=== PATIENT | female | born 1950 | race Caucasian/White ===

== ENCOUNTER 2019-07-27 14:34 | Outpatient (REF) | payer MEDICARE, SELFPAY ==
[2019-07-27 19:12] LABS: Bilirubin Small (Negative); Blood Small (Negative); Clarity Sl Cloudy (Clear); Glucose 500 mg/dL (Negative); Ketones 80 mg/dL (Negative); Leukocyte Esterase Small (Negative); Nitrite Negative (Negative); Specific Gravity 1.025 (1.005-1.025); Urobilinogen 0.2 EU/dL (Up TO 0.2); pH 5.5 (5-8)
[2019-07-27 19:13] LABS: C & S Indicated? C&S Done As Ordered
[2019-07-27 19:33] LABS: WBC >50 HPF (0-5)
[2019-07-27 19:34] LABS: Bacteria Many HPF (Negative); Epithelial Cells Many HPF (Negative)
== END 2019-07-27 14:54 ==
LOC: NCHCN 14:34
PROVIDERS: Visit Provider Nurse Practitioner Family
DX: R30.0 Dysuria (principal); R39.15 Urgency of urination; R31.9 Hematuria, unspecified
CPT/HCPCS: 87077; 81003; 81015; 87086; 87186

== ENCOUNTER 2021-01-07 09:07 | Emergency (ER) | payer OTHER, SELFPAY ==
[2021-01-07 09:09] VITALS: BP 128/60; PULSE 90; RESP 20; TEMP 36.6; O2SAT 98
--- NOTE | 2021-01-07 09:15 | RT.EKG_ITS ---
APPROVED REPORT Exam: Resting ECG Reason for Exam: Fall Patient Location: E HR:78 bpm ECG Measurements Heart Rate 78 AXIS MS 177 P -5 QRSd 84 QRS -30 QT 407 T 34 QTc 464 Conclusion Sinus rhythm...normal P axis, V-rate 60- 99 Inferior infarct, old...Q >35mS, II III aVF
--- NOTE | 2021-01-07 09:15 | DI.RAD_ITS ---
Exam(s) XR HIP PELVIS ADULT BL EXAM: XR HIP PELVIS ADULT BL CLINICAL HISTORY: Fall, Hip Pain. TECHNIQUE: 2D digital imaging was performed. COMPARISON: No exams were available for comparison FINDINGS: BONES: No acute fracture is present. No bony destructive lesion is seen. JOINTS: No dislocation present. Minimal degenerative changes of the hip joints.. SOFT TISSUE: Normal. IMPRESSION: Mild degenerative changes. No evidence of fracture. DATA REPOSITORY: RADIATION DOSE DELIVERED:
--- NOTE | 2021-01-07 09:26 | W.ED.GENAD ---
Discharge Plan Disposition Patient Disposition: HOME Condition: Stable Discharge Details Clinical Impression: Urinary tract infection, Fall, Alcohol intoxication Primary Care Provider: Van Montero ED Provider: Tory Rodriguez Home Meds and New Rx's Prescriptions: New cephalexin 500 mg tablet 500 mg PO BID 7 Days Qty: 14 RF: 0 Discharge Instructions Instructions: Urinary Tract Infection in Women (ED), Fall Prevention for Older Adults (ED), Alcohol Intoxication (ED) Additional Instructions: Follow up with primary care provider in 3-5 days. Return to ED sooner if any worsening or concerns. Increase oral fluids. Take antibiotic as prescribed. Referrals: Van Monteor, ACTUARIAL MATHEMATICIAN [Primary Care Provider] - Discharge Data Discharge Date/Time-TO BE ENTERED AT DEPARTURE: 01/07/21 12:26 Medical Decision Making General labs ordered at this time including CBC, CMP, CK, urinalysis, and pelvis x-ray. 0954: Discussed patient case with care management Ginger regarding possibly contacting social work specialist or Adult Protective Services. At this time work-up is pending. EKG was reviewed by myself, no old EKG available for review. Sinus rhythm no STEMI FINDINGS: Ventricles and Extra axial spaces: Normal in size and morphology for the patient's age. Mild atrophy. Hemorrhage: None. Cerebral parenchyma: Mild white matter changes. Midline shift: None. Brainstem/Cerebellum: Normal. Calvarium: Normal. Visualized Paranasal sinuses/Mastoids: Mucous retention inferior right maxillary sinus. Soft Tissues: Unremarkable. IMPRESSION: Age related atrophy and mild white matter changes. No acute intracranial process. EXAM: XR HIP PELVIS ADULT BL CLINICAL HISTORY: Fall, Hip Pain. TECHNIQUE: 2D digital imaging was performed. COMPARISON: No exams were available for comparison FINDINGS: BONES: No acute fracture is present. No bony destructive lesion is seen. JOINTS: No dislocation present. Minimal degenerative changes of the hip joints.. SOFT TISSUE: Normal. IMPRESSION: Mild degenerative changes. No evidence of fracture. Labs are largely unremarkable. BGL 212, urinalysis shows trace protein, trace blood positive nitrite small leukocytes greater than 50 WBCs. Culture is pending at this time you are 500. Evidence for urinary tract infection. UDS is negative alcohol is 211.5 1150: Patient ambulatory in department up to nurses station requesting some water. Patient has tolerated p.o. here in department without difficulty. Discussed lab and imaging results with patient. She verbalized understanding. I did request to contact her family patient request that I do not contact her daughter. conference services manager wearing string here at bedside for patient discussion regarding resources. Discussed making report with Adult Protective Services regarding the state of the house and patient fall. We will arrange transport home. Patient sent home with cephalexin and a prescription for 7 days for UTI. Given strict follow-up with PCP, verbalized understanding. HPI General Mode of arrival: EMS. Date/Time Provider Initiated Documentation: 01/07/21 09:22. Limitations to Documentation: no limitations. Information obtained by: patient and EMS. HPI Narrative: 70-year-old female presents to the ER with complaint of fall and hip pain. Patient is a poor historian. Patient was found on the floor by first responders was helped up into the bed. Patient denies chest pain shortness of breath no fever no vomiting no diarrhea. She presents disheveled and soiled. She reports being on the floor for the last 4 days. She does have some stage I skin breakdown noted to her coccyx and bilateral hips. Patient states that she could not get herself up due to hip pain. She does endorse alcohol but none for the last 4 to 5 days. She has no palpable skull fractures no C-spine tenderness no midline back tenderness. Patient is moving all 4 extremities without difficulty upon initial exam. Related Data Home Medications Medication Instructions Recorded Confirmed cephalexin 500 mg PO BID 7 Days #14 tab 01/07/21 Previous Rx's Medication Instructions Recorded cephalexin 500 mg PO BID 7 Days #14 tab 01/07/21 Allergies Allergy/AdvReac Type Severity Reaction Status Date / Time No Known Allergies Allergy Unverified 01/07/21 09:20 General Stated Complaint: Orthopedic SETH: 3 Review of Systems Narrative: Constitutional: Negative for weight loss, alert and oriented, thin, disheveled soiled, . HEENT: Denies trauma, headaches, blurry vision, nasal discharge, sore throat, trouble swallowing. Chest: Denies chest pain, palpitations, irregular rhythm, hypertension. Respiratory: Denies Shortness of breath, cough, hemoptysis. GI: Denies abdominal pain, nausea, vomiting, diarrhea, constipation. : Denies dysuria, hematuria, flank pain, rectal bleeding. Neuro: Denies dizziness, blurry vision, syncope, headache or facial numbness. Hematologic: Denies easy bruising, intolerance to heat or cold, hair loss. PFSH Social History Smoking/Tobacco Use Status: Former Tobacco Use Smoking risk assessment performed?: Yes Alcohol Intake: current Alcohol Intake frequency: a few times a week Alcohol type: wine Drug use: Never Substance use type: does not use Exam Narrative Exam Narrative: General: Well Developed, Awake and Alert, conversant. Skin: Moist, covered in stool and urine dark. HEENT: Head: No palpable deformities, Normocephalic Eyes: Pupils PERRLA, EOM's intact. No periorbital eccymosis or step off Ears: Canal patent. Tympanic membranes are clear . No chavira's sign, no hemptympanum. Nose/Face: Atraumatic. Facial bones nontender to palpation and stable with manipulation. Mouth/Throat: No intraoral trauma. Teeth and mandible are intact. Neck: No midline tenderness, no step off, no deformity to palpation of C-spine. Trachea midline. Chest: No surface trauma. Nontender without crepitus or deformity. Lungs clear to ausculatation bilaterally. Heart: RRR, no rubs, murmurs or gallop. Abdomen: No abrasions, ecchymosis, or surface trauma. Nondistended. Nontender to palpation no guarding, rebound, or rigidity. Pelvis: Nontender to palpation and stable to compression. Femoral pulses strong and equal. Erythemic areas noted to the bilateral iliac crest and coccyx blanchable. Extremities no surface trauma. Sensation intact. Peripheral pulses intact and equal. Does have small excoriation type rash to the bilateral upper extremities. Neuro: ANO x4, GCS 15, cranial nerves II through XII intact. Motor and sensory exam nonfocal. Reflexes are symmetric. Course Vital Signs Vital signs: Vital Signs Temperature 36.6 C 01/07/21 09:09 Pulse 90 01/07/21 09:09 Respiratory Rate 20 01/07/21 09:09 Blood Pressure 128/60 01/07/21 09:09 Pulse Oximetry 98 01/07/21 09:09 Temperature 36.6 C 01/07/21 09:09 Temperature Source Skin 01/07/21 09:09 Pulse 90 01/07/21 09:09 Respiratory Rate 20 01/07/21 09:09 Respiratory Effort Non-Labored 01/07/21 09:21 Blood Pressure 128/60 01/07/21 09:09 Blood Pressure Position Sitting 01/07/21 09:09 Pulse Oximetry 98 01/07/21 09:09 Oxygen Delivery Method Room Air 01/07/21 09:09 Oxygen Flow Rate 0 01/07/21 09:09
--- NOTE | 2021-01-07 09:30 | DI.CT_ITS ---
Exam(s) CT HEAD WO EXAM: CT HEAD WO CLINICAL HISTORY: Fall. TECHNIQUE: Imaging Protocol: Axial computed tomography images with coronal and sagittal reformatted images were created and reviewed COMPARISON: No exams were available for comparison FINDINGS: Ventricles and Extra axial spaces: Normal in size and morphology for the patient's age. Mild atrophy. Hemorrhage: None. Cerebral parenchyma: Mild white matter changes. Midline shift: None. Brainstem/Cerebellum: Normal. Calvarium: Normal. Visualized Paranasal sinuses/Mastoids: Mucous retention inferior right maxillary sinus. Soft Tissues: Unremarkable. IMPRESSION: Age related atrophy and mild white matter changes. No acute intracranial process. RADIATION DOSE DELIVERED: 731.08mGy.cm Total DLP DATA REPOSITORY: All CT scans at this facility are submitted to the National Radiology Data Registry (NRDR) Dose Index Registry (DIR) with the [employer] (A[employer]). RADIATION OPTIMIZATION: All CT scans at this facility use at least one of these dose optimization te chniques: automated exposure control; mA and/or kV adjustment per patient size (includes targeted exa ms where dose is matched to clinical indication); or iterative reconstruction.
[2021-01-07 10:04] LABS: Abs Immature Grans 0.03 10^3/uL (0.0-0.06); Absolute Basophil Count 0.06 10^3/uL (0.0-0.2); Absolute Eosinophil Count 0.25 10^3/uL (0.0-0.7); Absolute Lymphocyte Count 1.92 10^3/uL (1.2-3.4); Absolute Monocyte Count 0.72 10^3/uL (0.1-0.8); Absolute Neutrophil Count 4.54 10^3/uL (1.2-6.7); Basophils % 0.8; Eosinophils % 3.3; HGB 13.9 g/dL (11.2-15.7); Immature Grans % 0.4; Lymphocytes % 25.5; MCH 30.5 pg (27.0-33.0); MCHC 33.1 % (32.0-36.0); MCV 92.3 fL (80-95); MPV 9.6 fL (8.0-11.0); Monocytes % 9.6; Neutrophils % 60.4; Nucleated RBC 0 %; Platelet Count 243 10^3/uL (130-400); RBC 4.55 10^6/uL (3.93-5.22); RDW 12.5 % (11.7-14.6); WBC 7.52 10^3/uL (4.4-10.8)
[2021-01-07 10:08] LABS: Bilirubin Negative (Negative); Blood Trace-intact (Negative); Clarity Cloudy (Clear); Glucose 500 mg/dL (Negative); Ketones Negative (Negative); Leukocyte Esterase Small (Negative); Nitrite Positive (Negative); Urobilinogen 0.2 EU/dL (Up TO 0.2); pH 5.5 (5-8)
[2021-01-07 10:17] LABS: Bacteria Packed HPF (Negative); C & S Indicated? Yes; WBC >50 HPF (0-5)
[2021-01-07 10:19] LABS: ALT 20 U/L (14-59); AST 24 U/L (15-37); Albumin 3.2 g/dL (3.4-5.0); Alkaline Phosphatase 87 U/L (46-116); Anion Gap 9.5 mmol/L (3-11); BUN 6 mg/dL (7-18); Bilirubin, Total 0.4 mg/dL (0.2-1.0); CO2 27.5 mmol/L (21.0-32.0); CREATININE 0.7 mg/dL (0.55-1.02); Calcium 8.8 mg/dL (8.5-10.1); Chloride 104 mmol/L (98-107); Creatine Kinase 75 U/L (26-192); ETHANOL BLOOD 211.5 mg/dL (<3); Glucose 212 mg/dL (74-106); Magnesium 2.1 mg/dL (1.8-2.4); Potassium 3.6 mmol/L (3.5-5.1); Sodium 141 mmol/L (136-145); Total Protein 7.3 g/dL (6.4-8.2)
[2021-01-07 10:20] LABS: Troponin I < 0.05 ng/mL (<0.06)
[2021-01-07 10:24] LABS: *AMPHETAMINES SCREEN URINE Negative (Negative); *BARBITURATES SCREEN URINE Negative (Negative); *BENZODIAZEPINES SCREEN URINE Negative (Negative); Cannabinoids THC Negative (Negative); Cocaine Screen,Urine Negative (Negative); METHADONE URINE SCREEN Negative (Negative); OPIATES URINE SCREEN Negative (Negative)
[2021-01-07 10:26] LABS: Tricyclic Antidepressants Negative (Negative)
[2021-01-07] MEDS: Cephalexin 500 MG CAP PO (11:44)
[2021-01-07] MEDS: Normal Saline Flush 10 ML SYR IVP (11:44)
[2021-01-07] MEDS: Cephalexin 500 MG CAP, 4 CAPS/BTL PO (12:10)
[2021-01-07 12:20] VITALS: BP 121/101; PULSE 93; RESP 18; TEMP 37; O2SAT 98
[2021-01-07 12:21] VITALS: BP 121/101; PULSE 93; RESP 18; TEMP 37; O2SAT 98
--- NOTE | 2021-01-07 14:17 | PDOC.ERCMPRO ---
- If Service Date Differs Date of service: 01/07/21 Time of Service: 14:17 Care Management Progress Note Ester presents in the ED via EMS after reportedly falling at home and laying on the floor for several days. At the request of ED provider, MILLER meets with Ester to assess her needs and offer services. Ester declines all services and says she has some friends who help her out when needed. MILLER also receives a telephone call from Dre Kearns, [facility] Director, who advises that Ester's living condition is deplorable. Hoarding behaviors have reportedly rendered her apartment unsafe. Dre states he has spoken with the [facility]. and has been advised that [facility] management are in the process of evicting Ester from the apartment. At the request of ED provider, MILLER files an APS report (#[id number]). MILLER also contacts Ester's PCP's office to enlist their help in supporting Ester in the community.
== END 2021-01-07 12:26 | disposition home or self-care (01) ==
LOC: ER 12:08
PROVIDERS: Emergency Provider Registered Nurse Emergency; PCP Nurse Practitioner Family
DX: N39.0 Urinary tract infection, site not specified (principal); F10.120 Alcohol abuse with intoxication, uncomplicated; Y90.7 Blood alcohol level of 200-239 mg/100 ml; W19.XXXA Unspecified fall, initial encounter; M25.551 Pain in right hip; M25.552 Pain in left hip
CPT/HCPCS: 36415; 51701; 73521; 80053; 80307; 82550; 87077; 93005; 99285; 70450; 80320; 81003; 81015; 83735; 84484; 85025; 87086; 87186; 93010; 99284

== ENCOUNTER 2021-02-01 04:24 | Emergency (ER) | payer OTHER, SELFPAY ==
--- NOTE | 2021-02-01 04:25 | ED.GENADUL_ITS ---
Discharge Plan Disposition Patient Disposition: HOME Condition: Good Discharge Details Clinical Impression: Alcohol intoxication, Laceration of elbow with foreign body Primary Care Provider: Van Montero ED Provider: Nino Ovalles [place] Meds and New Rx's Prescriptions: New cephalexin 500 mg capsule 500 mg PO Q8H Qty: 14 RF: 0 Discharge Instructions Instructions: Laceration (ED) Additional Instructions: Keep your wound clean and dry. Remove bandage and clean the area and reapply antibiotic ointment twice daily. Take antibiotics have been prescribed to prevent infection. Sutures need to come out in 10 to 14 days. Watch for any signs of infection which will include increasing pain, redness, swelling, decreased range of motion, fever. Consider drinking alcohol in moderation in the future to prevent accidental injuries like this. Referrals: [facility] [Provider Group] Medical Decision Making Patient with no other apparent injury other than laceration as well as left elbow area. She has normal range of motion. Neurovascularly intact distally. She is intoxicated. Tetanus will be updated as she does not know when she had previous tetanus shot. X-ray of the left elbow obtained. Per my review no fracture or foreign body. A large piece of glass removed from the linear l aceration prior to going to x-ray. Wounds were anesthetized with 1% lidocaine with epinephrine. Wound irrigated with copious amounts of saline. Wound explored with no other foreign bodies found. Linear laceration involving dorsum of the forearm extending toward the olecranon does appear to involve bursa. Capsule of the elbow joint intact. Bursa closed with two 5-0 Vicryl sutures. Skin closed with 4-0 nylon. Stellate laceration on medial aspect of elbow closed with 4-0 nylon. Patient tolerated procedure well. Patient will be allowed to sleep here and sober up prior to discharge home. She was reexamined after being completely undressed with no other injury noted. I will place her on cephalexin for 5 days given the penetrating injury due to be large piece of glass, as well as bursa involvement, as well as extended open time while she was lying on the floor at her apartment. 07:20 - Patient has been up and ambulated to the bathroom without difficulty. She refused cephalexin in the ER. She received ibuprofen for pain but still complained of her elbow hurting. She continues to move it without difficulty. She is given Tylenol. At this point time her speech is much more clear, her gait is steady and her mentation is much improved. We will plan breakfast and discharge home. HPI General Mode of arrival: EMS . Date/Time Provider Initiated Documentation: 02/01/21 04:25 . Limitations to Documentation: other (intoxicated) . Information obtained by: patient, EMS and RN notes reviewed . HPI Narrative: Patient brought in by ambulance after a fall on to a broken picture frame at home while intoxicated. Patient has lacerations involving her left elbow. She is able to range the elbow relatively well. She has some bruising around the right elbow. She denies other injury, but has been drinking. Denies striking her head. Does not know when her last tetanus was. Denies taking any medications. Related Data Home Medications Medication Instructions Recorded Confirmed cephalexin 500 mg PO Q8H #14 cap 02/01/21 Previous Rx's Medication Instructions Recorded cephalexin 500 mg PO Q8H #14 cap 02/01/21 Allergies Allergy/AdvReac Type Severity Reaction Status Date / Time No Known Allergies Allergy Unverified 02/01/21 04:31 General SETH: 3 Review of Systems Unobtainable due to mental status (Alcohol intoxication) [facility] Medical History Alcohol abuse Surgical History Surgical history unknown Social History Smoking/Tobacco Use Status: Former Tobacco Use Smoking risk assessment performed?: Yes Alcohol Intake: current Alcohol Intake frequency: 0-2 drinks per day Alcohol type: wine Drug use: Never Substance use type: does not use Do you feel safe at home: Yes Exam Narrative Exam Narrative: Const: Elderly, unkempt, intoxicated female covered in blood. HEENT: NC/AT. Normal facial exam. Eyes: Normal conjunctiva and sclera. PERRL and EOMI. Neck: Supple. Trachea midline. No tenderness. Lungs: Normal respiratory effort. Lungs are clear. Cor: RRR. Good radial pulses. GI: Soft. NT/ND. No guarding or rebound. Neuro: A+O x 3. Relatively clear speech. Cranial nerves II - XII grossly intact. No gross motor or sensory deficit. Ext: No C/C/E. No obvious deformity and good range of motion of both elbows. Laceration with large piece of glass just distal to the elbow on the dorsal aspect of the forearm. Smaller laceration medial aspect of the elbow. Skin: Warm and dry. Linear laceration left proximal forearm measuring 4 cm. Stelate laceration medial aspect elbow measuring 1/2 cm. Procedures Laceration Laceration 1: Site: upper extremity Side (If applicable): left Size (cm): 4 Description: linear Local Anesthetic: Lidocaine 1% and with Epi Amount of anesthesia used (mL): 2.5 Pre-repair: wound explored and irrigated extensively Skin layer closed with: nylon Size (cm): 4-0 Number of sutures: 5 Technique: simple, interrupted Subcutaneous layer closed with: vicryl Size: 5-0 Number of sutures: 2 Technique: simple, interrupted Laceration 2: Site: upper extremity Side (If applicable): left Size (cm): 1 Description: stellate Depth: simple, single layer Local Anesthetic: Lidocaine 1% and with Epi Amount of anesthesia used (mL): 1 Pre-repair: wound explored and irrigated extensively Skin layer closed with: nylon Size (cm): 4-0 Number of sutures: 3
[2021-02-01 04:28] VITALS: BP 104/69; PULSE 74; RESP 16; TEMP 36.2; O2SAT 97
--- NOTE | 2021-02-01 04:30 | DI.RAD_ITS ---
Exam(s) XR ELBOW LT COMPLETE EXAM: XR ELBOW LT COMPLETE CLINICAL HISTORY: trauma TECHNIQUE: COMPARISON: No exams were available for comparison FINDINGS: Three views were obtained. The lateral view is not appropriately aligned and the humeral fat pads ca nnot be evaluated. No gross fracture identified on this incomplete series. Lateral view recommended . IMPRESSION: RADIATION DOSE DELIVERED: Total DLP
--- NOTE | 2021-02-01 05:21 | DI.VRAD_ITS ---
PROCEDURE INFORMATION: Exam: XR Left Elbow Exam date and time: 02/01/2021 4:42 AM Age: 70 years old Clinical indication: Pain; Elbow; Left; Patient HX: Laceration TECHNIQUE: Imaging protocol: XR Left elbow. Views: 3 or more views. COMPARISON: No relevant prior studies available. FINDINGS: Bones/joints: Normal. Soft tissues: Normal. IMPRESSION: No acute findings. Dictated and Authenticated by: Dre Briggs MD. Ordering:REYNA Oneill MD
[2021-02-01] MEDS: Ibuprofen 400 MG TAB PO (06:53)
[2021-02-01] MEDS: Acetaminophen 500 MG TAB 1000 MG PO (07:30)
[2021-02-01 07:59] VITALS: BP 111/53; PULSE 99; RESP 16; TEMP 36.4; O2SAT 93
== END 2021-02-01 07:58 | disposition home or self-care (01) ==
LOC: ER 06:03
PROVIDERS: Emergency Provider Emergency Medicine; PCP Nurse Practitioner Family
DX: S51.022A Laceration with foreign body of left elbow, initial encounter (principal); W01.110A Fall on same level from slipping, tripping and stumbling with subsequent striking against sharp glass, initial encounter; F10.129 Alcohol abuse with intoxication, unspecified
CPT/HCPCS: 12002; 90471; 99284; 73080; 99283

== ENCOUNTER 2021-04-05 08:54 | Emergency (ER) | payer OTHER, SELFPAY ==
[2021-04-05 08:54] VITALS: BP 118/69; PULSE 80; RESP 18; TEMP 36.3; O2SAT 99
--- NOTE | 2021-04-05 09:34 | ED.GENADUL_ITS ---
Discharge Plan Disposition Patient Disposition: HOME Condition: Stable Discharge Details Clinical Impression: Fall, Urinary tract infection, Alcohol intoxication Primary Care Provider: Van Montero ED Provider: Johnathan Corley Home Meds and New Rx's Prescriptions: New thiamine HCl (vitamin B1) 100 mg tablet 100 mg PO DAILY Qty: 30 RF: 0 No Action clopidogrel 75 mg Tablet 75 mg PO DAILY Qty: 30 RF: 0 aspirin 81 mg Tablet,Delayed Release (Dr/Ec) 81 mg PO DAILY Qty: 30 RF: 0 cefpodoxime 200 mg tablet 200 mg PO BID Qty: 8 RF: 0 metformin 500 mg tablet 500 mg PO BID Qty: 60 RF: 0 atorvastatin 40 mg Tablet 80 mg PO QPM Qty: 60 RF: 0 cyanocobalamin (vitamin B-12) [Vitamin B-12] 500 mcg Tablet 1,000 mcg PO DAILY Qty: 30 RF: 0 folic acid 1 mg Tablet 1 mg PO QAM Qty: 30 RF: 0 Discharge Instructions Instructions: Urinary Tract Infection in Women (ED), Fall Prevention for Older Adults (ED), Alcohol Intoxication (ED) Additional Instructions: Please follow-up with [facility]. Call today. Please take vitamin thiamine as prescribed. Take full course of antibiotic as prescribed. You received your first dose here in the emergency department. Your next dose is late tonight. Please follow-up with your primary care physician. Call on Wednesday to arrange follow-up. Return to the emergency department immediately for any worsening or new concerning symptoms. Referrals: [facility] [Outside] Van Montero, JOEY [Primary Care Provider] - Discharge Data Discharge Date/Time-TO BE ENTERED AT DEPARTURE: 04/05/21 15:36 Medical Decision Making 937 --71-year-old female here after fall from right hip giving out while walking on uneven pavement. Right hip is nontender with full range of motion. Patient neurologically intact. No syncope. No other traumatic injuries. Patient has had recent urinary symptoms of the past 1 to 2 weeks. Plan to obtain urinalysis to assess for UTI. Patient has well-healed laceration with intact sutures left forearm. Sutures removed by nursing without complication under my direction. --Blood alcohol level is significantly elevated. Patient denies alcohol use other than last night when she states she had a single glass of wine. --Patient's daughter called and noted that patient has alcohol use disorder and has struggled with alcoholism for some time. football coach was consulted and came and evaluated patient. Resources were provided --UA reviewed and consistent with UTI. Initiated treatment with keflex. --Patient was reassessed and was noted to be sleeping comfortably in no distress. 1535 --patient reassessed and is clinically sober, requesting discharge. Patient provided informed refusal gynecologic exam and requested nursing perform external exam. Nurse Rachel performed exam and noted no significant bleeding source externally. Plan for discharge with close outpatient follow-up. I will start patient on thiamine. I have asked for care management to be involved to assist in arrangi ng timely outpatient follow-up. Disposition decision was made weighing the risks and benefits of hospitalization versus outpatient treatment, the risk for further decompensation, and the patient's wishes. The patient was stable and requested discharge. Prior to discharge, my usual and customary return precautions were reviewed with the patient - this included follow-up instructions and reason to return to the emergency department if condition worsens, does not improve as expected, or other new concerns arise. Fall prevention instructions were provided to the patient on diacharge. HPI General Mode of arrival: EMS . Date/Time Provider Initiated Documentation: 04/05/21 09:12 . Limitations to Documentation: no limitations . Information obtained by: patient . HPI Narrative: 71-year-old female with history of alcohol abuse, urinary tract infection, here after fall while walking down street. She notes her right hip gave out. This has happened in the past. She notes mild right hip pain. No loss of consciousness. She did not hit her head. She has no other injury or pain. No associated numbness or tingling. No low back pain. Patient does note that she has had dysuria and recent hematuria and is concerned she has no urinary tract infection. Symptoms have been present over the past 1 to 2 weeks. No associated fever. No associated nausea. Patient does admit to consuming a small amount of red wine last night for her birthday. She denies EtOH today. Related Data Home Medications Medication Instructions Recorded Confirmed thiamine HCl (vitamin B1) 100 mg PO DAILY #30 tab 04/05/21 04/10/21 aspirin 81 mg PO DAILY #30 tab 04/11/21 atorvastatin 80 mg PO QPM #60 tab 04/11/21 cefpodoxime 200 mg PO BID #8 tab 04/11/21 clopidogrel 75 mg PO DAILY #30 tab 04/11/21 cyanocobalamin (vitamin B-12) 1,000 mcg PO DAILY #30 tab 04/11/21 [Vitamin B-12] folic acid 1 mg PO QAM #30 tab 04/11/21 metformin 500 mg PO BID #60 tab 04/11/21 Previous Rx's Medication Instructions Recorded thiamine HCl (vitamin B1) 100 mg PO DAILY #30 tab 04/05/21 aspirin 81 mg PO DAILY #30 tab 04/11/21 atorvastatin 80 mg PO QPM #60 tab 04/11/21 cefpodoxime 200 mg PO BID #8 tab 04/11/21 clopidogrel 75 mg PO DAILY #30 tab 04/11/21 cyanocobalamin (vitamin B-12) 1,000 mcg PO DAILY #30 tab 04/11/21 [Vitamin B-12] folic acid 1 mg PO QAM #30 tab 04/11/21 metformin 500 mg PO BID #60 tab 04/11/21 Allergies Allergy/AdvReac Type Severity Reaction Status Date / Time No Known Allergies Allergy Unverified 04/10/21 09:42 General Stated Complaint: Orthopedic SETH: 3 Review of Systems All systems reviewed & are unremarkable except as noted in HPI and below Constitutional Constitutional: Denies fever(s) Musculoskeletal Musculoskeletal: Reports as per HPI [facility] Medical History Alcohol abuse Surgical History Surgical history unknown Social History Smoking/Tobacco Use Status: Former Tobacco Use Smoking risk assessment performed?: Yes Alcohol Intake: current Alcohol Intake frequency: 0-2 drinks per day Alcohol type: wine Drug use: Never Substance use type: does not use Do you feel safe at home: Yes Do you feel safe in your relationship?: Yes Exam Const General: cooperative and no acute distress [facility] Head: normocephalic and atraumatic Mouth: moist mucous membranes Eyes Conjunctivae: normal conjunctivae Sclera: normal sclerae Neck Neck: trachea midline and supple Resp Auscultation: clear to auscultation bilaterally, no rales, no rhonchi and no wheezes Cardio Rate: regular rate and not tachycardic Rhythm: regular rhythm GI Palpation: soft, not firm, no guarding, no masses, not rigid and nontender Skin General skin exam: no rashes or lesions noted Neuro General: patient alert, patient awake, patient oriented x3 and tone normal Other: Distal right lower extremity sensation and motor intact Extrem General: no edema Right lower extremity: hip/thigh Details: normal ROM; no tenderness, no swelling, no crepitus and no deformity and knee Details: normal ROM; no tenderness and no swelling Psych Appearance: grossly normal Mental Status: mental status grossly normal Speech and Movement: speech and movement normal Course Vital Signs Vital signs: Vital Signs Temperature 36.3 C L 04/05/21 08:54 Pulse 80 04/05/21 08:54 Respiratory Rate 18 04/05/21 08:54 Blood Pressure 118/69 04/05/21 08:54 Pulse Oximetry 99 04/05/21 08:54 Temperature 36.3 C L 04/05/21 08:54 Temperature Source Temporal Artery Scan 04/05/21 08:54 Pulse 80 04/05/21 08:54 Respiratory Rate 18 04/05/21 08:54 Respiratory Effort Non-Labored 04/05/21 08:59 Blood Pressure 118/69 04/05/21 08:54 Blood Pressure Position Sitting 04/05/21 08:54 Pulse Oximetry 99 04/05/21 08:54 Oxygen Delivery Method Room Air 04/05/21 08:54 Oxygen Flow Rate 0 04/05/21 08:54 Pain Level 6 04/05/21 08:54 PAWSS Have you Been Recently Intoxicated or Drunk Within the Last 30 days?: No Have you Ever Experienced Previous Episodes of Alcohol Withdrawal?: No Have you ever Experienced Withdrawal Seizures?: No Have you ever Experienced Delirium Tremens(DT)s?: No Have you ever undergone Alcohol Rehabilitation Treatment (i.e, inpt ot outpatient treatment programs)?: No Have you ever Experienced Blackouts?: No Have you ever Combined Alcohol with other Downers within the last 90 days?: No Have you ever Combined Alcohol with any other Substance of Abuse during the last 90 days?: No Positive Blood Alcohol level on Presentation? [PCS.BAL]: No Evidence of Increased Autonomic Activity (i.e. HR>120, tremor, sweating, agitation, nausea)?: No Result: 0
--- NOTE | 2021-04-05 09:45 | DI.RAD_ITS ---
Exam(s) XR HIP RT COMPLETE AP PELVIS EXAM: XR HIP RT COMPLETE AP PELVIS CLINICAL HISTORY: pain right hip. TECHNIQUE: 2D digital imaging was performed. COMPARISON: CR XR HIP PELVIS ADULT BL from 01/07/2021 FINDINGS: Two views of the pelvis and right hip reveal no evidence of pelvic nor hip fracture. No obvious dege nerative changes. No abnormal soft tissue calcifications. IMPRESSION: No significant radiographic findings. No degenerative changes. No fracture. DATA REPOSITORY: RADIATION DOSE DELIVERED:
[2021-04-05 10:04] LABS: Bilirubin Negative (Negative); Blood Large (Negative); Clarity Sl Cloudy (Clear); Glucose 250 mg/dL (Negative); Ketones Negative (Negative); Leukocyte Esterase Moderate (Negative); Nitrite Positive (Negative); Urobilinogen 0.2 EU/dL (Up TO 0.2); pH 5.5 (5-8)
[2021-04-05 10:11] LABS: Bacteria Many HPF (Negative); C & S Indicated? Yes; Casts Negative LPF (Negative); Crystals Negative HPF (Negative); Epithelial Cells Rare HPF (Negative); Mucus Trace (Negative); RBC >50 HPF (0-2); WBC 20-50 HPF (0-5)
[2021-04-05] MEDS: Acetaminophen 325 MG TAB PO (10:18)
[2021-04-05 10:29] LABS: ETHANOL BLOOD 224.5 mg/dL (<3)
[2021-04-05 10:45] VITALS: BP 91/45; PULSE 81; RESP 18; O2SAT 99
--- NOTE | 2021-04-05 10:53 | NUR.NOTE ---
patient came by EMS. PAtient only had the clothes she was wearing. patient stated her pusre was on [address] No purse or cell phone came in with patient
--- NOTE | 2021-04-05 11:07 | NUR.NOTE ---
Nursing Note: pt received black cell phone via police while in room 7. Pt called daughter while in room per pt report.
[2021-04-05] MEDS: Cephalexin 500 MG CAP PO (11:44)
[2021-04-05 11:45] VITALS: BP 104/46; PULSE 80; RESP 18; TEMP 36.5; O2SAT 99
--- NOTE | 2021-04-05 12:11 | DI.VRAD_ITS ---
PROCEDURE INFORMATION: Exam: XR Right Hip Exam date and time: 04/05/2021 9:53 AM Age: 71 years old Clinical indication: Hip pain; Right hip; Patient HX: Fall this am TECHNIQUE: Imaging protocol: XR Right hip. Views: 2 or 3 views hip with pelvis when performed. COMPARISON: CR XR HIP PELVIS ADULT BL 01/07/2021 11:03 AM FINDINGS: Bones/joints: Unremarkable. No acute fracture. Soft tissues: Unremarkable. Vasculature: Multiple pelvic phleboliths are present. IMPRESSION: No acute findings. Dictated and Authenticated by: Toro Holly MD. Ordering:HENRY Mann MD
[2021-04-05 12:30] VITALS: BP 100/52; PULSE 78; RESP 20; O2SAT 99
[2021-04-05 14:11] VITALS: BP 134/62; PULSE 92; RESP 18; TEMP 36.5; O2SAT 99
--- NOTE | 2021-04-05 14:14 | NUR.NOTE ---
Nursing Note: 04/05/21 1414 Pt denies headache, seeing anything or hearing anything unusual, no tremors noted, no perspiration.
== END 2021-04-05 15:36 | disposition home or self-care (01) ==
PROVIDERS: Emergency Provider Student in an Organized Health Care Education/Training Program; PCP Nurse Practitioner Family
DX: N39.0 Urinary tract infection, site not specified (principal); B96.89 Other specified bacterial agents as the cause of diseases classified elsewhere; M25.551 Pain in right hip; W18.39XA Other fall on same level, initial encounter; S51.812A Laceration without foreign body of left forearm, initial encounter; Z48.02 Encounter for removal of sutures; F10.20 Alcohol dependence, uncomplicated; Y90.7 Blood alcohol level of 200-239 mg/100 ml
CPT/HCPCS: 36415; 36416; 82962; 87077; 99283; 73502; 80320; 81003; 81015; 87086; 87186

== ENCOUNTER 2021-04-10 09:32 | Observation (INO) | payer OTHER, SELFPAY ==
[2021-04-10] VITALS (11 sets, daily range): BP systolic 140–163; BP diastolic 77–86; PULSE 76–103; RESP 12–20; TEMP 35.6–36.6; O2SAT 92–98
--- NOTE | 2021-04-10 09:39 | W.ED.GENAD ---
Discharge Plan Disposition Patient Disposition: [facility] Condition: Stable Discharge Details Clinical Impression: Acute CVA (cerebrovascular accident) Primary Care Provider: Van Montero ED Provider: Jasmin Cortes Home Meds and New Rx's Prescriptions: No Action thiamine HCl (vitamin B1) 100 mg tablet 100 mg PO DAILY Qty: 30 RF: 0 Medical Decision Making patient presents with left leg numbness. no other deficit or c/o, now resolved. denies similar history will obtain cta head and neck, and basic labs. she has ETOH use history, concern for withdrawal potential but patient denies. CT angio head and neck results discussed with Dr Alvarado recommendations for asa 81 mg and plavix 300 mg which was administered. case discussed with DR Leos who accepts patient for stroke evaluation and treatment. Medical Records Medical records reviewed: Yes I reviewed the patient's medical records. Imaging Data Radiologic Study: Imaging: MRI Radiologist's impression: Exam(s) MR BRAIN WO EXAM: MR BRAIN WO CLINICAL HISTORY: cva TECHNIQUE: Multiplanar multisequence MRI of the brain was performed. COMPARISON: No exams were available for comparison FINDINGS: There is moderate generalized cerebral atrophy. There are scattered areas of periventricular signal abnormality consistent with microvascular ischemic changes. The orbital and temporal bone structures appear intact as does the pituitary. Diffusion weighted imaging shows no evidence of infarction. Susceptibility weighted imaging shows no evidence of intracranial hemorrhage. There is normal flow void in the [place] vasculature. IMPRESSION: No evidence of acute intracranial process. No evidence of acute or subacute cerebral infarction. Radiologic Study #2: Imaging: CT Scan Radiologist's impression: Exam(s) a CT:CT brain & neck CTA Exam(s) CT BRAIN NECK CTA EXAM: CT BRAIN NECK CTA CLINICAL HISTORY: left leg numbness. TECHNIQUE: Imaging Protocol: Axial CT angiography was performed with multi-slice acquisition and multi-planar and/or 3D reconstructions. CONTRAST MATERIAL: Intravenous: Omnipaque 350 Contrast volume:structured data in ml COMPARISON: No exams were available for comparison FINDINGS: CT angiography of the cervical cranial region was performed according to the usual protocol with intravenous infusion of 85 cc of Omnipaque 350.. Initial noncontrast scanning of the head is unremarkable except for mild generalized cerebral atrophy.. Visualized lung apices are clear. Visualized portions of thoracic aorta and pulmonary arterial circulation are unremarkable. There is no evidence of a cervical mass or adenopathy. The tracheal laryngeal structures appear intact. Note is made wall calcification at the carotid bifurcations bilaterally. There is stenosis origin left internal carotid artery estimated at 50-70 percent of the luminal diameter of the vessel. A 50 percent to 70 percent luminal diameter stenosis of the origin of the right internal carotid artery as well. Right vertebral artery is unremarkable appearance in its cervical course except for slight wall calcification noted multiple sites. No aneurysm, dissection, or stenosis. Left vertebral shows critical to occlusive stenosis at its origin. There is critical stenosis C3-4 vertebral level as well. No other focal lesion identified in left vertebral. Intracranial portions of the internal carotid arteries appear normal with no evidence of aneurysm, stenosis, or dissection. Intracranial vertebral arteries and basilar artery appear normal with no evidence of aneurysm, stenosis or dissection. No aneurysm identified in the region of the [id number]. The anterior, middle, and posterior cerebral arteries and major branches appear intact with no evidence of aneurysm, stenosis, or dissection. No enhancing brain lesion identified on 5 minutes delayed images.. 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 Critical stenosis of left vertebral artery to C4 level noted as well. 50-70 percent luminal diameter stenosis of the origins of the right and left internal carotid arteries. No other significant findings. Lab Data Lab results reviewed: Yes I reviewed the patient's lab results. Lab results narrative: Laboratory Results - last 24 hr 04/10/21 04/10/21 04/10/21 09:57 09:57 09:57 WBC 11.67 H RBC 4.82 Hgb 14.5 Hct 43.9 MCV 91.1 MCH 30.1 MCHC 33.0 RDW 12.6 Plt Count 394 MPV 9.8 Immature Gran % 0.6 Neutrophils % 80.6 Lymphocytes % 12.3 Monocytes % 5.2 Eosinophils % 0.4 Basophils % 0.9 Nucleated RBC % 0 Absolute Neutrophils 9.41 H Absolute Lymphocytes 1.44 Absolute Monocytes 0.61 Absolute Eosinophils 0.05 Absolute Basophils 0.11 PT INR Sodium 139 Potassium 4.1 Chloride 101 Carbon Dioxide 27.5 Anion Gap 10.5 BUN 6 L Creatinine 0.9 Estimated GFR/1.73 m2 >= 60.00 Glucose 223 H Hemoglobin A1c Calcium 9.4 Magnesium 1.8 Total Bilirubin 0.7 AST 16 ALT 15 Alkaline Phosphatase 123 H Total Protein 8.1 Albumin 3.4 Triglycerides 59 Total Cholesterol 209 H LDL Cholesterol, Calc 124 H HDL Cholesterol 74 COVID-19 Source 04/10/21 04/10/21 04/10/21 09:57 13:13 13:25 WBC RBC Hgb Hct MCV MCH MCHC RDW Plt Count MPV Immature Gran % Neutrophils % Lymphocytes % Monocytes % Eosinophils % Basophils % Nucleated RBC % Absolute Neutrophils Absolute Lymphocytes Absolute Monocytes Absolute Eosinophils Absolute Basophils PT 11.2 H INR 1.1 Sodium Potassium Chloride Carbon Dioxide Anion Gap BUN Creatinine Estimated GFR/1.73 m2 Glucose Hemoglobin A1c 7.6 H Calcium Magnesium Total Bilirubin AST ALT Alkaline Phosphatase Total Protein Albumin Triglycerides Total Cholesterol LDL Cholesterol, Calc HDL Cholesterol COVID-19 Source Nasal/Nares HPI General Mode of arrival: EMS. Date/Time Provider Initiated Documentation: 04/10/21 09:39. Limitations to Documentation: no limitations. Information obtained by: patient. HPI Narrative: patient presents by ems with c/o left leg numbness that occurred overnight and has resolved. she states she has been in her usual state of health. she appears tremulous. she reports she drinks 2 glasses of wine a day, denies withdrawal seizures or issues. states she recently went sober for one month with no issue. she denies any similar history of leg numbness, denies weakness, visual changes. she is reporting a headache, which she gets occasionally. She reports she typically has bilateral hip pain and has since she fell on ice over the winter. Related Data Home Medications Medication Instructions Recorded Confirmed thiamine HCl (vitamin B1) 100 mg PO DAILY #30 tab 04/05/21 04/10/21 Previous Rx's Medication Instructions Recorded thiamine HCl (vitamin B1) 100 mg PO DAILY #30 tab 04/05/21 Allergies Allergy/AdvReac Type Severity Reaction Status Date / Time No Known Allergies Allergy Unverified 04/10/21 09:42 General SETH: 3 Review of Systems All systems reviewed & are unremarkable except as noted in HPI and below Constitutional Constitutional: Denies difficulty sleeping, Denies fatigue and Reports headache(s) Eyes Eyes: Denies change in vision ENT Ears, Nose, Mouth, and Throat: Reports headache(s) Cardiovascular Cardiovascular: Denies chest pain, Denies chest pain with activity and Denies dyspnea Respiratory Respiratory: Denies cough and Denies dyspnea Gastrointestinal Gastrointestinal: Denies abdominal pain and Denies nausea Musculoskeletal Musculoskeletal: Denies arthralgias Neurologic Neurologic: Reports headache(s), Denies seizure-like activity and Reports paresthesias Endocrine Endocrine: Denies fatigue [facility] Medical History Alcohol abuse Surgical History Surgical history unknown Social History Smoking/Tobacco Use Status: Former Tobacco Use Smoking risk assessment performed?: Yes Alcohol Intake: current Alcohol Intake frequency: 0-2 drinks per day Alcohol type: wine Drug use: Never Substance use type: does not use Do you feel safe at home: Yes Do you feel safe in your relationship?: Yes Exam Const General: cooperative, anxious, disheveled (unkempt, smells of urine) and frail appearing (older than stated age) Nutritional Appearance: average body habitus Orientation: alert, awake and oriented x3 HENMT Head: normal to inspection, normocephalic and atraumatic Resp Effort & Inspection: normal respiratory effort Auscultation: clear to auscultation bilaterally Cardio Rate: regular rate Rhythm: regular rhythm GI Inspection: normal to inspection Palpation: soft Auscultation: normal bowel sounds Neuro General: patient alert, patient awake, patient oriented x3, tone normal and moves all extremities Cranial Nerves: PERRL, EOM intact bilaterally, facial strength normal, tongue midline and able to elevate shoulders bilaterally Cognition: normal cognition Speech: speech normal Motor: muscle tone normal throughout, strength 5/5 throughout and tremor Extrem General: normal to inspection, full ROM and no pedal edema
--- NOTE | 2021-04-10 09:45 | DI.CT_ITS ---
Exam(s) CT BRAIN NECK CTA EXAM: CT BRAIN NECK CTA CLINICAL HISTORY: left leg numbness. TECHNIQUE: Imaging Protocol: Axial CT angiography was performed with multi-slice acquisition and mu lti-planar and/or 3D reconstructions. CONTRAST MATERIAL: Intravenous: Omnipaque 350 Contrast volume:structured data in ml COMPARISON: No exams were available for comparison FINDINGS: CT angiography of the cervical cranial region was performed according to the usual protocol with intr avenous infusion of 85 cc of Omnipaque 350.. Initial noncontrast scanning of the head is unremarkable except for mild generalized cerebral atrophy .. Visualized lung apices are clear. Visualized portions of thoracic aorta and pulmonary arterial circul ation are unremarkable. There is no evidence of a cervical mass or adenopathy. The tracheal laryngeal structures appear intact. Note is made wall calcification at the carotid bifurcations bilaterally. There is stenosis origin le ft internal carotid artery estimated at 50-70 percent of the luminal diameter of the vessel. A 50 pe rcent to 70 percent luminal diameter stenosis of the origin of the right internal carotid artery as w ell. Right vertebral artery is unremarkable appearance in its cervical course except for slight wall calci fication noted multiple sites. No aneurysm, dissection, or stenosis. Left vertebral shows critical to occlusive stenosis at its origin. There is critical stenosis C3-4 v ertebral level as well. No other focal lesion identified in left vertebral. Intracranial portions of the internal carotid arteries appear normal with no evidence of aneurysm, st enosis, or dissection. Intracranial vertebral arteries and basilar artery appear normal with no evidence of aneurysm, stenos is or dissection. No aneurysm identified in the region of the [id number]. The anterior, middle, and posterior cer ebral arteries and major branches appear intact with no evidence of aneurysm, stenosis, or dissection . No enhancing brain lesion identified on 5 minutes delayed images.. 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 Critical stenosis of left vertebral artery to C4 level noted as well. 50-70 percent luminal diameter stenosis of the origins of the right and left internal carotid arterie s. No other significant findings. RADIATION DOSE DELIVERED: 2,139.1mGy.cmTotal DLP 2,139.1mGy.cm Total DLP 42.1mGy CTDIvol DATA REPOSITORY: All CT scans at this facility are submitted to the National Radiology Data Registry (NRDR) Dose Index Registry (DIR) with the [employer] ([employer]). RADIATION OPTIMIZATION: All CT scans at this facility use at least one of these dose optimization te chniques: automated exposure control; mA and/or kV adjustment per patient size (includes targeted exa ms where dose is matched to clinical indication); or iterative reconstruction.
[2021-04-10 10:06] LABS: Abs Immature Grans 0.07 10^3/uL (0.0-0.06); Absolute Eosinophil Count 0.05 10^3/uL (0.0-0.7); Absolute Lymphocyte Count 1.44 10^3/uL (1.2-3.4); Absolute Monocyte Count 0.61 10^3/uL (0.1-0.8); Basophils % 0.9; Eosinophils % 0.4; HCT 43.9 % (36.0-46.0); HGB 14.5 g/dL (11.2-15.7); Immature Grans % 0.6; Lymphocytes % 12.3; MCH 30.1 pg (27.0-33.0); MCV 91.1 fL (80-95); MPV 9.8 fL (8.0-11.0); Monocytes % 5.2; Neutrophils % 80.6; Nucleated RBC 0 %; Platelet Count 394 10^3/uL (130-400); RBC 4.82 10^6/uL (3.93-5.22); RDW 12.6 % (11.7-14.6); RDW-SD 41.6 fL; WBC 11.67 10^3/uL (4.4-10.8)
[2021-04-10 10:07] LABS: Absolute Basophil Count 0.11 10^3/uL (0.0-0.2); Absolute Neutrophil Count 9.41 10^3/uL (1.2-6.7)
[2021-04-10 10:17] LABS: ALT 15 U/L (14-59); AST 16 U/L (15-37); Albumin 3.4 g/dL (3.4-5.0); Alkaline Phosphatase 123 U/L (46-116); Anion Gap 10.5 mmol/L (3-11); BUN 6 mg/dL (7-18); Bilirubin, Total 0.7 mg/dL (0.2-1.0); CO2 27.5 mmol/L (21.0-32.0); CREATININE 0.9 mg/dL (0.55-1.02); Calcium 9.4 mg/dL (8.5-10.1); Chloride 101 mmol/L (98-107); Glucose 223 mg/dL (74-106); Magnesium 1.8 mg/dL (1.8-2.4); Potassium 4.1 mmol/L (3.5-5.1); Sodium 139 mmol/L (136-145); Total Protein 8.1 g/dL (6.4-8.2)
[2021-04-10] MEDS: Omnipaque 350 MG/ML 100 ML BTL IJ (10:54)
[2021-04-10] MEDS: Normal Saline - Diluent 50 ML VIAL IV (10:56)
--- NOTE | 2021-04-10 11:56 | NUR.NOTE ---
Nursing Note: assumed care at this time.
[2021-04-10] MEDS: Acetaminophen 500 MG TAB 1000 MG PO (12:11)
[2021-04-10] MEDS: Aspirin 81 MG CHEW (12:11)
[2021-04-10] MEDS: Clopidogrel 300 MG TAB PO (12:12)
--- NOTE | 2021-04-10 12:24 | NUR.NOTE ---
Nursing Note: Spoke with daughter, Luz, at pt's request. Daughter updated as to plan of care and admission.
--- NOTE | 2021-04-10 12:30 | NUR.NOTE ---
Nursing Note: Spoke with Patricia at [facility] site [phone] pt's request to stop meals on wheels. Patricia will need to be called back to reinitiate these deliveries.
[2021-04-10 12:47] LABS: Calculated LDL 124 mg/dL (<100); Cholesterol 209 mg/dL (<200); HDL Cholesterol 74 mg/dL (40-60); Triglyceride 59 mg/dL (<150)
--- NOTE | 2021-04-10 13:10 | DI.MRI_ITS ---
Exam(s) MR BRAIN WO EXAM: MR BRAIN WO CLINICAL HISTORY: cva TECHNIQUE: Multiplanar multisequence MRI of the brain was performed. COMPARISON: No exams were available for comparison FINDINGS: There is moderate generalized cerebral atrophy. There are scattered areas of periventricular signal abnormality consistent with microvascular ischemi c changes. The orbital and temporal bone structures appear intact as does the pituitary. Diffusion weighted imaging shows no evidence of infarction. Susceptibility weighted imaging shows no evidence of intracranial hemorrhage. There is normal flow void in the [place] vasculature. IMPRESSION: No evidence of acute intracranial process. No evidence of acute or subacute cerebral infarction. DATA REPOSITORY:
[2021-04-10 13:11] LABS: Hemoglobin A1C 7.6 % (<5.7)
[2021-04-10 13:33] LABS: Source Nasal/Nares
--- NOTE | 2021-04-10 13:40 | DI.US_ITS ---
APPROVED REPORT EXAM: Comprehensive 2D, Doppler, and color-flow Echocardiogram Patient Location: ER Room/Bed: 8 Stave Grader: Mariela Chavarria RDCS (AE) Indications: CVA Echo Enhancing Agent Indication: Rule out Shunt Agent(s) / Amount(s) Used: Agitated Saline 30.0 cc Comments: Contrast study was performed with 3 IV injections of 10ccs of agitated normal saline, at re st, with cough and post valsalva maneuver. Other Information Study Quality: Adequate. Technically limited study due to inability to position patient done supine. Conclusion Normal left ventricular wall thickness and chamber size. Estimated ejection fraction is 55 to 60%. There are no segmental wall motion abnormalities Normal right ventricular size and systolic function Both atria are normal in size No intracardiac shunt identified on injection of agitated saline Aortic valve is heavily calcified. The number of aortic valve leaflets could not be determined. The re is severe aortic stenosis with a peak gradient of 61, mean of 36 and a calculated aortic valve are a of 0.58 centimeters squared. No aortic regurgitation Moderate mitral annular calcification, trace mitral regurgitation Normal tricuspid valve with trace regurgitation. Right ventricular systolic pressure could not be es timated Wall motion Left Ventricle The left ventricle is normal size. Left ventricular systolic function is borderline. There is normal left ventricular wall thickness. There is normal LV segmental wall motion. There is no ventricular se ptal defect visualized. LVEF is 55-60%. Right Ventricle The right ventricle is normal size. The right ventricular systolic function is normal. Atria The left atrium size is normal. The right atrium size is normal. The interatrial septum is intact wit h no evidence for an atrial septal defect. Saline bubble contrast intravenous injection does not demo nstrate PFO. Aortic Valve Aortic valve is calcified. Number of aortic valve leaflets could not be assessed. Severe aortic steno sis. Peak aortic valve gradient is 61.3mmHg. Highest mean aortic valve gradient is 35.9mmHg. Calculat ed HERNANDEZ by the continuity equation is .58cm2. No aortic regurgitation is present. Mitral Valve Moderate mitral annular calcification. No evidence of mitral valve stenosis. Trace mitral regurgitati on. No Mitral Regurgitation. Trace mitral regurgitation. No Mitral Regurgitation. Tricuspid Valve The tricuspid valve is normal in structure. There is no tricuspid valve stenosis. Trace tricuspid reg urgitation. Unable to assess PA pressure. Pulmonic Valve Pulmonic valve is not well visualized. There is no pulmonic valvular stenosis. There is no pulmonic v alvular regurgitation. Great Vessels The aortic root is normal in size. The ascending aorta is normal in size. Aortic arch is not well vis ualized. IVC is normal in size and collapses >50% with inspiration. Pericardium There is no pericardial effusion. 2D Dimensions IVSD d PLAX 1.00 cm F: 0.6-1.0 LV Vol A2C d MOD 101.8 mL LVPW d PLAX 1.02 cm F: 0.6 - 1.0 LV Vol A4C d MOD 75.3 mL LVID d PLAX 4.46 cm F: 3.8 - 5.2 LA vol/ BSA A2C s A-L 23.7 mL/m2 LVDs 3.10 cm F: 2.2 - 3.5 LA vol/ BSA A4C s A-L 12.3 mL/m2 Ao Root d 2.42 cm F: 2.7 - 3.3 LA Vol/ BSA Biplane s A-L 18.2 mL/m2 RA Area A4C 8.31 cm2 LA Area A4C s MOD 10.24 cm2 RA Vol/ BSA A4C s A-L 9.6 mL/m2 LA Area A2C s MOD 15.09 cm2 Ao Asc Diam d 2.72 cm F: 2.3 - 3.1 LV EF A4C MOD 55.2 % LV EF Teichholz 56.5 % LV EF A2C MOD 55.3 % LVEF (Perry's) 53.83 % F: 54 - 74 LV EF Biplane MOD 53.8 % LV Volume 70.27 mL F: 46 - 106 SV 48.19 mL LV Volume Index 40.15 mL/m2 F: 29 - 61 SV Index 27.46 mL/m2 LV Vol Biplane MOD 89.5 mL FS 29.35 % M-Mode TAPSE 1.67 cm (M/F) >1.7 LV Diastology MV E' medial 0.070 (>0.07 m/s) E/A Ratio 0.6 LV E/e MED 9.75 (<14) MV E Vmax 0.69 (0.4-1.3 m/s) MV E' lateral 0.066 (>0.1 m/s) MV A Vmax 1.15 (0.4-1.3 m/s) LV E/e LAT 10.35 (<14) MV E/A Ratio 0.59 MV E/E' medial 9.78 MV E/E' lateral 10.36 Aortic Valve LVOT Area 2.94 cm2 AoV Area Vmax 0.58 cm2 LVOT Vmax 0.78 m/s AoV Area/ BSA (Vmax) 0.33 cm2/m2 LVOT Mean Serafin. 0.56 m/s HERNANDEZ Mean Serafin. 0.58 cm2 LVOT Peak Grad 2.4 mmHg HERNANDEZ Mean Serafin. Index 0.33 cm2/m2 LVOT Mean Grad 1.4 mmHg LVOT VTI 0.188 m LVOT Diam s 1.90 cm AoV Vmax 3.92 m/s Velocity Ratio 0.19 AoV Mean Serafin. 2.85 m/s AoV Peak Grad 61.3 mmHg LVOT SV 55.42 mL AoV Mean Grad 35.9 mmHg AoV VTI 0.783 m AoV Area VTI 0.71 cm2 AoV Area/ BSA (VTI) 0.40 cm/m2 Mitral Valve MV DT 314 (160-240 msec) MV PHT 91 msec MV Area PHT 2.42 cm2 MV VTI 0.263 m MV Area VTI 2.11 (4.0-6.0 cm2) Pulmonary Valve PV Vmax 2.36 (0.5-1.5 m/s) RVOT Peak Gr. 4.24 mmHg PV Peak Grad 22.3 mmHg RVOT Mean Gr. 2.45 mmHg PV Mean Grad 15.8 mmHg RVOT VTI 0.171 m PV VTI 0.451 m RVOT Vmax 1.03 m/s
[2021-04-10 13:46] LABS: INR 1.1 (0.9-1.1); Prothrombin Time 11.2 sec (9.3-11.0)
--- NOTE | 2021-04-10 14:02 | NUR.NOTE ---
Nursing Note: Pt @ Echo, will go directly upstairs afterward. Provider and CC aware.
--- NOTE | 2021-04-10 14:34 | IN_ITS ---
Date of service: 04/10/21 Time of Service: 14:25 PT Notes Visit Reasons: Suspected acute CVA Inpatient Physical Therapy Evaluation Date: 04/10/21 Referring Doctor: Carin Leos MD PT Orders: PT CONSULT: Limited Ability Precautions: Fall risk Patient Profile/Admitting Diagnosis: Patient presented to ER this morning with complaint of left lower extremity numbness that occurred yesterday, now resolved. She was encouraged to come to the ER by a friend. She has been admitted by the ER for stroke evaluation and treatment, with diagnosed CVA with medical work up in ER. PMHX: Alcohol abuse, surgical history unknown - Per ER. H&P not complete at this time. Social History/Home Situation: Lives at [facility] [address] in [place], in a one floor apt, 5 steps to enter with rail. She has a son who is , daughter who lives in [place]. She has a friend Gilbert who is her only support in the area. Normally does not ambulate with assistive device, but has been using ski poles when ambulating on uneven terrain out of her apartment due to 2 falls in the last month. Inside of her apartment she has no history of falls and reports to feel stable, does not use AD in apt. Current Functional Limitations: Comparable to baseline. Needs assistive device in unfamiliar environments. Equipment Owned/DME: Stable. She states she also has a walker, provided to her by her daughter, but it still in the box. Subjective: Denies pain. Feels her normal self, was feeling her normal self when she came to the ER, as her left lower extremity numbness have completely resolved. She only came to the ER under the encouragement of her friend Gilbert. Objective: General Observation: Patient was being transferred from ER stretcher to room. She was able to get out of ER stretcher independently. Donning disconnected telementry, but remains her own LE clothing and shoes. Nursing present, working on vitals and admitting patient. Mental Status: Alert and oriented x3. Very talkative, gets on tangents, easily distracted. Pain: 0/10 Vital Signs: BP 140/83, HR 98 ROM: Right Upper Extremity: Grossly WNL Left Upper Extremity: Grossly WNL Right Lower Extremity: Grossly WNL Left Lower Extremity: Grossly WNL Strength: Right Upper Extremity: Grossly 4+/5 throughout Left Upper Extremity: Grossly 4+/5 throughout Right Lower Extremity: Grossly 4+/5 throughout Left Lower Extremity: Grossly 4+/5 throughout Sensation: Intact throughout bilateral extremities Bed Mobility/Transfers: Sit to stand independent Stand to sit independent ER stretcher to chair, independent with walker. Could likely do this without walker, but due to her unfamiliar environment and fall history, recommend use of walker currently. Independent bed mobility Gait: RW, about 20 to 30 feet, supervision for purpose of evaluation ,due to blocked hallway. Independent ambulation with RW is appropriate. Balance: Static Sitting: Good Dynamic Sitting: Good Static Standing: Good Dynamic Standing: Fair Stage 4 Balance Test Time (seconds) Feet together 10 Partial tandem 10 Tandem 0 One foot 0 Special Tests: Mobility Limitations Standardized Measure [facility] 6 clicks Basic Mobility Inpatient Short Form: 0% disability Informed Consent/Education: Patient instructed in purpose of PT consult and plan of care. Assessment: Patient is a 71 year old female referred to physical therapy services with the diagnosis of limited ability, recently transferred to [facility] for stroke evaluation and treatment. Patient presents with impairment of poor balance with higher level activities. Patient currently not demonstrating any motor control, mobility or sensation loss, and is currently demonstrating safety with basic functional activity and transfers not demanding of inpatient PT care. However, patient would benefit from outpatient care at time of discharge to be proactive with recent increase in falls, and to prevent future falls. Patient does require walker to utilize in unfamiliar environment and on outdoor terrain. She is safe to ambulate in room with RW, independently. Patient is assessed as a Low 68484 complexity based on the following: History: Alcohol abuse, poor balance, CVA, lives alone Examination: Poor balance Presentation: Stable Decision Making: Easy Plan of Care/Treatment Plan: Discharged from inpatient PT. DISCHARGE RECOMMENDATIONS: Recommend outpatient PT for balance rehabilitation. Patient requires walker for ambulation to improve safety in unfamiliar environments and outdoor uneven terrain. TREATMENT CODE/TIME: 20 min, [id number]
[2021-04-10 14:38] LABS: COVID-19 PCR Negative (Negative)
[2021-04-10] MEDS: THIAMINE 100 MG in Normal Saline 100 ML 200 MG IVPB (15:12)
[2021-04-10] MEDS: Normal Saline Flush 10 ML SYR IVP (15:13)
[2021-04-10] MEDS: Normal Saline 1,000 ML 150 ML IV ×2 (15:13→21:52)
[2021-04-10] MEDS: Enoxaparin 40 MG/0.4 ML SYR SC (16:12)
--- NOTE | 2021-04-10 16:41 | W.NEUROCONSU ---
Date of service: 04/10/21 Time of Service: 16:42 Assessment and Plan Assessment and plan (1) TIA (transient ischemic attack): Status: Acute (2) Carotid stenosis: Status: Acute (3) Tremor: Status: Acute Assessment and plan: #1. Transient left leg numbness +/- left arm numbness. Not clear what symptoms she had or for what duration. Differential is broad. TIA is most life-threatening etiology and given vascular findings below, I think it prudent to treat her as if she did have a TIA. Etiology would be secondary to right carotid stenosis. She should continue DAPT for at least 90 days, after which she can switch to aspirin 81mg daily. She should consult with vascular surgery given presumably symptomatic carotid stenosis. Agree with initiation of statin. Avoid hypotension. Goal SBP >130. She has no PT needs at this time. #2. Bilateral carotid stenosis and L vertebral stenosis/near occlusion. See recs above. #3. Alcoholism. Agree with high dose IV thiamine. She also has a tremor. Related to ETOH vs ET??? Not clear at present. Will monitor as outpatient. She should follow-up in the neurology clinic in 4-6 weeks. History of Present Illness History of Present Illness Chief Complaint: transient neurological symptoms Narrative: Handedness: right. HPI: Ms. Tiwari is a 71 year-old woman with alcoholism and very little medical care, who moved to [place] in ??? Ms. Tiwair is a bit tangential in her story. She notes onset of left leg and arm numbness some time yesterday evening. She is unsure how long her symptoms lasted. She notes perhaps all night. She typically stays awake all night and naps periodically during the day. She denies any weakness in the left leg and notes resolution of sensory loss in both the leg and arm today. She notes difficulty moving the 4th and 5th digits of her left hand, but attributes this to a fall earlier this year in which she suffered a laceration to the elbow. She notes no history of prior stroke or heart disease; nor history of diabetes. She does not take any medications. It appears she was seen x1 at [facility] in Jun 2019. She was seen for hematuria and dysuria. Noted to have a heart murmur on exam. She never followed up. She notes chronic shortness of breath. Can only walk for 20minutes. She notes no personal history of mental illness. She drinks 1 bottle of wine per day. 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 She has one daughter. She had a son who was shot to in July 2019 in an altercation with police. He had schizoaffective disorder. She has a CM note from December noting impending eviction from [address] due to deplorable/hoarding conditions. Apparently still lives there? She has undergone the following work-up. She was started on DAPT for possible TIA s/p 300mg load of clopidogrel. She has been started on a statin and IV thiamine supplementation. Work-up: -CTH: mild-moderate atrophy. No acute findings. I reviewed these images personally and this is my personal interpretation. -CTA head/neck: R carotid stenosis distal to bifurcation 50-70% per rads, but I would say 70+%. L carotid stenosis 50-70%. L vertebral stenosis/near occlusion both proximally at the origin and more distally at ~C4. I reviewed these images personally and this is my personal interpretation. -MRI brain: no acute findings. Mild chronic small vessel disease changes. Mild-mod generalized atrophy. Old L basal ganglia microhemorrhage. I reviewed these images personally and this is my personal interpretation. -TTE: EF55-60%, no wall motion abnormalities. LA normal. Severe aortic stenosis. -Labs: LDL 124, A1c 7.6 (new diagnosis!) Consults Requesting physician: Carin Leos Review of Systems All systems reviewed & are unremarkable except as noted in HPI and below PFSH Medical History Alcohol abuse Surgical History Surgical history unknown Social History Smoking/Tobacco Use Status: Former Tobacco Use Smoking risk assessment performed?: Yes Alcohol Intake: current Alcohol Intake frequency: 0-2 drinks per day Alcohol type: wine Drug use: Never Substance use type: does not use Do you feel safe at home: Yes Do you feel safe in your relationship?: Yes Visit Medication and Allergies Active Medications Generic Name Dose Route Start Last Admin Trade Name Marc PRN Reason Stop Dose Admin Acetaminophen 0 mg 04/10/21 12:17 Acetaminophen 325 Mg Tab PO Q4H PRN PRN Al Hydrox/Mg Hydrox/Simethicone 30 ml 04/10/21 12:17 Mylanta Suspension 30 Ml Cup PO Q2H PRN PRN Aspirin 81 mg 04/11/21 08:30 Aspirin E.C. 81 Mg Tabec PO DAILY [facility] Clopidogrel Bisulfate 75 mg 04/11/21 08:30 Clopidogrel 75 Mg Tab PO DAILY [facility] Dextrose 0 gm 04/10/21 12:17 Glucose 40% Oral Solution 15 Gm/37.5 Gm Tube PO DIRECTED PRN Dextrose/Water 0 gm 04/10/21 12:17 Dextrose 50%-Water 25 Gm/50 Ml Syr IVP DIRECTED PRN Dimethicone/Zinc Oxide 0 gm 04/10/21 12:17 Mela Protect Cream 142 Gm Tube TP PRN PRN Docusate Sodium 100 mg 04/10/21 12:17 Docusate Sodium 100 Mg Cap PO TID PRN PRN Enoxaparin Sodium 40 mg 04/10/21 14:00 04/10/21 16:12 Enoxaparin 40 Mg/0.4 Ml Syr SC 40 mg Q24H [facility] Administration Folic Acid 1 mg 04/11/21 08:30 Folic Acid 1 Mg Tab PO 04/17/21 08:31 QAM [facility] Sodium Chloride 500 mls @ 0 mls/hr 04/10/21 09:47 Saline 500ml Bag IV PRN PRN As Directed Sodium Chloride 1,000 mls @ 150 mls/hr 04/10/21 10:00 04/10/21 15:13 Saline 1000ml Bag IV 150 mls/hr INFUSION [facility] Administration IV Miscellaneous Supplies 1 each 04/10/21 10:00 Iv Access IV DIRECTED [facility] Insulin Aspart 0 units 04/10/21 17:00 Insulin Aspart 300 Units/3 Ml Pen SC 0800,1200,1700,2200 [facility] Protocol Iohexol 100 ml 04/10/21 11:00 04/10/21 10:54 Omnipaque 350 Mg/Ml 100 Ml Btl IJ 05/10/21 23:59 100 ml DIRECTED [facility] Administration Lorazepam 0 mg 04/10/21 12:17 Lorazepam 1 Mg Tab PO/SL DIRECTED PRN Magnesium Hydroxide 30 ml 04/10/21 12:17 Milk Of Magnesia 30 Ml Cup PO DAILY PRN PRN Multivitamins 1 tab 04/11/21 08:30 Multivitamin Tab PO 04/17/21 08:31 QAM [facility] Pantoprazole Sodium 40 mg 04/11/21 07:30 Pantoprazole 40 Mg Tabcr PO DAILY@0730 [facility] Sodium Chloride 0 ml 04/10/21 09:47 04/10/21 15:13 Normal Saline Flush 10 Ml Syr IVP 10 ml PRN PRN Administration Sodium Chloride 50 ml 04/10/21 11:00 04/10/21 10:56 Normal Saline - Diluent 50 Ml Vial IV 50 ml .FOR DI USE [facility] Administration Thiamine HCl 100 mg 04/11/21 08:30 Thiamine 100 Mg Tab PO 04/17/21 08:31 QAM [facility] Allergies No Known Allergies Allergy (Unverified 04/10/21 09:42) Exam Narrative Exam Narrative: Physical Exam: Gen: Patient of apparent stated age, NAD Head and face: no facial or cranial abnormalities Neck: Supple, no meningismus, no occipital tenderness CV: + S1, S2, RRR, no murmur Resp: CTA B/L Abd: soft, nontender, nondistended Ext: No edema. No clubbing or cyanosis. No bony deformity. Neuro Exam: Language: fluency, naming, repetition, and comprehension intact; Mental Status: AAOx3, current events and fund of knowledge complicated by tangential speech, but appears generally intact Speech: no dysarthria Cranial nerves: Funduscopy: not performed CN II: visual reyes intact CN III, IV, : extraocular movements intact, no nystagmus, pupils symmetric and reactive to light CN V: face sensation intact to LT and PP CN VII: no facial asymmetry noted CN VIII: hearing intact bilaterally CN IX, X: palate rises symmetrically CN XI: trapezius/SCM 5/5 bilaterally CN XII: protrudes tongue symmetrically Sensory: intact to LT, PP, vibration, and joint position in all extremities, absent Romberg Motor: bulk and tone intact. Fine motor movements intact bilaterally. No pronator drift. Strength 5/5 throughout including the deltoids, biceps, triceps, wrist extensors, hip flexors, knee flexors, knee extensors, ankle flexors, and ankle extensors except 4/5 bilateral hip flexors. Mild bilateral UE postural tremor, worse with activity. Reflexes: hyporeflexic throughout; toes down going on right and neutral on left; Coordination: FTN and HTS intact bilaterally Gait: slightly wide base Results Last Vital Signs Temp 96.1 F L 04/10/21 14:39 Pulse 97 H 04/10/21 14:55 Resp 20 04/10/21 14:39 BP 140/83 04/10/21 14:39 Pulse Ox 93 04/10/21 14:39 Labs Result diagrams: 04/10/21 09:57 04/10/21 09:57 Labs: Laboratory Results - last 24 hr 04/10/21 04/10/21 04/10/21 09:57 09:57 09:57 WBC 11.67 H RBC 4.82 Hgb 14.5 Hct 43.9 MCV 91.1 MCH 30.1 MCHC 33.0 RDW 12.6 Plt Count 394 MPV 9.8 Immature Gran % 0.6 Neutrophils % 80.6 Lymphocytes % 12.3 Monocytes % 5.2 Eosinophils % 0.4 Basophils % 0.9 Nucleated RBC % 0 Absolute Neutrophils 9.41 H Absolute Lymphocytes 1.44 Absolute Monocytes 0.61 Absolute Eosinophils 0.05 Absolute Basophils 0.11 PT INR Sodium 139 Potassium 4.1 Chloride 101 Carbon Dioxide 27.5 Anion Gap 10.5 BUN 6 L Creatinine 0.9 Estimated GFR/1.73 m2 >= 60.00 Glucose 223 H Hemoglobin A1c Calcium 9.4 Magnesium 1.8 Total Bilirubin 0.7 AST 16 ALT 15 Alkaline Phosphatase 123 H Total Protein 8.1 Albumin 3.4 Triglycerides 59 Total Cholesterol 209 H LDL Cholesterol, Calc 124 H HDL Cholesterol 74 COVID-19 Source SARS-CoV-2 (PCR) 04/10/21 04/10/21 04/10/21 09:57 13:13 13:25 WBC RBC Hgb Hct MCV MCH MCHC RDW Plt Count MPV Immature Gran % Neutrophils % Lymphocytes % Monocytes % Eosinophils % Basophils % Nucleated RBC % Absolute Neutrophils Absolute Lymphocytes Absolute Monocytes Absolute Eosinophils Absolute Basophils PT 11.2 H INR 1.1 Sodium Potassium Chloride Carbon Dioxide Anion Gap BUN Creatinine Estimated GFR/1.73 m2 Glucose Hemoglobin A1c 7.6 H Calcium Magnesium Total Bilirubin AST ALT Alkaline Phosphatase Total Protein Albumin Triglycerides Total Cholesterol LDL Cholesterol, Calc HDL Cholesterol COVID-19 Source Nasal/Nares SARS-CoV-2 (PCR) Negative
--- NOTE | 2021-04-10 17:07 | W.PM.HP.N ---
Date of service: 04/10/21 Time of Service: 16:00 Assessment and Plan Assessment and plan (1) TIA (transient ischemic attack): Start date: 04/10/21 Start time: 16:00 Status: Acute Assessment and plan: Question of TIA LLE weakness from overnight with numbness that has improved but not completely resolved. It could also be radiculopathy as MRI is negative for stroke, however she does have severe carotid stenosis. On plavix and asa high dose thiamine A1c was 7.6 Total cholesterol 209 Will need f/u with vascular as outpatient atorvastatin 80 mg (2) Carotid stenosis: Start date: 04/10/21 Start time: 16:00 Status: Acute Assessment and plan: Seen by Dr. Jain as above (3) Aortic stenosis: Start date: 04/10/21 Start time: 16:00 Status: Chronic Assessment and plan: Echo revealing: Conclusion Normal left ventricular wall thickness and chamber size. Estimated ejection fraction is 55 to 60%. There are no segmental wall motion abnormalities Normal right ventricular size and systolic function Both atria are normal in size No intracardiac shunt identified on injection of agitated saline Aortic valve is heavily calcified. The number of aortic valve leaflets could not be determined. There is severe aortic stenosis with a peak gradient of 61, mean of 36 and a calculated aortic valve area of 0.58 centimeters squared. No aortic regurgitation Moderate mitral annular calcification, trace mitral regurgitation Normal tricuspid valve with trace regurgitation. Right ventricular systolic pressure could not be estimated Will consult cardiology for recommendations (4) Alcohol abuse: Start date: 04/10/21 Start time: 16:00 Status: Chronic Assessment and plan: Patient on CIWA, unable to get accurate account of how much she actually drinks Does not appear to be actively withdrawaling (5) Diabetes: Start date: 04/10/21 Start time: 17:48 Status: Chronic Assessment and plan: On SSI, Monitor FS Does not believe she is a diabetic. discusssed with Dr. Leos History of Present Illness History of Present Illness Chief Complaint: TIA, Carotid stenosis, Narrative: 71 y.o female with PMH of Alcohol abuse, laceration of elbow approx 6 weeks ago, from falling, presented to [facility] with c/o LL extremity weakness. Now improving onset overnight. She does have tremors. In one sentence states she drinks 2 glasses of blanca in a day then in another breath states she has not drank in a month, than states she drinks a bottle. She is very all over the place with her ideas, she was given asa and plavix in the ED. She has bilateral hip pain, since falling on ice over the winter. Labs in ED reveal slight leukocytosis of 11 LDL 124, total cholesteroal 209, elevated alk phosp 209, A1c 7.6. Imaging revealed Echo EF 55-60 with severe aortic stenosis, with peak 61 mean 36, aortic valve heavily calcified. Moderate mitral annular calcification, trace mitral regurgitation, MRI negative for CVA, Head and neck CTA are positive for critical for stenosis of left verteberal artery of C4 level, 50-70 percent luminal diameter stenosis of the origins of the right and left internal carotid arteries. Patient was asked to be admitted for further management. Cardiology consulted. Neurology consulted. Nuerology recommends high dose thiamine. Will treat with SSI, monitor for w/d of alcohol. Patient will need vascular f/u as an outpatient, monitor overnight. Possible discharge in am. [facility] Medical History Alcohol abuse Surgical History Surgical history unknown Social History Smoking/Tobacco Use Status: Former Tobacco Use Smoking risk assessment performed?: Yes Alcohol Intake: current Alcohol Intake frequency: 0-2 drinks per day Alcohol type: wine Drug use: Never Substance use type: does not use Do you feel safe at home: Yes Do you feel safe in your relationship?: Yes Meds Allergies and Home Medications Allergies Allergy/AdvReac Type Severity Reaction Status Date / Time No Known Allergies Allergy Unverified 04/10/21 09:42 Home Medications Medication Instructions Recorded Confirmed Type thiamine HCl (vitamin B1) 100 mg PO DAILY #30 tab 04/05/21 04/10/21 Rx Exam Const General: cooperative, comfortable, no acute distress and ill appearing chronically Orientation: alert, awake and oriented x3 Eyes Eyelids: eyelids normal Pupils: PERRL EOM: EOM intact bilaterally Neck Neck: normal visual inspection and no JVD Lymphatic: no lymphadenopathy noted Resp Effort & Inspection: normal respiratory effort Auscultation: clear to auscultation bilaterally Cardio Jugular venous pressure: no JVD Rate: regular rate Rhythm: regular rhythm Heart Sounds: S1 normal and murmur systolic GI Inspection: normal to inspection Palpation: soft Auscultation: normal bowel sounds General: No CVA tenderness and deferred Skin General skin exam: no rashes or lesions noted Neuro General: patient alert, patient awake and patient oriented x3 Cognition: normal cognition Speech: speech normal Gait: normal gait Motor: strength not 5/5 throughout and other (weakness to left upper and lower extremity) Extrem General: no clubbing, cyanosis or edema Left upper extremity: elbow/forearm (patient has scar to elbow) Right lower extremity: normal to inspection Left lower extremity: lower leg (weakness); abnormal to inspection Psych Appearance: disheveled Mental Status: other (all over with thoughts ) Speech and Movement: speech and movement normal Mood: anxious mood Affect: anxious affect Attitude: cooperative Thought Process: other Results Labs Result diagrams: 04/10/21 09:57 04/10/21 09:57 Labs: Laboratory Results - last 24 hr 04/10/21 04/10/21 04/10/21 09:57 09:57 09:57 WBC 11.67 H RBC 4.82 Hgb 14.5 Hct 43.9 MCV 91.1 MCH 30.1 MCHC 33.0 RDW 12.6 Plt Count 394 MPV 9.8 Immature Gran % 0.6 Neutrophils % 80.6 Lymphocytes % 12.3 Monocytes % 5.2 Eosinophils % 0.4 Basophils % 0.9 Nucleated RBC % 0 Absolute Neutrophils 9.41 H Absolute Lymphocytes 1.44 Absolute Monocytes 0.61 Absolute Eosinophils 0.05 Absolute Basophils 0.11 PT INR Sodium 139 Potassium 4.1 Chloride 101 Carbon Dioxide 27.5 Anion Gap 10.5 BUN 6 L Creatinine 0.9 Estimated GFR/1.73 m2 >= 60.00 Glucose 223 H Hemoglobin A1c Calcium 9.4 Magnesium 1.8 Total Bilirubin 0.7 AST 16 ALT 15 Alkaline Phosphatase 123 H Total Protein 8.1 Albumin 3.4 Triglycerides 59 Total Cholesterol 209 H LDL Cholesterol, Calc 124 H HDL Cholesterol 74 COVID-19 Source SARS-CoV-2 (PCR) 04/10/21 04/10/21 04/10/21 09:57 13:13 13:25 WBC RBC Hgb Hct MCV MCH MCHC RDW Plt Count MPV Immature Gran % Neutrophils % Lymphocytes % Monocytes % Eosinophils % Basophils % Nucleated RBC % Absolute Neutrophils Absolute Lymphocytes Absolute Monocytes Absolute Eosinophils Absolute Basophils PT 11.2 H INR 1.1 Sodium Potassium Chloride Carbon Dioxide Anion Gap BUN Creatinine Estimated GFR/1.73 m2 Glucose Hemoglobin A1c 7.6 H Calcium Magnesium Total Bilirubin AST ALT Alkaline Phosphatase Total Protein Albumin Triglycerides Total Cholesterol LDL Cholesterol, Calc HDL Cholesterol COVID-19 Source Nasal/Nares SARS-CoV-2 (PCR) Negative Last Vital Signs Temp 35.6 C L 04/10/21 14:39 Pulse 97 H 04/10/21 14:55 Resp 20 04/10/21 14:39 BP 140/83 04/10/21 14:39 Pulse Ox 93 04/10/21 14:39 PAWSS Have you Been Recently Intoxicated or Drunk Within the Last 30 days?: No Have you Ever Experienced Previous Episodes of Alcohol Withdrawal?: No Have you ever Experienced Withdrawal Seizures?: No Have you ever Experienced Delirium Tremens(DT)s?: No Have you ever undergone Alcohol Rehabilitation Treatment (i.e, inpt ot outpatient treatment programs)?: No Have you ever Experienced Blackouts?: No Have you ever Combined Alcohol with other Downers within the last 90 days?: No Have you ever Combined Alcohol with any other Substance of Abuse during the last 90 days?: No Positive Blood Alcohol level on Presentation? [PCS.BAL]: No Evidence of Increased Autonomic Activity (i.e. HR>120, tremor, sweating, agitation, nausea)?: No Result: 0
[2021-04-10] MEDS: Insulin Aspart 300 UNITS/3 ML PEN SC ×2 (17:16→21:52)
[2021-04-10] MEDS: Acetaminophen 325 MG TAB PO (21:29)
[2021-04-10] MEDS: Atorvastatin 40 MG TAB 80 MG PO (21:30)
[2021-04-10] MEDS: Diclofenac 1% Gel 100 GM TUBE TP (21:30)
[2021-04-11] MEDS: LORazepam 1 MG TAB PO/SL (00:17)
[2021-04-11 03:35] VITALS: BP 151/79; PULSE 86; RESP 17; TEMP 36.6; O2SAT 93
[2021-04-11 03:51] LABS: Bilirubin Negative (Negative); Blood Trace-intact (Negative); Clarity Sl Cloudy (Clear); Glucose 250 mg/dL (Negative); Ketones Negative (Negative); Leukocyte Esterase Trace (Negative); Nitrite Positive (Negative); Specific Gravity 1.025 (1.005-1.025); Urobilinogen 0.2 EU/dL (Up TO 0.2)
[2021-04-11 03:52] LABS: Bacteria Many HPF (Negative); C & S Indicated? Yes; Casts Negative LPF (Negative); Crystals Negative HPF (Negative); Epithelial Cells Rare HPF (Negative); Mucus Negative (Negative)
[2021-04-11 07:05] VITALS: PULSE 95
[2021-04-11 07:09] LABS: Abs Immature Grans 0.02 10^3/uL (0.0-0.06); Absolute Basophil Count 0.06 10^3/uL (0.0-0.2); Absolute Eosinophil Count 0.38 10^3/uL (0.0-0.7); Absolute Lymphocyte Count 1.73 10^3/uL (1.2-3.4); Absolute Monocyte Count 0.54 10^3/uL (0.1-0.8); Absolute Neutrophil Count 4.51 10^3/uL (1.2-6.7); Basophils % 0.8; Eosinophils % 5.2; HCT 43.7 % (36.0-46.0); HGB 14.3 g/dL (11.2-15.7); Immature Grans % 0.3; Lymphocytes % 23.9; MCH 29.9 pg (27.0-33.0); MCHC 32.7 % (32.0-36.0); MCV 91.4 fL (80-95); Monocytes % 7.5; Neutrophils % 62.3; Nucleated RBC 0 %; Platelet Count 349 10^3/uL (130-400); RBC 4.78 10^6/uL (3.93-5.22); RDW 12.7 % (11.7-14.6); RDW-SD 43.1 fL; WBC 7.24 10^3/uL (4.4-10.8)
[2021-04-11 07:38] LABS: Anion Gap 7.9 mmol/L (3-11); BUN 5 mg/dL (7-18); CO2 28.1 mmol/L (21.0-32.0); CREATININE 0.7 mg/dL (0.55-1.02); Calcium 9.1 mg/dL (8.5-10.1); Chloride 103 mmol/L (98-107); Glucose 159 mg/dL (74-106); Magnesium 1.9 mg/dL (1.8-2.4); Potassium 3.7 mmol/L (3.5-5.1); Sodium 139 mmol/L (136-145); Vitamin B12 327 pg/mL (193-986)
[2021-04-11] MEDS: Aspirin E.C. 81 MG TABEC PO (08:04)
[2021-04-11] MEDS: Diclofenac 1% Gel 100 GM TUBE TP ×2 (08:05→11:53)
[2021-04-11] MEDS: Clopidogrel 75 MG TAB PO (08:05)
[2021-04-11] MEDS: Multivitamin TAB 1 TAB PO (08:05)
[2021-04-11] MEDS: Thiamine 100 MG TAB PO (08:05)
[2021-04-11] MEDS: Pantoprazole 40 MG TABCR PO (08:05)
[2021-04-11] MEDS: Folic Acid 1 MG TAB PO (08:05)
[2021-04-11 08:14] VITALS: BP 137/86; PULSE 109; RESP 18; TEMP 36.9; O2SAT 98
[2021-04-11] MEDS: Insulin Aspart 300 UNITS/3 ML PEN SC ×2 (08:19→11:53)
--- NOTE | 2021-04-11 08:27 | CCONE_ITS ---
Date of service: 04/11/21 Time of Service: 08:27 Assessment and Plan Assessment and plan (1) TIA (transient ischemic attack): Status: Acute (2) Aortic stenosis: Status: Chronic (3) Carotid stenosis: Status: Acute Assessment and plan: The patient's neurologic presentation would be the primary consideration. She has been started on antiplatelet therapy and per recommendation of Dr. Pelayo this should be continued for 90 days. She has bilateral carotid stenosis as well as left vertebral near occlusion. I would agree with the recommendation that vascular surgical follow-up is indicated She also has aortic stenosis, not causally related to her presentation. It is difficult to tell how symptomatic she is overall. This eventually will need to be addressed. In the absence of concerning symptoms I would defer evaluation for the aforementioned 90 days She should have an EKG performed during this hospitalization Outpatient follow-up in cardiology clinic within the next several weeks History of Present Illness History of Present Illness Chief Complaint: Left leg weakness and numbness Narrative: This is the first [facility] admission for this 71-year-old woman who presented to the emergency room yesterday because of weakness and numbness in her left lower extremity which had occurred the evening prior. She is not a very good historian. She noted that her left leg was numb and questionably weak the night prior to presentation. She did not seek medical attention at that ti ut and went to bed. When she awakened the following day the symptom had resolved. At the urging of her friend she came to the emergency room where she was evaluated and admitted She has been seen by neurology who feels patient most likely had a transient ischemic attack and recommended treatment with aspirin and clopidogrel She had a CT angiogram done which showed bilateral 50 to 70% internal carotid stenoses, and a critical stenosis or near occlusion of the left vertebral. She also had an echocardiogram done which showed normal left ventricular systolic function. There was severe aortic stenosis with a peak gradient of 61, mean of 36, no aortic insufficiency, no intracardiac shunt and no evidence of intracardiac thrombus Patient reports that she was told several years ago that she had a heart murmur and that an echocardiogram was advised but she never followed through. She also states that last year she saw a physician in [place] who told her that her heart was fine and made no mention of any murmur Patient reports that she go shopping she will develop shortness of breath and f atigue and then when she comes home she has to take a nap. I was not able to elicit any history of chest discomfort, dizziness lightheadedness near syncope or syncope Patient is a former smoker. Review of the chart indicates significant alcohol intake No EKG is available for review. 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 Consults Consult date: 04/11/21 Requesting physician: Rose Noel Review of Systems Cardiovascular Cardiovascular: Denies chest pain, Denies chest pain at rest, Denies syncope, Denies lightheadedness, Denies radiating jaw, neck or arm pain, Denies palpitations, Reports dyspnea, Reports dyspnea on exertion, Denies orthopnea and Denies paroxysmal nocturnal dyspnea Respiratory Respiratory: Reports dyspnea and Reports dyspnea on exertion Neurologic Neurologic: Denies syncope Endocrine Endocrine: Denies palpitations PFSH Medical History Alcohol abuse Surgical History Surgical history unknown Social History Smoking/Tobacco Use Status: Former Tobacco Use Smoking risk assessment performed?: Yes Alcohol Intake: current Alcohol Intake frequency: 0-2 drinks per day Alcohol type: wine Drug use: Never Substance use type: does not use Do you feel safe at home: Yes Do you feel safe in your relationship?: Yes Exam Const Other: Alert comfortable no acute distress appears stated age Neck Other: Carotid upstrokes are delayed and reduced with bilateral transmitted murmurs/bruits No neck vein distention Resp Auscultation: clear to auscultation bilaterally Cardio Jugular venous pressure: no JVD Palpation: normal PMI Rate: regular rate Rhythm: regular rhythm Heart Sounds: S1 normal Other: 2/6 to 3/6 systolic ejection quality murmur, A2 is reduced Extrem Other: No peripheral edema Results Last Vital Signs Temp 36.9 C 04/11/21 08:14 Pulse 109 H 04/11/21 08:14 Resp 18 04/11/21 08:14 BP 137/86 04/11/21 08:14 Pulse Ox 98 04/11/21 08:14 Labs Result diagrams: 04/11/21 06:15 04/11/21 06:15 Labs: Laboratory Results - last 24 hr 04/10/21 04/10/21 04/10/21 09:57 09:57 09:57 WBC 11.67 H RBC 4.82 Hgb 14.5 Hct 43.9 MCV 91.1 MCH 30.1 MCHC 33.0 RDW 12.6 Plt Count 394 MPV 9.8 Immature Gran % 0.6 Neutrophils % 80.6 Lymphocytes % 12.3 Monocytes % 5.2 Eosinophils % 0.4 Basophils % 0.9 Nucleated RBC % 0 Absolute Neutrophils 9.41 H Absolute Lymphocytes 1.44 Absolute Monocytes 0.61 Absolute Eosinophils 0.05 Absolute Basophils 0.11 PT INR Sodium 139 Potassium 4.1 Chloride 101 Carbon Dioxide 27.5 Anion Gap 10.5 BUN 6 L Creatinine 0.9 Estimated GFR/1.73 m2 >= 60.00 Glucose 223 H Hemoglobin A1c Calcium 9.4 Magnesium 1.8 Total Bilirubin 0.7 AST 16 ALT 15 Alkaline Phosphatase 123 H Total Protein 8.1 Albumin 3.4 Triglycerides 59 Total Cholesterol 209 H LDL Cholesterol, Calc 124 H HDL Cholesterol 74 Vitamin B12 Urine Color Urine Clarity Urine pH Ur Specific [place] Urine Protein Urine Ketones Urine Blood Urine Nitrite Urine Bilirubin Urine Urobilinogen Ur Leukocyte Esterase Urine RBC Urine WBC Ur Epithelial Cells Urine Crystals Urine Bacteria Urine Casts Urine Mucus Ur Culture Indicated? Urine Glucose COVID-19 Source SARS-CoV-2 (PCR) 04/10/21 04/10/21 04/10/21 09:57 13:13 13:25 WBC RBC Hgb Hct MCV MCH MCHC RDW Plt Count MPV Immature Gran % Neutrophils % Lymphocytes % Monocytes % Eosinophils % Basophils % Nucleated RBC % Absolute Neutrophils Absolute Lymphocytes Absolute Monocytes Absolute Eosinophils Absolute Basophils PT 11.2 H INR 1.1 Sodium Potassium Chloride Carbon Dioxide Anion Gap BUN Creatinine Estimated GFR/1.73 m2 Glucose Hemoglobin A1c 7.6 H Calcium Magnesium Total Bilirubin AST ALT Alkaline Phosphatase Total Protein Albumin Triglycerides Total Cholesterol LDL Cholesterol, Calc HDL Cholesterol Vitamin B12 Urine Color Urine Clarity Urine pH Ur Specific [place] Urine Protein Urine Ketones Urine Blood Urine Nitrite Urine Bilirubin Urine Urobilinogen Ur Leukocyte Esterase Urine RBC Urine WBC Ur Epithelial Cells Urine Crystals Urine Bacteria Urine Casts Urine Mucus Ur Culture Indicated? Urine Glucose COVID-19 Source Nasal/Nares SARS-CoV-2 (PCR) Negative 04/10/21 04/11/21 04/11/21 22:45 06:15 06:15 WBC 7.24 D RBC 4.78 Hgb 14.3 Hct 43.7 MCV 91.4 MCH 29.9 MCHC 32.7 RDW 12.7 Plt Count 349 MPV 10.0 Immature Gran % 0.3 Neutrophils % 62.3 Lymphocytes % 23.9 Monocytes % 7.5 Eosinophils % 5.2 Basophils % 0.8 Nucleated RBC % 0 Absolute Neutrophils 4.51 Absolute Lymphocytes 1.73 Absolute Monocytes 0.54 Absolute Eosinophils 0.38 Absolute Basophils 0.06 PT INR Sodium 139 Potassium 3.7 Chloride 103 Carbon Dioxide 28.1 Anion Gap 7.9 BUN 5 L Creatinine 0.7 Estimated GFR/1.73 m2 >= 60.00 Glucose 159 H Hemoglobin A1c Calcium 9.1 Magnesium 1.9 Total Bilirubin AST ALT Alkaline Phosphatase Total Protein Albumin Triglycerides Total Cholesterol LDL Cholesterol, Calc HDL Cholesterol Vitamin B12 327 Urine Color Yellow Urine Clarity Sl Cloudy Urine pH 7.0 Ur Specific [place] 1.025 Urine Protein Negative Urine Ketones Negative Urine Blood Trace-intact H Urine Nitrite Positive H Urine Bilirubin Negative Urine Urobilinogen 0.2 Ur Leukocyte Esterase Trace H Urine RBC 3-5 H Urine WBC 10-20 H Ur Epithelial Cells Rare Urine Crystals Negative Urine Bacteria Many Urine Casts Negative Urine Mucus Negative Ur Culture Indicated? Yes Urine Glucose 250 H COVID-19 Source SARS-CoV-2 (PCR)
[2021-04-11] MEDS: Cyanocobalamin 500 MCG TAB 1000 MCG PO (08:37)
[2021-04-11] MEDS: Normal Saline 1,000 ML 150 ML IV (08:53)
--- NOTE | 2021-04-11 10:58 | DSE_ITS ---
Date of service: 04/11/21 Time of Service: 10:59 DS: Diagnosis Discharge Diagnosis (1) TIA (transient ischemic attack): Status: Acute (2) Aortic stenosis: Status: Chronic (3) Carotid stenosis: Status: Acute (4) Diabetes mellitus type 2 in nonobese: Status: Acute Asessment and Plan: hemoglobin A1C 7.6 started on meformin Discharge Plan Disposition Patient Disposition: HOME Condition: Stable Discharge Details Reason For Visit: Suspected Acute CVA Admit Date/Time: 04/10/21 12:19 Admit Provider: Carin Leos Attending Provider: Carin Leos Primary Care Provider: Van Montero Hospital Course Hospital Course: This is a 71 year old female, who does not follow along with pcp, diabetic who is diet controlled only. she presented to the ED with c/o left lower extremity weakness. Her work up in the ED: She has been seen by neurology who feels patient most likely had a transient ischemic attack and recommended treatment with aspirin and clopidogrel She had a CT angiogram done which showed bilateral 50 to 70% internal carotid stenoses, and a critical stenosis or near occlusion of the left vertebral. She also had an echocardiogram done which showed normal left ventricular systolic function. There was severe aortic stenosis with a peak gradient of 61, mean of 36, no aortic insufficiency, no intracardiac shunt and no evidence of intracardiac thrombus She was started on antiplatelet therapy and per recommendation of Dr. Pelayo this should be continued for 90 days. She has bilateral carotid stenosis as well as left vertebral near occlusion. Recommendation for vascular surgical follow-up is indicated. Hemoglobin A1C was 7.6, metformin 500 mg po bid prescription given. She was found to have UTI on arrival, started on ceftriaxone and will discharge home on cefpodoxime for 4 more days. sensitivity pending at discharge. she has continued to remain symptom free. she is being discharged to home with no services. she will f/u outpatient with pcp, vascular surgery and neurology. discharge discussed with Dr Leos Home Meds and New Rx's Prescriptions: New clopidogrel 75 mg Tablet 75 mg PO DAILY Qty: 30 RF: 0 aspirin 81 mg Tablet,Delayed Release (Dr/Ec) 81 mg PO DAILY Qty: 30 RF: 0 cefpodoxime 200 mg tablet 200 mg PO BID Qty: 8 RF: 0 metformin 500 mg tablet 500 mg PO BID Qty: 60 RF: 0 atorvastatin 40 mg Tablet 80 mg PO QPM Qty: 60 RF: 0 cyanocobalamin (vitamin B-12) [Vitamin B-12] 500 mcg Tablet 1,000 mcg PO DAILY Qty: 30 RF: 0 folic acid 1 mg Tablet 1 mg PO QAM Qty: 30 RF: 0 Continued thiamine HCl (vitamin B1) 100 mg tablet 100 mg PO DAILY Qty: 30 RF: 0 Discharge Instructions Instructions: Transient Ischemic Attack (DC), Urinary Tract Infection in Women (ED), Hyperlipidemia (DC), Type 2 Diabetes in the Older Adult (DC) Stand Alone Forms: Nursing Discharge Form Referrals: Dawit Yao [ [facility] STAFF PHYSICIAN] - 04/25/21 11:20 am Jenny Pelayo MD [ [facility] STAFF PHYSICIAN] - (Please call Wednesday to make a follow up appointment.) Activity:: Activity as Tolerated Equipment/Supplies:: No Equipment Needed Diet:: Carb Counting Discharge Orders Discharge Orders: Discharge Order (Routine); Ordered 04/11/21 Ordered By: Jasmin Cortes Discharge Data Discharge Date/Time-TO BE ENTERED AT DEPARTURE: 04/11/21 13:09 DS: Summary Time Spent with Patient providing and/or coordinating discharge services: Greater than 30 minutes Status at Discharge Functional status at discharge: independent ambulation Overall status at discharge: patient is back to baseline Mental Status: mental status grossly normal Speech and Movement: speech and movement normal Mood: congruent mood Affect: normal affect Exam Const General: cooperative, anxious, disheveled (unkempt, smells of urine) and frail appearing (older than stated age) Nutritional Appearance: average body habitus Orientation: alert, awake and oriented x3 HENOR Head: normal to inspection, normocephalic and atraumatic Resp Effort & Inspection: normal respiratory effort Auscultation: clear to auscultation bilaterally Cardio Rate: regular rate Rhythm: regular rhythm GI Inspection: normal to inspection Palpation: soft Auscultation: normal bowel sounds Neuro General: patient alert, patient awake, patient oriented x3, tone normal and moves all extremities Cranial Nerves: PERRL, EOM intact bilaterally, facial strength normal, tongue midline and able to elevate shoulders bilaterally Cognition: normal cognition Speech: speech normal Motor: muscle tone normal throughout, strength 5/5 throughout and tremor Extrem General: normal to inspection, full ROM and no pedal edema Psych Mental Status: mental status grossly normal Speech and Movement: speech and movement normal Mood: congruent mood Affect: normal affect DS: Data Vitals/I&O Vitals and I&O: Vital Signs Temperature 36.9 C 04/11/21 08:14 Temperature Source Tympanic 04/11/21 08:14 Pulse 109 H 04/11/21 08:14 Pulse Rhythm Regular 04/11/21 09:45 Pulse 97 H 04/10/21 12:31 Respiratory Rate 18 04/11/21 08:14 Respiratory Effort Non-Labored 04/11/21 09:45 Respiratory Depth Normal 04/11/21 09:45 Respiratory Pattern Normal 04/11/21 04:55 Blood Pressure 137/86 04/11/21 08:14 Blood Pressure Mean 89 04/10/21 12:31 Blood Pressure Position Supine 04/10/21 09:39 Pulse Oximetry 98 04/11/21 08:14 Oxygen Delivery Method Room Air 04/11/21 08:14 Oxygen Flow Rate 0 04/11/21 08:14 Pain Level 0 04/11/21 08:14 Intake & Output 04/10/21 04/10/21 04/11/21 11:59 23:59 11:59 Intake Total 997.5 / 997.5 1000 / 1000 Output Total 300 / 300 Balance 997.5 / 997.5 700 / 700 Weight 67 kg 61 kg Intake: IV 997.5 / 997.5 1000 / 1000 Output: Urine 300 / 300 Other: Urine Color Yellow Yellow Urine Appearance Clear Cloudy Urine Odor None Comment Patient is independent to the bathroom. patient voided in the toilet but was also grossily incontinent Stool Size Large Stool Characteristics Liquid Brown Voiding Methods Toilet Toilet Data Completed and Pending Labs on day of discharge: Labs from last 24 hours 04/11/21 04/11/21 04/10/21 06:15 06:15 22:45 WBC 7.24 D RBC 4.78 Hgb 14.3 Hct 43.7 MCV 91.4 MCH 29.9 MCHC 32.7 RDW 12.7 Plt Count 349 MPV 10.0 Immature Gran % 0.3 Neutrophils % 62.3 Lymphocytes % 23.9 Monocytes % 7.5 Eosinophils % 5.2 Basophils % 0.8 Nucleated RBC % 0 Absolute Neutrophils 4.51 Absolute Lymphocytes 1.73 Absolute Monocytes 0.54 Absolute Eosinophils 0.38 Absolute Basophils 0.06 PT INR Sodium 139 Potassium 3.7 Chloride 103 Carbon Dioxide 28.1 Anion Gap 7.9 BUN 5 L Creatinine 0.7 Estimated GFR/1.73 m2 >= 60.00 Glucose 159 H Hemoglobin A1c Calcium 9.1 Magnesium 1.9 Triglycerides Total Cholesterol LDL Cholesterol, Calc HDL Cholesterol Vitamin B12 327 Urine Color Yellow Urine Clarity Sl Cloudy Urine pH 7.0 Ur Specific [place] 1.025 Urine Protein Negative Urine Ketones Negative Urine Blood Trace-intact H Urine Nitrite Positive H Urine Bilirubin Negative Urine Urobilinogen 0.2 Ur Leukocyte Esterase Trace H Urine RBC 3-5 H Urine WBC 10-20 H Ur Epithelial Cells Rare Urine Crystals Negative Urine Bacteria Many Urine Casts Negative Urine Mucus Negative Ur Culture Indicated? Yes Urine Glucose 250 H COVID-19 Source SARS-CoV-2 (PCR) 04/10/21 04/10/21 04/10/21 13:25 13:13 09:57 WBC RBC Hgb Hct MCV MCH MCHC RDW Plt Count MPV Immature Gran % Neutrophils % Lymphocytes % Monocytes % Eosinophils % Basophils % Nucleated RBC % Absolute Neutrophils Absolute Lymphocytes Absolute Monocytes Absolute Eosinophils Absolute Basophils PT 11.2 H INR 1.1 Sodium Potassium Chloride Carbon Dioxide Anion Gap BUN Creatinine Estimated GFR/1.73 m2 Glucose Hemoglobin A1c 7.6 H Calcium Magnesium Triglycerides Total Cholesterol LDL Cholesterol, Calc HDL Cholesterol Vitamin B12 Urine Color Urine Clarity Urine pH Ur Specific [place] Urine Protein Urine Ketones Urine Blood Urine Nitrite Urine Bilirubin Urine Urobilinogen Ur Leukocyte Esterase Urine RBC Urine WBC Ur Epithelial Cells Urine Crystals Urine Bacteria Urine Casts Urine Mucus Ur Culture Indicated? Urine Glucose COVID-19 Source Nasal/Nares SARS-CoV-2 (PCR) Negative 04/10/21 09:57 WBC RBC Hgb Hct MCV MCH MCHC RDW Plt Count MPV Immature Gran % Neutrophils % Lymphocytes % Monocytes % Eosinophils % Basophils % Nucleated RBC % Absolute Neutrophils Absolute Lymphocytes Absolute Monocytes Absolute Eosinophils Absolute Basophils PT INR Sodium Potassium Chloride Carbon Dioxide Anion Gap BUN Creatinine Estimated GFR/1.73 m2 Glucose Hemoglobin A1c Calcium Magnesium Triglycerides 59 Total Cholesterol 209 H LDL Cholesterol, Calc 124 H HDL Cholesterol 74 Vitamin B12 Urine Color Urine Clarity Urine pH Ur Specific [place] Urine Protein Urine Ketones Urine Blood Urine Nitrite Urine Bilirubin Urine Urobilinogen Ur Leukocyte Esterase Urine RBC Urine WBC Ur Epithelial Cells Urine Crystals Urine Bacteria Urine Casts Urine Mucus Ur Culture Indicated? Urine Glucose COVID-19 Source SARS-CoV-2 (PCR) 04/10/21 22:45 Urine - Reflex from Ua Urine Culture - Pending Preliminary micro results at discharge 04/10/21 22:45 Urine Culture - Pending Urine - Reflex from [facility] Medical History Alcohol abuse Surgical History Surgical history unknown Social History Smoking/Tobacco Use Status: Former Tobacco Use Smoking risk assessment performed?: Yes Alcohol Intake: current Alcohol Intake frequency: 0-2 drinks per day Alcohol type: wine Drug use: Never Substance use type: does not use Do you feel safe at home: Yes Do you feel safe in your relationship?: Yes
[2021-04-11] MEDS: Cyanocobalamin 1000 MCG/ML VIAL IM/SC (11:01)
[2021-04-11 11:07] VITALS: PULSE 98
[2021-04-11] MEDS: cefTRIAXone 1 GM/50 ML BAG IVPB (11:13)
[2021-04-11 11:41] VITALS: BP 147/71; PULSE 69; RESP 18; TEMP 37.1; O2SAT 97
--- NOTE | 2021-04-11 19:42 | PDOC.CMPRO ---
- If Service Date Differs Date of service: 04/11/21 Time of Service: 19:42 Care Management Progress Note S/O: Ester was discharged home less than 24 hours after admission. MILLER was called to discuss her housing situation, as a RN overheard her talking about being evicted. MILLER met with Ester, who stated that her landlord did go to her home this morning, but the police were called, and he was told that he had to leave. MILLER asked Ester if she was interested in housing resources, which she declined. She stated that she plans to move to [place] or [facility] soon, as she feels that there are more resources. MILLER provided information for Kyra for MCR navigation, as she is interested in changing her current MCR plan. MILLER also wrote the phone number down for [facility] in [facility], at her request. Ester stated that her daughter lives in [place], and she did as well for many years. 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 Per report, she was medically cleared for discharge. CM coordinated RCT transportation home via private vehicle. Ester did not share any further concerns. A: Ester is a 71 year old female admitted to [facility] on 04/10/21 for suspected CVA. P: Ester returned home today with no new services. She was transported home via private vehicle, RCT, coordinated by MILLER. She will follow up with her PCP and discharge plan of care.
== END 2021-04-11 13:09 | disposition home or self-care (01) | DRG 69 ==
LOC: ER 14:02 → MS 04-11 09:36
PROVIDERS: Family Medicine; Admitting Provider Internal Medicine; Emergency Provider Nurse Practitioner Acute Care; PCP Nurse Practitioner Family; Visit Provider Internal Medicine
DX: G45.9 Transient cerebral ischemic attack, unspecified (principal); N39.0 Urinary tract infection, site not specified; R20.2 Paresthesia of skin; R25.1 Tremor, unspecified; F10.20 Alcohol dependence, uncomplicated; I65.23 Occlusion and stenosis of bilateral carotid arteries; Z20.822 Contact with and (suspected) exposure to COVID-19; Z87.891 Personal history of nicotine dependence; I35.0 Nonrheumatic aortic (valve) stenosis; E11.9 Type 2 diabetes mellitus without complications; B96.1 Klebsiella pneumoniae [K. pneumoniae] as the cause of diseases classified elsewhere
CPT/HCPCS: 36415; 70496; 70498; 80048; 80053; 80061; 87077; 87635; 93306; 97161; 99221; 99223; 99285; J1650; 70551; 81003; 81015; 82607; 83036; 83735; 85025; 85610; 87086; 87186; 99239; J0696; J3420; J3490

== ENCOUNTER → 2021-04-11 07:31 | Outpatient (BNVA) | payer OTHER, SELFPAY | PROVIDERS: PCP Nurse Practitioner Family; Referring Provider Nurse Practitioner Family; Visit Provider Internal Medicine Cardiovascular Disease | DX: R69 Illness, unspecified (principal) ==

== ENCOUNTER 2021-07-07 21:06 | Inpatient (IN) | payer OTHER, SELFPAY ==
[2021-07-07] VITALS (25 sets, daily range): BP systolic 93–126; BP diastolic 41–102; PULSE 94–137; RESP 14–28; TEMP 35.7–37.2; O2SAT 95–99
--- NOTE | 2021-07-07 20:45 | RT.EKG_ITS ---
APPROVED REPORT Exam: Resting ECG Reason for Exam: weakness, hypothermia Patient Location: E HR:121 bpm ECG Measurements Heart Rate 121 AXIS WI 57 P 0 QRSd 92 QRS -34 QT 344 T 96 QTc 492 Conclusion Sinus tachycardia. Multiform ventricular premature complexes. Probable left atrial enlargement. Basaeline with artifact..
--- NOTE | 2021-07-07 21:00 | DI.RAD_ITS ---
Exam(s) XR LUMBAR SPINE AP, LAT XR HIP RT COMPLETE AP PELVIS EXAM: XR LUMBAR SPINE AP, LAT CLINICAL HISTORY: fall, pain TECHNIQUE: COMPARISON: CR,XR XR HIP RT COMPLETE AP PELVIS from 04/05/2021 CR,XR XR HIP RT COMPLETE AP PELVIS from 07/07/2021 FINDINGS: Three views of the lumbar spine and two views of the hips were obtained. There is an apparent cathet er projected over the inferior pelvis. There is no evidence of acute fracture or dislocation involvi ng the hip.. There are moderate degenerative changes of the lumbosacral spine with apparent pseudo spondylolisthes is of L4 on L5. there is no evidence of an acute lumbosacral spine injury. IMPRESSION: RADIATION DOSE DELIVERED: Total DLP
--- NOTE | 2021-07-07 21:00 | DI.RAD_ITS ---
Exam(s) XR CHEST 1V IN DI DEPT EXAM: XR CHEST 1V IN DI DEPT CLINICAL HISTORY: fall, hypothermia. TECHNIQUE: 2D digital imaging was performed. COMPARISON: No exams were available for comparison FINDINGS: LUNGS: Clear. No pleural abnormality seen. HEART: Normal. MEDIASTINUM: Normal. OTHER FINDINGS: None. IMPRESSION: No acute pulmonary findings. DATA REPOSITORY: RADIATION DOSE DELIVERED: Total DLP
--- NOTE | 2021-07-07 21:10 | DI.CT_ITS ---
Exam(s) CT HEAD CERVICAL SPINE WO EXAM: CT HEAD CERVICAL SPINE WO COMPARISON: CT CT BRAIN NECK CTA from 04/10/2021 FINDINGS: CT examination of the cervical spine was performed without contrast administration. There are severe degenerative changes of the cervical spine and there is a mid cervical kyphosis. There is no evidence of acute cervical spine fracture or dislocation. Intervertebral disc spaces are well maintained. Tracheolaryngeal structures appear intact. No cervical mass or adenopathy. Noncontrast cranial CT was performed. There is moderate generalized cerebral atrophy.. No evidence of acute intracranial hemorrhage, mass effect, or midline shift. No calvarial fracture. The orbital and temporal bone structures appear intact. Visualized mastoid air cells and paranasal sinuses appear clear. IMPRESSION: No evidence of acute cervical spine injury. No evidence of acute intracranial injury. RADIATION DOSE DELIVERED: 1,121.02mGy.cm Total DLP 1,121.02mGy.cm Total DLP 17.74mGy CTDIvol DATA REPOSITORY: All CT scans at this facility are submitted to the National Radiology Data Registry (NRDR) Dose Index Registry (DIR) with the [employer] ([employer]). RADIATION OPTIMIZATION: All CT scans at this facility use at least one of these dose optimization te chniques: automated exposure control; mA and/or kV adjustment per patient size (includes targeted exa ms where dose is matched to clinical indication); or iterative reconstruction.
--- NOTE | 2021-07-07 21:11 | W.ED.GENAD ---
Discharge Plan Disposition Patient Disposition: [facility] INPATIENT Condition: Improving Discharge Details Clinical Impression: Urinary tract infection, Acute kidney injury, Hypothermia Primary Care Provider: Van Montero ED Provider: Cornelius Rivera Home Meds and New Rx's Prescriptions: No Action thiamine HCl (vitamin B1) 100 mg tablet 100 mg PO DAILY Qty: 30 RF: 0 clopidogrel 75 mg Tablet 75 mg PO DAILY Qty: 30 RF: 0 aspirin 81 mg Tablet,Delayed Release (Dr/Ec) 81 mg PO DAILY Qty: 30 RF: 0 cefpodoxime 200 mg tablet 200 mg PO BID Qty: 8 RF: 0 metformin 500 mg tablet 500 mg PO BID Qty: 60 RF: 0 atorvastatin 40 mg Tablet 80 mg PO QPM Qty: 60 RF: 0 cyanocobalamin (vitamin B-12) [Vitamin B-12] 500 mcg Tablet 1,000 mcg PO DAILY Qty: 30 RF: 0 folic acid 1 mg Tablet 1 mg PO QAM Qty: 30 RF: 0 Medical Decision Making 71-year-old female brought by EMS. She reports tripping on her carpet, falling in her bathtub 3 days ago and then being unable to get out. She states that the water from the tap is known to drip and caused her to get nearly completely saturated with water per EMS. She states when she fell she hit her head but did not have a loss of consciousness. She complains of mild headache and low back pain in addition to feeling chilled. Patient arrives to the ER tachycardic with a pulse of 120, initial core temperature of 94?F. Differential diagnosis includes improving hypothermia, dehydration, electrolyte abnormality. Must exclude traumatic injury and patient referred for CT scan of the head, screening chest x-ray and L-spine images given her complaint of back pain. Patient warming initiated including warm fluids, bear hugger, and temp sensing James catheter placed. Patient's labs are notable for urinary tract infection and significant dehydration with a BUN elevated to 40 over a baseline of 5, creatinine 1.2 versus baseline 0.7. Imaging: CT head and cervical spine notes age-related atrophy, no acute intracranial abnormality. Degenerative cervical spine disease without evidence of fracture or dislocation. Chest x-ray no focal consolidation. L-spine with degenerative disease. No evidence of fracture of the pelvis or hip. Given the patient's acute kidney injury, persistent tachycardia, UTI, & hypothermia, she will merit admission. Case discussed with Dr. Noonan. Medical Records Medical records reviewed: Yes I reviewed the patient's medical records. Lab Data Lab results reviewed: Yes I reviewed the patient's lab results. Labs: Laboratory Results - last 24 hr 07/07/21 07/07/21 07/07/21 21:20 21:25 21:25 WBC 15.11 H RBC 5.33 H Hgb 16.0 H Hct 48.3 H MCV 90.6 MCH 30.0 MCHC 33.1 RDW 12.3 Plt Count 421 H MPV 10.1 Immature Gran % 0.6 Neutrophils % 82.6 Lymphocytes % 7.5 Monocytes % 9.1 Eosinophils % 0.0 Basophils % 0.2 Nucleated RBC % 0 Absolute Neutrophils 12.48 H Absolute Lymphocytes 1.13 L Absolute Monocytes 1.38 H Absolute Eosinophils 0.00 Absolute Basophils 0.03 Sodium 139 Potassium 3.4 L Chloride 98 Carbon Dioxide 24.8 Anion Gap 16.2 H BUN 40 H Creatinine 1.2 H Estimated GFR/1.73 m2 44.16 Glucose 243 H Calcium 10.1 Magnesium 2.0 Total Bilirubin 1.2 H AST 34 ALT 33 Alkaline Phosphatase 85 Creatine Kinase Troponin I < 50 Total Protein 9.0 H Albumin 4.0 Urine Color Urine Clarity Urine pH Ur Specific [place] Urine Protein Urine Ketones Urine Blood Urine Nitrite Urine Bilirubin Urine Urobilinogen Ur Leukocyte Esterase Urine RBC Urine WBC Ur Epithelial Cells Urine Crystals Urine Bacteria Urine Casts Urine Mucus Ur Culture Indicated? Urine Glucose COVID-19 Source Nasal/Nares 07/07/21 07/07/21 21:25 21:25 WBC RBC Hgb Hct MCV MCH MCHC RDW Plt Count MPV Immature Gran % Neutrophils % Lymphocytes % Monocytes % Eosinophils % Basophils % Nucleated RBC % Absolute Neutrophils Absolute Lymphocytes Absolute Monocytes Absolute Eosinophils Absolute Basophils Sodium Potassium Chloride Carbon Dioxide Anion Gap BUN Creatinine Estimated GFR/1.73 m2 Glucose Calcium Magnesium Total Bilirubin AST ALT Alkaline Phosphatase Creatine Kinase 275 H Troponin I Total Protein Albumin Urine Color Yellow Urine Clarity Sl Cloudy Urine pH 5.5 Ur Specific [place] >= 1.030 H Urine Protein 100 H Urine Ketones 40 H Urine Blood Large H Urine Nitrite Negative Urine Bilirubin Small H Urine Urobilinogen 0.2 Ur Leukocyte Esterase Small H Urine RBC 5-10 H Urine WBC >50 H Ur Epithelial Cells Few Urine Crystals Negative Urine Bacteria Many Urine Casts Negative Urine Mucus Trace Ur Culture Indicated? Yes Urine Glucose >=1000 H COVID-19 Source HPI General Mode of arrival: EMS. Date/Time Provider Initiated Documentation: 07/07/21 21:18. Limitations to Documentation: no limitations. Information obtained by: patient and EMS. History of Present Illness 71 year old F presents to the emergency department with the chief complaint of In a bathtub for 3 days and unable to get out, hypothermic, described as moderate, Patient started experiencing this day(s) and it has been constant. No relieving factors improve symptom(s), No exacerbating factors reported . Patient notes headaches and other (Low back pain). Patient did receive the following treatments prior to arrival, none Related Data Home Medications Medication Instructions Recorded Confirmed thiamine HCl (vitamin B1) 100 mg PO DAILY #30 tab 04/05/21 04/10/21 aspirin 81 mg PO DAILY #30 tab 04/11/21 atorvastatin 80 mg PO QPM #60 tab 04/11/21 cefpodoxime 200 mg PO BID #8 tab 04/11/21 clopidogrel 75 mg PO DAILY #30 tab 04/11/21 cyanocobalamin (vitamin B-12) 1,000 mcg PO DAILY #30 tab 04/11/21 [Vitamin B-12] folic acid 1 mg PO QAM #30 tab 04/11/21 metformin 500 mg PO BID #60 tab 04/11/21 Previous Rx's Medication Instructions Recorded thiamine HCl (vitamin B1) 100 mg PO DAILY #30 tab 04/05/21 aspirin 81 mg PO DAILY #30 tab 04/11/21 atorvastatin 80 mg PO QPM #60 tab 04/11/21 cefpodoxime 200 mg PO BID #8 tab 04/11/21 clopidogrel 75 mg PO DAILY #30 tab 04/11/21 cyanocobalamin (vitamin B-12) 1,000 mcg PO DAILY #30 tab 04/11/21 [Vitamin B-12] folic acid 1 mg PO QAM #30 tab 04/11/21 metformin 500 mg PO BID #60 tab 04/11/21 Allergies Allergy/AdvReac Type Severity Reaction Status Date / Time No Known Allergies Allergy Unverified 07/07/21 21:14 General SETH: 3 Review of Systems Narrative: Denies loss of consciousness. Feels chilled. Recently well. Believes she was in the bathtub for 3 days. Patient reports having received COVID 19 vaccine x1. 8 systems reviewed and otherwise negative PFSH All Active Problems (Updated 07/07/21 @ 22:33 by Cornelius Rivera MD) Acute kidney injury (Acute) Hypothermia (Acute) Diabetes mellitus type 2 in nonobese (Acute) Tremor (Acute) TIA (transient ischemic attack) (Acute) Diabetes (Chronic) Aortic stenosis (Chronic) Carotid stenosis (Acute) Laceration of elbow with foreign body (Acute) Acute CVA (cerebrovascular accident) (Acute) Alcohol abuse (Chronic) Urinary tract infection (Acute) Fall (Acute) Alcohol intoxication (Acute) Surgical History Surgical history unknown Social History Smoking/Tobacco Use Status: Former Tobacco Use Smoking risk assessment performed?: Yes Alcohol Intake: current Alcohol Intake frequency: 0-2 drinks per day Alcohol type: wine Drug use: Never Substance use type: does not use Do you feel safe at home: Yes Do you feel safe in your relationship?: Yes Exam Narrative Exam Narrative: GEN: awake, alert, oriented 3. Pleasant, well groomed, interactive. HEAD: Normocephalic, atraumatic ENT: Mucous membranes dry, oropharynx unremarkable, External ear exam unremarkable EYES: PERRL, EOMI NECK: Full ROM, no BEATRIZ, no menigismus CHEST/RESP: Nontender, clear to auscultation bilateral, no wheeze/rhonchi/rales CARDIOVASCULAR: RRR, no murmur, rub bonnie. 2+ Rad pulse bilateral ABDOMEN: Soft, nontender, no mass. +Bowel sounds Back: No midline tenderness, step-off or deformity. There is evidence of early pressure ulcer to predominantly right buttock. EXT: Full ROM, no edema Neuro: Grossly normal neurologic exam, conversant, interactive. Psych: Speech fluent, thoughts congruent, affect normal
[2021-07-07] MEDS: Normal Saline 1,000 ML 1000 ML IV (21:30)
[2021-07-07 21:37] LABS: Abs Immature Grans 0.09 10^3/uL (0.0-0.06); Absolute Basophil Count 0.03 10^3/uL (0.0-0.2); Absolute Lymphocyte Count 1.13 10^3/uL (1.2-3.4); Absolute Monocyte Count 1.38 10^3/uL (0.1-0.8); Absolute Neutrophil Count 12.48 10^3/uL (1.2-6.7); Basophils % 0.2; Bilirubin Small (Negative); Blood Large (Negative); Clarity Sl Cloudy (Clear); Glucose >=1000 mg/dL (Negative); HCT 48.3 % (36.0-46.0); Immature Grans % 0.6; Ketones 40 mg/dL (Negative); Leukocyte Esterase Small (Negative); Lymphocytes % 7.5; MCHC 33.1 % (32.0-36.0); MCV 90.6 fL (80-95); MPV 10.1 fL (8.0-11.0); Monocytes % 9.1; Neutrophils % 82.6; Nitrite Negative (Negative); Nucleated RBC 0 %; Platelet Count 421 10^3/uL (130-400); RBC 5.33 10^6/uL (3.93-5.22); RDW 12.3 % (11.7-14.6); RDW-SD 40.8 fL; Specific Gravity >= 1.030 (1.005-1.025); Urobilinogen 0.2 EU/dL (Up TO 0.2); WBC 15.11 10^3/uL (4.4-10.8); pH 5.5 (5-8)
[2021-07-07 21:43] LABS: Bacteria Many HPF (Negative); C & S Indicated? Yes; Casts Negative LPF (Negative); Crystals Negative HPF (Negative); Epithelial Cells Few HPF (Negative); Mucus Trace (Negative); WBC >50 HPF (0-5)
[2021-07-07 21:50] LABS: Source Nasal/Nares
[2021-07-07 21:53] LABS: Creatine Kinase 275 U/L (26-192)
[2021-07-07 21:54] LABS: ALT 33 U/L (14-59); AST 34 U/L (15-37); Alkaline Phosphatase 85 U/L (46-116); Anion Gap 16.2 mmol/L (3-11); BUN 40 mg/dL (7-18); Bilirubin, Total 1.2 mg/dL (0.2-1.0); CO2 24.8 mmol/L (21.0-32.0); CREATININE 1.2 mg/dL (0.55-1.02); Calcium 10.1 mg/dL (8.5-10.1); Chloride 98 mmol/L (98-107); Estimated GFR 44.16 (mL/min/1.73m2); Glucose 243 mg/dL (74-106); Potassium 3.4 mmol/L (3.5-5.1); Sodium 139 mmol/L (136-145); Troponin I < 50 ng/L (<or=60)
[2021-07-07 22:07] LABS: ETHANOL BLOOD < 3.0 mg/dL (<10)
--- NOTE | 2021-07-07 22:08 | DI.VRAD_ITS ---
PROCEDURE INFORMATION: Exam: CT Head Without Contrast Exam date and time: 07/07/2021 9:51 PM Age: 71 years old Clinical indication: Injury or trauma; Fall; Blunt trauma (contusions or hematomas); Consciousness not specified; Injury date: 07/07/20; Injury details: Fell in tub, hit head, head and neck pain TECHNIQUE: Imaging protocol: Computed tomography of the head without contrast. Radiation optimization: All CT scans at this facility use at least one of these dose optimization techniques: automated exposure control; mA and/or kV adjustment per patient size (includes targeted exams where dose is matched to clinical indication); or iterative reconstruction. COMPARISON: MR BRAIN WO 04/10/2021 12:44 PM FINDINGS: Brain: There is diffuse cerebral atrophy concordant with the patient's age. Chronic small vessel deep white matter ischemic disease is suggested by areas of patchy white matter low attenuation. No intracranial hemorrhage. No acute large territory CVA. No mass. No acute edema. No acute intracranial abnormality. Cerebral ventricles: Atrophy concordant ventriculomegaly. Paranasal sinuses: Visualized sinuses are unremarkable. No fluid levels. Mastoid air cells: Visualized mastoid air cells are well aerated. Bones/joints: Unremarkable. No acute fracture. Soft tissues: Unremarkable. IMPRESSION: 1. No acute intracranial abnormality. 2. Age-related atrophy and chronic small vessel deep white matter ischemia. PROCEDURE INFORMATION: Exam: CT Cervical Spine Without Contrast Exam date and time: 07/07/2021 9:51 PM Age: 71 years old Clinical indication: Injury or trauma; Fall; Blunt trauma (contusions or hematomas); Consciousness not specified; Injury date: 07/07/20; Injury details: Fell in tub, hit head, head and neck pain TECHNIQUE: Imaging protocol: Computed tomography images of the cervical spine without contrast. Radiation optimization: All CT scans at this facility use at least one of these dose optimization techniques: automated exposure control; mA and/or kV adjustment per patient size (includes targeted exams where dose is matched to clinical indication); or iterative reconstruction. COMPARISON: MR BRAIN WO 04/10/2021 12:44 PM FINDINGS: Bones/joints: No acute fracture. Multilevel degenerative disc and joint disease. Mid cervical degenerative kyphosis. 2 mm degenerative anterolisthesis of C2 on 3 and C3 on 4. Discs/Spinal canal/Neural foramina: No significant disc protrusion. No severe spinal canal stenosis. Multilevel bilateral degenerative moderate to severe foraminal stenosis. Lungs: Lung apices are normal. Soft tissues: Bilateral atherosclerotic carotid artery calcification. Left vertebral artery atherosclerotic calcification.. IMPRESSION: 1. Degenerative cervical spine disease. 2. No acute fracture or dislocation. Dictated and Authenticated by: Arcenio Vidal MD. Ordering:RADHA Shields MD
[2021-07-07 22:28] LABS: COVID-19 PCR Negative (Negative)
--- NOTE | 2021-07-07 22:29 | DI.VRAD_ITS ---
PROCEDURE INFORMATION: Exam: XR Right Hip Exam date and time: 07/07/2021 9:46 PM Age: 71 years old Clinical indication: Injury or trauma; Blunt trauma (contusions or hematomas); Right; Hip; Injury date: 07/09/21; Injury details: Fall in tub TECHNIQUE: Imaging protocol: XR Right hip. Views: 2 or 3 views hip with pelvis when performed. COMPARISON: CR XR HIP RT COMPLETE AP PELVIS 04/05/2021 10:31 AM FINDINGS: Bones/joints: Lumbosacral spine degenerative disease. No acute fracture. Pelvic ring is intact. Right hip is unremarkable on two views. Soft tissues: Unremarkable. Rectal temperature probe device IMPRESSION: 1. No evidence of fracture of the pelvis or right hip. 2. Lumbosacral spine degenerative disease. Dictated and Authenticated by: Arcenio Vidal MD. Ordering:RADHA Shields MD
--- NOTE | 2021-07-07 22:33 | DI.VRAD_ITS ---
PROCEDURE INFORMATION: Exam: XR Chest Exam date and time: 07/07/2021 9:12 PM Age: 71 years old Clinical indication: Injury or trauma; Blunt trauma (contusions or hematomas); Injury date: 07/07/21; Injury details: Fall, hypothermia TECHNIQUE: Imaging protocol: XR of the chest. Views: 1 view. COMPARISON: CT HEAD CERVICAL SPINE WO 07/07/2021 9:53 PM FINDINGS: Lungs: Unremarkable. No consolidation. Pleural spaces: Unremarkable. No pleural effusion. No pneumothorax. Heart/Mediastinum: Unremarkable. No cardiomegaly. Bones/joints: Unremarkable. IMPRESSION: 1. No acute findings. 2. No lung consolidation. 3. No pleural fluid or pneumothorax. Dictated and Authenticated by: Arcenio Vidal MD. Ordering:RADHA Shields MD
--- NOTE | 2021-07-07 22:35 | DI.VRAD_ITS ---
PROCEDURE INFORMATION: Exam: XR Lumbosacral Spine Exam date and time: 07/07/2021 9:12 PM Age: 71 years old Clinical indication: Injury or trauma; Blunt trauma (contusions or hematomas); Injury date: 07/07/21; Injury details: Fall. Pain TECHNIQUE: Imaging protocol: XR of the lumbosacral spine. Views: 2 or 3 views. COMPARISON: CR XR HIP RT COMPLETE AP PELVIS 04/05/2021 10:31 AM FINDINGS: Bones/joints: No acute fracture. Severe degenerative disc space narrowing at L5-S1. Moderate degenerative disc space narrowing at L4-L5 with an L4 7 mm anterolisthesis on L5. Soft tissues: Unremarkable. IMPRESSION: 1. Degenerative lumbar spine disease. 2. No acute fracture. Dictated and Authenticated by: Arcenio Vidal MD. Ordering:RADHA Shields MD
[2021-07-07] MEDS: cefTRIAXone 1 GM/50 ML BAG IVPB (22:46)
[2021-07-07] MEDS: Ondansetron 4 MG/2 ML VIAL IVP (22:47)
--- NOTE | 2021-07-07 22:55 | W.PM.HP.N ---
Date of service: 07/07/21 Time of Service: 22:55 Assessment and Plan Assessment and plan (1) Hypothermia: Status: Acute Assessment and plan: Hypothermia, now resolved. Incident seems to have entailed a mechanical fall, patient able to recall events in detail, and no suggestion of syncope. Sequelae at this point entail modest TRIP, likely pre-renal, with minimal rhabdo, and UTI. Will continue IVF and Rocephin. Soft BP noted, will bolus IVF (cautiously, has h/o critical ) -- doubt sepsis, very likely hypovolemia. Will trend CPK and renal function. DM: unclear if she is taking any meds, she denies h/o DM to me and prior history indicates similar. Will cover with SS EtOH: She is at some risk for withdrawal though I do not see that actively at present. Will follow on CIWA and give banana bag now. Reviewed ADs, unable to decide, will default to Full Code. History of Present Illness History of Present Illness Chief Complaint: fell in bathtub Narrative: 71 female with h/o alcohol abuse, DM -- states she slipped and fell into bathtub three days [employer]OCK[employer]ED [employer]. Tub was full of clothes, but apparently there is a leaky faucet and eventually she, and the clothes, became wet. She lay there for three days until someone her her crying for help. In ER initial temp 94, pulse 120. Given warm IVF, warming blanket. Imaging of note for negative CT head and neck, and negative films of chest, hip and LS spine. Labs of note for white count 15, normal lytes (save K 3.4), BUN 42, Creat 1.2, glucose 243, CPK 275, trop negative, EKG sinus tach w/o ischemic changes or J waves, pyuria (50 WBC/hpf). COVID negative. Patient given dose 1 gram Rocephin. I was asked to evaluate for admission. Patient states she feels fine at present. Denies h/o EtOH withdrawal (though prior histories have indicated unreliability in this regard). Review of Systems All systems reviewed & are unremarkable except as noted in HPI and below PFSH All Active Problems Acute kidney injury (Acute) Hypothermia (Acute) Diabetes mellitus type 2 in nonobese (Acute) Tremor (Acute) TIA (transient ischemic attack) (Acute) Diabetes (Chronic) Aortic stenosis (Chronic) Carotid stenosis (Acute) Laceration of elbow with foreign body (Acute) Acute CVA (cerebrovascular accident) (Acute) Alcohol abuse (Chronic) Urinary tract infection (Acute) Fall (Acute) Alcohol intoxication (Acute) Surgical History Surgical history unknown Social History Smoking/Tobacco Use Status: Former Tobacco Use Smoking risk assessment performed?: Yes Alcohol Intake: current Alcohol Intake frequency: 0-2 drinks per day Alcohol type: wine Drug use: Never Substance use type: does not use Do you feel safe at home: Yes Do you feel safe in your relationship?: Yes Meds Allergies and Home Medications Allergies Allergy/AdvReac Type Severity Reaction Status Date / Time No Known Allergies Allergy Unverified 07/07/21 21:14 Home Medications Medication Instructions Recorded Confirmed Type thiamine HCl (vitamin B1) 100 mg PO DAILY #30 tab 04/05/21 04/10/21 Rx aspirin 81 mg PO DAILY #30 tab 04/11/21 Rx atorvastatin 80 mg PO QPM #60 tab 04/11/21 Rx cefpodoxime 200 mg PO BID #8 tab 04/11/21 Rx clopidogrel 75 mg PO DAILY #30 tab 04/11/21 Rx cyanocobalamin (vitamin B-12) 1,000 mcg PO DAILY #30 tab 04/11/21 Rx [Vitamin B-12] folic acid 1 mg PO QAM #30 tab 04/11/21 Rx metformin 500 mg PO BID #60 tab 04/11/21 Rx Exam Narrative Exam Narrative: 93/56, 112, 36.9, 17, 98% RA. HEENT atraumatic; neck supple; lungs clear; heart tachy/regular; abdomen soft and NT; extremities w/o edema; neuro Ox3, lucid, moves all 4s Results Labs Result diagrams: 07/07/21 21:25 07/07/21 21:25 Labs: Laboratory Results - last 24 hr 07/07/21 07/07/21 07/07/21 21:20 21:25 21:25 WBC 15.11 H RBC 5.33 H Hgb 16.0 H Hct 48.3 H MCV 90.6 MCH 30.0 MCHC 33.1 RDW 12.3 Plt Count 421 H MPV 10.1 Immature Gran % 0.6 Neutrophils % 82.6 Lymphocytes % 7.5 Monocytes % 9.1 Eosinophils % 0.0 Basophils % 0.2 Nucleated RBC % 0 Absolute Neutrophils 12.48 H Absolute Lymphocytes 1.13 L Absolute Monocytes 1.38 H Absolute Eosinophils 0.00 Absolute Basophils 0.03 Sodium 139 Potassium 3.4 L Chloride 98 Carbon Dioxide 24.8 Anion Gap 16.2 H BUN 40 H Creatinine 1.2 H Estimated GFR/1.73 m2 44.16 Glucose 243 H Calcium 10.1 Magnesium 2.0 Total Bilirubin 1.2 H AST 34 ALT 33 Alkaline Phosphatase 85 Creatine Kinase Troponin I < 50 Total Protein 9.0 H Albumin 4.0 Urine Color Urine Clarity Urine pH Ur Specific [place] Urine Protein Urine Ketones Urine Blood Urine Nitrite Urine Bilirubin Urine Urobilinogen Ur Leukocyte Esterase Urine RBC Urine WBC Ur Epithelial Cells Urine Crystals Urine Bacteria Urine Casts Urine Mucus Ur Culture Indicated? Urine Glucose Ethyl Alcohol < 3.0 COVID-19 Source Nasal/Nares SARS-CoV-2 (PCR) Negative 07/07/21 07/07/21 21:25 21:25 WBC RBC Hgb Hct MCV MCH MCHC RDW Plt Count MPV Immature Gran % Neutrophils % Lymphocytes % Monocytes % Eosinophils % Basophils % Nucleated RBC % Absolute Neutrophils Absolute Lymphocytes Absolute Monocytes Absolute Eosinophils Absolute Basophils Sodium Potassium Chloride Carbon Dioxide Anion Gap BUN Creatinine Estimated GFR/1.73 m2 Glucose Calcium Magnesium Total Bilirubin AST ALT Alkaline Phosphatase Creatine Kinase 275 H Troponin I Total Protein Albumin Urine Color Yellow Urine Clarity Sl Cloudy Urine pH 5.5 Ur Specific [place] >= 1.030 H Urine Protein 100 H Urine Ketones 40 H Urine Blood Large H Urine Nitrite Negative Urine Bilirubin Small H Urine Urobilinogen 0.2 Ur Leukocyte Esterase Small H Urine RBC 5-10 H Urine WBC >50 H Ur Epithelial Cells Few Urine Crystals Negative Urine Bacteria Many Urine Casts Negative Urine Mucus Trace Ur Culture Indicated? Yes Urine Glucose >=1000 H Ethyl Alcohol COVID-19 Source SARS-CoV-2 (PCR) Last Vital Signs Temp 36.9 C 07/07/21 22:50 Pulse 112 H 07/07/21 22:46 Resp 17 07/07/21 22:50 BP 93/56 L 07/07/21 22:46 Pulse Ox 98 07/07/21 22:40 PAWSS Have you Been Recently Intoxicated or Drunk Within the Last 30 days?: No Have you Ever Experienced Previous Episodes of Alcohol Withdrawal?: No Have you ever Experienced Withdrawal Seizures?: No Have you ever Experienced Delirium Tremens(DT)s?: No Have you ever Experienced Blackouts?: No Have you ever Combined Alcohol with other Downers within the last 90 days?: No Have you ever Combined Alcohol with any other Substance of Abuse during the last 90 days?: No Positive Blood Alcohol level on Presentation? [PCS.BAL]: No Evidence of Increased Autonomic Activity (i.e. HR>120, tremor, sweating, agitation, nausea)?: No Result: 0
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
[2021-07-07] MEDS: Normal Saline 1,000 ML 150 ML IV (23:07)
[2021-07-07] MEDS: Insulin Aspart 300 UNITS/3 ML PEN SC (23:39)
[2021-07-08] VITALS (24 sets, daily range): BP systolic 87–158; BP diastolic 36–74; PULSE 90–118; RESP 12–23; TEMP 36.1–37.7; O2SAT 93–99
[2021-07-08] MEDS: MAGNESIUM SULFATE 8.12 MEQ, MULTIVITAMIN 10 ML, THIAMINE 100 MG, FOLIC ACID 1 MG in Nor... 168.867 MG IV (01:00)
[2021-07-08 07:20] LABS: HCT 43.9 % (36.0-46.0); HGB 14.6 g/dL (11.2-15.7); MCH 29.9 pg (27.0-33.0); MCHC 33.3 % (32.0-36.0); MCV 89.8 fL (80-95); MPV 10.5 fL (8.0-11.0); Platelet Count 334 10^3/uL (130-400); RBC 4.89 10^6/uL (3.93-5.22); RDW 12.4 % (11.7-14.6); RDW-SD 40.8 fL; WBC 13.99 10^3/uL (4.4-10.8)
[2021-07-08] MEDS: POTASSIUM CHLORIDE/0.9% NACL 1,000 ML 100 MEQ IV (07:30)
[2021-07-08 07:42] LABS: Anion Gap 10.5 mmol/L (3-11); BUN 31 mg/dL (7-18); CO2 27.5 mmol/L (21.0-32.0); CREATININE 0.7 mg/dL (0.55-1.02); Calcium 8.8 mg/dL (8.5-10.1); Chloride 103 mmol/L (98-107); Creatine Kinase 358 U/L (26-192); Glucose 178 mg/dL (74-106); Potassium 3.4 mmol/L (3.5-5.1); Sodium 141 mmol/L (136-145)
--- NOTE | 2021-07-08 08:09 | W.PM.PROGNOT ---
Date of Service Date of service: 07/08/21 Time of Service: 12:39 Assessment and Plan Assessment and plan (1) E. coli UTI: Status: Acute Assessment and plan: Present on admission. Await sensitivities. Continue ceftriaxone. The patient was advised that her li catheter will come out tomorrow. (2) Acute kidney injury: Status: Resolved Assessment and plan: Likely prerenal due to dehydration. The plan is to d/c IVF later today. (3) Hypothermia: Status: Resolved Assessment and plan: Resolved. In setting of a fall into a bathtub full of wet clothes and staying there for several days. The patient is normothermic at this time. No longer requiring support to maintain her own temperature. (4) Ambulatory dysfunction: Status: Acute Assessment and plan: PT consulted. (5) Hypokalemia: Status: Acute Assessment and plan: Replete; recheck in am. (6) Aortic stenosis: Status: Chronic Assessment and plan: Cautious IV hydration. Monitor respiratory status. (7) Alcohol abuse: Status: Chronic Assessment and plan: Continue to monitor on CIWA. Not currently withdrawing from alcohol. Supplement thiamine, b12, folate. (8) Fall: Status: Acute Assessment and plan: Appears mechanical by description. PT consulted. (9) Non-insulin dependent type 2 diabetes mellitus: Status: Chronic Assessment and plan: Check A1C. Cover with carb consistent diet and SSI. (10) DVT prophylaxis: Status: Acute Assessment and plan: SC enoxaparin (11) Discharge planning issues: Status: Acute Assessment and plan: Full code Anticipate discharge home tomorrow Subjective Subjective Interval history since last seen: Ms Tiwari states that she is just tired and wants to sleep. She feels too weak to go home today - she has not walked yet. She thinks she needs to keep the li catheter in today because she does not think she can make it to the bedside commode. Denies dizziness, chest pain, shortness of breath at rest, nausea currently. Endorses chronic PAEZ, chronic cough in am, hiccups once a month. No hiccups currently. No SOB currently. CIWA score 1. The patient states she never withdraws from alcohol. A&Ox3 all morning. Did report nausea to weaving instructor nurse. Daughter wants to know if she has ulcers. 36.1 off of bare hugger this morning. This is a temporal temp. Got transferred from ICU to [facility]. Exam Narrative Exam Narrative: General: Pleasant elderly female who appears tired, A&Ox3, somewhat tangential in her answers HEENT: EOMI, dry MM Heart: RRR, +TERESA Lungs: CTAB Abdomen: soft, nontender, nondistended Extremities: no edema/clubbing/cyanosis, no lesions on B feet Objective Last Vital Signs Temp 36.1 C L 07/08/21 07:51 Pulse 97 H 07/08/21 07:51 Resp 22 07/08/21 07:51 BP 116/59 L 07/08/21 07:51 Pulse Ox 95 07/08/21 07:51 Laboratory Results - last 24 hr 07/07/21 07/07/21 07/07/21 21:20 21:25 21:25 WBC 15.11 H RBC 5.33 H Hgb 16.0 H Hct 48.3 H MCV 90.6 MCH 30.0 MCHC 33.1 RDW 12.3 Plt Count 421 H MPV 10.1 Immature Gran % 0.6 Neutrophils % 82.6 Lymphocytes % 7.5 Monocytes % 9.1 Eosinophils % 0.0 Basophils % 0.2 Nucleated RBC % 0 Absolute Neutrophils 12.48 H Absolute Lymphocytes 1.13 L Absolute Monocytes 1.38 H Absolute Eosinophils 0.00 Absolute Basophils 0.03 Sodium 139 Potassium 3.4 L Chloride 98 Carbon Dioxide 24.8 Anion Gap 16.2 H BUN 40 H Creatinine 1.2 H Estimated GFR/1.73 m2 44.16 Glucose 243 H Calcium 10.1 Magnesium 2.0 Total Bilirubin 1.2 H AST 34 ALT 33 Alkaline Phosphatase 85 Creatine Kinase Troponin I < 50 Total Protein 9.0 H Albumin 4.0 Urine Color Urine Clarity Urine pH Ur Specific [place] Urine Protein Urine Ketones Urine Blood Urine Nitrite Urine Bilirubin Urine Urobilinogen Ur Leukocyte Esterase Urine RBC Urine WBC Ur Epithelial Cells Urine Crystals Urine Bacteria Urine Casts Urine Mucus Ur Culture Indicated? Urine Glucose Ethyl Alcohol < 3.0 COVID-19 Source Nasal/Nares SARS-CoV-2 (PCR) Negative 07/07/21 07/07/21 07/07/21 21:25 21:25 23:54 WBC RBC Hgb Hct MCV MCH MCHC RDW Plt Count MPV Immature Gran % Neutrophils % Lymphocytes % Monocytes % Eosinophils % Basophils % Nucleated RBC % Absolute Neutrophils Absolute Lymphocytes Absolute Monocytes Absolute Eosinophils Absolute Basophils Sodium Potassium Chloride Carbon Dioxide Anion Gap BUN Creatinine Estimated GFR/1.73 m2 Glucose Calcium Magnesium Total Bilirubin AST ALT Alkaline Phosphatase Creatine Kinase 275 H Troponin I Cancelled Total Protein Albumin Urine Color Yellow Urine Clarity Sl Cloudy Urine pH 5.5 Ur Specific [place] >= 1.030 H Urine Protein 100 H Urine Ketones 40 H Urine Blood Large H Urine Nitrite Negative Urine Bilirubin Small H Urine Urobilinogen 0.2 Ur Leukocyte Esterase Small H Urine RBC 5-10 H Urine WBC >50 H Ur Epithelial Cells Few Urine Crystals Negative Urine Bacteria Many Urine Casts Negative Urine Mucus Trace Ur Culture Indicated? Yes Urine Glucose >=1000 H Ethyl Alcohol COVID-19 Source SARS-CoV-2 (PCR) 07/08/21 07/08/21 06:18 06:18 WBC 13.99 H RBC 4.89 Hgb 14.6 Hct 43.9 MCV 89.8 MCH 29.9 MCHC 33.3 RDW 12.4 Plt Count 334 MPV 10.5 Immature Gran % Neutrophils % Lymphocytes % Monocytes % Eosinophils % Basophils % Nucleated RBC % Absolute Neutrophils Absolute Lymphocytes Absolute Monocytes Absolute Eosinophils Absolute Basophils Sodium 141 Potassium 3.4 L Chloride 103 Carbon Dioxide 27.5 Anion Gap 10.5 BUN 31 H D Creatinine 0.7 D Estimated GFR/1.73 m2 >= 60.00 Glucose 178 H Calcium 8.8 Magnesium Total Bilirubin AST ALT Alkaline Phosphatase Creatine Kinase 358 H Troponin I Total Protein Albumin Urine Color Urine Clarity Urine pH Ur Specific [place] Urine Protein Urine Ketones Urine Blood Urine Nitrite Urine Bilirubin Urine Urobilinogen Ur Leukocyte Esterase Urine RBC Urine WBC Ur Epithelial Cells Urine Crystals Urine Bacteria Urine Casts Urine Mucus Ur Culture Indicated? Urine Glucose Ethyl Alcohol COVID-19 Source SARS-CoV-2 (PCR) PAWSS Have you Been Recently Intoxicated or Drunk Within the Last 30 days?: No Have you Ever Experienced Previous Episodes of Alcohol Withdrawal?: No Have you ever Experienced Withdrawal Seizures?: No Have you ever Experienced Delirium Tremens(DT)s?: No Have you ever Experienced Blackouts?: No Have you ever Combined Alcohol with other Downers within the last 90 days?: No Have you ever Combined Alcohol with any other Substance of Abuse during the last 90 days?: No Positive Blood Alcohol level on Presentation? [PCS.BAL]: No Evidence of Increased Autonomic Activity (i.e. HR>120, tremor, sweating, agitation, nausea)?: No Result: 0
[2021-07-08 08:17] LABS: Lab Add On Test DONE
[2021-07-08 08:53] LABS: Magnesium 2.5 mg/dL (1.8-2.4); PHOSPHORUS 3.2 mg/dL (2.6-4.7)
--- NOTE | 2021-07-08 09:04 | NUR.NOTE ---
Nursing Note:At 0848 the patient was brought to the med surg floor into room 209 from the ICU room 219.
[2021-07-08] MEDS: Aspirin E.C. 81 MG TABEC PO (09:08)
[2021-07-08] MEDS: Sucralfate 1 GM TAB PO ×4 (09:08→21:26)
[2021-07-08] MEDS: Multivitamin TAB 1 TAB PO (09:08)
[2021-07-08] MEDS: Pantoprazole 40 MG TABCR PO ×2 (09:08→19:54)
[2021-07-08] MEDS: Thiamine 100 MG TAB PO (09:08)
[2021-07-08] MEDS: Insulin Aspart 300 UNITS/3 ML PEN SC ×4 (09:09→21:27)
[2021-07-08] MEDS: Cyanocobalamin 500 MCG TAB 1000 MCG PO (09:09)
[2021-07-08] MEDS: Folic Acid 1 MG TAB PO (09:09)
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
[2021-07-08 09:26] LABS: Absolute Lymphocyte Count 2.24 10^3/uL (1.2-3.4); Absolute Monocyte Count 0.98 10^3/uL (0.1-0.8); Absolute Neutrophil Count 10.77 10^3/uL (1.2-6.7); Atypical Lymphocytes % 1; Diff Comment Manual Differential; RBC Morphology Normal
--- NOTE | 2021-07-08 09:50 | PT.INIE ---
PT Notes Visit Reasons: Hypothermia,TRIP,Rhabdo Inpatient Physical Therapy Evaluation Date: 07/08/21 Referring Doctor: Dr. Leos PT Orders: PT CONSULT: limited ability to ambulate Precautions: fall, standard Patient Profile/Admitting Diagnosis: Patient admitted from ER with diagnosis of hypothermia and TRIP after falling into her bathtub. PMHX: Acute kidney injury (Acute) Hypothermia (Acute) Diabetes mellitus type 2 in nonobese (Acute) Tremor (Acute) TIA (transient ischemic attack) (Acute) Diabetes (Chronic) Aortic stenosis (Chronic) Carotid stenosis (Acute) Laceration of elbow with foreign body (Acute) Acute CVA (cerebrovascular accident) (Acute) Alcohol abuse (Chronic) Urinary tract infection (Acute) Fall (Acute) Alcohol intoxication (Acute) Social History/Home Situation: Patient lives alone in a private home with 5 DANITA. Reports that she is fully independent at baseline. States that she normally ambulates without assistance or device, and denies any additional history of falls. Equipment Owned/DME: FWW, cane Subjective: Ester states that she is exhausted. She states that she was stuck in her bathtub for 3 days, and that she is exhausted. With discussion regarding a walking assessment, she states that she is too weak to walk, then later states that she has no problem walking and does not require assessment. Objective: General Observation: Lying in bed with James catheter in place. Mental Status: Alert and Oriented. Intermittently emotional and tearful, although able to be redirected. Pain: denies ROM: Right Upper Extremity: WFL Left Upper Extremity: WFL Right Lower Extremity: WFL Left Lower Extremity: WFL Strength: Right Upper Extremity: WFL Left Upper Extremity: WFL Right Lower Extremity: Functionally able to perform SLR, heel slide and ankle pumps. Declines formal strength assessment at EOB. Left Lower Extremity: Functionally able to perform SLR, heel slide and ankle pumps. Declines formal strength assessment at EOB. Sensation: intact distally Bed Mobility/Transfers: patient refuses Gait: Patient refuses. Made multiple attempts, with patient becoming tearful and agitated. Balance: unable to assess Informed Consent/Education: Patient instructed in purpose of PT consult and plan of care. Assessment: Patient is a 71 year old female referred to physical therapy services with the diagnosis of limited ability to ambulate. Patient has been admitted for medical management of hypothermia and TRIP following a fall at home. Although she initially agrees to consultation, this is very limited due to refusal to transfer or ambulation, despite multiple attempts. Her safety and mobility are currently unknown due to limited participation, and will require further assessment later today, when she will hopefully agree to further PT intervention. She currently demonstrated by the following impairment level findings: 1. Unable to ambulate by self report 2. h/o fall at home Impairments are contributing to the following functional limitations: 1. unable to assess safety with transfers and ambulation Patient is assessed as Moderate 50448 complexity based on the following: History: Patient is a 71 year old female presenting with possible limitations in safety and ambulation. Unable to asses this morning due to refusal. Extensive medical history as noted above. Examination: functional limitations as noted above Presentation: evolving Decision Making: moderate complexity Goals: Goals X1 week 1. Supine-Sit : supervision 2. Sit-Supine : supervision 3. Sit-Stand: supervision 4. Stand-Sit: supervision 5. Bed-Chair: supervision 6. Chair-Bed : supervision 7. Gait : supervision x 50' Plan of Care/Treatment Plan: 1-2x/day, 7 days/week x 1 week. Plan of care has been reviewed with the PRINCIPAL DATA ARCHITECT providing the service under Physical Therapy direction. Initiate Physical Therapy intervention for strengthening, bed mobility, transfers, gait, stairs, balance training, use of assistive device. Will attempt assessment of transfers and gait later today. DISCHARGE RECOMMENDATIONS: Anticipate home with no services TREATMENT CODE/TIME: 15 minutes (22476)
[2021-07-08] MEDS: Normal Saline Flush 10 ML SYR IVP ×2 (10:02→21:36)
[2021-07-08] MEDS: POTASSIUM CHLORIDE 20 MEQ/100 ML BAG 50 MEQ IVPB ×2 (10:02→12:26)
--- NOTE | 2021-07-08 14:09 | NT_ITS ---
Date of service: 07/08/21 Time of Service: 14:09 PT Notes Visit Reasons: Hypothermia,TRIP,Rhabdo 07/08/2021 Patient refused afternoon PT session stating that she is too tired I haven't slept in three days, just let me sleep. She reports that she lives alone and that she is agreeable to a referral to be sent to [facility] if she requires rehab prior to returning to home. Care management and nursing notified. She then states I'm too tired to even talk right now, I can't do this. Will attempt to resume PT services tomorrow morning.
[2021-07-08] MEDS: Enoxaparin 40 MG/0.4 ML SYR SC (14:19)
[2021-07-08] MEDS: POTASSIUM CHLORIDE/0.9% NACL 1,000 ML 75 MEQ IV (14:58)
[2021-07-08] MEDS: Atorvastatin 40 MG TAB 80 MG PO (19:54)
[2021-07-08] MEDS: cefTRIAXone 1 GM/50 ML BAG IVPB (21:26)
[2021-07-09] VITALS (11 sets, daily range): BP systolic 107–130; BP diastolic 51–82; PULSE 77–102; RESP 12–18; TEMP 36.3–37.7; O2SAT 92–98
[2021-07-09 07:37] LABS: Abs Immature Grans 0.04 10^3/uL (0.0-0.06); Absolute Basophil Count 0.03 10^3/uL (0.0-0.2); Absolute Eosinophil Count 0.02 10^3/uL (0.0-0.7); Absolute Lymphocyte Count 1.57 10^3/uL (1.2-3.4); Absolute Neutrophil Count 7.44 10^3/uL (1.2-6.7); Basophils % 0.3; Eosinophils % 0.2; HCT 39.1 % (36.0-46.0); HGB 12.8 g/dL (11.2-15.7); Immature Grans % 0.4; Lymphocytes % 15.2; MCHC 32.7 % (32.0-36.0); MCV 91.6 fL (80-95); MPV 10.3 fL (8.0-11.0); Monocytes % 11.7; Neutrophils % 72.2; Nucleated RBC 0 %; Platelet Count 268 10^3/uL (130-400); RBC 4.27 10^6/uL (3.93-5.22); RDW 12.2 % (11.7-14.6); RDW-SD 41.2 fL
[2021-07-09 08:01] LABS: Anion Gap 8.6 mmol/L (3-11); BUN 16 mg/dL (7-18); CO2 26.4 mmol/L (21.0-32.0); CREATININE 0.7 mg/dL (0.55-1.02); Calcium 8.8 mg/dL (8.5-10.1); Chloride 103 mmol/L (98-107); Glucose 197 mg/dL (74-106); Magnesium 2.2 mg/dL (1.8-2.4); Potassium 3.6 mmol/L (3.5-5.1); Sodium 138 mmol/L (136-145)
[2021-07-09 08:25] LABS: Hemoglobin A1C 7.6 % (<5.7)
[2021-07-09] MEDS: Sucralfate 1 GM TAB PO ×4 (08:29→21:26)
[2021-07-09] MEDS: LORazepam 1 MG TAB PO/SL (08:31)
[2021-07-09] MEDS: Thiamine 100 MG TAB PO (08:32)
[2021-07-09] MEDS: Folic Acid 1 MG TAB PO (08:32)
[2021-07-09] MEDS: Aspirin E.C. 81 MG TABEC PO (08:32)
[2021-07-09] MEDS: Multivitamin TAB 1 TAB PO (08:32)
[2021-07-09] MEDS: Cyanocobalamin 500 MCG TAB 1000 MCG PO (08:33)
[2021-07-09] MEDS: Pantoprazole 40 MG TABCR PO ×2 (08:33→19:43)
[2021-07-09] MEDS: Insulin Aspart 300 UNITS/3 ML PEN SC ×4 (08:36→21:25)
[2021-07-09] MEDS: Normal Saline Flush 10 ML SYR IVP ×2 (08:37→19:45)
--- NOTE | 2021-07-09 08:45 | RT.EKG_ITS ---
APPROVED REPORT Exam: Resting ECG Reason for Exam: Chest pain Patient Location: I HR:92 bpm ECG Measurements Heart Rate 92 AXIS AK 161 P 61 QRSd 82 QRS -29 QT 370 T 69 QTc 438 Conclusion Sinus rhythm...normal P axis, V-rate 60- 99 Multiform ventricular premature complexes...short R-R, variable morphology Anterior infarct, old...Q >40mS, abnormal ST-T, V2-V5
--- NOTE | 2021-07-09 09:06 | NUR.NOTE ---
Nursing Note:At this time, this RN and student Nurse were in the room with the patient. Patient states she is having 10/10 chest pain. Charge nurse made aware. Also at this time, patient asked what is that number 36 on the bed right there? Is that the temperature in the room? Patient mad aware that there is nothing on the bed, only buttons for bed controls. Patient states Oh well I must be hallucinating or something.
[2021-07-09] MEDS: Mylanta Suspension 30 ML CUP PO (09:49)
[2021-07-09 09:50] LABS: Troponin I < 50 ng/L (<or=60)
--- NOTE | 2021-07-09 10:05 | PGE_ITS ---
Date of Service Date of service: 07/09/21 Time of Service: 09:55 Assessment and Plan Assessment and plan (1) E. coli UTI: Status: Acute Assessment and plan: Present on admission. Sensitivities pending. Continue empiric ceftriaxone. Remove li. (2) Esophagitis: Status: Acute Assessment and plan: Continue PPI, carafate; will rx prn mylanta + lidocaine. Outpatient follow up with general surgery for a possible EGD. (3) Acute kidney injury: Status: Resolved Assessment and plan: Likely prerenal due to dehydration. Off of IVF. (4) Hypothermia: Status: Resolved Assessment and plan: Resolved. In setting of a fall into a bathtub full of wet clothes and staying there for several days. The patient is normothermic at this time. No longer requiring support to maintain her own temperature. (5) Ambulatory dysfunction: Status: Acute Assessment and plan: PT consulted. Patient was noncooperative with it yesterday, but is being strongly encouraged to work with PT today. (6) Hypokalemia: Status: Resolved Assessment and plan: Recheck in am if still in-house. (7) Aortic stenosis: Status: Chronic Assessment and plan: Euvolemic. Monitor respiratory status. (8) Alcohol abuse: Status: Chronic Assessment and plan: Continue to monitor on CIWA with prn ativan. Unclear if CIWA of 6 was truly residential sales representative of withdrawal or just anxiety. The patient is not withdrawing on my physical exam. Supplement thiamine, b12, folate - transition thiamine to high dose. (9) Fall: Status: Acute Assessment and plan: Appears mechanical by description. PT consulted. (10) Non-insulin dependent type 2 diabetes mellitus: Status: Chronic Assessment and plan: A1C 7.6, unchanged from 03/2021. Cover with carb consistent diet and SSI. (11) DVT prophylaxis: Status: Acute Assessment and plan: SC enoxaparin (12) Discharge planning issues: Status: Acute Assessment and plan: Full code Disposition pending PT consult - possibly home today or tomorrow. Subjective Subjective Interval history since last seen: Ms Tiwari reports pain in her throat that she feels on swallowing that's going down her middle of the chest. She has had this chest pain since this morning. Feels like she has heartburn. Mylanta made it feel somewhat better. Describes her normal shortness of breath. No dizziness/nausea. Expressed a strong urge to defecate. States she is unsure if she can walk. We discussed that she needs to start working with physical therapy because she needed to get stronger to go home. LISBET 6 this am - mostly anxiety - received 1 mg of ativan PO. Reported to nursing that she was not actually taking any medications at all at home. Exam Narrative Exam Narrative: General: Pleasant elderly female who is able to move all 4 extremities in bed, able to sit up independently, A&Ox3, tangential in he r answers HEENT: EOMI, MMM Heart: RRR, +TERESA. CP not reproducible with palpation Lungs: CTAB Abdomen: soft, nontender, nondistended Extremities: no edema/clubbing/cyanosis, no lesions on B feet Objective Last Vital Signs Temp 36.3 C L 07/09/21 09:49 Pulse 77 07/09/21 08:58 Resp 18 07/09/21 08:58 BP 107/51 L 07/09/21 08:58 Pulse Ox 98 07/09/21 08:58 Laboratory Results - last 24 hr 07/09/21 07/09/21 07/09/21 07:09 07:09 07:09 WBC 10.30 RBC 4.27 Hgb 12.8 Hct 39.1 MCV 91.6 MCH 30.0 MCHC 32.7 RDW 12.2 Plt Count 268 MPV 10.3 Immature Gran % 0.4 Neutrophils % 72.2 Lymphocytes % 15.2 Monocytes % 11.7 Eosinophils % 0.2 Basophils % 0.3 Nucleated RBC % 0 Absolute Neutrophils 7.44 H Absolute Lymphocytes 1.57 Absolute Monocytes 1.20 H Absolute Eosinophils 0.02 Absolute Basophils 0.03 Sodium 138 Potassium 3.6 Chloride 103 Carbon Dioxide 26.4 Anion Gap 8.6 BUN 16 D Creatinine 0.7 Estimated GFR/1.73 m2 >= 60.00 Glucose 197 H Hemoglobin A1c 7.6 H Calcium 8.8 Phosphorus 2.0 L Magnesium 2.2 Troponin I 07/09/21 09:16 WBC RBC Hgb Hct MCV MCH MCHC RDW Plt Count MPV Immature Gran % Neutrophils % Lymphocytes % Monocytes % Eosinophils % Basophils % Nucleated RBC % Absolute Neutrophils Absolute Lymphocytes Absolute Monocytes Absolute Eosinophils Absolute Basophils Sodium Potassium Chloride Carbon Dioxide Anion Gap BUN Creatinine Estimated GFR/1.73 m2 Glucose Hemoglobin A1c Calcium Phosphorus Magnesium Troponin I < 50 PAWSS Have you Been Recently Intoxicated or Drunk Within the Last 30 days?: No Have you Ever Experienced Previous Episodes of Alcohol Withdrawal?: No Have you ever Experienced Withdrawal Seizures?: No Have you ever Experienced Delirium Tremens(DT)s?: No Have you ever Experienced Blackouts?: No Have you ever Combined Alcohol with other Downers within the last 90 days?: No Have you ever Combined Alcohol with any other Substance of Abuse during the last 90 days?: No Positive Blood Alcohol level on Presentation? [PCS.BAL]: No Evidence of Increased Autonomic Activity (i.e. HR>120, tremor, sweating, agitation, nausea)?: No Result: 0
[2021-07-09] MEDS: THIAMINE 500 MG in Normal Saline 100 ML 200 MG IVPB ×2 (12:01→19:44)
[2021-07-09 12:41] LABS: Troponin I < 50 ng/L (<or=60)
--- NOTE | 2021-07-09 13:52 | PT.INTREAT ---
Date of service: 07/09/21 Time of Service: 10:16 PT Notes Visit Reasons: Hypothermia,TRIP,Rhabdo Inpatient Physical Therapy Treatment Note [facility] Date: 07/09/2021 PRECAUTIONS: Fall, Activity as tolerated SUBJECTIVE: Ester reports that she slept well last night. She states that she is still very tired. She is hesitant, but agreeable to participating in PT in the afternoon. OBJECTIVE: PAIN: Patient c/o chest pain in a.m., nursing aware BED MOBILITY/TRANSFERS Supine-sit: I Sit-supine: I Sit-stand: CGA Stand-sit: CGA GAIT Assistive Device: FWW Weight bearing: WBAT L Assist: CGA Distance: ~25' in a.m.; ~1000' in p.m. Deviation: [place], requires assist with FWW management in a.m.; demonstrates improved gait mechanics, steady gait and pacing in p.m. THEREX: Patient was instructed in several LE strengthening exercises, completed while seated at the edge of bed, as per flow sheet. She requires verbal and visual cueing for proper exercise performance. ASSESSMENT: Patient tolerated session without complaint. She tolerates a significant progression in gait distance with FWW support and CGA in p.m., demonstrating steady gait and pacing. PLAN: Continue with gait training with FWW support and add global strengthening for improved mobility. TREATMENT CODE/TIME: Session 1: 9 minutes; 92024 (10:16) Session 2: 26' minutes; 30584 x2 (13:13)
[2021-07-09] MEDS: Enoxaparin 40 MG/0.4 ML SYR SC (13:58)
--- NOTE | 2021-07-09 18:27 | CMPROGNOTE_ITS ---
- If Service Date Differs Date of service: 07/09/21 Time of Service: 18:27 Care Management Progress Note S/O: Ester was lying in bed when CM met with her. She reported that she is still feeling weak from lying in her bath tub for three days. CM discussed her discharge plan, and she reported that she feels she would benefit from one more night for her legs to recover. CM stated that HH services will be ordered for medication management and to continue physical/occupational therapy at home. She did well working with PT this afternoon. Ester stated that she has MOW at home, but sometimes they do not wait long enough for her to open her door, and do not leave the food behind. CM will refer [facility] to assist with support at home in getting her meals. CM will continue to follow. A: Ester is a 71 year old female admitted to [facility] on 07/07/21 with hypothermia, TRIP, rhabdo. P: Ester will return home when medically cleared by , with new orders for HH RN, PT, OT, WILDLIFE REFUGE SPECIALIST, and a referral to continue/restart MOW. CM will coordinate RCT transportation home, via private vehicle. She will follow up with her PCP and discharge plan of care. CM will continue to follow.
[2021-07-09] MEDS: cefTRIAXone 1 GM/50 ML BAG IVPB (21:25)
[2021-07-10] VITALS (7 sets, daily range): BP systolic 110–158; BP diastolic 60–79; PULSE 63–104; RESP 16–18; TEMP 36.6–37.6; O2SAT 94–98
[2021-07-10] MEDS: THIAMINE 500 MG in Normal Saline 100 ML 200 MG IVPB ×2 (04:57→14:19)
[2021-07-10] MEDS: Normal Saline Flush 10 ML SYR IVP (04:58)
[2021-07-10 07:06] LABS: HCT 39.4 % (36.0-46.0); MCH 29.6 pg (27.0-33.0); MCV 89.7 fL (80-95); MPV 10.5 fL (8.0-11.0); Platelet Count 259 10^3/uL (130-400); RBC 4.39 10^6/uL (3.93-5.22); RDW 11.9 % (11.7-14.6); RDW-SD 39.5 fL
[2021-07-10 07:40] LABS: BUN 9 mg/dL (7-18); CREATININE 0.7 mg/dL (0.55-1.02); Calcium 8.6 mg/dL (8.5-10.1); Chloride 103 mmol/L (98-107); Glucose 201 mg/dL (74-106); Potassium 3.3 mmol/L (3.5-5.1); Sodium 139 mmol/L (136-145)
[2021-07-10] MEDS: Aspirin E.C. 81 MG TABEC PO (08:19)
[2021-07-10] MEDS: Sucralfate 1 GM TAB PO ×3 (08:19→21:40)
[2021-07-10] MEDS: Folic Acid 1 MG TAB PO (08:19)
[2021-07-10] MEDS: Multivitamin TAB 1 TAB PO (08:19)
[2021-07-10] MEDS: Pantoprazole 40 MG TABCR PO ×2 (08:19→20:31)
[2021-07-10] MEDS: Cyanocobalamin 500 MCG TAB 1000 MCG PO (08:19)
[2021-07-10] MEDS: Insulin Aspart 300 UNITS/3 ML PEN SC ×3 (08:29→21:39)
[2021-07-10] MEDS: POTASSIUM CHLORIDE 20 MEQ/100 ML BAG 50 MEQ IVPB ×2 (09:44→11:47)
[2021-07-10] MEDS: Amoxicillin 875/Clav. 125 TAB PO ×2 (09:45→20:31)
--- NOTE | 2021-07-10 11:32 | PT.INNT ---
Date of service: 07/10/21 Time of Service: 10:30 PT Notes Visit Reasons: Hypothermia,TRIP,Rhabdo 07/10/2021 Patient refused morning PT session, stating I'm too tired, I need to sleep, I'm recovering from a traumatic experience. Don't you know that I feel into a tub and was in there for three days? Will attempt to resume PT services this afternoon.
--- NOTE | 2021-07-10 13:35 | PT.INPN ---
Date of service: 07/10/21 PT Notes Visit Reasons: Hypothermia,TRIP,Rhabdo Inpatient Physical Therapy Progress Note Date: 07/10/21 Dates of Service: 07/08- PRECAUTIONS: Fall. Standard. SUBJECTIVE: Ester is resting in bed and reluctant to participate in PT stating tired, but does agree. OBJECTIVE PAIN: Notes chest pain after drinking cola, neck pain once back in bed BED MOBILITY/TRANSFERS Rolling L/R: Independent Supine-sit: Independent Sit-supine: Independent Sit-stand: Independent Stand-sit: Independent GAIT Assistive Device: FWW Weight bearing: Full Assist: Supervision Distance: 150ft + 300ft + 150 ft = 600ft total Deviation: None, able to navigate hallway obstacles and people STAIRS: 2 full size and 4 short steps with B UE support, alternating gait ascending, step to gait descending with right leg controlling THERAPEUTIC ACTIVITY: Patient independent with toilet transfer, personal hygiene, and washing hands at sink. Able to navigate bedding. ASSESSMENT: Patient is a 71 year old female referred to physical therapy services with diagnosis of hypothermia and TRIP after falling into her bathtub. Patient presents with clinical signs and symptoms consistent with generalized weakness. She is independent with bed mobility and transfers at this time. Patient is safer with use of FWW, but was able to walk 10 feet without assistive device. Overall is safe to return home when medically stable. GOALS Goals x1 week 1. Supine-Sit : supervision MET 2. Sit-Supine : supervision MET 3. Sit-Stand: supervision MET 4. Stand-Sit: supervision MET 5. Bed-Chair: supervision MET 6. Chair-Bed : supervision MET 7. Gait : supervision x 50' MET, updated to 1000' independent 8. Stairs: alternating gait with UE support NEW GOAL PLAN OF CARE/TREATMENT PLAN: 1-2x/day, 7 days/ week x 1 week Plan of care has been reviewed with the MANAGER PROPERTY providing the service under Physical therapy direction. Initiate physical therapy intervention for strengthening, bed mobility, transfers, gait, stairs, balance training, and use of assistive device. Discharge Plan Home with home health services for ongoing strength and conditioning TREATMENT CODE/TIME: 13:15-13:34 (19 minutes), [id number] Thank you for the opportunity to participate in the care of this patient. Flaca Damico, PT, DPT, OCS [facility], [place]
[2021-07-10] MEDS: Enoxaparin 40 MG/0.4 ML SYR SC (14:39)
--- NOTE | 2021-07-10 16:23 | PGE_ITS ---
Date of Service Date of service: 07/10/21 Time of Service: 16:23 Assessment and Plan Assessment and plan (1) E. coli UTI: Status: Acute Assessment and plan: ESBL E. Coli, Present on admission. Change abx to augmentin. (2) Esophagitis: Status: Acute Assessment and plan: Continue PPI, carafate, prn mylanta + lidocaine. Outpatient follow up with general surgery for a possible EGD. 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 As the patient's daughter is expressing concerns about the patient's safety at home, will consult OT. (4) Acute kidney injury: Status: Resolved Assessment and plan: Likely prerenal due to dehydration. Off of IVF. (5) Hypothermia: Status: Resolved Assessment and plan: Resolved. In setting of a fall into a bathtub full of wet clothes and staying there for several days. The patient is normothermic at this time. No longer requiring support to maintain her own temperature. (6) Ambulatory dysfunction: Status: Acute Assessment and plan: PT consulted. Able to ambulate laps. Resistant to using her own walker at home. Would benefit from home health PT. (7) Hypokalemia: Status: Resolved Assessment and plan: Recheck in am (8) Aortic stenosis: Status: Chronic Assessment and plan: Euvolemic. Monitor respiratory status. (9) Alcohol abuse: Status: Chronic Assessment and plan: Continue to monitor on CIWA with prn ativan. Unclear if CIWA of 6 was truly community engagement representative of withdrawal or just anxiety. The patient is not withdrawing on my physical exam. Supplement thiamine, b12, folate. Back to regular thiamine dose. (10) Fall: Status: Acute Assessment and plan: Appears mechanical by description. PT consulted. (11) Non-insulin dependent type 2 diabetes mellitus: Status: Chronic Assessment and plan: A1C 7.6, unchanged from 03/2021. Cover with carb consistent diet and SSI. (12) DVT prophylaxis: Status: Acute Assessment and plan: SC enoxaparin (13) Discharge planning issues: Status: Acute Assessment and plan: Full code OT consulted. Plan for d/c home tomorrow with home health services. Subjective Subjective Interval history since last seen: Ms Tiwari states that she knows she can walk, but with a walker. She goes in circles about safety of ambulation in her hallways, today saying that she feels safe navigating them even without the walker, but then saying that she can't walk without a walker. She admits to feeling confused, blaming it on her traumatic experience of being in the bathtub. She reports shoulder pain and pain on swallowing. She is about to receive her mylanta with lidocaine. She denies remembering that it felt better yesterday after she got mylanta. It is hard to focus her on answering questions - she is tangential. She is in denial about her drinking being a problem. She is open to meeting with BK. Exam Narrative Exam Narrative: General: Pleasant elderly female who is able to move all 4 extremities in bed,A&Ox3, tangential HEENT: EOMI, MMM Heart: RRR, +TERESA. CP not reproducible with palpation Lungs: CTAB Abdomen: soft, nontender, nondistended Extremities: no edema/clubbing/cyanosis, no lesions on B feet Objective Last Vital Signs Temp 36.7 C 07/10/21 16:14 Pulse 81 07/10/21 16:14 Resp 18 07/10/21 16:14 BP 120/64 07/10/21 16:14 Pulse Ox 96 07/10/21 16:14 Laboratory Results - last 24 hr 07/10/21 07/10/21 06:05 06:10 WBC 8.50 RBC 4.39 Hgb 13.0 Hct 39.4 MCV 89.7 MCH 29.6 MCHC 33.0 RDW 11.9 Plt Count 259 MPV 10.5 Sodium 139 Potassium 3.3 L Chloride 103 Carbon Dioxide 29.0 Anion Gap 7.0 BUN 9 D Creatinine 0.7 Estimated GFR/1.73 m2 >= 60.00 Glucose 201 H Calcium 8.6 PAWSS Have you Been Recently Intoxicated or Drunk Within the Last 30 days?: No Have you Ever Experienced Previous Episodes of Alcohol Withdrawal?: No Have you ever Experienced Withdrawal Seizures?: No Have you ever Experienced Delirium Tremens(DT)s?: No Have you ever Experienced Blackouts?: No Have you ever Combined Alcohol with other Downers within the last 90 days?: No Have you ever Combined Alcohol with any other Substance of Abuse during the last 90 days?: No Positive Blood Alcohol level on Presentation? [PCS.BAL]: No Evidence of Increased Autonomic Activity (i.e. HR>120, tremor, sweating, agitation, nausea)?: No Result: 0
[2021-07-10] MEDS: Thiamine 100 MG TAB PO (17:03)
--- NOTE | 2021-07-10 17:27 | PDOC.CMPRO ---
- If Service Date Differs Date of service: 07/10/21 Time of Service: 17:27 Care Management Progress Note S/O: Ester was lying in bed when CM met with her. She was pleasant, and alert and oriented during this visit. CM discussed the concerns brought to CM by community partners today, including Ester's drinking and the condition of her home. She reported that she has hired a residential housekeeper to help her organize and clean her house, as she knows that she has too much stuff. She stated that she is working diligently on getting rid of things and/or putting things in storage. Regarding her drinking, she stated that she doesn't feel that she is drinking too much, only 1-2 glasses of wine/day. The MD was present during this conversation and addressed this, stating that she should stop drinking completely, which will help improve her quality of life. CM offered to help her find support through [facility], who can also help her process the trauma of losing her son a year ago. She was happy to be connected to [facility]. CM will ask for [facility] to complete intake on this admission, if available. Ester will have an OT evaluation tomorrow to help determine if she is safe to return home alone. CM will continue to follow. A: Ester is a 71 year old female admitted to [facility] on 07/07/21 with hypothermia, TRIP, rhabdo. P: Ester will return home when medically cleared by , with new orders for HH RN, PT, OT, [employer]TER, and a referral to continue/restart MOW. CM will coordinate RCT transportation home, via private vehicle. She will follow up with her PCP and discharge plan of care. CM will continue to follow.
[2021-07-10] MEDS: Magic Mouthwash 119 ML BTL 10 ML PO (18:09)
[2021-07-10] MEDS: Melatonin 3 MG TAB PO (20:31)
[2021-07-10] MEDS: Atorvastatin 40 MG TAB 80 MG PO (20:31)
[2021-07-11 05:10] VITALS: BP 128/74; PULSE 86; RESP 18; TEMP 37; O2SAT 93
[2021-07-11 07:25] LABS: Anion Gap 8.4 mmol/L (3-11); BUN 5 mg/dL (7-18); CO2 26.6 mmol/L (21.0-32.0); CREATININE 0.5 mg/dL (0.55-1.02); Calcium 8.7 mg/dL (8.5-10.1); Chloride 104 mmol/L (98-107); Creatine Kinase 54 U/L (26-192); Glucose 198 mg/dL (74-106); Magnesium 1.7 mg/dL (1.8-2.4); PHOSPHORUS 3.4 mg/dL (2.6-4.7); Sodium 139 mmol/L (136-145)
[2021-07-11 07:46] LABS: Potassium 2.9 mmol/L (3.5-5.1)
[2021-07-11 08:37] VITALS: BP 130/73; PULSE 100; RESP 18; TEMP 36.5; O2SAT 97
[2021-07-11] MEDS: Cyanocobalamin 500 MCG TAB 1000 MCG PO (08:51)
[2021-07-11] MEDS: Amoxicillin 875/Clav. 125 TAB PO (08:51)
[2021-07-11] MEDS: Aspirin E.C. 81 MG TABEC PO (08:51)
[2021-07-11] MEDS: Sucralfate 1 GM TAB PO ×2 (08:51→12:03)
[2021-07-11] MEDS: Multivitamin TAB 1 TAB PO (08:51)
[2021-07-11] MEDS: Pantoprazole 40 MG TABCR PO (08:51)
[2021-07-11] MEDS: Folic Acid 1 MG TAB PO (08:51)
[2021-07-11] MEDS: Normal Saline Flush 10 ML SYR IVP (08:52)
[2021-07-11] MEDS: POTASSIUM CHLORIDE 20 MEQ/100 ML BAG 50 MEQ IVPB ×3 (08:52→13:50)
[2021-07-11] MEDS: MAGNESIUM SULFATE 2 GM/50 ML BAG IVPB (08:52)
[2021-07-11] MEDS: Insulin Aspart 300 UNITS/3 ML PEN SC ×2 (08:57→12:04)
--- NOTE | 2021-07-11 09:23 | OT.INIE ---
Occupational Therapy Notes Inpatient Occupational Therapy Evaluation Date: 07/11/21 Referring Doctor: Carin Leos MD OT Orders: Non Urgent Precautions: Contact, Full PATIENT PROFILE/ADMITTING DIAGNOSIS: Pt is a 71 year old female referred and admitted for a dx of alcoholic dementia, esophagitis, E.coli UTI, Non insulin dependent type 2 DM, hypokalemia, tremor, TIA, DM, aortic stenosis, carotid stenosis. Past Medical History: All Active Problems Acute kidney injury (Acute) Hypothermia (Acute) Diabetes mellitus type 2 in nonobese (Acute) Tremor (Acute) TIA (transient ischemic attack) (Acute) Diabetes (Chronic) Aortic stenosis (Chronic) Carotid stenosis (Acute) Laceration of elbow with foreign body (Acute) Acute CVA (cerebrovascular accident) (Acute) Alcohol abuse (Chronic) Urinary tract infection (Acute) Fall (Acute) Alcohol intoxication (Acute) Surgical History Surgical history unknown Social History/Home Situation: Pt states that she lives alone in a private home. She reports that she has a daughter who lives in [place] and a son who was her best friend who . She notes that she she has a woman who comes into her home to clean. She reports that she performs her bathing standing at her sink and that she does not like her tub shower. She reports that she does not drive and utilizes [facility] and that she has minimal friends up here. She states multiple times to this OT that she does not need help at home except for cleaning and organization. Although notes also that help could be a good thing. Equipment owned/DME: Not able to assess SUBJECTIVE: Pt was receptive and agreeable to OT consult this morning. OBJECTIVE: General Observation: Pleasant, IV in (L) UE not connected Mental Status: A&Ox3 Pain: c/o pain in sternum post eating which she refers to as stabbing. ROM: RUE AROM WFL L UE AROM WFL STRENGTH: RUE 4-/5 throughout LUE 4-/5 throughout FUNCTIONAL MOBILITY/ADLS: Transfers (I) Sit-supine (I) Sit-Stand (I) Stand-sit (I) Bed-Chair (I) Chair-bed (I) BATHING standing at sink with max (A) Set up Bathing UE min vc (I) face, (B) UE and abdomen Bathing LE (I) upper thighs, otherwise denies DRESSING standing at sink Dressing UE (I) don and [facility] gown Dressing LE NT GROOMING pt has AROM to be able to perform this (I), however she had a large knot in her hair and OT performed this max (A) only for today to remove the knot. TOILETING on toilet (I) EATING Sitting in chair (I) BALANCE: Static sitting Normal Dynamic Sitting Normal Static Standing Normal Dynamic Standing Normal SPECIAL TESTS: Daily Activity Limitations Standardized Measure [facility] AM -PAC ?6 clicks? Daily Activity Inpatient Short Form: Raw score: 22 Standardized score: 47.10 CMS score: 25.80% INFORMED CONSENT/EDUCATION: Pt instructed in purpose of OT Consult and plan of care. ASSESSMENT: Patient is a 71-year-old female referred to occupational therapy services with diagnosis of alcoholic dementia, esophagitis, E.coli UTI, Non insulin dependent type 2 DM, hypokalemia, tremor, TIA, DM, aortic stenosis, carotid stenosis. Patient presents with clinical signs and symptoms consistent with dx, as demonstrated by the following impairment level findings/functional limitations: Decreased functional activity tolerance, pain in sternum area post eating. AMPAC score 22 Patient is assessed as a Low 15532 complexity based on the following: History: see above Examination: see functional limitations as noted above Presentation: evolving Decision Making: AMPAC score 22 GOALS Goals x1 week 1. Pt will be able to demonstrate energy conservation techniques with standing ADLs with ideal technique. PLAN OF CARE/TREATMENT PLAN: 1x/day, 3 days/ week x 1week Initiate Occupational Therapy Services for bathing, dressing, grooming, toileting, eating, transfer training. DISCHARGE RECOMMENDATIONS OT recommends that pt return home with HH services when medically cleared per MD. TREATMENT TIME/MINUTES/CODES 62248, 26171, 30 minutes (08:40) [facility]
--- NOTE | 2021-07-11 15:24 | PT.INTREAT ---
Date of service: 07/11/21 Time of Service: 13:55 PT Notes Visit Reasons: Hypothermia,TRIP,Rhabdo Inpatient Physical Therapy Treatment Note [facility] Date: 07/11/2021 PRECAUTIONS: Activity as tolerated SUBJECTIVE: Ester states that she has always had strong legs, but that she got weak from laying in the tub for three days due to her fall. She states that she would like to go home, as long as she is strong enough. OBJECTIVE: Patient refused morning PT session, stating that she is too tired from her traumatic experience from falling into the tub where she was stuck for three days. PAIN: Patient c/o sternal pain with swallowing. BED MOBILITY/TRANSFERS Supine-sit: I Sit-supine: I Sit-stand: I Stand-sit: I Bed-chair: I Chair-bed: I GAIT Assistive Device: No AD Weight bearing: Full Assist: SBA-S Distance: 900' Deviation: None ASSESSMENT: Patient tolerated session with c/o sternal pain with swallowing. She demonstrates independence with bed mobility, transfers, and short (in-room) distances. She demonstrates steady gait and paciing without use of AD. PLAN: Continue with global strengthening for improved activity tolerance. Recommend d/c to home with PT follow up when medically cleared. TREATMENT CODE/TIME: 15 minutes; 95998 (13:55)
[2021-07-11 15:56] LABS: Anion Gap 4.6 mmol/L (3-11); BUN 6 mg/dL (7-18); CO2 27.4 mmol/L (21.0-32.0); CREATININE 0.5 mg/dL (0.55-1.02); Calcium 8.3 mg/dL (8.5-10.1); Chloride 102 mmol/L (98-107); Glucose 184 mg/dL (74-106); Sodium 134 mmol/L (136-145)
[2021-07-11 16:07] LABS: Potassium 4.1 mmol/L (3.5-5.1)
--- NOTE | 2021-07-11 16:11 | W.PM.DS.N ---
Date of service: 07/11/21 Time of Service: 16:11 DS: Diagnosis Discharge Diagnosis (1) E. coli UTI: Status: Acute (2) Esophagitis: Status: Acute (3) Alcoholic dementia: Status: Suspected (4) Acute kidney injury: Status: Resolved (5) Hypothermia: Status: Resolved (6) Hypokalemia: Status: Resolved (7) Non-insulin dependent type 2 diabetes mellitus: Status: Chronic (8) Hypomagnesemia: Status: Acute (9) Alcohol abuse: Status: Chronic (10) Hypophosphatemia: Status: Acute (11) Aortic stenosis: (12) Fall: Status: Acute (13) Ambulatory dysfunction: Status: Acute Discharge Plan Disposition Patient Disposition: HOME W/HOME HEALTH SERVICE Condition: Stable Discharge Details Reason For Visit: Hypothermia,TRIP,Rhabdo Admit Date/Time: 07/10/21 15:45 Admit Provider: Inderjit Noonan Attending Provider: Inderjit Noonan Primary Care Provider: Van Montero Hospital Course Hospital Course: Ms Tiwari is a 71 year old female with PMHx of NIDDM2, CVA, alcohol abuse, noncompliance, who was admitted to [facility] ICU under the hospitalist service on 07/07/21 for hypothermia and TRIP presumably due to rhabdomyolysis after sustaining a mechanical fall into her bathtub, per patient, and being unable to get out of it for 3 days. The patient did not have evidence of alcohol withdrawal on this admission. She was diagnosed with an ESBL bacteriuria which we chose to treat as UTI as the patient was reporting weakness. The patient was reporting odynophagia which responded well to GI cocktail and is likely related to chemical esophagitis and gastritis. She was initiated on protonix and carafate and referred for an outpatient appointment for general surgery for an EGD. ACS was ruled out. The patient's daughter expressed concerns about the patient's safety at home. She was evaluated by both PT and OT who felt that she was safe for discharge home. The patient is being discharged home today with referrals to home health nursing, PT, OT, HOUSING AND RESIDENCE LIFE DIRECTOR. Care management also set up a mental health referral given the history of alcohol abuse to help with abstinence. It is this provider's opinion that the patient is showing signs of alcoholic dementia. She did receive high dose thiamine on this admission but ultimately it is felt that her problems are irreversible. Care for patient as well as completion of her discharge summary took 45 minutes on the day of discharge. Home Meds and New Rx's Prescriptions: New multivitamin [Multiple Vitamins] Tablet 1 tab PO QAM Qty: 30 RF: 0 sucralfate 1 gram Tablet 1 g PO AC & HS Qty: 120 RF: 0 pantoprazole 40 mg Tablet,Delayed Release (Dr/Ec) 40 mg PO BID@0730,2000 Qty: 60 RF: 0 amoxicillin-pot clavulanate 875-125 mg Tablet 1 tab PO BID Qty: 12 RF: 0 alum-mag hydroxide-simeth [Antacid] 200-200-20 mg/5 mL suspension 10 ml PO Q6H PRN (Reason: dyspepsia) Qty: 300 RF: 0 thiamine mononitrate (vit B1) 100 mg tablet 100 mg PO DAILY Qty: 30 RF: 0 Continued aspirin 81 mg Tablet,Delayed Release (Dr/Ec) 81 mg PO DAILY Qty: 30 RF: 0 metformin 500 mg Tablet 500 mg PO BID Qty: 60 RF: 0 atorvastatin 80 mg Tablet 80 mg PO DAILY Qty: 30 RF: 0 cyanocobalamin (vitamin B-12) 1,000 mcg Tablet 1,000 mcg PO DAILY Qty: 30 RF: 0 folic acid 1 mg Tablet 1 mg PO DAILY Qty: 30 RF: 0 Discontinued clopidogrel 75 mg Tablet 75 mg PO DAILY RF: 0 Discharge Instructions Instructions: Amoxicillin/Clavulanate Potassium (By mouth), Urinary Tract Infection in Women (DC), Hypokalemia (DC), Corrosive Esophagitis (DC), Alcohol Dependence (DC) Additional Instructions: Finish your antibiotics as prescribed. Return to the hospital with any fever, bleeding, chest pain, or shortness of breath. Follow up with your PCP in 1-2 days. You must stop drinking alcohol. Follow up with general surgery for evaluation of pain on swallowing. Stand Alone Forms: Nursing Discharge Form Referrals: Van Montero NP [Primary Care Provider] - (please call Wednesday to make an appointment) Carol Drummond DO [OSTEOPATHIC DOCTOR] - (esophagitis) Activity:: Activity as Tolerated Equipment/Supplies:: No Equipment Needed Diet:: As Tolerated Discharge Orders Discharge Orders: Discharge Order (Routine); Ordered 07/11/21 Ordered By: Carin Leos Discharge Data Discharge Date/Time-TO BE ENTERED AT DEPARTURE: 07/11/21 17:02 DS: Summary Time Spent with Patient providing and/or coordinating discharge services: Greater than 30 minutes Status at Discharge Functional status at discharge: independent ambulation Overall status at discharge: patient is back to baseline Mental Status: mental status grossly normal Speech and Movement: speech and movement normal Mood: congruent mood Affect: normal affect Exam Narrative Exam Narrative: General: Pleasant elderly female who is able to move all 4 extremities in bed,A&Ox3, tangential HEENT: EOMI, MMM Heart: RRR, +TERESA. CP not reproducible with palpation Lungs: CTAB Abdomen: soft, nontender, nondistended Extremities: no edema/clubbing/cyanosis, no lesions on B feet Psych Mental Status: mental status grossly normal Speech and Movement: speech and movement normal Mood: congruent mood Affect: normal affect DS: Data Vitals/I&O Vitals and I&O: Vital Signs Temperature 36.5 C 07/11/21 08:37 Temperature Source Tympanic 07/11/21 08:37 Pulse 100 H 07/11/21 08:37 Pulse Rhythm Regular 07/11/21 09:51 Pulse 103 H 07/08/21 07:50 Respiratory Rate 18 07/11/21 08:37 Respiratory Effort 07/11/21 09:51 Respiratory Depth Normal 07/11/21 09:51 Respiratory Pattern Normal 07/11/21 09:51 Blood Pressure 130/73 07/11/21 08:37 Blood Pressure Mean 78 07/08/21 07:51 Blood Pressure Position Supine 07/08/21 07:51 Pulse Oximetry 97 07/11/21 08:37 Oxygen Delivery Method Room Air 07/11/21 08:37 Oxygen Flow Rate 0 07/11/21 08:37 Pain Level 0 07/11/21 08:37 Comment 07/10/21 22:25 Intake & Output 07/10/21 07/11/21 07/11/21 23:59 11:59 23:59 Intake Total 100 / 305 200 / 289.167 89.167 / 289.167 Output Total 800 / 800 Balance -700 / -495 200 / 289.167 89.167 / 289.167 Intake: IV 200 / 289.167 89.167 / 289.167 Oral 100 / 100 Output: Urine 800 / 800 Other: Urine Color Pale Yellow Urine Appearance Clear Clear Urine Odor None Comment Per patient she went to the bathroom with a nurse at 730am Stool Size Moderate Stool Characteristics Soft Formed Voiding Methods Incontinent Toilet Data Completed and Pending Completed studies during hospitalization [Text1]: CXR 07/07/21: No acute pulmonary findings. XR lumbar spine/hip complete 07/07/21: Three views of the lumbar spine and two views of the hips were obtained. There is an apparent catheter projected over the inferior pelvis. There is no evidence of acute fracture or dislocation involving the hip.. There are moderate degenerative changes of the lumbosacral spine with apparent pseudo spondylolisthesis of L4 on L5. there is no evidence of an acute lumbosacral spine injury. CT head/c-spine: No evidence of acute cervical spine injury. No evidence of acute intracranial injury. Labs on day of discharge: Labs from last 24 hours 07/11/21 07/11/21 15:40 06:17 Sodium 134 L 139 Potassium 4.1 D 2.9 L Chloride 102 104 Carbon Dioxide 27.4 26.6 Anion Gap 4.6 8.4 BUN 6 L 5 L Creatinine 0.5 L 0.5 L Estimated GFR/1.73 m2 >= 60.00 >= 60.00 Glucose 184 H 198 H Calcium 8.3 L 8.7 Phosphorus 3.4 Magnesium 1.7 L Creatine Kinase 54 PFSH All Active Problems (Updated 07/11/21 @ 18:16 by Carin Leos MD) Hypophosphatemia (Acute) Hypomagnesemia (Acute) Esophagitis (Acute) E. coli UTI (Acute) Discharge planning issues (Acute) DVT prophylaxis (Acute) Non-insulin dependent type 2 diabetes mellitus (Chronic) Ambulatory dysfunction (Acute) Tremor (Acute) Diabetes (Chronic) Laceration of elbow with foreign body (Acute) Alcohol abuse (Chronic) Urinary tract infection (Acute) Fall (Acute) Alcohol intoxication (Acute) Medical History (Updated 07/11/21 @ 18:16 by Carin Leos MD) Acute CVA (cerebrovascular accident) Aortic stenosis Carotid stenosis Diabetes mellitus type 2 in nonobese TIA (transient ischemic attack) Surgical History Surgical history unknown Social History Smoking/Tobacco Use Status: Former Tobacco Use Smoking risk assessment performed?: Yes Alcohol Intake: current Alcohol Intake frequency: 0-2 drinks per day Alcohol type: wine Drug use: Never Substance use type: does not use Do you feel safe at home: Yes Do you feel safe in your relationship?: Yes
--- NOTE | 2021-07-11 16:32 | PDOC.HHF2F_ITS ---
Home Health Certification Home Health Certification: 1. Encounter Date and Reason I certify that Ester Tiwari was seen by Carin Leos on 07/11/21 and that I had a [id number] encounter with this patient that meets the physician face to face encounter requirements. 2. Clinical Findings Supporting Skilled Need and Homebound Status I certify that home health services are medically necessary, include either intermittent [place] [facility] and/or physical/speech therapy, and that this patient is homebound in that absences from the home require considerable and taxing effort and are infrequent or of short duration, or are attributable to the need to receive medical care. [X] (a) Attached documentation from encounter provides clinical findings supporting skilled need and homebound status (including what assistance patient requires to leave the home). The encounter with the patient was in whole, or in part, for the following medical condition, which is the primary reason for home health care: Hypothermia,TRIP,Rhabdo Jail: Diabetes, h/o stroke, h/o alcoholism, early alcoholic dementia, medication noncompliance; referral for evaluation of patient's safety at home, medication treatment Physical Therapy: eval and treat Occupationa Therapy: eval and treat IMPROVEMENT SPECIALIST: evaluate the need for resources in the community Homebound: unable to leave home without assistance. 3. Certification and Authentication I certify that I composed the above information based on my clinical judgement relating to this patient's medical condition and, if applicable, clinical findings communicated to me by the NPP or inpatient physician who performed the Home Health Referral. All further orders will be obtained through __Van Montero __(Community Based Physician - PCP)
--- NOTE | 2021-07-11 17:10 | PDOC.CMDIS ---
- If Service Date Differs Date of service: 07/11/21 Time of Service: 17:10 LACE Index Scoring Tool - Questions: Length of Stay (in days): 4 - 6 Acuity (Admit via E.D.?): Yes Comorbidities: Diabetes w/o Complication E.D. Visits: 5 - Answers: Total Score: 12 Risk of Readmission: High Risk Care Management Discharge Reason for Hospitalization: hypothermia, TRIP, rhabdo Discharge Plan: Ester returned home today with new orders for RN, PT, OT, CASHIER COURTESY BOOTH. She was cleared by MD, PT and OT for discharge home. MILLER initiated a referral to [facility] for outpatient services. MILLER connected with Carol, her community nurse, who follows her closely. She currently has [facility]. MILLER connected Ester with [employer] to assist her with her overdue electric bill, but she was unwilling to share her financial information in order to obtain the assistance. She was provided the direct phone number to [employer] for assistance, as well as the number for [employer], which she requested. MILLER coordinated [facility] transport home via private vehicle. MILLER also contacted the building certifier/supervisor dumping to open her door once she arrived. She will follow up with her PCP and discharge plan of care. Patient/Family Education Needs: Review discharge instructions regarding activity levels and medications, discussion of self care needs including ask me three. Services Needed at Discharge: Home Delivered Meals ([facility]), Home Health Care Services ([facility] RN, PT, OT, CASHIER COURTESY BOOTH), Transportation ([facility] private car)
--- NOTE | 2021-07-16 09:32 | INDS_ITS ---
Date of service: 07/16/21 PT Notes Visit Reasons: Hypothermia,TRIP,Rhabdo Physical Therapy Inpatient Discharge Summary Date: 07/16/21 Dates of service: 07/08/2021 through 07/11/2021 This is a clinical summary of care provided for the duration of dates listed above. No charge was made in the completion of this documentation. Referring Doctor: Dr. Leos PT Orders: PT CONSULT: limited ability to ambulate Precautions: fall, standard Patient Profile/Admitting Diagnosis: Patient admitted from ER with diagnosis of hypothermia and TRIP after falling into her bathtub. PMHX: Acute kidney injury (Acute) Hypothermia (Acute) Diabetes mellitus type 2 in nonobese (Acute) Tremor (Acute) TIA (transient ischemic attack) (Acute) Diabetes (Chronic) Aortic stenosis (Chronic) Carotid stenosis (Acute) Laceration of elbow with foreign body (Acute) Acute CVA (cerebrovascular accident) (Acute) Alcohol abuse (Chronic) Urinary tract infection (Acute) Fall (Acute) Alcohol intoxication (Acute) Social History/Home Situation: Patient lives alone in a private home with 5 DANITA. Reports that she is fully independent at baseline. States that she normally ambulates without assistance or device, and denies any additional history of falls. Equipment Owned/DME: FWW, cane Subjective: NT. See most recent EARLY CHILDHOOD COORDINATOR notes. Objective: General Observation: NT. See most recent EARLY CHILDHOOD COORDINATOR notes. Mental Status: NT. See most recent EARLY CHILDHOOD COORDINATOR notes. Pain: NT. See most recent EARLY CHILDHOOD COORDINATOR notes. ROM: Right Upper Extremity: WFL Left Upper Extremity: WFL Right Lower Extremity: WFL Left Lower Extremity: WFL Strength: Right Upper Extremity: WFL Left Upper Extremity: WFL Right Lower Extremity: Functionally able to perform SLR, heel slide and ankle pumps. Declines formal strength assessment at EOB. Left Lower Extremity: Functionally able to perform SLR, heel slide and ankle pumps. Declines formal strength assessment at EOB. Sensation: intact distally Bed Mobility/Transfers: Rolling independent Supine to sit independent Sit to supine independent Sit to stand independent Stand to sit independent Bed to chair independent Chair to bed independent Gait: Up to 900 feet with no AD with full weight bearing requirings stand by assist. Balance: Sitting static: Normal Sitting dynamic: Normal Standing static: Normal Standing dynamic: Good Assessment: Patient demonstrates functional mobility improvement during this episode of care as evidenced by mobility level above and goal status below. Goals: Goals X1 week 1. Supine-Sit : supervision MET 2. Sit-Supine : supervision MET 3. Sit-Stand: supervision MET 4. Stand-Sit: supervision MET 5. Bed-Chair: supervision MET 6. Chair-Bed : supervision MET 7. Gait : supervision x 50' MET DISCHARGE RECOMMENDATIONS: Anticipate home with no services TREATMENT CODE/TIME: NV Thank you for the opportunity to participate in the care of this patient. Tina Shepard PT, DPT, CLT [facility] [place], [place]
== END 2021-07-11 17:02 | disposition home health service (06) | DRG 923 ==
LOC: ER 23:26 → ICU 07-08 00:24 → MS 07-08 08:56
PROVIDERS: Internal Medicine; Admitting Provider General Practice; Emergency Provider Emergency Medicine; PCP Nurse Practitioner Family; Visit Provider General Practice
DX: T68.XXXA Hypothermia, initial encounter (principal); N39.0 Urinary tract infection, site not specified; N17.9 Acute kidney failure, unspecified; M62.82 Rhabdomyolysis; F10.27 Alcohol dependence with alcohol-induced persisting dementia; B96.20 Unspecified Escherichia coli [E. coli] as the cause of diseases classified elsewhere; E11.9 Type 2 diabetes mellitus without complications; Z86.73 Personal history of transient ischemic attack (TIA), and cerebral infarction without residual deficits; W18.39XA Other fall on same level, initial encounter; Y92.002 Bathroom of unspecified non-institutional (private) residence as the place of occurrence of the external cause; Z91.19 Patient's noncompliance with other medical treatment and regimen; Z79.82 Long term (current) use of aspirin; L89.319 Pressure ulcer of right buttock, unspecified stage; E87.6 Hypokalemia; R26.9 Unspecified abnormalities of gait and mobility; K20.90 Esophagitis, unspecified without bleeding; E83.42 Hypomagnesemia; E83.39 Other disorders of phosphorus metabolism; K29.60 Other gastritis without bleeding
CPT/HCPCS: 36410; 36415; 36416; 51702; 80048; 80053; 82550; 82962; 85027; 87077; 87635; 93005; 96361; 96365; 96375; 97162; 97165; 97530; 97535; 99285; J1650; 70450; 71045; 72100; 72125; 73502; 80320; 81003; 81015; 83036; 83735; 84100; 84484; 85007; 85025; 87086; 87186; 93010; 99219; 99225; 99232; 99239; G0378; J0696; J1815; J2405; J3480; J3490

== ENCOUNTER 2022-02-16 18:37 | Emergency (ER) | payer OTHER, SELFPAY ==
--- NOTE | 2022-02-16 18:45 | DI.RAD_ITS ---
Exam(s) XR SHOULDER RT COMPLETE 2+V EXAM: XR SHOULDER RT COMPLETE 2+V CLINICAL HISTORY: pain s/p fall TECHNIQUE: COMPARISON: No exams were available for comparison FINDINGS: Two views were obtained. There is a severely comminuted markedly displaced fracture of the humeral h ead and neck. No gross glenohumeral dislocation. No additional fracture seen on this limited two vi ew series. IMPRESSION: RADIATION DOSE DELIVERED: Total DLP
[2022-02-16 18:48] VITALS: BP 102/86; PULSE 102; TEMP 36.8; O2SAT 97
--- NOTE | 2022-02-16 19:00 | ED.GENADUL_ITS ---
Discharge Plan Disposition Patient Disposition: HOME Condition: Stable Discharge Details Clinical Impression: Fall, Fracture of proximal humerus Primary Care Provider: Van Montero ED Provider: Dre Florentino Home Meds and New Rx's Prescriptions: New oxycodone 5 mg tablet 5 mg PO Q6H PRN (Reason: pain) Qty: 12 0RF Continued aspirin 81 mg Tablet,Delayed Release (Dr/Ec) 81 mg PO DAILY Qty: 30 0RF amoxicillin-pot clavulanate 875-125 mg Tablet 1 tab PO BID Qty: 12 0RF alum-mag hydroxide-simeth [Antacid] 200-200-20 mg/5 mL suspension 10 ml PO Q6H PRN (Reason: dyspepsia) Qty: 300 0RF Rx Instructions: use for chest pain on swallowing Discharge Instructions Instructions: Proximal Humerus Fracture (ED) Additional Instructions: call orthopedics tomorrow for an appointment if you feel more ill, have severe worsening pain or difficulty breathing return to the emergency department Medical Decision Making 71 yo female who has a history of falls comes in after she states earlier today she slipped at her house and landed on her right arm. Denies any preceding symptoms such as chest pain, dyspnea, lightheadedness, headache, n/v. She denies loc. She states she has pain in the right shoulder area and has tenderness in the right shoulder area with palpation with some swelling. Limited rom due to pain. She has no tenderness in the elbow, forearm, wrist or hand, normal sensation and pulses. Has no tenderness in the c spine, chest, abdomen. she is caox4 with clear speech. She was unable to get up so finally called ems. Suspect humerus fracture but will evaluate for anemia, electrolyte abnormalities as a cause for weakness and xray the shoulder, denies loc so doubt syncope and has no chest pain or dyspnea so doubt acs. labs show no acute significant findings, does have proximal humerus fracture. She was given a dose of oxycodone and feels well enough for d/c, she will follow up with ortho and return precautions given Differential Diagnosis Differential Diagnosis: fracute, sprain, contusion Medical Records Medical records reviewed: Yes I reviewed the patient's medical records. Imaging Data Radiologic Study: Attestation: I personally reviewed and interpreted this imaging study as follows: Imaging: X-Ray Radiologist's impression: proximal humerus fracture Lab Data Lab results reviewed: Yes I reviewed the patient's lab results. HPI General Mode of arrival: EMS . Date/Time Provider Initiated Documentation: 02/16/22 18:55 . Limitations to Documentation: no limitations . Information obtained by: patient . History of Present Illness 71 year old F presents to the emergency department with the chief complaint of right shoulder pain, described as moderate, Quality is described as aching, and it has been constant. Rest improves symptom(s), Movement worsens symptoms . Patient notes no other symptoms.. Patient did receive the following treatments prior to arrival, none Related Data Home Medications Medication Instructions Recorded Confirmed aspirin 81 mg tablet,delayed 81 mg PO DAILY #30 tabs 04/11/21 07/08/21 release aluminum-mag hydroxide-simethicone 10 ml PO Q6H PRN dyspepsia #300 mL 07/11/21 200 mg-200 mg-20 mg/5 mL oral susp (Antacid) amoxicillin 875 mg-potassium 1 tab PO BID #12 tabs 07/11/21 clavulanate 125 mg tablet oxycodone 5 mg tablet 5 mg PO Q6H PRN pain #12 tabs 02/16/22 Previous Rx's Medication Instructions Recorded aspirin 81 mg tablet,delayed 81 mg PO DAILY #30 tabs 04/11/21 release aluminum-mag hydroxide-simethicone 10 ml PO Q6H PRN dyspepsia #300 mL 07/11/21 200 mg-200 mg-20 mg/5 mL oral susp (Antacid) amoxicillin 875 mg-potassium 1 tab PO BID #12 tabs 07/11/21 clavulanate 125 mg tablet oxycodone 5 mg tablet 5 mg PO Q6H PRN pain #12 tabs 02/16/22 Allergies Allergy/AdvReac Type Severity Reaction Status Date / Time No Known Allergies Allergy Unverified 02/16/22 18:44 General Stated Complaint: Orthopedic SETH: 4 Review of Systems All systems reviewed & are unremarkable except as noted in HPI and below Constitutional Constitutional: Denies chills, Denies fever(s) and Denies weakness Eyes Eyes: Denies loss of vision Cardiovascular Cardiovascular: Denies chest pain and Denies dyspnea Respiratory Respiratory: Denies cough and Denies dyspnea Gastrointestinal Gastrointestinal: Denies abdominal pain, Denies nausea and Denies vomiting Integumentary/Breasts Skin/Breast: Denies rash Neurologic Neurologic: Denies loss of vision and Denies weakness PFSH All Active Problems (Updated 02/16/22 @ 21:01 by Dre Florentino MD) Fall (Acute) Fracture of proximal humerus (Acute) Hypophosphatemia (Acute) Hypomagnesemia (Acute) Esophagitis (Acute) E. coli UTI (Acute) Non-insulin dependent type 2 diabetes mellitus (Chronic) Ambulatory dysfunction (Acute) Tremor (Acute) Diabetes (Chronic) Laceration of elbow with foreign body (Acute) Alcohol abuse (Chronic) Urinary tract infection (Acute) Fall (Acute) Alcohol intoxication (Acute) Medical History (Updated 02/16/22 @ 21:01 by Dre Florentino MD) Acute CVA (cerebrovascular accident) Aortic stenosis Carotid stenosis Diabetes mellitus type 2 in nonobese TIA (transient ischemic attack) Surgical History Surgical history unknown Social History Smoking/Tobacco Use Status: Former Tobacco Use Smoking risk assessment performed?: Yes Alcohol Intake: current Alcohol Intake frequency: 0-2 drinks per day Alcohol type: wine Drug use: Never Substance use type: does not use Do you feel safe at home: Yes Do you feel safe in your relationship?: Yes Exam Const General: no acute distress Orientation: alert HENMT Head: normal to inspection Ears: external ears normal General nose exam: external nose normal Mouth: moist mucous membranes Eyes General: appearance normal, both eyes and all related structures Neck Neck: normal visual inspection Resp Effort & Inspection: normal respiratory effort and able to speak in complete sentences Cardio Rate: regular rate Skin General skin exam: no rashes or lesions noted Neuro General: patient alert and patient oriented x3 Extrem General: capillary refill normal Psych Mental Status: mental status grossly normal Course Vital Signs Vital signs: Vital Signs Temperature 36.8 C 02/16/22 18:48 Pulse 102 H 02/16/22 18:48 Blood Pressure 102/86 02/16/22 18:48 Pulse Oximetry 97 02/16/22 18:48 Temperature 36.8 C 02/16/22 18:48 Temperature Source Temporal Artery Scan 02/16/22 18:48 Pulse 102 H 02/16/22 18:48 Respiratory Effort Non-Labored 02/16/22 18:45 Blood Pressure 102/86 02/16/22 18:48 Pulse Oximetry 97 02/16/22 18:48 Oxygen Delivery Method Room Air 02/16/22 18:48 Oxygen Flow Rate 0 02/16/22 18:48 Pain Level 8 02/16/22 18:45
[2022-02-16] MEDS: Acetaminophen 500 MG TAB 1000 MG PO (19:12)
[2022-02-16 19:34] LABS: Abs Immature Grans 0.07 10^3/uL (0.0-0.06); Absolute Basophil Count 0.09 10^3/uL (0.0-0.2); Absolute Eosinophil Count 0.03 10^3/uL (0.0-0.7); Absolute Lymphocyte Count 1.56 10^3/uL (1.2-3.4); Absolute Monocyte Count 0.64 10^3/uL (0.1-0.8); Absolute Neutrophil Count 7.96 10^3/uL (1.2-6.7); Basophils % 0.9; Eosinophils % 0.3; HGB 12.6 g/dL (11.2-15.7); Immature Grans % 0.7; Lymphocytes % 15.1; MCH 30.1 pg (27.0-33.0); MCHC 33.2 % (32.0-36.0); MCV 91 fL (80-95); MPV 10.2 fL (8.0-11.0); Monocytes % 6.2; Neutrophils % 76.8; Platelet Count 321 10^3/uL (130-400); RBC 4.19 10^6/uL (3.93-5.22); RDW-SD 40.3 fL; WBC 10.35 10^3/uL (4.4-10.8)
[2022-02-16 19:38] LABS: ALT 25 U/L (14-59); AST 17 U/L (15-37); Albumin 3.1 g/dL (3.4-5.0); Alkaline Phosphatase 102 U/L (46-116); Anion Gap 10.3 mmol/L (3-11); BUN 6 mg/dL (7-18); Bilirubin, Total 0.2 mg/dL (0.2-1.0); CO2 27.7 mmol/L (21.0-32.0); CREATININE 0.6 mg/dL (0.55-1.02); Chloride 101 mmol/L (98-107); Glucose 285 mg/dL (74-106); Magnesium 1.7 mg/dL (1.8-2.4); Sodium 139 mmol/L (136-145); Total Protein 7.3 g/dL (6.4-8.2)
[2022-02-16 19:58] LABS: Creatine Kinase 82 U/L (26-192)
--- NOTE | 2022-02-16 20:15 | DI.VRAD_ITS ---
PROCEDURE INFORMATION: Exam: XR Right Shoulder Exam date and time: 02/16/2022 7:43 PM Age: 71 years old Clinical indication: Injury or trauma; Fall; Blunt trauma (contusions or hematomas); Shoulder; Right; Injury date: 02/16/22 TECHNIQUE: Imaging protocol: Radiologic exam of the Right shoulder. Views: 2 or more views. COMPARISON: XR CHEST 1V IN DI DEPT 07/07/2021 10:25 PM FINDINGS: Bones/joints: A comminuted fracture is present in the proximal right humerus. Primary fracture line extends across the surgical neck. Comminuted free fragments are present from the greater and lesser tuberosities. The shoulder remains located. There is widening of the acromial humeral space, likely because of hemarthrosis. The acromioclavicular alignment is normal. Scapula appears intact. Visualized right ribs are intact. Soft tissues: No abnormal soft tissue air. IMPRESSION: Comminuted fracture, proximal humerus. Dictated and Authenticated by: Dre Henao MD. Ordering:ERICK Erickson MD
[2022-02-16] MEDS: oxyCODONE 5 MG TAB PO (20:37)
== END 2022-02-16 21:22 | disposition home or self-care (01) ==
LOC: ER 21:28
PROVIDERS: Emergency Provider Emergency Medicine; PCP Nurse Practitioner Family
DX: S42.201A Unspecified fracture of upper end of right humerus, initial encounter for closed fracture (principal); E11.9 Type 2 diabetes mellitus without complications; Z86.73 Personal history of transient ischemic attack (TIA), and cerebral infarction without residual deficits; Z87.891 Personal history of nicotine dependence; W01.10XA Fall on same level from slipping, tripping and stumbling with subsequent striking against unspecified object, initial encounter; Y92.009 Unspecified place in unspecified non-institutional (private) residence as the place of occurrence of the external cause
CPT/HCPCS: 36415; 80053; 82550; 99283; 73030; 83735; 85025; 99284

== ENCOUNTER 2022-02-18 12:11 | Emergency (ER) | payer OTHER, SELFPAY ==
[2022-02-18 12:22] VITALS: BP 124/102; PULSE 107; RESP 18; TEMP 36.8; O2SAT 94
--- NOTE | 2022-02-18 14:15 | DI.RAD_ITS ---
Exam(s) XR SHOULDER RT COMPLETE 2+V EXAM: XR SHOULDER RT COMPLETE 2+V CLINICAL HISTORY: right shoulder pain, recent fx. TECHNIQUE: 2D digital imaging was performed. COMPARISON: CR,XR XR SHOULDER RT COMPLETE 2+V from 02/16/2022 FINDINGS: Four views: Impacted and comminuted displaced fracture again noted involving the humeral head and neck and greate r tuberosity. Mild further displacement Ipsilateral clavicle appears unremarkable. IMPRESSION: DATA REPOSITORY: RADIATION DOSE DELIVERED:
[2022-02-18] MEDS: Acetaminophen 500 MG TAB 1000 MG PO (14:29)
[2022-02-18] MEDS: Ibuprofen 800 MG TAB PO (14:30)
[2022-02-18] MEDS: Lidocaine 5% Patch 1 PATCH TP (14:30)
[2022-02-18 15:12] VITALS: BP 97/68; PULSE 108; RESP 18; TEMP 37.3; O2SAT 97
--- NOTE | 2022-02-18 15:31 | ED.GENADUL_ITS ---
Discharge Plan Disposition Patient Disposition: HOME Condition: Good Discharge Details Clinical Impression: Closed fracture of proximal end of right humerus Primary Care Provider: Van Montero ED Provider: Avinash Layne Home Meds and New Rx's Prescriptions: No Action No Known Home Meds Discharge Instructions Instructions: Proximal Humerus Fracture (ED) Additional Instructions: Unfortunately at this time the fracture is slightly worse. Please use the sling that we have given you. It is important to follow-up closely with the reception specialist to discuss surgical options. They will contact you for an appointment. Please do not miss this appointment. Please take Tylenol and Motrin as needed for pain. Please take Tums and Maalox to help with any irritation to your stomach from the Tylenol and Motrin. Please ice your shoulder frequently. If you notice any worsening of your symptoms, or any new symptoms such as vomiting, diarrhea, fever, chills, shortness of breath, chest pain, numbness, weakness, or fainting , please return immediately to the emergency department for reevaluation. Please follow up with your primary care provider as soon as possible for reassessment and reevaluation. As always, it was a pleasure participating in your medical care today. Referrals: Antonino Ortiz MD [ [facility] STAFF PHYSICIAN] - Van Montero NP [Primary Care Provider] - Discharge Data Discharge Date/Time-TO BE ENTERED AT DEPARTURE: 02/18/22 15:42 Medical Decision Making This is a 71-year-old female with a past medical history of alcoholic dementia, type 2 diabetes, who recently fell and broke her proximal humerus a few days ago, presents today for right shoulder pain. Unfortunately she states she fell off her bed again and landed onto her right shoulder. This caused pain, she contacted EMS and they brought her to the ER. Said for pain in her shoulder she denies any other complaints. She denies any new numbness or tingling. She did not hit her head. She denies any chest pain. Pain is made worse with movement. Improved by nothing. She has not taken anything for the pain today. She did have a coaptation splint previously. Physical exam demonstrates some bruising and swelling noted over the right shoulder, no other evidence of trauma over the ribs, spine, head, elbows or hands. X-ray was ordered and demonstrates evidence of slight rotation and further displacement of the proximal component of the humerus. I did contact Dr. Tanner and discussed the case with him. He reviewed the images and does feel that the patient will need surgery at some point. Will recommend outpatient follow-up with Dr. Antonino Ortiz for surgical discussion. This was discussed with the patient. She otherwise feels comfortable to go home. Dr. Tanner did recommend sling instead of a coaptation splint moving forward. This is been given to the patient. Discussed red flags which return. Patient does have Tylenol at home, will give Lidoderm patch if needed. I have extensively reviewed the treatment plan and discharge instructions with the patient. I have addressed all patient concerns at this time. The patient was made aware of what symptoms to monitor for that would warrant a return to the emergency department. Discussed the plan with the patient, they demonstrate verbal understanding and agreement with our assessment and plan at this time. The documentation in this chart was dictated using [employer] dictation software. Please excuse any dictation errors. FINDINGS: Four views: Impacted and comminuted displaced fracture again noted involving the humeral head and neck and greater tuberosity. Mild further displacement Ipsilateral clavicle appears unremarkable. IMPRESSION: HPI General Date/Time Provider Initiated Documentation: 02/18/22 14:21 . HPI Narrative: This is a 71-year-old female with a past medical history of alcoholic dementia, type 2 diabetes, who recently fell and broke her proximal humerus a few days ago, presents today for right shoulder pain. Unfortunately she states she fell off her bed again and landed onto her right shoulder. This caused pain, she contacted EMS and they brought her to the ER. Said for pain in her shoulder she denies any other complaints. She denies any new numbness or tingling. She did not hit her head. She denies any chest pain. Pain is made worse with movement. Improved by nothing. She has not taken anything for the pain today. She did have a coaptation splint previously. Related Data Home Medications Medication Instructions Recorded Confirmed Unknown [No Known Home Meds] 02/18/22 02/18/22 Allergies Allergy/AdvReac Type Severity Reaction Status Date / Time No Known Allergies Allergy Unverified 02/18/22 14:13 General Stated Complaint: Orthopedic SETH: 3 Review of Systems All systems reviewed & are unremarkable except as noted in HPI and below PFSH All Active Problems Fall (Acute) Fracture of proximal humerus (Acute) Closed fracture of proximal end of right humerus (Acute) Hypophosphatemia (Acute) Hypomagnesemia (Acute) Esophagitis (Acute) E. coli UTI (Acute) Non-insulin dependent type 2 diabetes mellitus (Chronic) Ambulatory dysfunction (Acute) Tremor (Acute) Diabetes (Chronic) Laceration of elbow with foreign body (Acute) Alcohol abuse (Chronic) Urinary tract infection (Acute) Fall (Acute) Alcohol intoxication (Acute) Medical History Acute CVA (cerebrovascular accident) Aortic stenosis Carotid stenosis Diabetes mellitus type 2 in nonobese TIA (transient ischemic attack) Surgical History Surgical history unknown Social History Smoking/Tobacco Use Status: Former Tobacco Use Smoking risk assessment performed?: Yes Alcohol Intake: current Alcohol Intake frequency: 0-2 drinks per day Alcohol type: wine Drug use: Never Substance use type: does not use Do you feel safe at home: Yes Do you feel safe in your relationship?: Yes Exam Narrative Exam Narrative: 1.Const: Well-nourished, Well-developed, appearing stated age 2.Eyes: PERRL, no conjunctival injection, and symmetrical lids. 3.ENT: Atraumatic external nose and ears. Moist MM. Neck: Symmetric, trachea midline, No thyromegaly. 4.CVS: +S1/S2, No murmurs or gallops. Peripheral pulses 2+ and equal in all extremities. Brisk capillary refill in all extremities. 5.RESP: Unlabored respiratory effort. Clear to auscultation bilaterally. No wheezes rales or rhonchi 6.GI: Soft, Nontender/Nondistended, No hepatosplenomegaly. No guarding or rebound. 7.MSK: Normocephalic, patient does demonstrate evidence of swelling on her right shoulder. There is some bruising, pain with palpation. No tenderness over the elbows bilaterally, no tenderness over the hand or wrist. Patient demonstrates no midline cervical thoracic or lumbar spine tenderness. No tenderness over the ribs. No other evidence of trauma. 8.Skin: Warm, Dry. No rashes or lesions. 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 Sensation grossly intact, no focal neurologic deficits. 10.Psych: (AAO) x3. Appropriate mood and affect Course Vital Signs Vital signs: Vital Signs Temperature 36.8 C 02/18/22 12:22 Pulse 107 H 02/18/22 12:22 Respiratory Rate 18 02/18/22 12:22 Blood Pressure 124/102 H 02/18/22 12:22 Pulse Oximetry 94 02/18/22 12:22 Temperature 37.3 C 02/18/22 15:12 Temperature Source Tympanic 02/18/22 15:12 Pulse 108 H 02/18/22 15:12 Respiratory Rate 18 02/18/22 15:12 Respiratory Effort Non-Labored 02/18/22 14:13 Blood Pressure 97/68 L 02/18/22 15:12 Blood Pressure Position Sitting 02/18/22 12:22 Pulse Oximetry 97 02/18/22 15:12 Oxygen Delivery Method Room Air 02/18/22 15:12 Oxygen Flow Rate 0 02/18/22 15:12 Pain Level 9 02/18/22 15:12 PAWSS Have you Been Recently Intoxicated or Drunk Within the Last 30 days?: No Have you Ever Experienced Previous Episodes of Alcohol Withdrawal?: No Have you ever Experienced Withdrawal Seizures?: No Have you ever Experienced Delirium Tremens(DT)s?: No Have you ever undergone Alcohol Rehabilitation Treatment (i.e, inpt ot outpatient treatment programs)?: No Have you ever Experienced Blackouts?: No Have you ever Combined Alcohol with other Downers within the last 90 days?: No Have you ever Combined Alcohol with any other Substance of Abuse during the last 90 days?: No Positive Blood Alcohol level on Presentation? [PCS.BAL]: No Evidence of Increased Autonomic Activity (i.e. HR>120, tremor, sweating, agitation, nausea)?: No Result: 0
--- NOTE | 2022-02-18 15:38 | NUR.NOTE ---
Nursing Note: Referral given to Care Management that patient is requesting a new PCP.
== END 2022-02-18 15:42 | disposition home or self-care (01) ==
PROVIDERS: Emergency Provider Student in an Organized Health Care Education/Training Program; PCP Nurse Practitioner Family
DX: S42.251A Displaced fracture of greater tuberosity of right humerus, initial encounter for closed fracture (principal); S42.211A Unspecified displaced fracture of surgical neck of right humerus, initial encounter for closed fracture; E11.9 Type 2 diabetes mellitus without complications; Z86.73 Personal history of transient ischemic attack (TIA), and cerebral infarction without residual deficits; Z87.891 Personal history of nicotine dependence; W06.XXXA Fall from bed, initial encounter
CPT/HCPCS: 99283; 73030; 99284

== ENCOUNTER 2022-02-19 10:51 | Inpatient (IN) | payer OTHER, SELFPAY ==
[2022-02-19] VITALS (32 sets, daily range): BP systolic 93–148; BP diastolic 46–77; PULSE 87–135; RESP 11–25; TEMP 36.5–38.2; O2SAT 94–100
--- NOTE | 2022-02-19 11:15 | RT.EKG_ITS ---
APPROVED REPORT Exam: Resting ECG Reason for Exam: syncope Patient Location: E HR:117 bpm ECG Measurements Heart Rate 117 AXIS IN 153 P 22 QRSd 82 QRS -33 QT 337 T 97 QTc 469 Conclusion Sinus tachycardia...rate> 99 Inferior infarct, old...Q >35mS, II III aVF Nonspecific T abnormalities, lateral leads...T <-0.10mV, I aVL V5 V6
[2022-02-19 11:53] LABS: HCT 34.9 % (36.0-46.0); HGB 11.9 g/dL (11.2-15.7); MCH 30.3 pg (27.0-33.0); MCHC 34.1 % (32.0-36.0); MCV 89 fL (80-95); MPV 9.9 fL (8.0-11.0); Platelet Count 278 10^3/uL (130-400); RBC 3.93 10^6/uL (3.93-5.22); RDW-SD 39.3 fL; WBC 15.43 10^3/uL (4.4-10.8)
[2022-02-19] MEDS: Lactated Ringers 500 ML 1000 ML IV (12:00)
[2022-02-19 12:13] LABS: ALT 20 U/L (14-59); AST 19 U/L (15-37); Absolute Lymphocyte Count 0.93 10^3/uL (1.2-3.4); Albumin 2.8 g/dL (3.4-5.0); Alkaline Phosphatase 100 U/L (46-116); Anion Gap 13.3 mmol/L (3-11); BUN 20 mg/dL (7-18); Bands % 2; CO2 23.7 mmol/L (21.0-32.0); CREATININE 0.9 mg/dL (0.55-1.02); Calcium 8.9 mg/dL (8.5-10.1); Chloride 97 mmol/L (98-107); Diff Comment Manual Differential; Glucose 302 mg/dL (74-106); Magnesium 1.7 mg/dL (1.8-2.4); Potassium 3.7 mmol/L (3.5-5.1); RBC Morphology Normal; Sodium 134 mmol/L (136-145); Total Protein 7.3 g/dL (6.4-8.2)
[2022-02-19 12:15] LABS: Creatine Kinase 95 U/L (26-192)
[2022-02-19 12:18] LABS: ETHANOL BLOOD < 3.0 mg/dL (<10)
[2022-02-19 12:21] LABS: Bilirubin Negative (Negative); Blood Moderate (Negative); Clarity Cloudy (Clear); Glucose >=1000 mg/dL (Negative); Ketones 15 mg/dL (Negative); Leukocyte Esterase Small (Negative); Nitrite Positive (Negative); Specific Gravity 1.025 (1.005-1.025); Urobilinogen 0.2 EU/dL (Up TO 0.2); pH 5.5 (5-8)
[2022-02-19 12:30] LABS: Bacteria Moderate HPF (Negative); C & S Indicated? Yes; Casts 0-2 Hyaline LPF (Negative); Crystals Negative HPF (Negative); Epithelial Cells Few HPF (Negative); Mucus Negative (Negative); RBC 20-50 HPF (0-2); WBC 20-50 HPF (0-5)
[2022-02-19 13:37] LABS: *AMPHETAMINES SCREEN URINE Negative (Negative); *BARBITURATES SCREEN URINE Negative (Negative); *BENZODIAZEPINES SCREEN URINE Negative (Negative); Cannabinoids THC Negative (Negative); Cocaine Screen,Urine Negative (Negative); METHADONE URINE SCREEN Negative (Negative); OPIATES URINE SCREEN Negative (Negative); Tricyclic Antidepressants Negative (Negative)
--- NOTE | 2022-02-19 13:42 | ED.GENADUL_ITS ---
Discharge Plan Disposition Patient Disposition: [facility] INPATIENT Condition: Serious Discharge Details Chief Complaint: GenMedical Clinical Impression: Urinary tract infection, Hypovolemia, Frequent falls Admit Date/Time: 02/19/22 13:44 Admit Provider: Peter Vieyra Attending Provider: Peter Vieyra Primary Care Provider: Van Montero ED Provider: Johnathan Corley Discharge Instructions Activity:: Activity as Tolerated Equipment/Supplies:: No Equipment Needed Diet:: Carb Counting Discharge Data Discharge Date/Time-TO BE ENTERED AT DEPARTURE: 02/19/22 14:41 Medical Decision Making 71-year-old female with history of alcoholic dementia, recently seen for fall with right humerus fracture, multiple falls recently, here with generalized weakness having fallen again today, found by first responders on floor in her own feces and urine. Patient is tachycardic and hypotensive on arrival. She appears hypovolemic. Will give IV fluid bolus. No signs of head trauma. Labs reviewed: Urinalysis concerning for UTI. Plan to initiate treatment with ceftriaxone. Multiple mild electrolyte abnormalities noted. Plan to admit for generalized weakness and treatment of urinary tract infection. On reassessment after IVF bolus, blood pressure improved as has heart rate. Lab Data Lab results reviewed: Yes I reviewed the patient's lab results. HPI General Mode of arrival: EMS . Date/Time Provider Initiated Documentation: 02/19/22 11:16 . Limitations to Documentation: no limitations . Information obtained by: patient . HPI Narrative: 71-year-old female presents with chief complaint of weakness. Patient has generalized weakness. Weakness is severe. Constant. No modifiers. Patient apparently was found on the floor of her house laying in stool and feces. Patient has had multiple falls recently had multiple ED visits. She fractured her right humerus 2 days ago. Patient does have pain in her right upper arm. First responders and EMS note home incomplete disrepair and unsafe for living. Related Data Home Medications Medication Instructions Recorded Confirmed calcium carbonate 600 mg-vitamin 1 tab PO BID #0 tabs 02/23/22 D3 5 mcg (200 unit) tablet insulin aspart U-100 100 unit/mL 0 units (0 mL) subcut 02/23/22 (3 mL) subcutaneous pen (Novolog 0800,1200,1700,2200 #0 mL Flexpen U-100 Insulin aspart) insulin glargine 100 unit/mL (3 5 unit (0.05 mL) subcut HS #0 mL 02/23/22 mL) subcutaneous pen (Lantus Solostar U-100 Insulin) lidocaine 5 % topical patch 1 patch topical DAILY@1999 #0 ea 02/23/22 magnesium oxide 400 mg (241.3 mg 400 mg PO DAILY #0 tabs 02/23/22 magnesium) tablet potassium chloride 20 mEq 20 meq PO BID #0 tabs 02/23/22 tablet,extended release(part/cryst) (Klor-Con M) thiamine mononitrate (vit B1) 100 100 mg PO DAILY #0 tabs 02/23/22 mg tablet (Vitamin B-1 (mononitrate)) Previous Rx's Medication Instructions Recorded calcium carbonate 600 mg-vitamin 1 tab PO BID #0 tabs 02/23/22 D3 5 mcg (200 unit) tablet insulin aspart U-100 100 unit/mL 0 units (0 mL) subcut 02/23/22 (3 mL) subcutaneous pen (Novolog 0800,1200,1700,2200 #0 mL Flexpen U-100 Insulin aspart) insulin glargine 100 unit/mL (3 5 unit (0.05 mL) subcut HS #0 mL 02/23/22 mL) subcutaneous pen (Lantus Solostar U-100 Insulin) lidocaine 5 % topical patch 1 patch topical DAILY@1999 #0 ea 02/23/22 magnesium oxide 400 mg (241.3 mg 400 mg PO DAILY #0 tabs 02/23/22 magnesium) tablet potassium chloride 20 mEq 20 meq PO BID #0 tabs 02/23/22 tablet,extended release(part/cryst) (Klor-Con M) thiamine mononitrate (vit B1) 100 100 mg PO DAILY #0 tabs 02/23/22 mg tablet (Vitamin B-1 (mononitrate)) Allergies Allergy/AdvReac Type Severity Reaction Status Date / Time No Known Allergies Allergy Unverified 02/19/22 11:02 General Stated Complaint: GenMedical SETH: 3 Review of Systems All systems reviewed & are unremarkable except as noted in HPI and below Cardiovascular Cardiovascular: Denies chest pain Gastrointestinal Gastrointestinal: Denies abdominal pain PFSH All Active Problems (Updated 02/24/22 @ 14:39 by Johnathan Corley MD) Hypovolemia (Acute) Frequent falls (Acute) Fever (Acute) Discharge planning issues (Acute) DVT prophylaxis (Acute) UTI (urinary tract infection) (Acute) Fall (Acute) Fracture of proximal humerus (Acute) Closed fracture of proximal end of right humerus (Acute) Hypophosphatemia (Acute) Hypomagnesemia (Acute) Esophagitis (Acute) E. coli UTI (Acute) Non-insulin dependent type 2 diabetes mellitus (Chronic) Ambulatory dysfunction (Acute) Tremor (Acute) Diabetes (Chronic) Laceration of elbow with foreign body (Acute) Alcohol abuse (Chronic) Urinary tract infection (Acute) Fall (Acute) Alcohol intoxication (Acute) Medical History Acute CVA (cerebrovascular accident) Aortic stenosis Carotid stenosis Diabetes mellitus type 2 in nonobese TIA (transient ischemic attack) Surgical History Surgical history unknown Social History Smoking/Tobacco Use Status: Former Tobacco Use Smoking risk assessment performed?: Yes Alcohol Intake: current Alcohol Intake frequency: 0-2 drinks per day Alcohol type: wine Drug use: Never Substance use type: does not use Do you feel safe at home: Yes Do you feel safe in your relationship?: Yes Exam Const General: cooperative HENLA Head: normocephalic and atraumatic Eyes Conjunctivae: normal conjunctivae Sclera: normal sclerae Neck Neck: trachea midline and supple Resp Auscultation: clear to auscultation bilaterally, no rales, no rhonchi and no wheezes Cardio Rate: tachycardic Rhythm: regular rhythm GI Palpation: soft, not firm, no guarding, no masses, not rigid and nontender Skin General skin exam: no rashes or lesions noted Neuro General: patient alert, patient awake and tone normal Other: Some confusion, generalized weakness, 4/5 throughout, difficulty with standing and unable to ambulate Extrem General: no edema Psych Appearance: disheveled Course Vital Signs Vital signs: Vital Signs Temperature 37.1 C 02/19/22 10:59 Pulse 128 H 02/19/22 10:59 Respiratory Rate 14 02/19/22 10:59 Blood Pressure 93/46 L 02/19/22 10:59 Pulse Oximetry 96 02/19/22 10:59 Temperature 37.1 C 02/19/22 10:59 Temperature Source Temporal Artery Scan 02/19/22 10:59 Pulse 101 H 02/19/22 13:01 Pulse 102 H 02/19/22 13:02 Respiratory Rate 24 02/19/22 13:02 Respiratory Effort Non-Labored 02/19/22 11:53 Respiratory Depth Normal 02/19/22 11:53 Respiratory Pattern Normal 02/19/22 11:53 Blood Pressure 121/54 L 02/19/22 13:01 Blood Pressure Mean 68 02/19/22 13:01 Blood Pressure Position Supine 02/19/22 10:59 Pulse Oximetry 95 02/19/22 13:02 Oxygen Delivery Method Room Air 02/19/22 10:59 Oxygen Flow Rate 0 02/19/22 10:59 Lab/Test Results Lab/Test Results: 02/19/22 12:10 Urine - Reflex from Ua Urine Culture - Pending Laboratory Tests Range/Units 02/19/22 02/19/22 02/19/22 11:45 11:45 11:45 WBC (4.4-10.8) 10^3/uL 15.43 H RBC (3.93-5.22) 10^6/uL 3.93 Hgb (11.2-15.7) g/dL 11.9 Hct (36.0-46.0) % 34.9 L MCV (80-95) fL 89 MCH (27.0-33.0) pg 30.3 MCHC (32.0-36.0) % 34.1 RDW (11.7-14.6) % 12.0 Plt Count (130-400) 10^3/uL 278 MPV (8.0-11.0) fL 9.9 Immature Gran % 0.0 Neutrophils % 92.0 Band Neutrophils % 2 Lymphocytes % 6.0 Monocytes % 0.0 Eosinophils % 0.0 Basophils % 0.0 Nucleated RBC % (0.0-0.3) % 0.0 Absolute Neutrophils (1.2-6.7) 10^3/uL 14.50 H Absolute Lymphocytes (1.2-3.4) 10^3/uL 0.93 L Absolute Monocytes (0.1-0.8) 10^3/uL 0.00 L Absolute Eosinophils (0.0-0.7) 10^3/uL 0.00 Absolute Basophils (0.0-0.2) 10^3/uL 0.00 RBC Morphology Normal Sodium (136-145) mmol/L 134 L Potassium (3.5-5.1) mmol/L 3.7 Chloride (98-107) mmol/L 97 L Carbon Dioxide (21.0-32.0) mmol/L 23.7 Anion Gap (3-11) mmol/L 13.3 H BUN (7-18) mg/dL 20 H Creatinine (0.55-1.02) mg/dL 0.9 Estimated GFR/1.73 m2 (mL/min/1.73m2) >= 60.00 Glucose (74-106) mg/dL 302 H Calcium (8.5-10.1) mg/dL 8.9 Magnesium (1.8-2.4) mg/dL 1.7 L Total Bilirubin (0.2-1.0) mg/dL 1.0 AST (15-37) U/L 19 ALT (14-59) U/L 20 Alkaline Phosphatase (46-116) U/L 100 Creatine Kinase (26-192) U/L 95 Total Protein (6.4-8.2) g/dL 7.3 Albumin (3.4-5.0) g/dL 2.8 L Urine Color (Yellow) Urine Clarity (Clear) Urine pH (5-8) Ur Specific [place] (1.005-1.025) Urine Protein (Negative) mg/dL Urine Ketones (Negative) mg/dL Urine Blood (Negative) Urine Nitrite (Negative) Urine Bilirubin (Negative) Urine Urobilinogen (Up TO 0.2) EU/dL Ur Leukocyte Esterase (Negative) Urine RBC (0-2) HPF Urine WBC (0-5) HPF Ur Epithelial Cells (Negative) HPF Urine Crystals (Negative) HPF Urine Bacteria (Negative) HPF Urine Casts (Negative) LPF Urine Mucus (Negative) Ur Culture Indicated? Urine Glucose (Negative) mg/dL Urine Opiates Screen (Negative) Urine Methadone Screen (Negative) Ur Barbiturates Screen (Negative) Ur Tricyclics Screen (Negative) Ur Amphetamines Screen (Negative) U Benzodiazepines Scrn (Negative) Urine Cocaine Screen (Negative) Ur THC Screen (Negative) Ethyl Alcohol (<10) mg/dL Range/Units 02/19/22 02/19/22 02/19/22 11:45 12:10 12:10 WBC (4.4-10.8) 10^3/uL RBC (3.93-5.22) 10^6/uL Hgb (11.2-15.7) g/dL Hct (36.0-46.0) % MCV (80-95) fL MCH (27.0-33.0) pg MCHC (32.0-36.0) % RDW (11.7-14.6) % Plt Count (130-400) 10^3/uL MPV (8.0-11.0) fL Immature Gran % Neutrophils % Band Neutrophils % Lymphocytes % Monocytes % Eosinophils % Basophils % Nucleated RBC % (0.0-0.3) % Absolute Neutrophils (1.2-6.7) 10^3/uL Absolute Lymphocytes (1.2-3.4) 10^3/uL Absolute Monocytes (0.1-0.8) 10^3/uL Absolute Eosinophils (0.0-0.7) 10^3/uL Absolute Basophils (0.0-0.2) 10^3/uL RBC Morphology Sodium (136-145) mmol/L Potassium (3.5-5.1) mmol/L Chloride (98-107) mmol/L Carbon Dioxide (21.0-32.0) mmol/L Anion Gap (3-11) mmol/L BUN (7-18) mg/dL Creatinine (0.55-1.02) mg/dL Estimated GFR/1.73 m2 (mL/min/1.73m2) Glucose (74-106) mg/dL Calcium (8.5-10.1) mg/dL Magnesium (1.8-2.4) mg/dL Total Bilirubin (0.2-1.0) mg/dL AST (15-37) U/L ALT (14-59) U/L Alkaline Phosphatase (46-116) U/L Creatine Kinase (26-192) U/L Total Protein (6.4-8.2) g/dL Albumin (3.4-5.0) g/dL Urine Color (Yellow) Yellow Urine Clarity (Clear) Cloudy Urine pH (5-8) 5.5 Ur Specific [place] (1.005-1.025) 1.025 Urine Protein (Negative) mg/dL 30 H Urine Ketones (Negative) mg/dL 15 H Urine Blood (Negative) Moderate H Urine Nitrite (Negative) Positive H Urine Bilirubin (Negative) Negative Urine Urobilinogen (Up TO 0.2) EU/dL 0.2 Ur Leukocyte Esterase (Negative) Small H Urine RBC (0-2) HPF 20-50 H Urine WBC (0-5) HPF 20-50 H Ur Epithelial Cells (Negative) HPF Few Urine Crystals (Negative) HPF Negative Urine Bacteria (Negative) HPF Moderate Urine Casts (Negative) LPF 0-2 Hyaline Urine Mucus (Negative) Negative Ur Culture Indicated? Yes Urine Glucose (Negative) mg/dL >=1000 H Urine Opiates Screen (Negative) Negative Urine Methadone Screen (Negative) Negative Ur Barbiturates Screen (Negative) Negative Ur Tricyclics Screen (Negative) Negative Ur Amphetamines Screen (Negative) Negative U Benzodiazepines Scrn (Negative) Negative Urine Cocaine Screen (Negative) Negative Ur THC Screen (Negative) Negative Ethyl Alcohol (<10) mg/dL < 3.0
--- NOTE | 2022-02-19 13:43 | HPE_ITS ---
Date of service: 02/19/22 Time of Service: 13:43 Assessment and Plan Assessment and plan (1) UTI (urinary tract infection): Status: Acute Assessment and plan: ceftriaxone day 1 while cultures pending. (2) Closed fracture of proximal end of right humerus: Status: Acute Assessment and plan: continue sling and pain management will f/u with orthopedics outpatient calcium/vit D supplement PT and OT consult ice for comfort if needed. (3) Alcoholic dementia: Status: Suspected Assessment and plan: safety precautions thiamine daily (4) Non-insulin dependent type 2 diabetes mellitus: Status: Chronic Assessment and plan: A1C 7.6 in Jun 2021 diet controlled continue diabetic diet. (5) Hypomagnesemia: Status: Acute Assessment and plan: replete and follow (6) DVT prophylaxis: Status: Acute Assessment and plan: teds, encourage ambulation enoxaparin (7) Discharge planning issues: Status: Acute Assessment and plan: case management following anticipate rehab needs prior to returning home. discussed with Dr Vieyra. History of Present Illness History of Present Illness Chief Complaint: fall, weakness Narrative: This is a 71 year old female, history of alcoholic dementia, diet controlled diabetes mellitus, who has had multiple falls at home recently. seen in ED and diagnosed with right humerus fracture. she was discharged to home with outpatient orthopedic follow up but returned after falling again. this work up showed acute UTI. she was started on ceftriaxone while cultures pending and admission to med/surg requested. no additional injuries or findings on ED evaluation. Review of Systems Constitutional Constitutional: Reports fatigue, Denies fever(s), Reports frequent falls, Reports lethargy and Reports weakness Cardiovascular Cardiovascular: Denies dyspnea Respiratory Respiratory: Denies cough and Denies dyspnea Gastrointestinal Gastrointestinal: Denies constipation, Denies nausea and Denies vomiting Musculoskeletal Musculoskeletal: Reports arthralgias (right shoulder) and Reports joint swelling Neurologic Neurologic: Reports frequent falls and Reports weakness Endocrine Endocrine: Reports fatigue PFSH All Active Problems (Updated 02/19/22 @ 16:53 by Jasmin Cortes NP) Discharge planning issues (Acute) DVT prophylaxis (Acute) UTI (urinary tract infection) (Acute) Fall (Acute) Fracture of proximal humerus (Acute) Closed fracture of proximal end of right humerus (Acute) Hypophosphatemia (Acute) Hypomagnesemia (Acute) Esophagitis (Acute) E. coli UTI (Acute) Non-insulin dependent type 2 diabetes mellitus (Chronic) Ambulatory dysfunction (Acute) Tremor (Acute) Diabetes (Chronic) Laceration of elbow with foreign body (Acute) Alcohol abuse (Chronic) Urinary tract infection (Acute) Fall (Acute) Alcohol intoxication (Acute) Medical History Acute CVA (cerebrovascular accident) Aortic stenosis Carotid stenosis Diabetes mellitus type 2 in nonobese TIA (transient ischemic attack) Surgical History Surgical history unknown Social History Smoking/Tobacco Use Status: Former Tobacco Use Smoking risk assessment performed?: Yes Alcohol Intake: current Alcohol Intake frequency: 0-2 drinks per day Alcohol type: wine Drug use: Never Substance use type: does not use Do you feel safe at home: Yes Do you feel safe in your relationship?: Yes Meds Allergies and Home Medications Allergies Allergy/AdvReac Type Severity Reaction Status Date / Time No Known Allergies Allergy Unverified 02/19/22 11:02 Home Medications Medication Instructions Recorded Confirmed Type Unknown [No Known Home Meds] 02/18/22 02/19/22 History Exam Const General: cooperative, comfortable, disheveled and ill appearing chronically Nutritional Appearance: thin Orientation: alert, awake and oriented x3 HENMT Head: normal to inspection, normocephalic and atraumatic Mouth: oral mucosae normal Chest Chest: normal inspection of the chest Resp Effort & Inspection: normal respiratory effort Cardio Rate: regular rate Rhythm: regular rhythm GI Inspection: normal to inspection Palpation: soft Skin General skin exam: ecchymosis (right shoulder and upper extremity) Lesions: no lesions Rashes: no rashes Extrem General: normal to inspection Right upper extremity: edema and shoulder/upper arm Details: tenderness, swelling, abnormal ROM Details: held in an abnormal fashion (position of comfort with forearm across chest), ecchymosis (shoulder and upper extremity) and other (good pulse, movement and sensation distally); no deformity; ROM limited Psych Appearance: disheveled Mental Status: mental status grossly normal Speech and Movement: speech and movement normal Mood: congruent mood Affect: blunted Attitude: cooperative Insight: fair Judgment: fair Results Labs Result diagrams: 02/19/22 11:45 02/19/22 11:45 Labs: Laboratory Results - last 24 hr 02/19/22 02/19/22 02/19/22 11:45 11:45 11:45 WBC 15.43 H RBC 3.93 Hgb 11.9 Hct 34.9 L MCV 89 MCH 30.3 MCHC 34.1 RDW 12.0 Plt Count 278 MPV 9.9 Immature Gran % 0.0 Neutrophils % 92.0 Band Neutrophils % 2 Lymphocytes % 6.0 Monocytes % 0.0 Eosinophils % 0.0 Basophils % 0.0 Nucleated RBC % 0.0 Absolute Neutrophils 14.50 H Absolute Lymphocytes 0.93 L Absolute Monocytes 0.00 L Absolute Eosinophils 0.00 Absolute Basophils 0.00 RBC Morphology Normal Sodium 134 L Potassium 3.7 Chloride 97 L Carbon Dioxide 23.7 Anion Gap 13.3 H BUN 20 H Creatinine 0.9 Estimated GFR/1.73 m2 >= 60.00 Glucose 302 H Calcium 8.9 Magnesium 1.7 L Total Bilirubin 1.0 AST 19 ALT 20 Alkaline Phosphatase 100 Creatine Kinase 95 Total Protein 7.3 Albumin 2.8 L Urine Color Urine Clarity Urine pH Ur Specific [place] Urine Protein Urine Ketones Urine Blood Urine Nitrite Urine Bilirubin Urine Urobilinogen Ur Leukocyte Esterase Urine RBC Urine WBC Ur Epithelial Cells Urine Crystals Urine Bacteria Urine Casts Urine Mucus Ur Culture Indicated? Urine Glucose Urine Opiates Screen Urine Methadone Screen Ur Barbiturates Screen Ur Tricyclics Screen Ur Amphetamines Screen U Benzodiazepines Scrn Urine Cocaine Screen Ur THC Screen Ethyl Alcohol 02/19/22 02/19/22 02/19/22 11:45 12:10 12:10 WBC RBC Hgb Hct MCV MCH MCHC RDW Plt Count MPV Immature Gran % Neutrophils % Band Neutrophils % Lymphocytes % Monocytes % Eosinophils % Basophils % Nucleated RBC % Absolute Neutrophils Absolute Lymphocytes Absolute Monocytes Absolute Eosinophils Absolute Basophils RBC Morphology Sodium Potassium Chloride Carbon Dioxide Anion Gap BUN Creatinine Estimated GFR/1.73 m2 Glucose Calcium Magnesium Total Bilirubin AST ALT Alkaline Phosphatase Creatine Kinase Total Protein Albumin Urine Color Yellow Urine Clarity Cloudy Urine pH 5.5 Ur Specific [place] 1.025 Urine Protein 30 H Urine Ketones 15 H Urine Blood Moderate H Urine Nitrite Positive H Urine Bilirubin Negative Urine Urobilinogen 0.2 Ur Leukocyte Esterase Small H Urine RBC 20-50 H Urine WBC 20-50 H Ur Epithelial Cells Few Urine Crystals Negative Urine Bacteria Moderate Urine Casts 0-2 Hyaline Urine Mucus Negative Ur Culture Indicated? Yes Urine Glucose >=1000 H Urine Opiates Screen Negative Urine Methadone Screen Negative Ur Barbiturates Screen Negative Ur Tricyclics Screen Negative Ur Amphetamines Screen Negative U Benzodiazepines Scrn Negative Urine Cocaine Screen Negative Ur THC Screen Negative Ethyl Alcohol < 3.0 Last Vital Signs Temp 37.1 C 02/19/22 10:59 Pulse 101 H 02/19/22 13:01 Resp 24 02/19/22 13:02 BP 121/54 L 02/19/22 13:01 Pulse Ox 95 02/19/22 13:02
[2022-02-19 14:36] LABS: Source Nasal/Nares
[2022-02-19 15:09] LABS: COVID-19 PCR Negative (Negative)
[2022-02-19] MEDS: Acetaminophen 325 MG TAB 650 MG PO (17:16)
[2022-02-19] MEDS: Lidocaine 5% Patch 1 PATCH TP (17:17)
[2022-02-19] MEDS: Ketorolac 15 MG/ML VIAL IVP (20:58)
[2022-02-19] MEDS: Calcium 600mg/Vit D 200U TAB 1 TAB PO (20:58)
[2022-02-19] MEDS: Insulin Aspart 300 UNITS/3 ML PEN SC (22:21)
[2022-02-20] MEDS: Ketorolac 15 MG/ML VIAL IVP ×2 (06:27→12:28)
[2022-02-20 06:47] LABS: Abs Immature Grans 0.06 10^3/uL (0.0-0.06); Absolute Basophil Count 0.03 10^3/uL (0.0-0.2); Absolute Eosinophil Count 0.01 10^3/uL (0.0-0.7); Absolute Lymphocyte Count 0.28 10^3/uL (1.2-3.4); Absolute Monocyte Count 0.31 10^3/uL (0.1-0.8); Absolute Neutrophil Count 8.51 10^3/uL (1.2-6.7); Basophils % 0.3; Eosinophils % 0.1; HCT 31.3 % (36.0-46.0); HGB 10.8 g/dL (11.2-15.7); Immature Grans % 0.7; MCH 30.5 pg (27.0-33.0); MCHC 34.5 % (32.0-36.0); MCV 88 fL (80-95); MPV 10.1 fL (8.0-11.0); Monocytes % 3.4; Neutrophils % 92.5; Platelet Count 215 10^3/uL (130-400); RBC 3.54 10^6/uL (3.93-5.22); RDW 11.9 % (11.7-14.6)
[2022-02-20 07:04] LABS: Anion Gap 11.2 mmol/L (3-11); BUN 19 mg/dL (7-18); CO2 23.8 mmol/L (21.0-32.0); CREATININE 0.6 mg/dL (0.55-1.02); Calcium 8.5 mg/dL (8.5-10.1); Chloride 94 mmol/L (98-107); Glucose 183 mg/dL (74-106); Magnesium 1.7 mg/dL (1.8-2.4); Potassium 3.3 mmol/L (3.5-5.1); Sodium 129 mmol/L (136-145)
[2022-02-20 07:45] VITALS: BP 106/66; PULSE 91; RESP 16; TEMP 36.8; O2SAT 97
[2022-02-20] MEDS: Normal Saline Flush 10 ML SYR IVP ×3 (08:04→12:28)
[2022-02-20] MEDS: Enoxaparin 30 MG/0.3 ML SYR SC (08:04)
[2022-02-20] MEDS: Insulin Aspart 300 UNITS/3 ML PEN SC ×4 (08:05→21:23)
[2022-02-20] MEDS: Magnesium Oxide 400 MG TAB PO (08:07)
[2022-02-20] MEDS: Calcium 600mg/Vit D 200U TAB 1 TAB PO ×2 (08:07→19:58)
[2022-02-20] MEDS: Thiamine 100 MG TAB PO (08:07)
[2022-02-20] MEDS: Acetaminophen 325 MG TAB 650 MG PO ×3 (08:25→23:19)
--- NOTE | 2022-02-20 09:29 | OTIE_ITS ---
Occupational Therapy Notes Inpatient Occupational Therapy Evaluation Date: 02/20/22 Referring Doctor: Jasmin Cortes NP OT Orders: Non Urgent Precautions: Contact, Full PATIENT PROFILE/ADMITTING DIAGNOSIS: Pt is a 71 year old female referred and admitted for a dx of UTI, fall, fx of proximal humerus, closed fx of (R) humerus, hypoposphatemia, hypomagnesemia, alcoholic dementia, esophagitis, hypokalemia, ambulatory dysfunction. Past Medical History: All Active Problems?(Updated 02/19/22 @ 16:53 by Jasmin Cortes NP) Discharge planning issues (Acute) DVT prophylaxis (Acute) UTI (urinary tract infection) (Acute) Fall (Acute) Fracture of proximal humerus (Acute) Closed fracture of proximal end of right humerus (Acute) Hypophosphatemia (Acute) Hypomagnesemia (Acute) Esophagitis (Acute) E. coli UTI (Acute) Non-insulin dependent type 2 diabetes mellitus (Chronic) Ambulatory dysfunction (Acute) Tremor (Acute) Diabetes (Chronic) Laceration of elbow with foreign body (Acute) Alcohol abuse (Chronic) Urinary tract infection (Acute) Fall (Acute) Alcohol intoxication (Acute) Medical History? Acute CVA (cerebrovascular accident) Aortic stenosis Carotid stenosis Diabetes mellitus type 2 in nonobese TIA (transient ischemic attack) Surgical History? Surgical history unknown Social History/Home Situation: Pt states that she lives alone in a private home. She reports that she has a daughter who lives in [place] and a son who was her best friend who . She notes that she she has a woman who used to come into her home to clean but has since moved to [place]. She reports that she performs her bathing standing at her sink and that she does not like her tub shower. She reports that she does not drive and utilizes [employer] and that she has minimal friends up here. She states multiple times to this OT that she does not need help at home except for cleaning and organization. Although notes also that help could be a good thing. Pt states that she was supposed to get HH and notes that she never got it set up. Equipment owned/DME: Not able to assess SUBJECTIVE:??Pt was receptive and agreeable to OT consult this morning. She notes that her (B) UE are sore and that she has pain in her back and cannot move her arms. OBJECTIVE:? General Observation: Pleasant, IV in (L) UE not connected Mental Status: A&Ox3 Pain: c/o pain in back and (B) UE ROM: RUE AROM WFL L UE AROM WFL STRENGTH: RUE 4-/5 throughout LUE 4-/5 throughout FUNCTIONAL MOBILITY/ADLS:? BATHING sitting in bed with max (A) set up Bathing UE max (A) hair and face, pt denies all other aspects reporting she is not willing to perform it right now. EATING Sitting in bed with max (A) food on to spoon, (I) with food to mouth once OT was able to place food on her spoon. BALANCE: Static sitting Good Dynamic Sitting Fair SPECIAL TESTS:? Daily Activity Limitations Standardized Measure [facility] ? AM -PAC ? ?6 clicks? Daily Activity Inpatient Short Form: Raw score: 10? Standardized score: 27.31 ? CMS score: 74.70%? INFORMED CONSENT/EDUCATION: Pt instructed in purpose of OT Consult and plan of care. ASSESSMENT:?? Patient is a 71-year-old female referred to occupational therapy services with diagnosis of UTI, fall, fx of proximal humerus, closed fx of (R) humerus, hypoposphatemia, hypomagnesemia, alcoholic dementia, esophagitis, hypokalemia, ambulatory dysfunction. Patient presents with clinical signs and symptoms consistent with dx, as demonstrated by the following impairment level findings/functional limitations: Decreased functional activity tolerance, pain in (B) UE, decreased strength and gross motor control, pain in back, decreased functional mobility required for ADL performance. AMPAC score 10 Patient is assessed as a? Moderate 50951 complexity based on the following: History: see above Examination: see functional limitations as noted above Presentation: evolving Decision Making: AMPAC score 10 GOALS Goals x1 week 1.? Pt will be able to demonstrate energy conservation techniques with standing ADLs with ideal technique. 2. Pt will be able to sit in the chair and perform her bathing (I) 3. Pt will be able to perform her dressing in chair with mod (A) 4. Pt will be able to perform her functional mobility required for ADL performance (I) PLAN OF CARE/TREATMENT PLAN: 1x/day, 3 days/ week x 1week Initiate Occupational Therapy Services for bathing, dressing, grooming, toileting, eating, transfer training. DISCHARGE RECOMMENDATIONS OT recommends that pt go to SNF due to pts decline in her baseline level of function, decreased functional activity tolerance, and increased pain in her bck and (B) UE. TREATMENT TIME/MINUTES/CODES 51380, 20126, 30 minutes Kristan Avalos OTR/L [facility]
--- NOTE | 2022-02-20 09:49 | IN_ITS ---
Date of service: 02/20/22 PT Notes Visit Reasons: Urinary tract infection Physical Therapy Inpatient Initial Evaluation Date: 02/20/2022 Referring Doctor: Jasmin Cortes NP PT Orders: PT CONSULT: Eval/Treat Precautions: Fall. Standard. Per Dr. Vieyra: NWB on R UE. Sling off when in chair or bed as long as R UE is comfortably supported by pillows. Patient Profile/Admitting Diagnosis: Patient is a 71-year-old female who presented to the ED on 02/19/2022 due to multiple falls at home. Patient is diagnosed with impacted and comminuted displaced fracture involving the humeral head and neck and greater tuberosity with further displacement seen on imaging due to repeated falls. Ipsilateral clavicle appears unremarkable. PMHX: All Active Problems?(Updated 02/19/22 @ 16:53 by Jasmin Cortes NP) Discharge planning issues (Acute) DVT prophylaxis (Acute) UTI (urinary tract infection) (Acute) Fall (Acute) Fracture of proximal humerus (Acute) Closed fracture of proximal end of right humerus (Acute) Hypophosphatemia (Acute) Hypomagnesemia (Acute) Esophagitis (Acute) E. coli UTI (Acute) Non-insulin dependent type 2 diabetes mellitus (Chronic) Ambulatory dysfunction (Acute) Tremor (Acute) Diabetes (Chronic) Laceration of elbow with foreign body (Acute) Alcohol abuse (Chronic) Urinary tract infection (Acute) Fall (Acute) Alcohol intoxication (Acute) Medical History? Acute CVA (cerebrovascular accident) Aortic stenosis Carotid stenosis Diabetes mellitus type 2 in nonobese TIA (transient ischemic attack) Surgical History? Surgical history unknown Social History/Home Situation: Poor living condition per admission record and per patient report. Ambulated using no assistive device at home. Equipment Owned/DME: None Subjective: Non-compliant. States that she has not had a sleep for 4 days and would want to rest. With prodding from SENIOR LOSS CONTROL SPECIALIST Kathleen and this PT, patient agreed to move from bed to bedside chair. Reported that she has had several falls at home due to unsteadiness. Also complains about pain in back. Indincated that her L arm and hand also had not been feeling okay due to arthritis. Objective: General Observation: Supine in bed with head of bed elevated Mental Status: Alert and oriented as to person and place. Able to pay attention, focus, and respond appropriately. Pain: 9/10 in R UE and low back Vital Signs: WNL as closely monitored by nusing staff ROM: Right Upper Extremity: NT Left Upper Extremity: Shoulder Flexion WFL. Shoulder abduction WFL. Elbow flexion WFL. Wrist flexion WFL. Functional opening and closing of hand WFL. Right Lower Extremity: Hip flexion WFL. Hip abduction WFL. Knee flexion WFL. Ankle dorsiflexion WFL. Ankle plantarflexion WFL. Left Lower Extremity: Hip flexion WFL. Hip abduction WFL. Knee flexion WFL. Ankle dorsiflexion WFL. Ankle plantarflexion WFL. Strength: Right Upper Extremity: NT Left Upper Extremity: Shoulder flexors 4-/5. Shoulder abductors 4-/5. Elbow flexors 4-/5. Elbow extensors 4-/5. Comb Tender strong. Right Lower Extremity: Hip flexors 3+/5. Hip abductors 3+/5. Knee flexors 3+/5. Knee extensors 3+/5. Ankle dorsiflexors 4-/5. Ankle plantarflexors 4-/5. Left Lower Extremity: Hip flexors 3+/5. Hip abductors 3+/5. Knee flexors 3+/5. Knee extensors 3+/5. Ankle dorsiflexors 4-/5. Ankle plantarflexors 4-/5. Bed Mobility/Transfers: Supine to sit minimal assist Sit to supine minimal assist Sit to stand minimal assist Stand to sit minimal assist Bed to reclining chair minimal assist Reclining chair to bed minimal assist Gait: Instructed patient with level surface ambulation of 8 feet requiring hand-held assist to L UE. Sling on R UE. Nafisa decreased. Unsteady. Reported increased pain in R UE. Balance: Static Sitting: Good Dynamic Sitting: Fair Static Standing: Poor Dynamic Standing: Poor Special Tests: Mobility Limitations Standardized Measure [facility] AM-PAC 6 clicks Basic Mobility Inpatient Short Form: Raw Score: 16 CMS Score: 54% deficit Informed Consent/Education: Patient was instructed in purpose of PT consult and plan of care. Agreeable to proceed with established PT POC to achieve personal goals. Assessment: Patient unsafe to go home due to repeated falls. Poor safety awareness, may highly benefit from psych consult. Impulsive, non compliant of safety instructions. Patient presents with clinical signs and symptoms consistent with current/admitting diagnoses that have resulted to mobility limitations, gait instability, generalized weakness, and overall ADL decline as demonstrated by the following impairment level findings: 1. Decreased strength to R UE and B LE major muscle groups 2. Impaired sitting/standing balance 3. Impaired activity tolerance 4. Limitation of joint range of motion in R UE 5. Impaired cognition 6. Poor safety awareness Impairments are contributing to the following functional limitations: 1. Decline in bed mobility skills 2. Decline in transfer skills 3. Difficulty with ambulation without assistive device and physical assistance 4. Increased completion time for mobility ADL performance 5. Increased risk for falls 6. Inability to thrive alone at home Patient is assessed as a 17254 high complexity based on the following: History: 71-year-old female with past medical history as indicated above Examination: Demonstrable impairment in strength, balance, and mobility level with underlying impairments and functional limitations as exhibited above as well as deficit score of 69% utilizing the [facility] Mobility Inpatient Short Form Presentation: Evolving Decision Makin high complexity Goals: Goals X1 week 1. Supine-Sit independent 2. Sit-Supine independent 3. Sit-Stand independent 4. Stand-Sit independent with SPC 5. Bed-Chair independent with SPC 6. Chair-Bed independent with SPC 7. Independent gait on level surface with use of SPC for at least 300 feet without report of pain nor dyspnea 8. Independent stair negotiation while holding onto 1 rails for at least 5 steps without report of pain nor dyspnea 9. Independent with home exercise program 10. Good static and dynamic standing balance/tolerance Plan of Care/Treatment Plan: 1-2x/day, 7 days/week x 1 week. Plan of care has been reviewed with the GARMENT PRESSER providing the service under Physical Therapy direction. Initiate Physical Therapy intervention for pain management as needed, strengthening, bed mobility, transfers, gait, stairs, balance training, and use of assistive device. DISCHARGE RECOMMENDATIONS: [] Home with no services [] [] Home with services [specify] [] Home with outpatient PT [] [X] SNF for continued rehabilitation. Patient will benefit from [facility] facility placement for continued skilled physical therapy services in order to progress mobility level, strength, and balance in preparation for a safe discharge to home. [] Elevator Troubleshooter Care [] [] SNF versus LTC based on ability to participate and progress [] TREATMENT CODE/TIME: 60393 x 25 minutes, 23300 x 10 minutes beginning at 9:49 AM. Thank you for the opportunity to participate in the care of this patient. Tina Shepard PT, DPT, CLT [facility] [place], [place]
[2022-02-20] MEDS: POTASSIUM CHLORIDE 10 MEQ/100 ML BAG 100 MEQ IVPB ×4 (10:10→15:00)
[2022-02-20 13:36] LABS: Lab Add On Test DONE
--- NOTE | 2022-02-20 14:06 | CHAPLAIN ---
Ester was sitting up in a chair when I visited. She said her shoulder, back and arm are hurting her and she is waiting for more pain medicine that she can have after lunch. She is originally from [place] and has lived in this area for about four years. 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 She was expecting her daughter to arrive to visit soon. Ester asked if she could get a massage here.
[2022-02-20 14:42] LABS: Hemoglobin A1C 7.7 % (<5.7)
[2022-02-20 15:26] VITALS: BP 110/72; PULSE 85; RESP 18; TEMP 36.9; O2SAT 97
--- NOTE | 2022-02-20 15:34 | PT.INTREAT ---
Date of service: 02/20/22 Time of Service: 12:58 PT Notes Visit Reasons: Urinary tract infection Inpatient Physical Therapy Treatment Note [facility] Date: 02/20/2022 PRECAUTIONS: Fall, NWB on R UE SUBJECTIVE: Ester states that she wants to get back into bed, but that she cannot walk because she is weak from being in so much pain. She requests pain medication. OBJECTIVE: Donned and adjusted sling to patient's R UE for comfort, stabilization with transfer PAIN: Patient c/o pain in R shoulder at all times BED MOBILITY/TRANSFERS Sit-supine: Mod A x2 Sit-stand: CGA Stand-sit: Min A Chair-bed: Min A x2 GAIT Assistive Device: No AD Weight bearing: NWB on R UE Assist: Min A x2 Distance: 6' Deviation: Patient requires cueing for appropriate posture for safety, she demonstrates flexed-knee posture, and anteroflexed trunk, c/o increased pain and of weakness ASSESSMENT: Patient appears limited due to pain in R UE. She was able to tolerate gait training without a device, although does require cueing for safety. She also requires assist due to B LE giving out. PLAN: Continue with gait training and global strengthening for improved activity tolerance, as pain allow. TREATMENT CODE/TIME: 12 minutes; 11948 (12:58)
[2022-02-20] MEDS: cefTRIAXone 1 GM/50 ML BAG IVPB (16:24)
[2022-02-20] MEDS: MAGNESIUM SULFATE 2 GM/50 ML BAG IVPB (17:39)
--- NOTE | 2022-02-20 18:07 | W.PM.PROGNOT ---
Date of Service Date of service: 02/20/22 Time of Service: 13:00 Assessment and Plan Assessment and plan (1) UTI (urinary tract infection): Status: Acute Assessment and plan: Urine cx - E Coli - continuing ceftriaxone (2) Closed fracture of proximal end of right humerus: Status: Acute Assessment and plan: continue sling and pain management will f/u with orthopedics outpatient calcium/vit D supplement PT and OT consult ice for comfort if needed. 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 (5) Hypomagnesemia: Status: Acute Assessment and plan: replete and follow (6) DVT prophylaxis: Status: Acute Assessment and plan: teds, encourage ambulation enoxaparin (7) Discharge planning issues: Status: Acute Assessment and plan: case management following anticipate rehab needs prior to returning home. discussed with Dr Vieyra. Subjective Subjective Patient reports: no new complaints, still having pain and tolerating a regular diet Interval history since last seen: Attempt to do the [place] Cognitive Assessment (MOCA) per family request. They would like her evaluated for capacity. She has a broken right arm, she is right handed, and is unable to use her left hand well, her IV is there. We held a conversation, she was appropriate. She was able to name the animals, was able to repeat the list of words. She told me she is right handed and unable to write with her left hand. It was futile to attempt the rest of the exam. I don't think she has a capacity issue and a psych consult is not needed. Exam Const General: cooperative, comfortable, disheveled and ill appearing chronically Nutritional Appearance: thin Orientation: alert, awake and oriented x3 HENMT Head: normal to inspection, normocephalic and atraumatic Mouth: oral mucosae normal Chest Chest: normal inspection of the chest Resp Effort & Inspection: normal respiratory effort Cardio Rate: regular rate Rhythm: regular rhythm GI Inspection: normal to inspection Palpation: soft Skin General skin exam: ecchymosis (right shoulder and upper extremity) Lesions: no lesions Rashes: no rashes Extrem General: normal to inspection Right upper extremity: edema and shoulder/upper arm Details: tenderness, swelling, abnormal ROM Details: held in an abnormal fashion (position of comfort with forearm across chest), ecchymosis (shoulder and upper extremity) and other (good pulse, movement and sensation distally); no deformity; ROM limited Psych Appearance: disheveled Mental Status: mental status grossly normal Speech and Movement: speech and movement normal Mood: congruent mood Affect: blunted Attitude: cooperative Insight: fair Judgment: fair Objective Last Vital Signs Temp 36.9 C 02/20/22 15:26 Pulse 85 02/20/22 15:26 Resp 18 02/20/22 15:26 BP 110/72 02/20/22 15:26 Pulse Ox 97 02/20/22 15:26 Laboratory Results - last 24 hr 02/20/22 02/20/22 02/20/22 06:32 06:32 06:32 WBC 9.20 RBC 3.54 L Hgb 10.8 L Hct 31.3 L MCV 88 MCH 30.5 MCHC 34.5 RDW 11.9 Plt Count 215 MPV 10.1 Immature Gran % 0.7 Neutrophils % 92.5 Lymphocytes % 3.0 Monocytes % 3.4 Eosinophils % 0.1 Basophils % 0.3 Nucleated RBC % 0.0 Absolute Neutrophils 8.51 H Absolute Lymphocytes 0.28 L Absolute Monocytes 0.31 Absolute Eosinophils 0.01 Absolute Basophils 0.03 Sodium 129 L Potassium 3.3 L Chloride 94 L Carbon Dioxide 23.8 Anion Gap 11.2 H BUN 19 H Creatinine 0.6 Estimated GFR/1.73 m2 >= 60.00 Glucose 183 H Hemoglobin A1c Calcium 8.5 Magnesium 1.7 L Add-On Test Request DONE 02/20/22 06:32 WBC RBC Hgb Hct MCV MCH MCHC RDW Plt Count MPV Immature Gran % Neutrophils % Lymphocytes % Monocytes % Eosinophils % Basophils % Nucleated RBC % Absolute Neutrophils Absolute Lymphocytes Absolute Monocytes Absolute Eosinophils Absolute Basophils Sodium Potassium Chloride Carbon Dioxide Anion Gap BUN Creatinine Estimated GFR/1.73 m2 Glucose Hemoglobin A1c 7.7 H Calcium Magnesium Add-On Test Request PAWSS Have you Been Recently Intoxicated or Drunk Within the Last 30 days?: Yes Have you Ever Experienced Previous Episodes of Alcohol Withdrawal?: No Have you ever Experienced Withdrawal Seizures?: No Have you ever Experienced Delirium Tremens(DT)s?: No Have you ever undergone Alcohol Rehabilitation Treatment (i.e, inpt ot outpatient treatment programs)?: No Have you ever Experienced Blackouts?: No Have you ever Combined Alcohol with other Downers within the last 90 days?: No Have you ever Combined Alcohol with any other Substance of Abuse during the last 90 days?: No Positive Blood Alcohol level on Presentation? [PCS.BAL]: No Evidence of Increased Autonomic Activity (i.e. HR>120, tremor, sweating, agitation, nausea)?: No Result: 1
--- NOTE | 2022-02-20 18:47 | PDOC.CMIN ---
- If Service Date Differs Date of service: 02/20/22 Time of Service: 18:47 Care Management Initial Assess REASON FOR HOSPITALIZATION:: UTI PAST MEDICAL HISTORY/PAST SURGICAL HISTORY:: All Active Problems. Discharge planning issues (Acute). DVT prophylaxis (Acute). UTI (urinary tract infection) (Acute). Fall (Acute). Fracture of proximal humerus (Acute). Closed fracture of proximal end of right humerus (Acute). Hypophosphatemia (Acute). Hypomagnesemia (Acute). Esophagitis (Acute). E. coli UTI (Acute). Non-insulin dependent type 2 diabetes mellitus (Chronic). Ambulatory dysfunction (Acute). Tremor (Acute). Diabetes (Chronic). Laceration of elbow with foreign body (Acute). Alcohol abuse (Chronic). Urinary tract infection (Acute). Fall (Acute). Alcohol intoxication (Acute). Medical History. Acute CVA (cerebrovascular accident). Aortic stenosis. Carotid stenosis. Diabetes mellitus type 2 in nonobese. TIA (transient ischemic attack). Surgical History. Surgical history unknown PREVIOUS FUNCTIONAL STATUS/SOCIAL/FAMILY SUPPORTS:: Ester lives in an apartment in [facility]. She reports that she lived in [place] for many years, and would like to return to [place] or [facility], as she feels that there are more resources in the larger cities. She has a daughter who lives in [place]. 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 She was previously independent with her ADL's at baseline, although she has had increased difficulty caring for herself recently. CURRENT FUNCTIONAL STATUS:: Ester was sitting up in her chair when MILLER met with her. She stated that she is not doing well, as she has been in a lot of pain, and is currently living in [facility]. She reports that her housekeeper child care left town a few months ago, and she has not been able to secure help since. MILLER discussed options for discharge, as it is recommended by PT and OT that she have short term rehab prior to returning home. She stated that she is agreeable to going to rehab, and does not have a preference for where she goes, as she doesn't have family/support in this area. MILLER talked to Luz, her daughter, who provided paperwork for her newly obtained temporary guardianship. Luz asked for PT, OT and psychiatric consults. Ester has already been seen by PT and OT, and CM asked for the psychiatric consult, which the provider did not order, as there is no inpatient need at this time. Per JOEY Ferrell, she appears to have capacity during her evaluation. CM sent referrals to SNFs, as requested by Ester. Luz reported that she is looking into level three assisted living options for her mother. CM will continue to follow. ADVANCE DIRECTIVES:: None on file. Has patient been provided with info about the portal/API?: Yes Did the patient sign up for the portal?: No CODE STATUS:: Full Code INSURANCE COVERAGE / FINANCIAL ISSUES:: [employer] CURRENT HOME/COMMUNITY SERVICES/EQUIPMENT:: Ester has case management through [facility]. PRIMARY CARE PHYSICIAN:: Van Montero POTENTIAL DISCHARGE NEEDS:: Evaluations for further needs, follow up appointments. PATIENT/FAMILY EDUCATION NEEDS:: Review discharge instructions regarding activity levels and medications, discussion of self care needs including ask me three. ANTICIPATED BARRIERS TO DISCHARGE:: none. TRANSPORTATION:: via private vehicle vs w/c van PLAN:: Anticipate Ester will go to SNF for rehab vs return home with services vs RESIDENTIAL. She will follow up with her PCP and discharge plan of care. She will transport via private vehicle vs w/c van. CM will continue to follow.
[2022-02-20] MEDS: Lidocaine 5% Patch 1 PATCH TP (19:58)
[2022-02-20] MEDS: Insulin Glargine 300 UNITS/3 ML PEN SC (21:24)
[2022-02-20 23:10] VITALS: BP 120/70; PULSE 112; RESP 18; TEMP 37.9; O2SAT 92
[2022-02-20 23:19] VITALS: TEMP 37.9
[2022-02-21] VITALS (8 sets, daily range): BP systolic 102–121; BP diastolic 61–76; PULSE 82–105; RESP 12–18; TEMP 36.4–38.3; O2SAT 95–97
[2022-02-21 07:01] LABS: Abs Immature Grans 0.08 10^3/uL (0.0-0.06); Absolute Basophil Count 0.05 10^3/uL (0.0-0.2); Absolute Eosinophil Count 0.06 10^3/uL (0.0-0.7); Absolute Monocyte Count 1.18 10^3/uL (0.1-0.8); Absolute Neutrophil Count 10.29 10^3/uL (1.2-6.7); Basophils % 0.4; Eosinophils % 0.5; HCT 32.1 % (36.0-46.0); HGB 11.2 g/dL (11.2-15.7); Immature Grans % 0.6; MCH 30.3 pg (27.0-33.0); MCHC 34.9 % (32.0-36.0); MCV 87 fL (80-95); MPV 10.1 fL (8.0-11.0); Monocytes % 9.1; Neutrophils % 79.4; Platelet Count 223 10^3/uL (130-400); RDW-SD 38.8 fL; WBC 12.96 10^3/uL (4.4-10.8)
[2022-02-21 07:12] LABS: Anion Gap 5.6 mmol/L (3-11); BUN 16 mg/dL (7-18); CO2 27.4 mmol/L (21.0-32.0); CREATININE 0.6 mg/dL (0.55-1.02); Calcium 9.2 mg/dL (8.5-10.1); Chloride 98 mmol/L (98-107); Glucose 174 mg/dL (74-106); Magnesium 2.1 mg/dL (1.8-2.4); Potassium 3.8 mmol/L (3.5-5.1); Sodium 131 mmol/L (136-145)
[2022-02-21] MEDS: Calcium 600mg/Vit D 200U TAB 1 TAB PO ×2 (08:22→21:19)
[2022-02-21] MEDS: Magnesium Oxide 400 MG TAB PO (08:22)
[2022-02-21] MEDS: Enoxaparin 30 MG/0.3 ML SYR SC (08:22)
[2022-02-21] MEDS: Thiamine 100 MG TAB PO (08:22)
[2022-02-21] MEDS: Insulin Aspart 300 UNITS/3 ML PEN SC ×4 (08:32→21:23)
--- NOTE | 2022-02-21 08:59 | W.PM.PROGNOT ---
Date of Service Date of service: 02/21/22 Time of Service: 08:59 Assessment and Plan Assessment and plan (1) UTI (urinary tract infection): Status: Acute Assessment and plan: Urine cx - ESBL- discontinue ceftriaxone; fosfomycin PO given (2) Fever: Status: Acute Assessment and plan: Temp today 38.3 BC; tylenol for fever (3) Closed fracture of proximal end of right humerus: Status: Acute Assessment and plan: continue sling and pain management will f/u with orthopedics outpatient calcium/vit D supplement PT and OT consult ice for comfort if needed. 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 (6) Hypomagnesemia: Status: Acute Assessment and plan: 2.1 follow (7) DVT prophylaxis: Status: Acute Assessment and plan: teds, encourage ambulation enoxaparin (8) Discharge planning issues: Status: Acute Assessment and plan: case management following anticipate rehab needs prior to returning home. discussed with Dr Vieyra. Subjective Subjective Patient reports: no new complaints, still having pain, tolerating a regular diet and fever; denies diarrhea or vomiting Interval history since last seen: Continues to c/o bilat arm pain. Electrolytes better today; fever this afternoon with rigors, tylenol given with decreased temp and deccreased pain Exam Const General: cooperative, comfortable, disheveled and ill appearing chronically Nutritional Appearance: thin Orientation: alert, awake and oriented x3 HENMT Head: normal to inspection, normocephalic and atraumatic Mouth: oral mucosae normal Chest Chest: normal inspection of the chest Resp Effort & Inspection: normal respiratory effort Cardio Rate: regular rate Rhythm: regular rhythm GI Inspection: normal to inspection Palpation: soft Skin General skin exam: ecchymosis (right shoulder and upper extremity) Lesions: no lesions Rashes: no rashes Extrem General: normal to inspection Right upper extremity: edema and shoulder/upper arm Details: tenderness, swelling, abnormal ROM Details: held in an abnormal fashion (position of comfort with forearm across chest), ecchymosis (shoulder and upper extremity) and other (good pulse, movement and sensation distally); no deformity; ROM limited Psych Appearance: disheveled Mental Status: mental status grossly normal Speech and Movement: speech and movement normal Mood: congruent mood Affect: blunted Attitude: cooperative Insight: fair Judgment: fair Objective Last Vital Signs Temp 37.0 C 02/21/22 08:34 Pulse 87 02/21/22 08:34 Resp 18 02/21/22 08:34 BP 121/76 02/21/22 08:34 Pulse Ox 97 02/21/22 08:34 Laboratory Results - last 24 hr 02/20/22 02/20/22 02/21/22 06:32 06:32 06:48 WBC RBC Hgb Hct MCV MCH MCHC RDW Plt Count MPV Immature Gran % Neutrophils % Lymphocytes % Monocytes % Eosinophils % Basophils % Nucleated RBC % Absolute Neutrophils Absolute Lymphocytes Absolute Monocytes Absolute Eosinophils Absolute Basophils Sodium 131 L Potassium 3.8 Chloride 98 Carbon Dioxide 27.4 Anion Gap 5.6 BUN 16 Creatinine 0.6 Estimated GFR/1.73 m2 >= 60.00 Glucose 174 H Hemoglobin A1c 7.7 H Calcium 9.2 Magnesium 2.1 Add-On Test Request DONE 02/21/22 06:48 WBC 12.96 H RBC 3.70 L Hgb 11.2 Hct 32.1 L MCV 87 MCH 30.3 MCHC 34.9 RDW 12.0 Plt Count 223 MPV 10.1 Immature Gran % 0.6 Neutrophils % 79.4 Lymphocytes % 10.0 Monocytes % 9.1 Eosinophils % 0.5 Basophils % 0.4 Nucleated RBC % 0.0 Absolute Neutrophils 10.29 H Absolute Lymphocytes 1.30 Absolute Monocytes 1.18 H Absolute Eosinophils 0.06 Absolute Basophils 0.05 Sodium Potassium Chloride Carbon Dioxide Anion Gap BUN Creatinine Estimated GFR/1.73 m2 Glucose Hemoglobin A1c Calcium Magnesium Add-On Test Request Reviewed Pertinent PMH: Yes PAWSS Have you Been Recently Intoxicated or Drunk Within the Last 30 days?: Yes Have you Ever Experienced Previous Episodes of Alcohol Withdrawal?: No Have you ever Experienced Withdrawal Seizures?: No Have you ever Experienced Delirium Tremens(DT)s?: No Have you ever undergone Alcohol Rehabilitation Treatment (i.e, inpt ot outpatient treatment programs)?: No Have you ever Experienced Blackouts?: No Have you ever Combined Alcohol with other Downers within the last 90 days?: No Have you ever Combined Alcohol with any other Substance of Abuse during the last 90 days?: No Positive Blood Alcohol level on Presentation? [PCS.BAL]: No Evidence of Increased Autonomic Activity (i.e. HR>120, tremor, sweating, agitation, nausea)?: No Result: 1
[2022-02-21] MEDS: Fosfomycin Tromethamine 3 GM PACKET PO (09:27)
--- NOTE | 2022-02-21 10:23 | PT.INNT ---
PT Notes Visit Reasons: Urinary tract infection Pt refx 2 for OOB and bed exercises and was not pleasant with refusal.
[2022-02-21] MEDS: Acetaminophen 325 MG TAB 650 MG PO (12:55)
[2022-02-21] MEDS: Ketorolac 15 MG/ML VIAL IVP (15:24)
[2022-02-21] MEDS: Normal Saline Flush 10 ML SYR IVP ×4 (15:25→23:45)
[2022-02-21] MEDS: ACETAMINOPHEN 1,000 MG/100 ML BTL 400 MG IVPB ×2 (16:22→23:45)
[2022-02-21] MEDS: Lactated Ringers 250 ML IV (16:43)
[2022-02-21] MEDS: Lactated Ringers 1,000 ML 100 ML IV (18:31)
[2022-02-21] MEDS: Lidocaine 5% Patch 1 PATCH TP (21:19)
[2022-02-21] MEDS: Insulin Glargine 300 UNITS/3 ML PEN SC (21:24)
[2022-02-22] VITALS (8 sets, daily range): BP systolic 118–145; BP diastolic 72–87; PULSE 71–112; RESP 14–22; TEMP 36.4–38.7; O2SAT 91–96
[2022-02-22] MEDS: Lactated Ringers 1,000 ML 100 ML IV (02:35)
[2022-02-22] MEDS: LORazepam 1 MG TAB PO/SL ×2 (04:46→20:56)
[2022-02-22] MEDS: Ketorolac 15 MG/ML VIAL IVP (05:10)
[2022-02-22] MEDS: Normal Saline Flush 10 ML SYR IVP (05:10)
[2022-02-22 07:04] LABS: Abs Immature Grans 0.08 10^3/uL (0.0-0.06); Absolute Basophil Count 0.04 10^3/uL (0.0-0.2); Absolute Eosinophil Count 0.02 10^3/uL (0.0-0.7); Absolute Lymphocyte Count 0.29 10^3/uL (1.2-3.4); Absolute Monocyte Count 0.11 10^3/uL (0.1-0.8); Absolute Neutrophil Count 7.32 10^3/uL (1.2-6.7); Basophils % 0.5; Eosinophils % 0.3; HCT 30.9 % (36.0-46.0); HGB 10.7 g/dL (11.2-15.7); Lymphocytes % 3.7; MCH 30.1 pg (27.0-33.0); MCHC 34.6 % (32.0-36.0); MCV 87 fL (80-95); MPV 10.5 fL (8.0-11.0); Monocytes % 1.4; Neutrophils % 93.1; Platelet Count 185 10^3/uL (130-400); RBC 3.55 10^6/uL (3.93-5.22); RDW 11.6 % (11.7-14.6); RDW-SD 37.7 fL; WBC 7.86 10^3/uL (4.4-10.8)
[2022-02-22 07:19] LABS: Anion Gap 7.1 mmol/L (3-11); BUN 13 mg/dL (7-18); CO2 26.9 mmol/L (21.0-32.0); CREATININE 0.6 mg/dL (0.55-1.02); Calcium 9.2 mg/dL (8.5-10.1); Chloride 97 mmol/L (98-107); Glucose 140 mg/dL (74-106); Magnesium 1.2 mg/dL (1.8-2.4); Potassium 3.3 mmol/L (3.5-5.1); Sodium 131 mmol/L (136-145)
[2022-02-22] MEDS: Magnesium Oxide 400 MG TAB PO (08:22)
[2022-02-22] MEDS: Thiamine 100 MG TAB PO (08:23)
[2022-02-22] MEDS: Enoxaparin 40 MG/0.4 ML SYR SC (08:23)
[2022-02-22] MEDS: Calcium 600mg/Vit D 200U TAB 1 TAB PO ×2 (08:23→20:56)
[2022-02-22] MEDS: Insulin Aspart 300 UNITS/3 ML PEN SC ×4 (08:24→21:02)
--- NOTE | 2022-02-22 09:37 | PT.INTREAT ---
PT Notes Visit Reasons: Urinary tract infection Inpatient Physical Therapy Treatment Note [facility] Date: 02/22/22 SUBJECTIVE: Pt ref first attempt for PT saying she just woke. Second attempt agreed to bed exercises. THEREX: Supine- UE: L shoulder flexion x 10, circles x [address], horz abd x 5, rowing x 10, LE- hip abd x 10, hell slides x 10, q.s. x 10, mini bridge x 10, and SLR x 5. ASSESSMENT: When pt will participate she does well with exercises. PLAN: Cont as Pt PT POC. TREATMENT CODE/TIME: 9:25-9:35 (10) TP
[2022-02-22] MEDS: Potassium Chloride 20 MEQ TABCR PO ×2 (09:40→20:56)
[2022-02-22] MEDS: Normal Saline 500 ML 30 ML IV (09:41)
[2022-02-22] MEDS: MAGNESIUM SULFATE 4 GM/100 ML BAG IVPB (09:45)
--- NOTE | 2022-02-22 12:23 | PGE_ITS ---
Date of Service Date of service: 02/22/22 Time of Service: 12:23 Assessment and Plan Assessment and plan (1) UTI (urinary tract infection): Status: Acute Assessment and plan: Urine cx - ESBL- discontinue ceftriaxone; fosfomycin PO given (2) Fever: Status: Acute Assessment and plan: Afebrile since 5 PM 02/21 BC pending; tylenol PO PRN (3) Closed fracture of proximal end of right humerus: Status: Acute Assessment and plan: continue sling and pain management will f/u with orthopedics outpatient calcium/vit D supplement PT and OT consult ice for comfort if needed. 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 (6) Hypomagnesemia: Status: Acute Assessment and plan: 1.2 today - replete (7) DVT prophylaxis: Status: Acute Assessment and plan: teds, encourage ambulation enoxaparin (8) Discharge planning issues: Status: Acute Assessment and plan: case management following anticipate rehab needs prior to returning home. discussed with Dr Vieyra. Subjective Subjective Patient reports: no new complaints Exam Const General: cooperative, comfortable, disheveled and ill appearing chronically Nutritional Appearance: thin Orientation: alert, awake and oriented x3 HENMT Head: normal to inspection, normocephalic and atraumatic Mouth: oral mucosae normal Chest Chest: normal inspection of the chest Resp Effort & Inspection: normal respiratory effort Cardio Rate: regular rate Rhythm: regular rhythm GI Inspection: normal to inspection Palpation: soft Skin General skin exam: ecchymosis (right shoulder and upper extremity) Lesions: no lesions Rashes: no rashes Extrem General: normal to inspection Right upper extremity: edema and shoulder/upper arm Details: tenderness, swellin g, abnormal ROM Details: held in an abnormal fashion (position of comfort with forearm across chest), ecchymosis (shoulder and upper extremity) and other (good pulse, movement and sensation distally); no deformity; ROM limited Psych Appearance: disheveled Mental Status: mental status grossly normal Speech and Movement: speech and movement normal Mood: congruent mood Affect: blunted Attitude: cooperative Insight: fair Judgment: fair Objective Last Vital Signs Temp 36.4 C L 02/22/22 08:17 Pulse 112 H 02/22/22 08:17 Resp 14 02/22/22 08:17 BP 118/73 02/22/22 08:17 Pulse Ox 91 L 02/22/22 08:17 Laboratory Results - last 24 hr 02/22/22 02/22/22 06:20 06:20 WBC 7.86 RBC 3.55 L Hgb 10.7 L Hct 30.9 L MCV 87 MCH 30.1 MCHC 34.6 RDW 11.6 L Plt Count 185 MPV 10.5 Immature Gran % 1.0 Neutrophils % 93.1 Lymphocytes % 3.7 Monocytes % 1.4 Eosinophils % 0.3 Basophils % 0.5 Nucleated RBC % 0.0 Absolute Neutrophils 7.32 H Absolute Lymphocytes 0.29 L Absolute Monocytes 0.11 Absolute Eosinophils 0.02 Absolute Basophils 0.04 Sodium 131 L Potassium 3.3 L Chloride 97 L Carbon Dioxide 26.9 Anion Gap 7.1 BUN 13 Creatinine 0.6 Estimated GFR/1.73 m2 >= 60.00 Glucose 140 H Calcium 9.2 Magnesium 1.2 L PAWSS Have you Been Recently Intoxicated or Drunk Within the Last 30 days?: Yes Have you Ever Experienced Previous Episodes of Alcohol Withdrawal?: No Have you ever Experienced Withdrawal Seizures?: No Have you ever Experienced Delirium Tremens(DT)s?: No Have you ever undergone Alcohol Rehabilitation Treatment (i.e, inpt ot outpatient treatment programs)?: No Have you ever Experienced Blackouts?: No Have you ever Combined Alcohol with other Downers within the last 90 days?: No Have you ever Combined Alcohol with any other Substance of Abuse during the last 90 days?: No Positive Blood Alcohol level on Presentation? [PCS.BAL]: No Evidence of Increased Autonomic Activity (i.e. HR>120, tremor, sweating, agitation, nausea)?: No Result: 1
[2022-02-22] MEDS: Lidocaine 5% Patch 1 PATCH TP (20:57)
[2022-02-22] MEDS: Insulin Glargine 300 UNITS/3 ML PEN SC (21:03)
[2022-02-22] MEDS: Acetaminophen 325 MG TAB 650 MG PO (21:06)
[2022-02-22] MEDS: ERTAPENEM 1 GM in Normal Saline 50 ML IVPB (23:11)
[2022-02-22] MEDS: Ibuprofen 600 MG TAB PO (23:12)
--- NOTE | 2022-02-23 | DI.CT_ITS ---
Exam(s) CT UPPER EXTREMITY RT WO EXAM: CT UPPER EXTREMITY RT WO CLINICAL HISTORY: Right SHOULDER Fx. TECHNIQUE: Imaging Protocol: Axial computed tomography images with coronal and sagittal reformatted images were created and reviewed. COMPARISON: CR XR SHOULDER RT COMPLETE 2+V from 02/18/2022 FINDINGS: Bones: There is a comminuted fracture involving the humeral head, greater tuberosity and neck. The fracture is impacted. The humeral head is seated within the glenoid fossa. No other fracture is isaac ntified. No cellulitic or osteomyelitic changes are identified. Mild degenerative changes are seen at the acromioclavicular joint. There are degenerative changes seen in the visualized thoracic spine . No lytic or sclerotic lesions are identified. Soft Tissues: There is edema seen in the soft tissues around the fracture. Atelectatic changes are s een in the lung bases. IMPRESSION: Comminuted impacted fracture involving the humeral head, greater tuberosity and neck as described abo ve. RADIATION DOSE DELIVERED: 682.82mGy.cm Total DLP 682.82mGy.cm Total DLP DATA REPOSITORY: All CT scans at this facility are submitted to the National Radiology Data Registry (NRDR) Dose Index Registry (DIR) with the [employer] ([employer]). RADIATION OPTIMIZATION: All CT scans at this facility use at least one of these dose optimization te chniques: automated exposure control; mA and/or kV adjustment per patient size (includes targeted exa ms where dose is matched to clinical indication); or iterative reconstruction.
[2022-02-23] MEDS: Ketorolac 15 MG/ML VIAL IVP (01:43)
[2022-02-23] MEDS: Normal Saline Flush 10 ML SYR IVP ×2 (01:44→11:48)
[2022-02-23 04:24] VITALS: TEMP 36.5
[2022-02-23 06:56] LABS: Absolute Eosinophil Count 0.14 10^3/uL (0.0-0.7); Absolute Lymphocyte Count 1.79 10^3/uL (1.2-3.4); Absolute Neutrophil Count 7.74 10^3/uL (1.2-6.7); Basophils % 0.4; Eosinophils % 1.2; HCT 31.7 % (36.0-46.0); HGB 11.1 g/dL (11.2-15.7); Immature Grans % 0.9; Lymphocytes % 15.7; MCH 30.2 pg (27.0-33.0); MCV 86 fL (80-95); MPV 10.5 fL (8.0-11.0); Neutrophils % 67.8; Platelet Count 211 10^3/uL (130-400); RBC 3.67 10^6/uL (3.93-5.22); RDW-SD 38.5 fL; WBC 11.41 10^3/uL (4.4-10.8)
[2022-02-23 07:05] LABS: Anion Gap 7.7 mmol/L (3-11); BUN 9 mg/dL (7-18); CO2 28.3 mmol/L (21.0-32.0); CREATININE 0.5 mg/dL (0.55-1.02); Calcium 9.1 mg/dL (8.5-10.1); Chloride 100 mmol/L (98-107); Glucose 126 mg/dL (74-106); Magnesium 1.8 mg/dL (1.8-2.4); Potassium 3.9 mmol/L (3.5-5.1); Sodium 136 mmol/L (136-145)
[2022-02-23 07:09] LABS: Absolute Basophil Count 0.05 10^3/uL (0.0-0.2)
[2022-02-23 07:36] LABS: Diff Comment Agrees w/ Instrument; RBC Morphology Normal
[2022-02-23 07:47] VITALS: BP 121/70; PULSE 83; RESP 18; TEMP 36.8; O2SAT 96
[2022-02-23] MEDS: Calcium 600mg/Vit D 200U TAB 1 TAB PO ×2 (07:53→21:32)
[2022-02-23] MEDS: Enoxaparin 40 MG/0.4 ML SYR SC (07:53)
[2022-02-23] MEDS: Potassium Chloride 20 MEQ TABCR PO ×2 (07:53→21:33)
[2022-02-23] MEDS: Thiamine 100 MG TAB PO (07:53)
[2022-02-23] MEDS: Magnesium Oxide 400 MG TAB PO (07:54)
--- NOTE | 2022-02-23 09:26 | OT.INNT ---
Occupational Therapy Notes 02/23/22 Pt refused to participate in OT session this morning reporting that she is not interested in performing her ADLs. Due to pts refusal, OT will attempt to resume services tomorrow. Kristan Avalos, OTR/L
--- NOTE | 2022-02-23 10:27 | W.PM.DS.N ---
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 She was seen in ED and diagnosed with right humerus fracture.? she was discharged to home with outpatient orthopedic follow up but returned after falling again.? This work up showed acute UTI, she grew ESBL and was treated initially with ceftriaxone then given fosfomycin when cultures returned.? Home Meds and New Rx's Prescriptions: New calcium carbonate-vitamin D3 600 mg-5 mcg (200 unit) Tablet 1 tab PO BID Qty: 0 0RF potassium chloride [Klor-Con M20] 20 mEq Tablet,Er Particles/Crystals 20 meq PO BID Qty: 0 0RF lidocaine 5 % Adhesive Patch,Medicated 1 patch topical DAILY@1999 Qty: 0 0RF insulin aspart U-100 [Novolog Flexpen U-100 Insulin] 100 unit/mL (3 mL) Insulin Pen 0 units subcut 0800,1200,1700,2200 Qty: 0 0RF thiamine mononitrate (vit B1) [Vitamin B-1 (mononitrate)] 100 mg Tablet 100 mg PO DAILY Qty: 0 0RF insulin glargine [Lantus Solostar U-100 Insulin] 100 unit/mL (3 mL) Insulin Pen 5 unit subcut HS Qty: 0 0RF magnesium oxide 400 mg (241.3 mg magnesium) Tablet 400 mg PO DAILY Qty: 0 0RF Discharge Instructions Instructions: Arm Fracture in Adults (DC) Stand Alone Forms: Nursing Discharge Form Referrals: Antonino Ortiz MD [ [facility] STAFF PHYSICIAN] - 02/24/22 9:15 am Activity:: Activity as Tolerated Equipment/Supplies:: No Equipment Needed Diet:: Carb Counting Discharge Orders Discharge Orders: Discharge Order (Routine); Ordered 02/23/22 Ordered By: Jasmin Cortes DS: Summary Status at Discharge Mental Status: mental status grossly normal Speech and Movement: speech and movement normal Mood: congruent mood Affect: blunted Exam Const General: cooperative, comfortable, disheveled and ill appearing chronically Nutritional Appearance: thin Orientation: alert, awake and oriented x3 HENMT Head: normal to inspection, normocephalic and atraumatic Mouth: oral mucosae normal Chest Chest: normal inspection of the chest Resp Effort & Inspection: normal respiratory effort Cardio Rate: regular rate Rhythm: regular rhythm GI Inspection: normal to inspection Palpation: soft Skin General skin exam: ecchymosis (right shoulder and upper extremity) Lesions: no lesions Rashes: no rashes Extrem General: normal to inspection Right upper extremity: edema and shoulder/upper arm Details: tenderness, swelling, abnormal ROM Details: held in an abnormal fashion (position of comfort with forearm across chest), ecchymosis (shoulder and upper extremity) and other (good pulse, movement and sensation distally); no deformity; ROM limited Psych Appearance: disheveled Mental Status: mental status grossly normal Speech and Movement: speech and movement normal Mood: congruent mood Affect: blunted Attitude: cooperative Insight: fair Judgment: fair DS: Data Vitals/I&O Vitals and I&O: Vital Signs Temperature 36.8 C 02/23/22 07:47 Temperature Source Tympanic 02/23/22 07:47 Pulse 83 02/23/22 07:47 Pulse Rhythm Regular 02/23/22 09:41 Pulse 113 H 02/19/22 14:40 Respiratory Rate 18 02/23/22 07:47 Respiratory Effort Non-Labored 02/23/22 09:41 Respiratory Depth Normal 02/23/22 09:41 Respiratory Pattern Normal 02/23/22 09:41 Blood Pressure 121/70 02/23/22 07:47 Blood Pressure Mean 78 02/19/22 14:30 Blood Pressure Position Supine 02/19/22 10:59 Pulse Oximetry 96 02/23/22 07:47 Oxygen Delivery Method Room Air 02/23/22 07:47 Oxygen Flow Rate 0 02/23/22 07:47 Pain Level 10 02/23/22 07:47 Comment 02/22/22 22:53 Intake & Output 02/22/22 02/22/22 02/23/22 11:59 23:59 11:59 Intake Total 1906.667 / 2513.167 606.5 / 2513.167 Balance 1906.667 / 2513.167 606.5 / 2513.167 Intake: IV 1906.667 / 2263.167 356.5 / 2263.167 Oral 250 / 250 Other: Urine Color Yellow Yellow Yellow Urine Appearance Clear Clear Clear Comment complete bed change pT stated that she is not wet, did not want me to check at this time. also nurse check pT before she went downstairs earlier to make sure she was not wet. Voiding Methods Incontinent Diaper Diaper Incontinent Incontinent Data Completed and Pending Labs on day of discharge: Labs from last 24 hours 02/23/22 02/23/22 06:30 06:30 WBC 11.41 H RBC 3.67 L Hgb 11.1 L Hct 31.7 L MCV 86 MCH 30.2 MCHC 35.0 RDW 12.0 Plt Count 211 MPV 10.5 Immature Gran % 0.9 Neutrophils % 67.8 Lymphocytes % 15.7 Monocytes % 14.0 Eosinophils % 1.2 Basophils % 0.4 Nucleated RBC % 0.0 Absolute Neutrophils 7.74 H Absolute Lymphocytes 1.79 Absolute Monocytes 1.60 H Absolute Eosinophils 0.14 Absolute Basophils 0.05 RBC Morphology Normal Sodium 136 Potassium 3.9 Chloride 100 Carbon Dioxide 28.3 Anion Gap 7.7 BUN 9 Creatinine 0.5 L Estimated GFR/1.73 m2 >= 60.00 Glucose 126 H Calcium 9.1 Magnesium 1.8 Preliminary micro results at discharge 02/21/22 16:05 Blood Culture - Preliminary Blood NO GROWTH 24 HOURS 02/21/22 15:55 Blood Culture - Preliminary Blood NO GROWTH 24 HOURS PFSH All Active Problems (Updated 02/21/22 @ 15:34 by Mariaelena Alonzo NP) Fever (Acute) Discharge planning issues (Acute) DVT prophylaxis (Acute) UTI (urinary tract infection) (Acute) Fall (Acute) Fracture of proximal humerus (Acute) Closed fracture of proximal end of right humerus (Acute) Hypophosphatemia (Acute) Hypomagnesemia (Acute) Esophagitis (Acute) E. coli UTI (Acute) Non-insulin dependent type 2 diabetes mellitus (Chronic) Ambulatory dysfunction (Acute) Tremor (Acute) Diabetes (Chronic) Laceration of elbow with foreign body (Acute) Alcohol abuse (Chronic) Urinary tract infection (Acute) Fall (Acute) Alcohol intoxication (Acute) Medical History Acute CVA (cerebrovascular accident) Aortic stenosis Carotid stenosis Diabetes mellitus type 2 in nonobese TIA (transient ischemic attack) Surgical History Surgical history unknown Social History Smoking/Tobacco Use Status: Former Tobacco Use Smoking risk assessment performed?: Yes Alcohol Intake: current Alcohol Intake frequency: 0-2 drinks per day Alcohol type: wine Drug use: Never Substance use type: does not use Do you feel safe at home: Yes Do you feel safe in your relationship?: Yes
[2022-02-23] MEDS: Insulin Aspart 300 UNITS/3 ML PEN SC ×3 (11:48→21:34)
--- NOTE | 2022-02-23 11:57 | NUR.NOTE ---
Nursing Note:Patient was stating to [employer] ROLLER that the second pillow placed behind her head made her slip down in bed. Patient would not allow second pillow to be removed. She said she needed it behind her bed because her back hurt
--- NOTE | 2022-02-23 13:52 | PT.INTREAT ---
Date of service: 02/23/22 Time of Service: 10:30 PT Notes Visit Reasons: Urinary tract infection Inpatient Physical Therapy Treatment Note [facility] Date: 02/23/2022 PRECAUTIONS: Fall, NWB on R UE SUBJECTIVE: Ester states that when she moves her pain in B UE increases. She prefers to stay in bed because that is where she is comfortable, however, she is agreeable to getting up with PT. OBJECTIVE: Donned and adjusted sling to patient's R UE for comfort, stabilization with transfer PAIN: Patient c/o pain in R shoulder at all times BED MOBILITY/TRANSFERS Supine-Sit: Mod A Sit-stand: Min A Stand-sit: CGA Bed-chair: CGA x2 GAIT Assistive Device: No AD Weight bearing: NWB on R UE Assist: CGA x2 Distance: 8' Deviation: Patient refuses further gait training due to FOF THEREX: Patient was instructed in a LE strengthening program, completed in a long-sitting position, to include: ankle pumps, heel slides, quad sets, hip abduction. ASSESSMENT: Patient appears limited due to pain in R UE and FOF with gait training. She was able to tolerate gait training without a device, although does require cueing for safety. PLAN: Continue with gait training and global strengthening for improved activity tolerance, as pain allow. TREATMENT CODE/TIME: 20 minutes; 83111 (10:30) (Patient declined to participate in afternoon PT session, as she was transferred back to bed by nursing staff and is taking a nap due to fatigue.)
--- NOTE | 2022-02-23 13:57 | PGE_ITS ---
Date of Service Date of service: 02/23/22 Time of Service: 13:57 Assessment and Plan Assessment and plan (1) UTI (urinary tract infection): Status: Acute Assessment and plan: Urine cx - ESBL- given fosfomycin and started on invanz last night. (2) Fever: Status: Acute Assessment and plan: BC with no growth to date; tylenol PO PRN (3) Closed fracture of proximal end of right humerus: Status: Acute Assessment and plan: continue sling and pain management will f/u with orthopedics outpatient calcium/vit D supplement PT and OT consult ice for comfort if needed. 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 bs 139-229 (6) Hypomagnesemia: Status: Acute Assessment and plan: repleted and at 1.8. (7) DVT prophylaxis: Status: Acute Assessment and plan: teds, encourage ambulation enoxaparin (8) Discharge planning issues: Status: Acute Assessment and plan: case management following anticipate rehab needs prior to returning home. awaiting prior auth and anticipated discharge to [facility]. discussed with Dr Vieyra. Subjective Subjective Patient reports: no new complaints, tolerating liquids well, tolerating a regular diet, voiding w/o difficulty and afebrile; denies shortness of breath Exam Const General: cooperative, comfortable, disheveled and ill appearing chronically Nutritional Appearance: thin Orientation: alert, awake and oriented x3 HENMT Head: normal to inspection, normocephalic and atraumatic Mouth: oral mucosae normal Chest Chest: normal inspection of the chest Resp Effort & Inspection: normal respiratory effort Cardio Rate: regular rate Rhythm: regular rhythm GI Inspection: normal to inspection Palpation: soft Skin General skin exam: ecchymosis (right shoulder and upper extremity) Lesions: no lesions Rashes: no rashes Extrem General: normal to inspection Right upper extremity: edema and shoulder/upper arm Details: tenderness, swelling, abnormal ROM Details: held in an abnormal fashion (position of comfort with forearm across chest), ecchymosis (shoulder and upper extremity) and other (good pulse, movement and sensation distally); no deformity; ROM limited Psych Appearance: disheveled Mental Status: mental status grossly normal Speech and Movement: speech and movement normal Mood: congruent mood Affect: blunted Attitude: cooperative Insight: fair Judgment: fair Objective Last Vital Signs Temp 36.8 C 02/23/22 07:47 Pulse 83 02/23/22 07:47 Resp 18 02/23/22 07:47 BP 121/70 02/23/22 07:47 Pulse Ox 96 02/23/22 07:47 Laboratory Results - last 24 hr 02/23/22 02/23/22 06:30 06:30 WBC 11.41 H RBC 3.67 L Hgb 11.1 L Hct 31.7 L MCV 86 MCH 30.2 MCHC 35.0 RDW 12.0 Plt Count 211 MPV 10.5 Immature Gran % 0.9 Neutrophils % 67.8 Lymphocytes % 15.7 Monocytes % 14.0 Eosinophils % 1.2 Basophils % 0.4 Nucleated RBC % 0.0 Absolute Neutrophils 7.74 H Absolute Lymphocytes 1.79 Absolute Monocytes 1.60 H Absolute Eosinophils 0.14 Absolute Basophils 0.05 RBC Morphology Normal Sodium 136 Potassium 3.9 Chloride 100 Carbon Dioxide 28.3 Anion Gap 7.7 BUN 9 Creatinine 0.5 L Estimated GFR/1.73 m2 >= 60.00 Glucose 126 H Calcium 9.1 Magnesium 1.8 PAWSS Have you Been Recently Intoxicated or Drunk Within the Last 30 days?: Yes Have you Ever Experienced Previous Episodes of Alcohol Withdrawal?: No Have you ever Experienced Withdrawal Seizures?: No Have you ever Experienced Delirium Tremens(DT)s?: No Have you ever undergone Alcohol Rehabilitation Treatment (i.e, inpt ot outpatient treatment programs)?: No Have you ever Experienced Blackouts?: No Have you ever Combined Alcohol with other Downers within the last 90 days?: No Have you ever Combined Alcohol with any other Substance of Abuse during the last 90 days?: No Positive Blood Alcohol level on Presentation? [PCS.BAL]: No Evidence of Increased Autonomic Activity (i.e. HR>120, tremor, sweating, agitation, nausea)?: No Result: 1
--- NOTE | 2022-02-23 15:46 | CMPROGNOTE_ITS ---
- If Service Date Differs Date of service: 02/23/22 Time of Service: 15:46 Care Management Progress Note S/O: Ester was accepted at [facility] today, pending PA from her insurance, which has been submitted. CM talked to her daughter, Luz, to provide an update, and inform her of the bed offer at [facility]. Luz sent an application for [facility] to . CM did not have the time to fill this out with Ester today, and advised Luz that staff at [facility] may be able to assist with this if it is not completed while she is inpatient. Ester was being cleaned up with staff when CM attempted to meet with her. CM will continue to follow. A: Ester is a 71 year old female admitted to [facility] on 02/19/22 with a UTI. P: Ester has been accepted at [facility], pending PA, which has been submitted. She will transport via facility w/c van, once the PA is approved. CM will notify her daughter, Luz ([phone]) of her transfer. She will follow up with her PCP and discharge plan of care. CM will continue to follow.
[2022-02-23 15:54] VITALS: BP 104/65; PULSE 93; RESP 18; TEMP 37.9; O2SAT 94
[2022-02-23] MEDS: Acetaminophen 325 MG TAB 650 MG PO ×2 (17:07→21:32)
[2022-02-23 18:22] VITALS: BP 110/68; PULSE 95; RESP 19; TEMP 38.2; O2SAT 92
[2022-02-23 19:30] VITALS: TEMP 37.7
[2022-02-23 20:50] VITALS: TEMP 37.4
[2022-02-23] MEDS: Lidocaine 5% Patch 1 PATCH TP (21:32)
[2022-02-23] MEDS: ERTAPENEM 1 GM in Normal Saline 50 ML IVPB (21:32)
[2022-02-23] MEDS: Insulin Glargine 300 UNITS/3 ML PEN SC (21:33)
[2022-02-24 00:15] VITALS: BP 110/68; PULSE 95; RESP 19; TEMP 36.7; O2SAT 94
[2022-02-24 08:09] VITALS: BP 125/76; PULSE 102; RESP 16; TEMP 38.1; O2SAT 98
[2022-02-24] MEDS: Calcium 600mg/Vit D 200U TAB 1 TAB PO ×2 (08:16→21:56)
[2022-02-24] MEDS: Insulin Aspart 300 UNITS/3 ML PEN SC ×3 (08:16→21:57)
[2022-02-24] MEDS: Magnesium Oxide 400 MG TAB PO (08:16)
[2022-02-24] MEDS: Potassium Chloride 20 MEQ TABCR PO ×2 (08:16→21:56)
[2022-02-24] MEDS: Enoxaparin 40 MG/0.4 ML SYR SC (08:16)
[2022-02-24] MEDS: Thiamine 100 MG TAB PO (08:16)
[2022-02-24] MEDS: Normal Saline Flush 10 ML SYR IVP (08:29)
[2022-02-24] MEDS: Ketorolac 15 MG/ML VIAL IVP (08:29)
[2022-02-24] MEDS: Acetaminophen 325 MG TAB 650 MG PO ×3 (09:08→23:55)
--- NOTE | 2022-02-24 10:06 | PT.INTREAT ---
Date of service: 02/24/22 Time of Service: 07:50 PT Notes Visit Reasons: Urinary tract infection Inpatient Physical Therapy Treatment Note [facility] Date: 02/24/2022 PRECAUTIONS: Fall, NWB on R UE SUBJECTIVE: Ester states that when she moves her pain in B UE increases. She would like to lay in bed, but, she is agrees to getting up with PT, then returning to the chair for breakfast. OBJECTIVE: Donned and adjusted sling to patient's R UE for comfort, stabilization with transfer PAIN: Patient c/o pain in R shoulder at all times BED MOBILITY/TRANSFERS Supine-Sit: Mod A Sit-stand: Min A Stand-sit: CGA Bed-chair: CGA x2 GAIT Assistive Device: No AD Weight bearing: NWB on R UE Assist: CGA x2 Distance: ~15' in a.m.; 15' +10' in p.m. Deviation: Patient refuses further gait training due to FOF and fatigue TOILETING: Patient toileted with assist ASSESSMENT: Patient appears limited due to pain in R UE, fatigue and FOF with gait training. She was able to tolerate gait training without a device, although does require cueing and CGA x2 for safety. PLAN: Continue with gait training and global strengthening for improved activity tolerance, as pain allow. TREATMENT CODE/TIME: Session 1: 15 minutes; 79671 (07:50) Session 2: 15 minutes; 30558 (14:20)
--- NOTE | 2022-02-24 10:27 | CMPROGNOTE_ITS ---
- If Service Date Differs Date of service: 02/24/22 Time of Service: 10:27 Care Management Progress Note S/O: Sterling was accepted at [facility] , pending PA from her insurance, which has been submitted. Per [employer], the authorization will likely take 2-3 days. This was explained to her daughter Luz by CM when she called for an update. sterling agreed to work with PT today despite complaining of upper extremity pain. She walked 15 feet this morning and 15 feet and 10 feet this afternoon. When asked how she is doing today, Sterling answered about like usual. A: Sterling is a 71 year old female admitted to [facility] on 02/19/22 with a UTI. P: Sterling has been accepted at [facility], pending PA, which has been submitted. She will transport via facility w/c van, once the PA is approved. CM will notify her daughter, Luz ([phone]) of her transfer. She will follow up with her PCP and discharge plan of care. CM will continue to follow.
[2022-02-24 11:50] VITALS: TEMP 37.1
[2022-02-24 13:58] LABS: Bilirubin Negative (Negative); Blood Large (Negative); Clarity Clear (Clear); Glucose 100 mg/dL (Negative); Ketones 15 mg/dL (Negative); Leukocyte Esterase Negative (Negative); Nitrite Negative (Negative); Urobilinogen 0.2 EU/dL (Up TO 0.2)
[2022-02-24 14:08] LABS: Bacteria Negative HPF (Negative); C & S Indicated? No; Casts Negative LPF (Negative); Crystals Negative HPF (Negative); Epithelial Cells Negative HPF (Negative); Mucus Negative (Negative); Other Cells Rare Transitional (Negative); RBC 20-50 HPF (0-2); WBC 0-2 HPF (0-5)
[2022-02-24 15:17] VITALS: BP 106/68; PULSE 89; RESP 18; TEMP 37; O2SAT 95
--- NOTE | 2022-02-24 15:34 | PGE_ITS ---
Date of Service Date of service: 02/24/22 Time of Service: 10:00 Assessment and Plan Assessment and plan (1) UTI (urinary tract infection): Status: Acute Assessment and plan: Urine cx - ESBL- given fosfomycin and now invanz day 2 will repeat urine in setting of ongoing temps (2) Fever: Status: Acute Assessment and plan: BC with no growth to date; tylenol PO PRN will repeat urine no respiratory symptoms no skin rashes no abdominal pain likely from UTI, will continue monitor. (3) Closed fracture of proximal end of right humerus: Status: Acute Assessment and plan: continue sling and pain management will f/u with orthopedics outpatient calcium/vit D supplement PT and OT consult ice for comfort if needed. 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 bs 139-229 (6) Hypomagnesemia: Status: Acute Assessment and plan: repleted and at 1.8. (7) DVT prophylaxis: Status: Acute Assessment and plan: teds, encourage ambulation enoxaparin (8) Discharge planning issues: Status: Acute Assessment and plan: case management following anticipate rehab needs prior to returning home. awaiting prior auth and anticipated discharge to [facility] and rehab. discussed with Dr Wong Subjective Subjective Patient reports: no new complaints and fever Interval history since last seen: max temp 38.1, no new c/o. eating and drinking. pain managed Exam Const General: cooperative, comfortable, disheveled and ill appearing chronically Nutritional Appearance: thin Orientation: alert, awake and oriented x3 HENMT Head: normal to inspection, normocephalic and atraumatic Mouth: oral mucosae normal Chest Chest: normal inspection of the chest Resp Effort & Inspection: normal respiratory effort Cardio Rate: regular rate Rhythm: regular rhythm GI Inspection: normal to inspection Palpation: soft Skin General skin exam: ecchymosis (right shoulder and upper extremity) Lesions: no lesions Rashes: no rashes Extrem General: normal to inspection Right upper extremity: edema and shoulder/upper arm Details: tenderness, swelling, abnormal ROM Details: held in an abnormal fashion (position of comfort with forearm across chest), ecchymosis (shoulder and upper extremity) and other (good pulse, movement and sensation distally); no deformity; ROM limited Psych Appearance: disheveled Mental Status: mental status grossly normal Speech and Movement: speech and movement normal Mood: congruent mood Affect: blunted Attitude: cooperative Insight: fair Judgment: fair Objective Last Vital Signs Temp 37.0 C 02/24/22 15:17 Pulse 89 02/24/22 15:17 Resp 18 02/24/22 15:17 BP 106/68 02/24/22 15:17 Pulse Ox 95 02/24/22 15:17 Laboratory Results - last 24 hr 02/24/22 10:20 Urine Color Yellow Urine Clarity Clear Urine pH 7.0 Ur Specific [place] 1.020 Urine Protein Negative Urine Ketones 15 H Urine Blood Large H Urine Nitrite Negative Urine Bilirubin Negative Urine Urobilinogen 0.2 Ur Leukocyte Esterase Negative Urine RBC 20-50 H Urine WBC 0-2 Ur Epithelial Cells Negative Urine Crystals Negative Urine Bacteria Negative Urine Casts Negative Urine Mucus Negative Urine Other Rare Transitional Ur Culture Indicated? No Urine Glucose 100 PAWSS Have you Been Recently Intoxicated or Drunk Within the Last 30 days?: Yes Have you Ever Experienced Previous Episodes of Alcohol Withdrawal?: No Have you ever Experienced Withdrawal Seizures?: No Have you ever Experienced Delirium Tremens(DT)s?: No Have you ever undergone [facility] ([facility]: No Have you ever Experienced Blackouts?: No Have you ever Combined Alcohol with other Downers within the last 90 days?: No Have you ever Combined Alcohol with any other Substance of Abuse during the last 90 days?: No Positive Blood Alcohol level on Presentation? [PCS.BAL]: No Evidence of Increased Autonomic Activity (i.e. HR>120, tremor, sweating, agitation, nausea)?: No Result: 1
[2022-02-24] MEDS: Lidocaine 5% Patch 1 PATCH TP (21:56)
[2022-02-24] MEDS: ERTAPENEM 1 GM in Normal Saline 50 ML IVPB (21:56)
[2022-02-24] MEDS: Insulin Glargine 300 UNITS/3 ML PEN SC (21:58)
[2022-02-24 23:15] VITALS: BP 121/70; PULSE 114; RESP 16; TEMP 39.1; O2SAT 92
[2022-02-24 23:55] VITALS: TEMP 39.1
--- NOTE | 2022-02-25 | DI.RAD_ITS ---
Exam(s) XR CHEST 1V IN DI DEPT EXAM: XR CHEST 1V IN DI DEPT CLINICAL HISTORY: fever. TECHNIQUE: 2D digital imaging was performed. COMPARISON: CR,XR XR CHEST 1V IN DI DEPT from 07/07/2021 FINDINGS: Single AP portable view. Heart size is upper normal. The mediastinum is not widened. Lungs are clear. No infiltrates nor obvious pleural effusions. IMPRESSION: No acute pulmonary findings on this single AP portable view of the chest. DATA REPOSITORY: RADIATION DOSE DELIVERED: All CT scans at this facility use at least one of these dose optimization techniques: automated exposure control; mA and/or kV adjustment per patient size (includes targeted e xams where dose is matched to clinical indication); or iterative reconstruction.
--- NOTE | 2022-02-25 | DI.US_ITS ---
Exam(s) US RENAL EXAM: US RENAL CLINICAL HISTORY: hematuria, uti TECHNIQUE: Ultrasound of both kidneys performed using standard protocol. COMPARISON: US US ECHOCARDIOGRAM W BUBBLES from 04/10/2021 FINDINGS: RIGHT KIDNEY: Measures 10 cm in length. No cysts evident. Normal cortical thickness and corticomedullary differenti ation .No solid masses No intrarenal calculi nor hydronephrosis. LEFT KIDNEY: Measures 10.5 cm in length. No cysts evident. Normal cortical thickness and corticomedullary differe ntiaion. No solids masses. No intrarenal calculi nor hydonephrosis. URINARY BLADDER: Prevoid volume is 240 cc Postvoid volume is same as patient was apparently not able to void No evidence of bladder mass nor diverticuli. Ureterovesical jets: Both identified and appear symmetrical IMPRESSION: 1. No significant ultrasound findings in the kidneys. 2. Patient was apparently not able to void. Prevoid volume was 240 cc. No obvious mass in the urinar y bladder. No diverticuli. DATA REPOSITORY:
[2022-02-25 00:55] VITALS: TEMP 37.3
[2022-02-25 01:40] VITALS: PULSE 92; TEMP 37.3
[2022-02-25] MEDS: LORazepam 1 MG TAB PO/SL (01:41)
[2022-02-25 08:07] VITALS: BP 134/74; PULSE 99; RESP 20; TEMP 38; O2SAT 95
--- NOTE | 2022-02-25 08:12 | NUR.NOTE ---
LENA arrived to patients room at approx. 0745. LENA introduced self to patient and stated what was on the agenda at this time, vital signs, blood sugar and out of bed for breakfast. Patient threatened to call police on nursing staff. After talking some with the patient, she was agreeable to let us take VS. While taking temperature patient began to become combative. Patient then told nursing staff she refuses everything and if we did not leave her alone the police would be after us. Patient refused to be checked for incontinence, get out of bed, blood sugar check, morning medications as well as breakfast. Nursing staff decided to leave patient be at this time and notified the Charge Nurse. Nursing Note:
--- NOTE | 2022-02-25 08:14 | OT.INNT ---
Occupational Therapy Notes 02/25/22 OT attempted to see pt who states that she is not ready to perform her ADLs this morning. She reports that she is in pain and would like to perform her ADLs later today. OT will attempt to see pt later if possible. Kristan Avalos, OTR/L
[2022-02-25] MEDS: Thiamine 100 MG TAB PO (09:05)
[2022-02-25] MEDS: Enoxaparin 40 MG/0.4 ML SYR SC (09:05)
[2022-02-25] MEDS: Potassium Chloride 20 MEQ TABCR PO ×2 (09:06→21:28)
[2022-02-25] MEDS: Calcium 600mg/Vit D 200U TAB 1 TAB PO ×2 (09:06→21:28)
[2022-02-25] MEDS: Magnesium Oxide 400 MG TAB PO (09:06)
[2022-02-25] MEDS: Acetaminophen 325 MG TAB 650 MG PO ×2 (09:06→21:28)
[2022-02-25] MEDS: Insulin Aspart 300 UNITS/3 ML PEN SC ×2 (09:11→21:28)
[2022-02-25 11:28] LABS: Source Nasal/Nares
[2022-02-25 11:49] VITALS: BP 117/68; PULSE 78; RESP 18; TEMP 37.4; O2SAT 93
[2022-02-25 12:03] LABS: COVID-19 PCR Negative (Negative)
--- NOTE | 2022-02-25 13:23 | PGE_ITS ---
Date of Service Date of service: 02/25/22 Time of Service: 13:23 Assessment and Plan Assessment and plan (1) Noncompliance by refusing intervention or support: Status: Acute Assessment and plan: patient not allowing PT, lab, xray, US, personal care or to get out of bed. she is awake and oriented to person place and time. palliative care consult placed for goals of care. unfortunately now declined for rehab stay d/t noncompliance and refusing evaluation and care (2) UTI (urinary tract infection): Status: Acute Assessment and plan: Urine cx - ESBL- given fosfomycin and completed invanz day 3, will discontinue repeat urine with no ongoing infection, positive for blood, renal US order placed but patient refusing. (3) Fever: Status: Acute Assessment and plan: BC with no growth to date; tylenol PO PRN repeat urine negative no respiratory symptoms, refuses chest xray but oxygenating well on room air, no cough no skin rashes no abdominal pain covid pcr ordered (4) Closed fracture of proximal end of right humerus: Status: Acute Assessment and plan: continue sling and pain management will f/u with orthopedics outpatient calcium/vit D supplement PT and OT consult ice for comfort if needed. 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 bs 139-229 (7) Hypomagnesemia: Status: Acute Assessment and plan: repleted and at 1.8. (8) DVT prophylaxis: Status: Acute Assessment and plan: teds, encourage ambulation enoxaparin (9) Discharge planning issues: Status: Acute Assessment and plan: case management following declined by [facility] and rehab discussed with Dr Wong Subjective Subjective Interval history since last seen: patient now refusing care, lab testing, xray, ultrasound, PT stating she wants to be left alone. max temp overnight 39.1. denies respiratory c/o Exam Const General: uncooperative, frail appearing and ill appearing chronically Nutritional Appearance: average body habitus Orientation: alert, awake and oriented x3 HENMT Head: normal to inspection, normocephalic and atraumatic Mouth: oral mucosae normal Resp Effort & Inspection: normal respiratory effort Cardio Rate: regular rate GI Inspection: normal to inspection Palpation: soft Auscultation: normal bowel sounds Skin General skin exam: no rashes or lesions noted Neuro General: patient alert, patient awake and patient oriented x3 Extrem Right upper extremity: edema (old ecchymosis. ); abnormal to inspection Objective Last Vital Signs Temp 37.4 C 02/25/22 11:49 Pulse 78 02/25/22 11:49 Resp 18 02/25/22 11:49 BP 117/68 02/25/22 11:49 Pulse Ox 93 02/25/22 11:49 Laboratory Results - last 24 hr 02/24/22 02/25/22 10:20 11:25 Urine Color Yellow Urine Clarity Clear Urine pH 7.0 Ur Specific [place] 1.020 Urine Protein Negative Urine Ketones 15 H Urine Blood Large H Urine Nitrite Negative Urine Bilirubin Negative Urine Urobilinogen 0.2 Ur Leukocyte Esterase Negative Urine RBC 20-50 H Urine WBC 0-2 Ur Epithelial Cells Negative Urine Crystals Negative Urine Bacteria Negative Urine Casts Negative Urine Mucus Negative Urine Other Rare Transitional Ur Culture Indicated? No Urine Glucose 100 COVID-19 Source Nasal/Nares SARS-CoV-2 (PCR) Negative PAWSS Have you Been Recently Intoxicated or Drunk Within the Last 30 days?: Yes Have you Ever Experienced Previous Episodes of Alcohol Withdrawal?: No Have you ever Experienced Withdrawal Seizures?: No Have you ever Experienced Delirium Tremens(DT)s?: No Have you ever undergone Alcohol Rehabilitation Treatment (i.e, inpt ot outpatient treatment programs)?: No Have you ever Experienced Blackouts?: No Have you ever Combined Alcohol with other Downers within the last 90 days?: No Have you ever Combined Alcohol with any other Substance of Abuse during the last 90 days?: No Positive Blood Alcohol level on Presentation? [PCS.BAL]: No Evidence of Increased Autonomic Activity (i.e. HR>120, tremor, sweating, agitation, nausea)?: No Result: 1
--- NOTE | 2022-02-25 14:52 | W.PALLCONSUL ---
Date of service: 02/25/22 Time of Service: 12:30 History of Present Illness Narrative: Ms. Norman is a 71 y/o F currently inpt at [facility] 2/ R humerus fx s/p fall in home; PMHx sig for DM, alcohol related dementia, h/o CVA, aortic stenosis, carotid stenosis Hospital course: presented to [facility] ED w/CC falls in home w/R humerus fx w/multiple presentations to ED, ED work up found UTI, transferred to inpt for observation and mx; pt w/fever starting 02/23 of unknown source, UTI cleared; pt w/increased behavioral disturbances x1-2d w/refusals to engage in care, including therapy, labs and imaging; recommended d/c to SNF, accepted at / initially, application revoked this morning; spoke to CM: Daughter Luz did apply for temporary guardianship, has requested psych consult, however provider did team patient previously. Patient had previously stated wanting to return home, without skilled need patient will be discharged home. Concerns over home safety environment, and potential eviction. Has director of casework department with [place] [facility], Carol Maza, there has been no contact with hospital and . 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 Has had 3 hospital admissions including this 1 since March 2021, with 2 ER visits February 16 and related to fracture right upper extremity which has been deemed inoperable. Patient was extremely close with son who tragically a few years ago, he was her person. Daughter Luz lives in [place] and they have had an up-and-down relationship. Spoke to hospitalist: Fever of unknown source, patient refusing to engage in labs x-ray or ultrasound to identify. Refusing PT and OT. Does not feel safe for discharge home. Spoke to nursing: Patient with increased agitation and behavioral disturbances, refusing to engage in any care, including self-care. Was found laying in urine this morning, refusal to engage in vital signs or take medicines initially however with prodding did except medication vital signs only. Patient extremely tired today, with increased agitation. Patient sleeping upon arrival to room, wishes not to engage in visit today. When prompted about plans for discharge home, patient reports does not want to go home, daughter is taking care of it . Reports needs clockmaker apprentice prior to returning to home. Reports shoulder hurts. Does not participate in visit. Preference to remain sleeping. Assessment and Plan Assessment and plan (1) Fever: Status: Acute Assessment and plan: x2 d of fever, controlled w/apap unknown source; UTI cleared; pt refusal to engage in work-up (2) Noncompliance by refusing intervention or support: Status: Acute Assessment and plan: pt refuses to have labs drawn or images taken, refusing PT, did engage briefly w/OT need for review of GOC to align w/work up - if would like to be discharged, need to identify source of fever (3) UTI (urinary tract infection): Status: Acute Assessment and plan: resolved (4) Discharge planning issues: Status: Acute Assessment and plan: need for discharge plan, no longer accepted at [facility]; may submit additional applications for SNF daughter working on application for [facility] pt does not wish to return home at this time needs advocate in community (5) Fall: Status: Acute Assessment and plan: resulting in humerus fracture (6) Fracture of proximal humerus: Status: Acute Assessment and plan: non-surgical, requiring outpatient ortho f/u (7) Ambulatory dysfunction: Status: Acute Assessment and plan: refuses engagement w/PT concerns over inability to self-transport or transition OOB (8) Alcohol abuse: Status: Chronic Assessment and plan: previously on CIWA protocol, stopped Ativan d/c'd as well, may be contributing to change in behaviors (9) Palliative care encounter: Status: Acute Assessment and plan: pt denies engagement today; agrees to follow up tomorrow when more awake, to be seen by my keny Hale tomorrow CM and PC agree may take multiple visits to review all GOC remains full code Review of Systems Narrative: as per HPI PFSH All Active Problems (Updated 02/25/22 @ 15:04 by Grisel Baker NP) Palliative care encounter (Acute) Noncompliance by refusing intervention or support (Acute) Hypovolemia (Acute) Frequent falls (Acute) Fever (Acute) Discharge planning issues (Acute) DVT prophylaxis (Acute) UTI (urinary tract infection) (Acute) Fall (Acute) Fracture of proximal humerus (Acute) Closed fracture of proximal end of right humerus (Acute) Hypophosphatemia (Acute) Hypomagnesemia (Acute) Esophagitis (Acute) E. coli UTI (Acute) Non-insulin dependent type 2 diabetes mellitus (Chronic) Ambulatory dysfunction (Acute) Tremor (Acute) Diabetes (Chronic) Laceration of elbow with foreign body (Acute) Alcohol abuse (Chronic) Urinary tract infection (Acute) Fall (Acute) Alcohol intoxication (Acute) Medical History Acute CVA (cerebrovascular accident) Aortic stenosis Carotid stenosis Diabetes mellitus type 2 in nonobese TIA (transient ischemic attack) Surgical History Surgical history unknown Social History Smoking/Tobacco Use Status: Former Tobacco Use Smoking risk assessment performed?: Yes Alcohol Intake: current Alcohol Intake frequency: 0-2 drinks per day Alcohol type: wine Drug use: Never Substance use type: does not use Do you feel safe at home: Yes Do you feel safe in your relationship?: Yes Exam Narrative Exam Narrative: lying in bed, snoring upon arrival does not open eyes, responds briefly to questions asked, sleeps intermittent during exam, increased agitation throughout visit until no longer answers questions, returns to snoring. HENMT Head: atraumatic and no acral cyanosis Resp Effort & Inspection: normal respiratory effort, no audible wheezes and no cough Psych Speech and Movement: speech clear Mood: irritable mood Attitude: refuses to answer Insight: poor Judgment: poor Results Last Vital Signs Temp 99.3 F 02/25/22 11:49 Pulse 78 02/25/22 11:49 Resp 18 02/25/22 11:49 BP 117/68 02/25/22 11:49 Pulse Ox 93 02/25/22 11:49 Labs Result diagrams: 02/23/22 06:30 02/23/22 06:30 Labs: Laboratory Results - last 24 hr 02/25/22 11:25 COVID-19 Source Nasal/Nares SARS-CoV-2 (PCR) Negative
--- NOTE | 2022-02-25 15:04 | PT.INTREAT ---
Date of service: 02/25/22 Time of Service: 15:04 PT Notes Visit Reasons: Urinary tract infection Inpatient Physical Therapy Treatment Note [facility] Date: 02/24/2022 PRECAUTIONS: NWB R UE. Sling on when ambulating. Fall risk. SUBJECTIVE: Groaned in pain three times with attempt at standing up, started to refuse any further activity, and wanted to lie back down in bed. However with gentle encouragement and prodding, patient was able to stand up, hold onto PT's hand, and complete ambulation activity. Pain subsided once she got going. OBJECTIVE: Supine in bed. R UE supported by a pillow. Ecchymoses on R shoulder, R upper back and R arm noted. Some mild swelling in R arm seen as well.? Pain: Reported pain in R arm and shoulder at 8/10 initially but seems to have subsided to a 4-5/10 with ambulation activity as patient was redirected to a different topic. ? BED MOBILITY/TRANSFERS? Supine-Sit: minimal assist with HOB at 30 degrees Sit-stand: minimal assist ? Stand-sit: hand held assist ? Bed-chair: hand held assist ? GAIT? Assistive Device: No AD, hand held assist to patient's L hand by PT? Weight bearing: NWB on R UE Assist: hand held assist to patient's L hand and contact guard assist onto gait belt by PT's other hand? Distance:? 150 feet ? Deviation: Denies headache, denies increased pain in R UE, and denies chest pain throughout. Nafisa decreased. Fearful of falling needing frequent reassurance and encouragement. THERA EX: Deferred as patient needed to go down for testing as soon as she returned to her room ? ASSESSMENT:? Anticipates pain greatly which brings about increased anxiety that increases fearfulness of falling and ability to participate in transfers and ambulation. Appreciates frequent tactile cueing to give her the assurance that she has support from the back and her left side. Needs redirection so that attention to pain is decreased. Needed to be swabbed for COVID-19 late morning and Nurse Cheung recommended holding off on visit until this afternoon after result is received. PLAN: Progress functional mobility as tolerated. Premedicate for pain. May benefit from management of anxiety to reduce fearfulness of falling. TREATMENT CODE/TIME: 42925 x 29 minutes beginning at 15:04 PM.
[2022-02-25 15:45] VITALS: BP 127/79; PULSE 84; RESP 17; TEMP 37.1; O2SAT 94
--- NOTE | 2022-02-25 15:45 | PDOC.CMPRO ---
- If Service Date Differs Date of service: 02/25/22 Time of Service: 15:45 Care Management Progress Note S/O: Ester was lying in bed when CM met with her. She reported that she had a bad night/morning. She stated that she was not able to sleep well all night, and was woken up by noise in the halls. She stated that she didn't want to engage with therapy today, or have her labs drawn/imaging, because she is tired. CM explained the importance of her working with PT, and accepting care, as she had a fever, and the lab draw/imaging may help identify the source of the fever. Also, if her goal is to go to rehab, which she confirms is her goal, then she will need to continue to work with PT while waiting for a rehab bed to become available. She expressed understanding and reported that she had a bad day today. CM reviewed her plan with her daughter, Luz, who is in agreement with the plan for her to go to rehab. Luz is working on applications to [facility] for her to discharge to from rehab. Ester is aware of this plan, and is comfortable with it as well. CM will follow up on referrals pending at several facilities. CM will continue to follow. A: Ester is a 71 year old female admitted to [facility] on 02/19/22 with a UTI. P: Ester will likely go to SNF once medically cleared. CM will continue to follow up on referrals sent to several facilities. CM will notify her daughter, Luz ([phone]) of her transfer. She will follow up with her PCP and discharge plan of care. CM will continue to follow.
[2022-02-25 15:59] LABS: Anion Gap 4.9 mmol/L (3-11); BUN 10 mg/dL (7-18); CO2 28.1 mmol/L (21.0-32.0); CREATININE 0.6 mg/dL (0.55-1.02); Calcium 9.1 mg/dL (8.5-10.1); Chloride 98 mmol/L (98-107); Estimated GFR 95.31 (mL/min/1.73m2); Glucose 151 mg/dL (74-106); Potassium 3.8 mmol/L (3.5-5.1); Sodium 131 mmol/L (136-145)
[2022-02-25 16:00] LABS: Abs Immature Grans 0.12 10^3/uL (0.0-0.06); Absolute Basophil Count 0.06 10^3/uL (0.0-0.2); Absolute Monocyte Count 0.97 10^3/uL (0.1-0.8); Absolute Neutrophil Count 7.07 10^3/uL (1.2-6.7); Basophils % 0.6; Eosinophils % 0.9; HCT 35.2 % (36.0-46.0); HGB 11.8 g/dL (11.2-15.7); Immature Grans % 1.1; Lymphocytes % 22.4; MCH 29.8 pg (27.0-33.0); MCHC 33.5 % (32.0-36.0); MCV 89 fL (80-95); MPV 10.1 fL (8.0-11.0); Platelet Count 312 10^3/uL (130-400); RBC 3.96 10^6/uL (3.93-5.22); RDW 12.5 % (11.7-14.6); RDW-SD 41.1 fL; WBC 10.72 10^3/uL (4.4-10.8)
[2022-02-25] MEDS: Insulin Glargine 300 UNITS/3 ML PEN SC (21:28)
[2022-02-25] MEDS: Lidocaine 5% Patch 1 PATCH TP (21:30)
[2022-02-25 23:40] VITALS: BP 119/69; PULSE 73; RESP 17; TEMP 36.6; O2SAT 93
--- NOTE | 2022-02-26 06:26 | NUR.NOTE ---
Nursing Note: Patient very pleasant overnight. Making needs appropriately known. Compliant with all cares, meds and ADL's.
[2022-02-26] MEDS: Enoxaparin 40 MG/0.4 ML SYR SC (07:32)
[2022-02-26] MEDS: Thiamine 100 MG TAB PO (07:33)
[2022-02-26] MEDS: Potassium Chloride 20 MEQ TABCR PO ×2 (07:33→20:54)
[2022-02-26] MEDS: Magnesium Oxide 400 MG TAB PO (07:33)
[2022-02-26] MEDS: Acetaminophen 325 MG TAB 650 MG PO ×2 (07:33→20:54)
[2022-02-26] MEDS: Calcium 600mg/Vit D 200U TAB 1 TAB PO ×2 (07:33→20:54)
[2022-02-26] MEDS: Normal Saline Flush 10 ML SYR IVP (07:34)
--- NOTE | 2022-02-26 09:01 | PCPN_ITS ---
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 She is currently inpatient after fall at home with inoperable R humerus Fx. She was refusing care earlier yesterday but eventually agreed to have renal US and chest x-ray. She refused to engage in Palliative visit yesterday but was agreeable to meeting with Palliative today. She was pleasant and cooperative. She does not feel comfortable going home alone at this time. She is clear she needs help/support. She agrees to going to rehab. She reports that her daughter is looking into rehabs for her. CM is working on placement with her daughter. She is working with PT. Of note, her son tragically 2 years ago. Her daughter believes that her grief is affecting her self-care. Discussed CODE status. She wishes to remain a FULL CODE at this time. Her dad survived cardiac arrest and was on a ventilator for a period of time. Discussed that we will continue to talk about CODE status at future palliative visits. She is agreeable to follow up with Palliative care. Subjective Subjective Interval history since last seen: Ester was seen in her hospital room. We discussed discharge plans. She states she does not want to go home, her daughter is working on getting her apartment cleaned. She does not feel comfortable going home alone at this point. She is open to going to rehab. She reports that her daughter is looking into rehabs for her. She will need her daughter to approve of the rehab prior to her going. She was able to state the date and where she is. She was refusing care but agreed to have some studies done yesterday. We discussed CODE status. At this point, she wants to remain a FULL CODE. Her dad survived a cardiac arrest and was on a ventilator. She does not plan on staying in this area. She thinks she will go where her daughter decides. Exam Narrative Exam Narrative: General: very pleasant female, laying in bed, slumped down. She is awake and alert, oriented to person, place and time. She engages in conversation and ans wers questions appropriately. HEENT: normocephalic, atraumatic, EOMI, MMM. Neck: supple. Cardiovascular: heart sounds regular, nontachycardic, +murmur. Respiratory: respirations appear even and unlabored, lung sounds are diminished at bases. GI: +BS, abd soft, nondistended, nontender on palpation. Extremities: RUE with ecchymosis over shoulder and upper arm. No lower extremity edema. Objective Last Vital Signs Temp 36.6 C 02/25/22 23:40 Pulse 73 02/25/22 23:40 Resp 17 02/25/22 23:40 BP 119/69 02/25/22 23:40 Pulse Ox 93 02/25/22 23:40 Laboratory Results - last 24 hr 02/25/22 02/25/22 02/25/22 11:25 15:35 15:35 WBC 10.72 RBC 3.96 Hgb 11.8 Hct 35.2 L MCV 89 MCH 29.8 MCHC 33.5 RDW 12.5 Plt Count 312 MPV 10.1 Immature Gran % 1.1 Neutrophils % 66.0 Lymphocytes % 22.4 Monocytes % 9.0 Eosinophils % 0.9 Basophils % 0.6 Nucleated RBC % 0.0 Absolute Neutrophils 7.07 H Absolute Lymphocytes 2.40 Absolute Monocytes 0.97 H Absolute Eosinophils 0.10 Absolute Basophils 0.06 Sodium 131 L Potassium 3.8 Chloride 98 Carbon Dioxide 28.1 Anion Gap 4.9 BUN 10 Creatinine 0.6 Est GFR (CKD-EPI 2020) 95.31 Glucose 151 H Calcium 9.1 COVID-19 Source Nasal/Nares SARS-CoV-2 (PCR) Negative
[2022-02-26 09:14] VITALS: BP 136/77; PULSE 89; RESP 18; TEMP 36.6; O2SAT 98
--- NOTE | 2022-02-26 09:24 | OTTR_ITS ---
Occupational Therapy Notes Occupational Therapy Inpatient Treatment Note Date: 02/26/22 PRECAUTIONS: Fall, standard, full SUBJECTIVE: Pt states that she is not happy with anything this morning. OBJECTIVE: PAIN:c/o pain which pt reports is everywhere BATHING: sitting in bed Upper Body: Mod (A) (B) UE, (I) abdomen, max (A) hair Lower Body: max (A) DRESSING: pt refuses to change gown TREATMENT CODES/TIME: [id number], 25 minutes (09:00) Kristan Avalos OTR/[facility]
--- NOTE | 2022-02-26 10:22 | PT.INPN ---
Date of service: 02/26/22 Time of Service: 10:22 PT Notes Visit Reasons: Urinary tract infection Physical Therapy Inpatient Initial Evaluation Date: 02/20/2022 Dates of Service: 02/20/2022 through 02/26/2022 Referring Doctor:? Jasmin Cortes,? JOEY PT Orders: PT CONSULT: Eval/Treat Precautions: Fall. Standard.?Per Dr. Vieyra: NWB on R UE.? Sling off when in chair or bed as long as R UE is comfortably supported by pillows.? Patient Profile/Admitting Diagnosis:? Patient is a 71-year-old female who presented to the ED on 02/19/2022 due to multiple falls at home.? Patient is diagnosed with impacted and comminuted/displaced fracture involving the humeral head and neck and greater tuberosity with further displacement seen on imaging due to repeated falls.? Ipsilateral clavicle appears unremarkable. PMHX: All Active Problems?(Updated 02/19/22 @ 16:53 by Jasmin Cortes NP) Discharge planning issues (Acute) DVT prophylaxis (Acute) UTI (urinary tract infection) (Acute) Fall (Acute) Fracture of proximal humerus (Acute) Closed fracture of proximal end of right humerus (Acute) Hypophosphatemia (Acute) Hypomagnesemia (Acute) Esophagitis (Acute) E. coli UTI (Acute) Non-insulin dependent type 2 diabetes mellitus (Chronic) Ambulatory dysfunction (Acute) Tremor (Acute) Diabetes (Chronic) Laceration of elbow with foreign body (Acute) Alcohol abuse (Chronic) Urinary tract infection (Acute) Fall (Acute) Alcohol intoxication (Acute) Medical History? Acute CVA (cerebrovascular accident) Aortic stenosis Carotid stenosis Diabetes mellitus type 2 in nonobese TIA (transient ischemic attack) Surgical History? Surgical history unknown Social History/Home Situation: Poor living condition per admission record and per patient report.? Ambulated using no assistive device at home prior to most recent admission.? Equipment Owned/DME: None Subjective: Has been working hard at participating in therapy for the past two days with adequate encouragement/prodding. Hoping to go to a retirement facility and be independent before going back home. Continues to complain of pain in R UE and her back which seem to subside with movement. Objective: General Observation: Supine in bed with head of bed elevated, R arm on sling. Mental Status: Alert and oriented as to person and place however safety awareness seems to be impaired. Able to pay attention, focus, and respond appropriately. Pain: 5-6/10 in R UE and low back Vital Signs: [facility] ROM: Right Upper Extremity: ?Now able to move about 20 degrees of flexion and abduction with pain at end of range. Sometimes overlooks the fact that she has a weight bearing precaution on the R UE and will put weight on the R side which would cause her some discomfort. R elbow WFL. Left Upper Extremity:? Shoulder Flexion WFL. Shoulder abduction WFL. Elbow flexion WFL. Wrist flexion WFL. Functional opening and closing of hand WFL. Right Lower Extremity: Hip flexion WFL. Hip abduction WFL. Knee flexion WFL. Ankle dorsiflexion WFL. Ankle plantarflexion WFL. Left Lower Extremity: Hip flexion WFL. Hip abduction WFL. Knee flexion WFL. Ankle dorsiflexion WFL. Ankle plantarflexion WFL. Strength: Right Upper Extremity: Shoulder grossly 3-/5. Shoulder flexors 3-/5. Shoulder abductors 3-/5. Elbow flexors 3-/5. Elbow extensors 3-/5. Contact Center Director weak but functional. Left Upper Extremity: Shoulder flexors 4-/5. Shoulder abductors 4-/5. Elbow flexors 4-/5. Elbow extensors 4-/5. Contact Center Director strong. Right Lower Extremity: Hip flexors 3+/5. Hip abductors 3+/5. Knee flexors 3+/5. Knee extensors 3+/5. Ankle dorsiflexors 4-/5. Ankle plantarflexors 4-/5. Left Lower Extremity: Hip flexors 3+/5. Hip abductors 3+/5. Knee flexors 3+/5. Knee extensors 3+/5. Ankle dorsiflexors 4-/5. Ankle plantarflexors 4-/5. BED MOBILITY/TRANSFERS? Supine-Sit: minimal assist with HOB at 30 degrees Sit-stand: minimal assist ? Stand-sit: hand held assist? Bed-chair: hand held assist ? GAIT? Assistive Device: No AD,? hand held assist to patient's L hand by PT? Weight bearing: NWB on R UE Assist: hand held assist to patient's L hand and contact guard assist onto gait belt with PT's other hand? Distance:? 300 feet? Deviation: Denies headache,? denies increased pain in R UE,? and denies chest pain throughout.? Nafisa decreased.? Fearful of falling mitigated with diversionary strategies. Balance: Static Sitting: Good Dynamic Sitting: Fair Static Standing: Poor Dynamic Standing: Poor Special Tests: Mobility Limitations Standardized Measure [facility] AM-PAC 6 clicks Basic Mobility Inpatient Short Form: Raw Score: 16? CMS Score: 54% deficit? ? ? Informed Consent/Education:? Reviewed goals of continued PT and is agreeable to continuing with established PT POC to achieve personal goals. Assessment: Patient participation now improving although still requires encouragement to participate in therapy. Unable to thrive safely at home. Patient unsafe to go home due to repeated falls.? Poor safety awareness. Continue to pre-medicate for pain. Patient presents with clinical signs and symptoms consistent with current/admitting diagnoses that have resulted to mobility limitations, gait instability, generalized weakness, and overall ADL decline as demonstrated by the following impairment level findings: 1.? Decreased strength to R UE and B LE major muscle groups 2.? Impaired sitting/standing balance 3.? Impaired activity tolerance 4.? Limitation of joint range of motion in R UE 5.? Impaired cognition 6.? Poor safety awareness Impairments are contributing to the following functional limitations: 1.? Decline in bed mobility skills 2.? Decline in transfer skills 3.? Difficulty with ambulation without assistive device and physical assistance 4.? Increased completion time for mobility ADL performance 5.? Increased risk for falls 6.? Inability to thrive alone at home Patient is assessed as a 61196 high complexity based on the following: History: 71-year-old female with past medical history as indicated above Examination: Demonstrable impairment in strength, balance, and mobility level with underlying impairments and functional limitations as exhibited above as well as deficit score of 69% utilizing the [facility] Mobility Inpatient Short Form Presentation: Evolving Decision Makin high complexity Goals: Goals X1 week 1. Supine-Sit independent NOT MET 2. Sit-Supine independent NOT MET 3. Sit-Stand independent NOT MET 4. Stand-Sit independent with SPC NOT MET 5. Bed-Chair independent with SPC NOT MET 6. Chair-Bed independent with SPC NOT MET 7. Independent gait on level surface with u se of SPC for at least 300 feet without report of pain nor dyspnea NOT MET 8. Independent stair negotiation while holding onto 1 rails for at least 5 steps without report of pain nor dyspnea NOT MET 9. Independent with home exercise program NOT MET 10. Good static and dynamic standing balance/tolerance NOT MET DISCHARGE RECOMMENDATIONS: [] ? Home with no services [] [] ? Home with services [specify] [] ? Home with outpatient PT [] [X] ? SNF for continued rehabilitation.? Patient will benefit from retirement facility placement for continued skilled physical therapy services in order to progress mobility level, strength, and balance in preparation for a safe discharge to home. [] ? Wash Tub Machine Operator Care [] [] ? SNF versus LTC based on ability to participate and progress [] TREATMENT CODE/TIME: 86054 x 24 minutes beginning at 10:22 AM. Thank you for the opportunity to participate in the care of this patient. Tina Shepard PT, DPT, CLT [facility] [place], [place]
--- NOTE | 2022-02-26 10:55 | PDOC.CMPRO ---
- If Service Date Differs Date of service: 02/26/22 Time of Service: 10:55 Care Management Progress Note S/O: Ester was sitting up in bed when CM met with her. She stated that she is feeling good today. She had a sling on her arm, which she reported was helpful. She worked well with PT today, and has been compliant with care, per nursing. CM followed up on her referral to the [facility], which is being reviewed. Ester had previously been accepted at [facility], but the offer was rescinded after she refused care and was combative with staff. CM discussed this with Ester, who was easy to redirect and expressed understanding of her participation in care/therapy after the conversation. CM will continue to support discharge planning considerations. A: Ester is a 71 year old female admitted to [facility] on 02/19/22 with a UTI. P: Ester will likely go to SNF once medically cleared. CM will continue to follow up on referrals sent to several facilities. CM will notify her daughter, Luz ([phone]) of her transfer. She will follow up with her PCP and discharge plan of care. CM will continue to follow.
[2022-02-26] MEDS: Insulin Aspart 300 UNITS/3 ML PEN SC ×2 (11:56→20:54)
[2022-02-26 15:52] VITALS: BP 136/77; PULSE 87; RESP 19; TEMP 36.9; O2SAT 99
--- NOTE | 2022-02-26 16:26 | OCONE_ITS ---
Assessment and Plan Assessment and plan (1) Closed fracture of proximal end of right humerus: Status: Acute Assessment and plan: 71-year-old female about 10 days status post Right displaced proximal humerus fracture X-rays and CT show significant varus angulation and highly comminuted displaced tuberosities. 3D neighborhood planner shows about 8 degrees retroversion and 8 degrees superior inclination of the glenoid. This complex fracture pattern would best be treated by reverse total shoulder arthroplasty to minimize long?term dysfunction including pain and loss of motion. However, the fracture has so far remained stable on follow-up imaging and is likely to heal in its current position. Many elderly and/or lower demand patients have acceptable function after proximal humerus malunion. There is a heightened risk due to short medial calcar and head segments for osteonecrosis. Significant complicating factors including medical problems, social issues, and patient noncompliance have precluded orthopedic surgical involvement. At this time, continue non-operative management. Recommend sling when out of bed or ambulatory for another 4-5 weeks. Should remove sling when resting in bed or chair. Should perform gentle passive shoulder range of motion including pendulums. Light active use of hand okay. Encourage daily active range of sofi on about fingers, wrist, and elbow to prevent stiffness. Nonweightbearing and no carrying right upper extremity. Repeat right shoulder x-rays (true AP and scapular Y) and upright or standing position in 1-2 weeks. Will follow along and arrange for surgical intervention or outpatient follow-up as indicated Please call me with any questions or concerns about this patient PFSH All Active Problems (Updated 02/26/22 @ 16:27 by Antonino Ortiz MD) Palliative care encounter (Acute) Noncompliance by refusing intervention or support (Acute) Hypovolemia (Acute) Frequent falls (Acute) Fever (Acute) UTI (urinary tract infection) (Acute) Fall (Acute) Fracture of proximal humerus (Acute) Closed fracture of proximal end of right humerus (Acute 02/16/22) Hypophosphatemia (Acute) Hypomagnesemia (Acute) Esophagitis (Acute) E. coli UTI (Acute) Non-insulin dependent type 2 diabetes mellitus (Chronic) Ambulatory dysfunction (Acute) Tremor (Acute) Diabetes (Chronic) Laceration of elbow with foreign body (Acute) Alcohol abuse (Chronic) Urinary tract infection (Acute) Fall (Acute) Alcohol intoxication (Acute) Medical History Acute CVA (cerebrovascular accident) Aortic stenosis Carotid stenosis Diabetes mellitus type 2 in nonobese TIA (transient ischemic attack) Surgical History Surgical history unknown Social History Smoking/Tobacco Use Status: Former Tobacco Use Smoking risk assessment performed?: Yes Alcohol Intake: current Alcohol Intake frequency: 0-2 drinks per day Alcohol type: wine Drug use: Never Substance use type: does not use Do you feel safe at home: Yes Do you feel safe in your relationship?: Yes Results Last Vital Signs Temp 98.4 F 02/26/22 15:52 Pulse 87 02/26/22 15:52 Resp 19 02/26/22 15:52 BP 136/77 02/26/22 15:52 Pulse Ox 99 02/26/22 15:52 Labs Result diagrams: 02/25/22 15:35 02/25/22 15:35
--- NOTE | 2022-02-26 16:27 | CHAPLAIN ---
Ester was in bed, curled up, when I visited. She said she's currently comfortable but has not slept well, which is not unusual for her. She asked for some more ice water which I got for her. I read in a PC note that Ester's son two years ago. She hasn't talked about him with me. I'll try to bring that up in our next conversation to see if she'd like to talk about him.
--- NOTE | 2022-02-26 17:39 | W.PM.PROGNOT ---
Date of Service Date of service: 02/26/22 Time of Service: 17:39 Assessment and Plan Assessment and plan (1) Noncompliance by refusing intervention or support: Status: Acute Assessment and plan: Pleasant today, agreeable to diagnostic tests and spoke with palliative care and orthopedicis. (2) UTI (urinary tract infection): Status: Acute Assessment and plan: Renal US done (3) Fever: Status: Acute Assessment and plan: BC with no growth to date; tylenol PO PRN repeat urine negative oxygenating well on room air, no cough no skin rashes no abdominal pain covid pcr negative (4) Closed fracture of proximal end of right humerus: Status: Acute Assessment and plan: continue sling and pain management will f/u with orthopedics outpatient calcium/vit D supplement PT and OT consult ice for comfort if needed. Per ortho recommendations: At this time, continue non-operative management.? Recommend sling when out of bed or ambulatory for another 4-5 weeks.? Should remove sling when resting in bed or chair.? Should perform gentle passive shoulder range of motion including pendulums.? Light active use of hand okay.? Encourage daily active range of motion about fingers, wrist, and elbow to prevent stiffness.? Nonweightbearing and no carrying right upper extremity.? Repeat right shoulder x-rays (true AP and scapular Y) and upright or standing position in 1-2 weeks. 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 bs 139-229 (7) Hypomagnesemia: Status: Acute Assessment and plan: will repeat 02/27 Subjective Subjective Patient reports: no new complaints Interval history since last seen: Reports she is comfortable laying low in the bed with her legs hanging off. Exam Narrative Exam Narrative: General: very pleasant female, laying in bed, slumped down. She is awake and alert, oriented to person, place and time. She engages in conversation and answers questions appropriately. HEENT: normocephalic, atraumatic, EOMI, MMM. Neck: supple. Cardiovascular: heart sounds regular, nontachycardic, +murmur. Respiratory: respirations appear even and unlabored, lung sounds are diminished at bases. GI: +BS, abd soft, nondistended, nontender on palpation. Extremities: RUE with ecchymosis over shoulder and upper arm. No lower extremity edema. Objective Last Vital Signs Temp 36.9 C 02/26/22 15:52 Pulse 87 02/26/22 15:52 Resp 19 02/26/22 15:52 BP 136/77 02/26/22 15:52 Pulse Ox 99 02/26/22 15:52 PAWSS Have you Been Recently Intoxicated or Drunk Within the Last 30 days?: Yes Have you Ever Experienced Previous Episodes of Alcohol Withdrawal?: No Have you ever Experienced Withdrawal Seizures?: No Have you ever Experienced Delirium Tremens(DT)s?: No Have you ever undergone Alcohol Rehabilitation Treatment (i.e, inpt ot outpatient treatment programs)?: No Have you ever Experienced Blackouts?: No Have you ever Combined Alcohol with other Downers within the last 90 days?: No Have you ever Combined Alcohol with any other Substance of Abuse during the last 90 days?: No Positive Blood Alcohol level on Presentation? [PCS.BAL]: No Evidence of Increased Autonomic Activity (i.e. HR>120, tremor, sweating, agitation, nausea)?: No Result: 1
[2022-02-26] MEDS: Insulin Glargine 300 UNITS/3 ML PEN SC (20:53)
[2022-02-26] MEDS: Lidocaine 5% Patch 1 PATCH TP (20:54)
[2022-02-26 23:00] VITALS: BP 106/63; PULSE 81; RESP 20; TEMP 37; O2SAT 98
[2022-02-27 07:10] LABS: Abs Immature Grans 0.16 10^3/uL (0.0-0.06); Absolute Basophil Count 0.06 10^3/uL (0.0-0.2); Absolute Lymphocyte Count 1.44 10^3/uL (1.2-3.4); Absolute Monocyte Count 0.57 10^3/uL (0.1-0.8); Basophils % 0.4; Eosinophils % 0.7; HCT 35.8 % (36.0-46.0); HGB 11.8 g/dL (11.2-15.7); Immature Grans % 1.1; Lymphocytes % 9.7; MCH 29.3 pg (27.0-33.0); MCV 89 fL (80-95); MPV 9.7 fL (8.0-11.0); Monocytes % 3.8; Neutrophils % 84.3; Platelet Count 418 10^3/uL (130-400); RBC 4.03 10^6/uL (3.93-5.22); RDW 12.3 % (11.7-14.6); RDW-SD 40.7 fL; WBC 14.88 10^3/uL (4.4-10.8)
[2022-02-27 07:17] LABS: Absolute Neutrophil Count 12.54 10^3/uL (1.2-6.7)
[2022-02-27 07:35] LABS: Anion Gap 6.2 mmol/L (3-11); BUN 9 mg/dL (7-18); CO2 26.8 mmol/L (21.0-32.0); CREATININE 0.6 mg/dL (0.55-1.02); Calcium 8.8 mg/dL (8.5-10.1); Chloride 101 mmol/L (98-107); Estimated GFR 95.31 (mL/min/1.73m2); Glucose 139 mg/dL (74-106); Magnesium 1.9 mg/dL (1.8-2.4); Potassium 4.1 mmol/L (3.5-5.1); Sodium 134 mmol/L (136-145)
[2022-02-27 07:57] VITALS: TEMP 37.9
[2022-02-27] MEDS: Acetaminophen 325 MG TAB 650 MG PO (07:57)
[2022-02-27] MEDS: Normal Saline Flush 10 ML SYR IVP ×2 (07:57→18:31)
[2022-02-27] MEDS: Enoxaparin 40 MG/0.4 ML SYR SC (07:57)
[2022-02-27] MEDS: Potassium Chloride 20 MEQ TABCR PO (07:58)
[2022-02-27] MEDS: Thiamine 100 MG TAB PO (07:58)
[2022-02-27] MEDS: Calcium 600mg/Vit D 200U TAB 1 TAB PO ×2 (07:58→20:52)
[2022-02-27] MEDS: Insulin Aspart 300 UNITS/3 ML PEN SC ×3 (07:58→18:24)
[2022-02-27] MEDS: Magnesium Oxide 400 MG TAB PO (07:58)
[2022-02-27 10:34] LABS: Lab Add On Test DONE
[2022-02-27 10:40] LABS: ESR 55 mm/hr (0-30)
--- NOTE | 2022-02-27 11:07 | PDOC.CMPRO ---
- If Service Date Differs Date of service: 02/27/22 Time of Service: 11:07 Care Management Progress Note S/O: Ester was sitting up on the edge of her bed when CM met with her. She stated that she is feeling good today, and is in good spirits. She reported having some back pain, which is not new. She stated that she just had her lunch delivered, and she is looking forward to eating. CM reviewed with her that there are several SNF referrals pending, and CM continues to follow up with them. Per report, her temperature was elevated and her WBC has also increased, therefore she will have repeat labs today. She was seen by Ortho yesterday, who recommended to continue non surgical intervention at this time. CM provided an update to Luz, her daughter. CM will continue to follow. A: Ester is a 71 year old female admitted to [facility] on 02/19/22 with a UTI. P: Ester will likely go to SNF once medically cleared. CM will continue to follow up on referrals sent to several facilities. CM will notify her daughter, Luz ([phone]) of her transfer. She will follow up with her PCP and discharge plan of care. CM will continue to follow.
[2022-02-27 11:16] LABS: C-Reactive Protein 5.22 mg/dL (0.0-0.3)
[2022-02-27 11:39] LABS: Procalcitonin 0.6 ng/mL
--- NOTE | 2022-02-27 14:43 | PT.INTREAT ---
PT Notes Visit Reasons: Urinary tract infection Inpatient Physical Therapy Treatment Note [facility] Date: 02/27/22 SUBJECTIVE: Patricia states that her shld is hurting this am. She also c/o left elbow pain. Refuses to sit in recliner or chair. refused ambulation in pm OBJECTIVE: [] BED MOBILITY/TRANSFERS Supine-sit: min A Sit-supine:SBA Sit-stand: SBA Stand-sit: SBA GAIT Assistive Device: LABORATORY APPARATUS GLASS BLOWER Weight bearing: full Assist: LABORATORY APPARATUS GLASS BLOWER/CGA Distance: 250' ASSESSMENT: tolerated session quite well. No LOB noted during ambulation. Reminded her to avoid using her right UE to get OOB as she tends to push off that arm. She denies doing so. PLAN: will continue to progress her functional mobility and general strength/conditioning to tolerance following PT POC. TREATMENT CODE/TIME: 25 min in am ([id number])
--- NOTE | 2022-02-27 14:50 | W.PM.PROGNOT ---
Date of Service Date of service: 02/27/22 Time of Service: 14:00 Assessment and Plan Assessment and plan (1) HCAP (healthcare-associated pneumonia): Status: Acute Assessment and plan: CXR AP and lateral chest views were obtained at 1448 hours.? The heart is mildly enlarged.? There are small bilateral pleural effusions.? There are probable patchy areas of increased radiodensity in the left lung base raising the possibility of pneumonitis ..? Comminuted right proximal humeral fracture again noted. IMPRESSION: Small bilateral effusions, question basilar pneumonia. Have done BC, WBC decreased today and procalcitonin 0.6; urine is negative - will start cefepime IV CRP 5.22 Blood cultures and urine culture negative to date MRSA screen pending. (2) UTI (urinary tract infection): Status: Acute Assessment and plan: WBC increased, continues to have increased temp on and off - will collect another urine spec Renal US done IMPRESSION: 1.? No significant ultrasound findings in the kidneys. 2.? Patient was apparently not able to void. Prevoid volume was 240 cc. No obvious mass in the urinary bladder. No diverticuli. (3) Fever: Status: Acute Assessment and plan: BC with no growth to date; tylenol PO PRN repeat urine again - pending oxygenating well on room air, no cough no skin rashes no abdominal pain covid pcr negative (4) Closed fracture of proximal end of right humerus: Status: Acute Assessment and plan: continue sling and pain management will f/u with orthopedics outpatient calcium/vit D supplement PT and OT consult ice for comfort if needed. Per ortho recommendations: At this time, continue non-operative management.? Recommend sling when out of bed or ambulatory for another 4-5 weeks.? Should remove sling when resting in bed or chair.? Should perform gentle passive shoulder range of motion including pendulums.? Light active use of hand okay.? Encourage daily active range of motion about fingers, wrist, and elbow to prevent stiffness.? Nonweightbearing and no carrying right upper extremity.? Repeat right shoulder x-rays (true AP and scapular Y) and upright or standing position in 1-2 weeks. 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 bs 139-229 (7) Hypomagnesemia: Status: Acute Assessment and plan: mag 2.0 today - no intervention needed Subjective Subjective Patient reports: no new complaints Interval history since last seen: Awake, alert, conversant. Declined a shower today. States the pain has increased slightly and would like something stronger for pain than tylenol - she did have a few other options ordered and I reminded her medication for pain is available to her and to ring the lee and ask. Exam Narrative Exam Narrative: General: laying in bed, slumped down. She is awake and alert, oriented to person, place and time. She engages in conversation and answers questions appropriately. She did ask to be pulled up today - she was repositioned and happy. HEENT: normocephalic, atraumatic, EOMI, MMM. Neck: supple. Cardiovascular: heart sounds regular, nontachycardic, +murmur. Respiratory: respirations appear even and unlabored, lung sounds are diminished at bases. GI: +BS, abd soft, nondistended, nontender on palpation. Extremities: RUE with ecchymosis over shoulder and upper arm. No lower extremity edema. Does use the right arm quite a bit. Objective Last Vital Signs Temp 37.9 C H 02/27/22 07:57 Pulse 81 02/26/22 23:00 Resp 20 02/26/22 23:00 BP 106/63 02/26/22 23:00 Pulse Ox 98 02/26/22 23:00 Laboratory Results - last 24 hr 02/27/22 02/27/22 02/27/22 06:38 06:38 10:25 WBC 14.88 H RBC 4.03 Hgb 11.8 Hct 35.8 L MCV 89 MCH 29.3 MCHC 33.0 RDW 12.3 Plt Count 418 H MPV 9.7 Immature Gran % 1.1 Neutrophils % 84.3 Lymphocytes % 9.7 Monocytes % 3.8 Eosinophils % 0.7 Basophils % 0.4 Nucleated RBC % 0.0 Absolute Neutrophils 12.54 H Absolute Lymphocytes 1.44 Absolute Monocytes 0.57 Absolute Eosinophils 0.10 Absolute Basophils 0.06 ESR VBG Lactate Sodium 134 L Potassium 4.1 Chloride 101 Carbon Dioxide 26.8 Anion Gap 6.2 BUN 9 Creatinine 0.6 Est GFR (CKD-EPI 2020) 95.31 Glucose 139 H Calcium 8.8 Magnesium 1.9 C-Reactive Protein Procalcitonin Add-On Test Request DONE 02/27/22 02/27/22 02/27/22 10:25 10:25 10:25 WBC RBC Hgb Hct MCV MCH MCHC RDW Plt Count MPV Immature Gran % Neutrophils % Lymphocytes % Monocytes % Eosinophils % Basophils % Nucleated RBC % Absolute Neutrophils Absolute Lymphocytes Absolute Monocytes Absolute Eosinophils Absolute Basophils ESR 55 H VBG Lactate 1.0 Sodium Potassium Chloride Carbon Dioxide Anion Gap BUN Creatinine Est GFR (CKD-EPI 2020) Glucose Calcium Magnesium C-Reactive Protein 5.22 H Procalcitonin 0.6 Add-On Test Request Reviewed Pertinent PMH: Yes PAWSS Have you Been Recently Intoxicated or Drunk Within the Last 30 days?: Yes Have you Ever Experienced Previous Episodes of Alcohol Withdrawal?: No Have you ever Experienced Withdrawal Seizures?: No Have you ever Experienced Delirium Tremens(DT)s?: No Have you ever undergone Alcohol Rehabilitation Treatment (i.e, inpt ot outpatient treatment programs)?: No Have you ever Experienced Blackouts?: No Have you ever Combined Alcohol with other Downers within the last 90 days?: No Have you ever Combined Alcohol with any other Substance of Abuse during the last 90 days?: No Positive Blood Alcohol level on Presentation? [PCS.BAL]: No Evidence of Increased Autonomic Activity (i.e. HR>120, tremor, sweating, agitation, nausea)?: No Result: 1
--- NOTE | 2022-02-27 14:59 | DI.RAD_ITS ---
Exam(s) XR CHEST 2V PA LATERAL EXAM: XR CHEST 2V PA LATERAL CLINICAL HISTORY: Fever, increase WBC TECHNIQUE: COMPARISON: CR XR CHEST 1V IN DI DEPT from 02/25/2022 FINDINGS: AP and lateral chest views were obtained at 1448 hours. The heart is mildly enlarged. There are sma ll bilateral pleural effusions. There are probable patchy areas of increased radiodensity in the lef t lung base raising the possibility of pneumonitis .. Comminuted right proximal humeral fracture aga in noted. IMPRESSION: Small bilateral effusions, question basilar pneumonia. RADIATION DOSE DELIVERED: Total DLP
[2022-02-27 15:25] VITALS: BP 105/59; PULSE 87; RESP 16; TEMP 37.1; O2SAT 97
[2022-02-27 16:54] LABS: Bilirubin Negative (Negative); Blood Moderate (Negative); Clarity Clear (Clear); Glucose Negative (Negative); Ketones Trace mg/dL (Negative); Leukocyte Esterase Negative (Negative); Nitrite Negative (Negative); Specific Gravity 1.015 (1.005-1.025); Urobilinogen 0.2 EU/dL (Up TO 0.2); pH 6.5 (5-8)
[2022-02-27 17:05] LABS: Bacteria Few HPF (Negative); Crystals Negative HPF (Negative); Epithelial Cells Rare HPF (Negative); Mucus Trace (Negative)
[2022-02-27 17:06] LABS: C & S Indicated? C&S Done As Ordered; Casts Negative LPF (Negative)
[2022-02-27] MEDS: CEFEPIME 2 GM in Normal Saline 100 ML IVPB (18:32)
[2022-02-27] MEDS: Lidocaine 5% Patch 1 PATCH TP (20:54)
[2022-02-27] MEDS: Insulin Glargine 300 UNITS/3 ML PEN SC (22:16)
[2022-02-27 23:02] VITALS: BP 110/64; PULSE 91; RESP 19; TEMP 37.5; O2SAT 96
[2022-02-28] MEDS: CEFEPIME 2 GM in Normal Saline 100 ML IVPB ×2 (06:44→18:08)
[2022-02-28] MEDS: Normal Saline Flush 10 ML SYR IVP ×3 (06:45→14:49)
[2022-02-28 07:38] VITALS: BP 122/72; PULSE 85; RESP 16; TEMP 37.1; O2SAT 96
[2022-02-28 07:51] LABS: Abs Immature Grans 0.14 10^3/uL (0.0-0.06); Absolute Basophil Count 0.05 10^3/uL (0.0-0.2); Absolute Eosinophil Count 0.13 10^3/uL (0.0-0.7); Absolute Monocyte Count 0.74 10^3/uL (0.1-0.8); Basophils % 0.4; Eosinophils % 1.1; HCT 33.5 % (36.0-46.0); HGB 11.4 g/dL (11.2-15.7); Immature Grans % 1.2; Lymphocytes % 15.3; MCH 29.8 pg (27.0-33.0); MCV 88 fL (80-95); MPV 9.8 fL (8.0-11.0); Monocytes % 6.3; Neutrophils % 75.7; Platelet Count 456 10^3/uL (130-400); RBC 3.82 10^6/uL (3.93-5.22); RDW 12.5 % (11.7-14.6); WBC 11.73 10^3/uL (4.4-10.8)
[2022-02-28 08:00] LABS: Anion Gap 9.5 mmol/L (3-11); BUN 9 mg/dL (7-18); CO2 24.5 mmol/L (21.0-32.0); CREATININE 0.6 mg/dL (0.55-1.02); Chloride 101 mmol/L (98-107); Estimated GFR 95.31 (mL/min/1.73m2); Glucose 135 mg/dL (74-106); Potassium 3.9 mmol/L (3.5-5.1); Sodium 135 mmol/L (136-145)
[2022-02-28 08:02] LABS: Absolute Lymphocyte Count 1.79 10^3/uL (1.2-3.4); Absolute Neutrophil Count 8.88 10^3/uL (1.2-6.7)
[2022-02-28] MEDS: Magnesium Oxide 400 MG TAB PO (09:34)
[2022-02-28] MEDS: Enoxaparin 40 MG/0.4 ML SYR SC (09:34)
[2022-02-28] MEDS: Thiamine 100 MG TAB PO (09:35)
[2022-02-28] MEDS: Insulin Aspart 300 UNITS/3 ML PEN SC ×3 (09:36→18:08)
[2022-02-28] MEDS: Calcium 600mg/Vit D 200U TAB 1 TAB PO ×2 (11:01→20:42)
--- NOTE | 2022-02-28 11:20 | PT.INTREAT ---
Date of service: 02/28/22 Time of Service: 11:00 PT Notes Visit Reasons: Urinary tract infection Inpatient Physical Therapy Treatment Note [facility] Date: 02/28/2022 PRECAUTIONS: Fall SUBJECTIVE: After multiple attempt patient finally agreed to walk with me this morning. Indicated several people were taking up her time and she was not able to eat her breakfast. Stated she felt a little off balance today. OBJECTIVE: PAIN: Significant pain in right UE when attempting to move it to put on/ off sling or to place on a pillow. Discussed gentle pendulums with right UE but stated it hurt to move it. 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 PLAN: Continue with current plan of care with focus on increased mobility and encourage pendulums for right UE as per Dr. Ortiz's request. TREATMENT CODE/TIME: 47391 x 1, 11:10 to 11:30 (20')
--- NOTE | 2022-02-28 13:53 | PGE_ITS ---
Date of Service Date of service: 02/28/22 Time of Service: 11:00 Assessment and Plan Assessment and plan (1) HCAP (healthcare-associated pneumonia): Status: Acute Assessment and plan: CXR AP and lateral chest views were obtained at 1448 hours.? The heart is mildly enlarged.? There are small bilateral pleural effusions.? There are probable patchy areas of increased radiodensity in the left lung base raising the possibility of pneumonitis ..? Comminuted right proximal humeral fracture again noted. IMPRESSION: Small bilateral effusions, question basilar pneumonia. cefepime IV Blood cultures and urine culture negative to date MRSA screen negative. (2) UTI (urinary tract infection): Status: Acute Assessment and plan: WBC improivng; urine negative, C&S negative to date Renal US done IMPRESSION: 1.? No significant ultrasound findings in the kidneys. 2.? Patient was apparently not able to void. Prevoid volume was 240 cc. No obvious mass in the urinary bladder. No diverticuli. (3) Fever: Status: Resolved Assessment and plan: BC with no growth to date; tylenol PO PRN repeat urine negative oxygenating well on room air, no cough no skin rashes no abdominal pain covid pcr negative afebrile > 24 h (4) Closed fracture of proximal end of right humerus: Status: Acute Assessment and plan: continue sling and pain management will f/u with orthopedics outpatient calcium/vit D supplement PT and OT consult ice for comfort if needed. Per ortho recommendations: At this time, continue non-operative management.? Recommend sling when out of bed or ambulatory for another 4-5 weeks.? Should remove sling when resting in bed or chair.? Should perform gentle passive shoulder range of motion including pendulums.? Light active use of hand okay.? Encourage daily active range of motion about fingers, wrist, and elbow to prevent stiffness.? Nonweightbearing and no carrying right upper extremity.? Repeat right shoulder x-rays (true AP and scapular Y) and upright or standing position in 1-2 weeks. 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 bs 139-229 (7) Hypomagnesemia: Status: Acute Assessment and plan: mag 2.0 today - no intervention needed Subjective Subjective Patient reports: no new complaints Interval history since last seen: Ester is still refusing to participate with PT, she has pain med ordered, encouraged to ask for medication for pain. No other complaints - no urinary complaints. Exam Narrative Exam Narrative: General: laying in bed, slumped down. She is awake and alert, oriented to person, place and time. She engages in conversation and answers questions appropriately. . HEENT: normocephalic, atraumatic, EOMI, MMM. Neck: supple. Cardiovascular: heart sounds regular, nontachycardic, +murmur. Respiratory: respirations appear even and unlabored, lung sounds are diminished at bases. GI: +BS, abd soft, nondistended, nontender on palpation. Extremities: RUE with ecchymosis over shoulder and upper arm. No lower extremity edema. Does use the right arm quite a bit. Observed her using arm to pull herself up without c/o pain or grimace Objective Last Vital Signs Temp 37.1 C 02/28/22 07:38 Pulse 85 02/28/22 07:38 Resp 16 02/28/22 07:38 BP 122/72 02/28/22 07:38 Pulse Ox 96 02/28/22 07:38 Laboratory Results - last 24 hr 02/27/22 02/28/22 02/28/22 16:27 06:40 06:40 WBC 11.73 H RBC 3.82 L Hgb 11.4 Hct 33.5 L MCV 88 MCH 29.8 MCHC 34.0 RDW 12.5 Plt Count 456 H MPV 9.8 Immature Gran % 1.2 Neutrophils % 75.7 Lymphocytes % 15.3 Monocytes % 6.3 Eosinophils % 1.1 Basophils % 0.4 Nucleated RBC % 0.0 Absolute Neutrophils 8.88 H Absolute Lymphocytes 1.79 Absolute Monocytes 0.74 Absolute Eosinophils 0.13 Absolute Basophils 0.05 Sodium 135 L Potassium 3.9 Chloride 101 Carbon Dioxide 24.5 Anion Gap 9.5 BUN 9 Creatinine 0.6 Est GFR (CKD-EPI 2020) 95.31 Glucose 135 H Calcium 9.0 Magnesium 2.0 Urine Color Yellow Urine Clarity Clear Urine pH 6.5 Ur Specific [place] 1.015 Urine Protein Negative Urine Ketones Trace H Urine Blood Moderate H Urine Nitrite Negative Urine Bilirubin Negative Urine Urobilinogen 0.2 Ur Leukocyte Esterase Negative Urine RBC 5-10 H Urine WBC 3-5 Ur Epithelial Cells Rare Urine Crystals Negative Urine Bacteria Few Urine Casts Negative Urine Mucus Trace Ur Culture Indicated? C&S Done As Ordered Urine Glucose Negative PAWSS Have you Been Recently Intoxicated or Drunk Within the Last 30 days?: Yes Have you Ever Experienced Previous Episodes of Alcohol Withdrawal?: No Have you ever Experienced Withdrawal Seizures?: No Have you ever Experienced Delirium Tremens(DT)s?: No Have you ever undergone Alcohol Rehabilitation Treatment (i.e, inpt ot outpatient treatment programs)?: No Have you ever Experienced Blackouts?: No Have you ever Combined Alcohol with other Downers within the last 90 days?: No Have you ever Combined Alcohol with any other Substance of Abuse during the last 90 days?: No Positive Blood Alcohol level on Presentation? [PCS.BAL]: No Evidence of Increased Autonomic Activity (i.e. HR>120, tremor, sweating, agitation, nausea)?: No Result: 1
[2022-02-28] MEDS: HYDROcodone 5/Acetaminophen 325 TAB PO (14:44)
[2022-02-28] MEDS: Ketorolac 30 MG/ML VIAL IVP (14:47)
[2022-02-28 15:51] VITALS: BP 112/68; PULSE 88; RESP 16; TEMP 36.9; O2SAT 96
[2022-02-28] MEDS: Lidocaine 5% Patch 1 PATCH TP (20:42)
[2022-02-28] MEDS: Insulin Glargine 300 UNITS/3 ML PEN SC (21:50)
[2022-02-28 23:16] VITALS: BP 124/60; PULSE 63; RESP 18; TEMP 36.6; O2SAT 94
[2022-03-01] MEDS: CEFEPIME 2 GM in Normal Saline 100 ML IVPB ×2 (06:45→18:10)
[2022-03-01] MEDS: Normal Saline Flush 10 ML SYR IVP ×3 (06:46→18:10)
[2022-03-01 07:33] LABS: Abs Immature Grans 0.16 10^3/uL (0.0-0.06); Absolute Basophil Count 0.03 10^3/uL (0.0-0.2); Absolute Eosinophil Count 0.24 10^3/uL (0.0-0.7); Absolute Lymphocyte Count 1.02 10^3/uL (1.2-3.4); Absolute Neutrophil Count 6.39 10^3/uL (1.2-6.7); Basophils % 0.4; Eosinophils % 2.8; HCT 31.1 % (36.0-46.0); HGB 10.3 g/dL (11.2-15.7); Immature Grans % 1.9; Lymphocytes % 12.1; MCH 29.9 pg (27.0-33.0); MCHC 33.1 % (32.0-36.0); MCV 90 fL (80-95); MPV 9.5 fL (8.0-11.0); Monocytes % 7.1; Neutrophils % 75.7; Platelet Count 395 10^3/uL (130-400); RBC 3.45 10^6/uL (3.93-5.22); RDW 12.3 % (11.7-14.6); RDW-SD 40.7 fL; WBC 8.44 10^3/uL (4.4-10.8)
[2022-03-01 07:41] LABS: Anion Gap 2.3 mmol/L (3-11); BUN 10 mg/dL (7-18); CO2 22.7 mmol/L (21.0-32.0); CREATININE 0.8 mg/dL (0.55-1.02); Calcium 7.5 mg/dL (8.5-10.1); Chloride 112 mmol/L (98-107); Estimated GFR 78.24 (mL/min/1.73m2); Glucose 132 mg/dL (74-106); Potassium 3.3 mmol/L (3.5-5.1); Sodium 137 mmol/L (136-145)
--- NOTE | 2022-03-01 08:34 | W.PM.PROGNOT ---
Date of Service Date of service: 03/01/22 Time of Service: 08:34 Assessment and Plan Assessment and plan (1) HCAP (healthcare-associated pneumonia): Status: Acute Assessment and plan: CXR AP and lateral chest views were obtained at 1448 hours.? The heart is mildly enlarged.? There are small bilateral pleural effusions.? There are probable patchy areas of increased radiodensity in the left lung base raising the possibility of pneumonitis ..? Comminuted right proximal humeral fracture again noted. IMPRESSION: Small bilateral effusions, question basilar pneumonia. cefepime IV day 3 No cough; SPO2 Blood cultures and urine culture negative to date MRSA screen negative. (2) Hypokalemia: Status: Acute Assessment and plan: 3.3 - refuses IV replacement, will give 20 meq orally x three and recheck tomorrow. (3) Noncompliance by refusing intervention or support: Status: Acute Assessment and plan: She is refusing bathing, showers, getting out of bed, PT. Reminded she has to participate in her care; continues to be unkind to caregivers. (4) UTI (urinary tract infection): Status: Resolved Assessment and plan: Urine negative, C&S negative to date Renal US done IMPRESSION: 1.? No significant ultrasound findings in the kidneys. 2.? Patient was apparently not able to void. Prevoid volume was 240 cc. No obvious mass in the urinary bladder. No diverticuli. (5) Fever: Status: Resolved Assessment and plan: BC with no growth to date; tylenol PO PRN repeat urine negative oxygenating well on room air, no cough no skin rashes no abdominal pain covid pcr negative afebrile > 24 h (6) Closed fracture of proximal end of right humerus: Status: Acute Assessment and plan: continue sling and pain management will f/u with orthopedics outpatient calcium/vit D supplement PT and OT consult ice for comfort if needed. Per ortho recommendations: At this time, continue non-operative management.? Recommend sling when out of bed or ambulatory for another 4-5 weeks.? Should remove sling when resting in bed or chair.? Should perform gentle passive shoulder range of motion including pendulums.? Light active use of hand okay.? Encourage daily active range of motion about fingers, wrist, and elbow to prevent stiffness.? Nonweightbearing and no carrying right upper extremity.? Repeat right shoulder x-rays (true AP and scapular Y) and upright or standing position in 1-2 weeks. 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 bs 139-229 (9) Hypomagnesemia: Status: Acute Assessment and plan: monitor; replete prn Subjective Subjective Patient reports: no new complaints, still having pain, tolerating a regular diet, voiding w/o difficulty and afebrile; denies diarrhea, nausea, vomiting or shortness of breath Exam Const General: uncooperative, frail appearing and ill appearing chronically Nutritional Appearance: average body habitus Orientation: alert, awake and oriented x3 HENMT Head: normal to inspection, normocephalic and atraumatic Mouth: oral mucosae normal Resp Effort & Inspection: normal respiratory effort Cardio Rate: regular rate GI Inspection: normal to inspection Palpation: soft Auscultation: normal bowel sounds Skin General skin exam: no rashes or lesions noted Neuro General: patient alert, patient awake and patient oriented x3 Extrem Right upper extremity: edema (old ecchymosis. ); abnormal to inspection Objective Last Vital Signs Temp 36.6 C 02/28/22 23:16 Pulse 63 02/28/22 23:16 Resp 18 02/28/22 23:16 BP 124/60 02/28/22 23:16 Pulse Ox 94 02/28/22 23:16 Laboratory Results - last 24 hr 03/01/22 03/01/22 06:55 06:55 WBC 8.44 RBC 3.45 L Hgb 10.3 L Hct 31.1 L MCV 90 MCH 29.9 MCHC 33.1 RDW 12.3 Plt Count 395 MPV 9.5 Immature Gran % 1.9 Neutrophils % 75.7 Lymphocytes % 12.1 Monocytes % 7.1 Eosinophils % 2.8 Basophils % 0.4 Nucleated RBC % 0.0 Absolute Neutrophils 6.39 Absolute Lymphocytes 1.02 L Absolute Monocytes 0.60 Absolute Eosinophils 0.24 Absolute Basophils 0.03 Sodium 137 Potassium 3.3 L Chloride 112 H Carbon Dioxide 22.7 Anion Gap 2.3 L BUN 10 Creatinine 0.8 Est GFR (CKD-EPI 2020) 78.24 Glucose 132 H Calcium 7.5 L Reviewed Pertinent PMH: Yes PAWSS Have you Been Recently Intoxicated or Drunk Within the Last 30 days?: Yes Have you Ever Experienced Previous Episodes of Alcohol Withdrawal?: No Have you ever Experienced Withdrawal Seizures?: No Have you ever Experienced Delirium Tremens(DT)s?: No Have you ever undergone Alcohol Rehabilitation Treatment (i.e, inpt ot outpatient treatment programs)?: No Have you ever Experienced Blackouts?: No Have you ever Combined Alcohol with other Downers within the last 90 days?: No Have you ever Combined Alcohol with any other Substance of Abuse during the last 90 days?: No Positive Blood Alcohol level on Presentation? [PCS.BAL]: No Evidence of Increased Autonomic Activity (i.e. HR>120, tremor, sweating, agitation, nausea)?: No Result: 1
[2022-03-01] MEDS: Acetaminophen 325 MG TAB 650 MG PO (09:25)
[2022-03-01] MEDS: Calcium 600mg/Vit D 200U TAB 1 TAB PO ×2 (09:26→20:38)
[2022-03-01] MEDS: Enoxaparin 40 MG/0.4 ML SYR SC (09:26)
[2022-03-01] MEDS: Magnesium Oxide 400 MG TAB PO (09:27)
[2022-03-01] MEDS: Thiamine 100 MG TAB PO (09:27)
[2022-03-01] MEDS: Insulin Aspart 300 UNITS/3 ML PEN SC ×3 (09:28→17:05)
[2022-03-01] MEDS: POTASSIUM CHLORIDE 10 MEQ/100 ML BAG 100 MEQ IVPB ×2 (11:06→12:33)
[2022-03-01] MEDS: Ketorolac 15 MG/ML VIAL IVP (11:11)
[2022-03-01 12:03] LABS: Lab Add On Test DONE
[2022-03-01 12:11] LABS: Albumin 1.8 g/dL (3.4-5.0)
--- NOTE | 2022-03-01 12:19 | NT_ITS ---
Date of service: 03/01/22 Time of Service: 12:20 PT Notes Visit Reasons: Urinary tract infection 03/01/2022 Attempted to see patient 3 times today, but she refused PT services indicating she was having pain in the posterior aspect of the left shoulder. 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
[2022-03-01 14:17] VITALS: BP 123/73; PULSE 63; RESP 18; TEMP 36.3; O2SAT 94
[2022-03-01 14:25] LABS: Lab Add On Test DONE
[2022-03-01 14:45] LABS: ALT 11 U/L (14-59); AST 18 U/L (15-37); Albumin 1.8 g/dL (3.4-5.0); Alkaline Phosphatase 53 U/L (46-116); Bilirubin, Direct 0.1 mg/dL (0.0-0.2); Bilirubin, Total 0.5 mg/dL (0.2-1.0); C-Reactive Protein 3.43 mg/dL (0.0-0.3); Total Protein 6.8 g/dL (6.4-8.2)
[2022-03-01] MEDS: Potassium Chloride 20 MEQ TABCR PO ×2 (15:01→20:38)
[2022-03-01 15:24] VITALS: BP 115/69; PULSE 71; RESP 16; TEMP 37.2; O2SAT 97
[2022-03-01] MEDS: Lidocaine 5% Patch 1 PATCH TP (20:39)
[2022-03-01] MEDS: Insulin Glargine 300 UNITS/3 ML PEN SC (21:48)
[2022-03-01 23:35] VITALS: BP 115/69; PULSE 71; RESP 16; TEMP 36.7; O2SAT 97
[2022-03-02] MEDS: Cyclobenzaprine 10 MG TAB 5 MG PO (00:41)
[2022-03-02] MEDS: Normal Saline Flush 10 ML SYR IVP ×3 (06:40→19:07)
[2022-03-02] MEDS: CEFEPIME 2 GM in Normal Saline 100 ML IVPB ×2 (06:42→18:39)
[2022-03-02 06:55] LABS: Legionella Ag Detection Urine Negative (Negative)
[2022-03-02 07:11] LABS: Abs Immature Grans 0.17 10^3/uL (0.0-0.06); Absolute Basophil Count 0.06 10^3/uL (0.0-0.2); Absolute Eosinophil Count 0.34 10^3/uL (0.0-0.7); Absolute Monocyte Count 0.76 10^3/uL (0.1-0.8); Basophils % 0.7; Eosinophils % 3.8; HCT 35.3 % (36.0-46.0); Immature Grans % 1.9; Lymphocytes % 17.9; MCH 29.7 pg (27.0-33.0); MCV 87 fL (80-95); MPV 9.7 fL (8.0-11.0); Monocytes % 8.5; Neutrophils % 67.2; Platelet Count 535 10^3/uL (130-400); RBC 4.04 10^6/uL (3.93-5.22); RDW 12.4 % (11.7-14.6); WBC 8.93 10^3/uL (4.4-10.8)
[2022-03-02 07:27] LABS: Anion Gap 8.2 mmol/L (3-11); BUN 9 mg/dL (7-18); C-Reactive Protein 3.11 mg/dL (0.0-0.3); CO2 26.8 mmol/L (21.0-32.0); CREATININE 0.6 mg/dL (0.55-1.02); Calcium 9.9 mg/dL (8.5-10.1); Chloride 102 mmol/L (98-107); Estimated GFR 95.31 (mL/min/1.73m2); Glucose 133 mg/dL (74-106); Magnesium 2.1 mg/dL (1.8-2.4); Potassium 4.4 mmol/L (3.5-5.1); Sodium 137 mmol/L (136-145)
[2022-03-02 08:42] VITALS: BP 102/53; PULSE 80; RESP 16; TEMP 36.3; O2SAT 96
[2022-03-02] MEDS: Enoxaparin 40 MG/0.4 ML SYR SC (09:39)
[2022-03-02] MEDS: Calcium 600mg/Vit D 200U TAB 1 TAB PO ×2 (09:41→19:09)
[2022-03-02] MEDS: Thiamine 100 MG TAB PO (09:42)
[2022-03-02] MEDS: Magnesium Oxide 400 MG TAB PO (09:42)
[2022-03-02] MEDS: Potassium Chloride 20 MEQ TABCR PO ×2 (09:42→19:09)
--- NOTE | 2022-03-02 10:00 | RT.EKG_ITS ---
APPROVED REPORT Exam: Resting ECG Reason for Exam: chest pain Patient Location: I HR:85 bpm ECG Measurements Heart Rate 85 AXIS VA 157 P -20 QRSd 85 QRS -30 QT 354 T 60 QTc 421 Conclusion Sinus rhythm...normal P axis, V-rate 50- 99 Poor R wave progression
[2022-03-02 10:06] VITALS: BP 111/67; PULSE 85; RESP 16; TEMP 37.1; O2SAT 98
[2022-03-02] MEDS: Insulin Aspart 300 UNITS/3 ML PEN SC ×2 (11:50→22:30)
[2022-03-02] MEDS: Acetaminophen 325 MG TAB 650 MG PO ×2 (11:55→19:09)
[2022-03-02] MEDS: Ketorolac 15 MG/ML VIAL IVP ×2 (11:55→19:07)
--- NOTE | 2022-03-02 13:03 | PT.INTREAT ---
Date of service: 03/02/22 Time of Service: 11:10 PT Notes Visit Reasons: Urinary tract infection Inpatient Physical Therapy Treatment Note [facility] Date: 03/02/2022 Attempted to work with patient twice this morning. At first attempt I was informed she was having continued posterior left shoulder pain and has been experiencing chest pain this morning. This information was given to Nurse Knapp. Later in morning I did check with Nurse Knapp and she indicated Patricia did have an EKG and she was okay to do PT if willing. Did attempt to have patient get out of bed but she indicated she wanted to do her PT, but was having too much left shoulder pain, so treatment was discontinued. 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 Stated she has been using the hemiwalker when going to the bathroom. Did help nursing pull patient up to head of bed with draw sheet.
[2022-03-02 15:42] VITALS: BP 84/56; PULSE 81; RESP 17; TEMP 36.9; O2SAT 98
[2022-03-02 15:51] VITALS: BP 103/63
--- NOTE | 2022-03-02 17:19 | W.PM.PROGNOT ---
Date of Service Date of service: 03/02/22 Time of Service: 13:00 Assessment and Plan Assessment and plan (1) HCAP (healthcare-associated pneumonia): Status: Acute Assessment and plan: CXR AP and lateral chest views were obtained at 1448 hours.? The heart is mildly enlarged.? There are small bilateral pleural effusions.? There are probable patchy areas of increased radiodensity in the left lung base raising the possibility of pneumonitis ..? Comminuted right proximal humeral fracture again noted. IMPRESSION: Small bilateral effusions, question basilar pneumonia. cefepime IV day 4 No cough; SPO2 96-98 RA - no diff breathing. CRP 3.11 WBC 4.4 Blood cultures and urine culture negative to date MRSA screen negative. (2) Hypokalemia: Status: Acute Assessment and plan: 4.4 today - back to 20 meq daily of potassiium and will recheck tomorrow. (3) Noncompliance by refusing intervention or support: Status: Acute Assessment and plan: She is refusing bathing, showers, getting out of bed, PT. She is eating. I and others reminded she has to participate in her care; continues to be unkind to caregivers. Today she told me I was interrupting her show on TV and to get out of her room. (4) UTI (urinary tract infection): Status: Resolved Assessment and plan: Urine negative, C&S negative to date Renal US done IMPRESSION: 1.? No significant ultrasound findings in the kidneys. 2.? Patient was apparently not able to void. Prevoid volume was 240 cc. No obvious mass in the urinary bladder. No diverticuli. (5) Fever: Status: Resolved Assessment and plan: BC with no growth to date; tylenol PO PRN repeat urine negative oxygenating well on room air, no cough no skin rashes no abdominal pain covid pcr negative afebrile > 24 h (6) Closed fracture of proximal end of right humerus: Status: Acute Assessment and plan: continue sling and pain management will f/u with orthopedics outpatient calcium/vit D supplement PT and OT consult ice for comfort if needed. Per ortho recommendations: At this time, continue non-operative management.? Recommend sling when out of bed or ambulatory for another 4-5 weeks.? Should remove sling when resting in bed or chair.? Should perform gentle passive shoulder range of motion including pendulums.? Light active use of hand okay.? Encourage daily active range of motion about fingers, wrist, and elbow to prevent stiffness.? Nonweightbearing and no carrying right upper extremity.? Repeat right shoulder x-rays (true AP and scapular Y) and upright or standing position in 1-2 weeks. 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 bs 139-229 (9) Hypomagnesemia: Status: Acute Assessment and plan: monitor; replete prn Subjective Subjective Patient reports: still having pain and voiding w/o difficulty Interval history since last seen: Continues to refuse care. Spends most of the day on her back in bed. Encouraged to participate in her care and declines to do mostly everything asked. She is eating well, drinking fluids. She complained of pain today and requested vicodin which she was given and it did improve her pain. She reported a brief episode of chest pain this morning at rest, mid-sternum, non radiating, 3/10 and stated she was feeling belchy. No shortneess of breath, no diaphoresis, no radiation. I resolved spontaneously. EKG was unremarkable, sinus rhythm, reviewed by Dr Leos. Exam Const General: uncooperative, frail appearing and ill appearing chronically Nutritional Appearance: average body habitus Orientation: alert, awake and oriented x3 [facility] Head: normal to inspection, normocephalic and atraumatic Mouth: oral mucosae normal Resp Effort & Inspection: normal respiratory effort Cardio Rate: regular rate GI Inspection: normal to inspection Palpation: soft Auscultation: normal bowel sounds Skin General skin exam: no rashes or lesions noted Neuro General: patient alert, patient awake and patient oriented x3 Extrem Right upper extremity: edema (old ecchymosis. ); abnormal to inspection Objective Last Vital Signs Temp 36.9 C 03/02/22 15:42 Pulse 81 03/02/22 15:42 Resp 17 03/02/22 15:42 BP 103/63 03/02/22 15:51 Pulse Ox 98 03/02/22 15:42 Laboratory Results - last 24 hr 02/27/22 03/02/22 03/02/22 16:27 06:10 06:10 WBC 8.93 RBC 4.04 Hgb 12.0 Hct 35.3 L MCV 87 MCH 29.7 MCHC 34.0 RDW 12.4 Plt Count 535 H MPV 9.7 Immature Gran % 1.9 Neutrophils % 67.2 Lymphocytes % 17.9 Monocytes % 8.5 Eosinophils % 3.8 Basophils % 0.7 Nucleated RBC % 0.0 Absolute Neutrophils 6.00 Absolute Lymphocytes 1.60 Absolute Monocytes 0.76 Absolute Eosinophils 0.34 Absolute Basophils 0.06 Sodium 137 Potassium 4.4 D Chloride 102 Carbon Dioxide 26.8 Anion Gap 8.2 BUN 9 Creatinine 0.6 Est GFR (CKD-EPI 2020) 95.31 Glucose 133 H Calcium 9.9 Magnesium 2.1 C-Reactive Protein 3.11 H Urine Legionella Ag Negative PAWSS Have you Been Recently Intoxicated or Drunk Within the Last 30 days?: Yes Have you Ever Experienced Previous Episodes of Alcohol Withdrawal?: No Have you ever Experienced Withdrawal Seizures?: No Have you ever Experienced Delirium Tremens(DT)s?: No Have you ever undergone Alcohol Rehabilitation Treatment (i.e, inpt ot outpatient treatment programs)?: No Have you ever Experienced Blackouts?: No Have you ever Combined Alcohol with other Downers within the last 90 days?: No Have you ever Combined Alcohol with any other Substance of Abuse during the last 90 days?: No Positive Blood Alcohol level on Presentation? [PCS.BAL]: No Evidence of Increased Autonomic Activity (i.e. HR>120, tremor, sweating, agitation, nausea)?: No Result: 1
[2022-03-02] MEDS: Lidocaine 5% Patch 1 PATCH TP (19:12)
[2022-03-02] MEDS: Insulin Glargine 300 UNITS/3 ML PEN SC (22:29)
--- NOTE | 2022-03-03 | DI.RAD_ITS ---
Exam(s) XR CHEST 2V PA LATERAL EXAM: XR CHEST 2V PA LATERAL CLINICAL HISTORY: follow up questionable pneumonia TECHNIQUE: 2D digital imaging was performed of the chest. Two images were obtained. AP and lateral views were obtained. COMPARISON: CR XR CHEST 2V PA LATERAL from 02/27/2022 FINDINGS: MEDIASTINUM: Normal. HEART: Normal. PULMONARY VASCULATURE: Normal. LUNGS: Clear. PLEURAL SPACE: No pleural effusion or pneumothorax. BONE:Within normal limits for the patient's age. There has been no change in alignment of the commin uted proximal right humeral fracture. OTHER FINDINGS:Normal. IMPRESSION: 1. No acute pulmonary findings. 2. The known proximal right humeral fracture is incompletely visualized. DATA REPOSITORY: RADIATION DOSE DELIVERED:
[2022-03-03 00:32] VITALS: BP 121/64; PULSE 78; RESP 14; TEMP 36.5; O2SAT 97
[2022-03-03] MEDS: Cyclobenzaprine 10 MG TAB 5 MG PO (05:16)
[2022-03-03] MEDS: Normal Saline Flush 10 ML SYR IVP (05:17)
[2022-03-03] MEDS: CEFEPIME 2 GM in Normal Saline 100 ML IVPB (05:18)
[2022-03-03] MEDS: Acetaminophen 325 MG TAB 650 MG PO (05:23)
[2022-03-03 06:45] LABS: Abs Immature Grans 0.17 10^3/uL (0.0-0.06); Absolute Basophil Count 0.07 10^3/uL (0.0-0.2); Absolute Eosinophil Count 0.36 10^3/uL (0.0-0.7); Absolute Lymphocyte Count 1.03 10^3/uL (1.2-3.4); Absolute Monocyte Count 0.72 10^3/uL (0.1-0.8); Basophils % 0.6; Eosinophils % 3.2; HCT 32.7 % (36.0-46.0); HGB 10.9 g/dL (11.2-15.7); Immature Grans % 1.5; Lymphocytes % 9.2; MCH 29.9 pg (27.0-33.0); MCHC 33.3 % (32.0-36.0); MCV 90 fL (80-95); MPV 9.5 fL (8.0-11.0); Monocytes % 6.4; Neutrophils % 79.1; Platelet Count 477 10^3/uL (130-400); RBC 3.64 10^6/uL (3.93-5.22); RDW 12.4 % (11.7-14.6); RDW-SD 40.9 fL; WBC 11.19 10^3/uL (4.4-10.8)
[2022-03-03 06:54] LABS: Absolute Neutrophil Count 8.85 10^3/uL (1.2-6.7)
[2022-03-03 06:57] LABS: Anion Gap 7.4 mmol/L (3-11); BUN 14 mg/dL (7-18); CO2 24.6 mmol/L (21.0-32.0); CREATININE 0.7 mg/dL (0.55-1.02); Calcium 9.8 mg/dL (8.5-10.1); Chloride 103 mmol/L (98-107); Estimated GFR 91.83 (mL/min/1.73m2); Glucose 146 mg/dL (74-106); Magnesium 1.8 mg/dL (1.8-2.4); Potassium 4.6 mmol/L (3.5-5.1); Sodium 135 mmol/L (136-145)
[2022-03-03 07:50] VITALS: BP 120/71; PULSE 106; RESP 17; TEMP 36.6; O2SAT 98
[2022-03-03] MEDS: Thiamine 100 MG TAB PO (08:24)
[2022-03-03] MEDS: Calcium 600mg/Vit D 200U TAB 1 TAB PO (08:24)
[2022-03-03] MEDS: Magnesium Oxide 400 MG TAB PO (08:24)
[2022-03-03] MEDS: Potassium Chloride 20 MEQ TABCR PO (08:24)
[2022-03-03] MEDS: Insulin Aspart 300 UNITS/3 ML PEN SC ×2 (08:25→11:51)
[2022-03-03] MEDS: Enoxaparin 40 MG/0.4 ML SYR SC (08:26)
[2022-03-03 09:13] LABS: Lab Add On Test DONE
--- NOTE | 2022-03-03 09:27 | OT.INNT ---
Occupational Therapy Notes 03/03/22 Pt refused OT care today. OT will continue to resume services tomorrow. Kristan Avalos, OTR/L
--- NOTE | 2022-03-03 09:38 | PDOC.CMPRO ---
- If Service Date Differs Date of service: 03/03/22 Time of Service: 09:38 Care Management Progress Note S/O: Ester transitioned to SWB1 status today. CM reviewed status change with Ester and patients daughter Luz Hernandez. In, the mean A: Ester is a 71 year old female admitted to [facility] on 02/19/22 with a UTI. P: Ester will likely go to SNF once medically cleared. CM will continue to follow up on referrals sent to several facilities. CM will notify her daughter, Luz ([phone]) of her transfer. She will follow up with her PCP and discharge plan of care. CM will continue to follow.
--- NOTE | 2022-03-03 09:40 | NUR.NOTE ---
SPECIALTY TRIMMER was in room doing vitals and blood sugar check, patient has history of being incont. so SPECIALTY TRIMMER wanted to check patient brief and be sure that it was clean as well as reposition patient because they were at the end of the bed. Patient stated do not touch me! I know my rights I can sit in a dirty brief if I want to! SPECIALTY TRIMMER educated patient that keeping clean and dry is very important for their health. Patient continued to swear at [facility] SPECIALTY TRIMMER stated to patient that since they were refusing to be checked or move at this time that would be documented as a refusal. Patient appeared to be very agitated at this time. Patient was stating they wanted to be left the hell alone: SPECIALTY TRIMMER told the patient that she would give them some space and someone else would be in at a later time once they had calmed down. Shortly after other nursing staff were successful at changing the patient brief and repositioning. Nursing Note:
[2022-03-03 09:51] LABS: Procalcitonin 0.1 ng/mL
--- NOTE | 2022-03-03 13:30 | W.INDIABCONS ---
Date of service: 03/03/22 Time of Service: 13:30 Diabetes Inpatient Consult Reason for Visit: Dm DESCRIPTION/ASSESSMENT: Ester admitted with UTI s/p fall and humerus fracture. PMH: alcoholic dementia, Dm2. Home DM meds: lantus 5 units BID. Most recent A1C (7.7%) at target. Weight stable and wnl. To be discharged to SNF once medically ready. Following diabetic diet with adequate intake. Not considered at nutritional risk or at need for diabetes education PLAN: will monitor po intake, labs and weight Time Spent in Nutritional Counseling and Treatment: 0
--- NOTE | 2022-03-03 15:09 | PT.INTREAT ---
Date of service: 03/03/22 Time of Service: 10:22 PT Notes Visit Reasons: Urinary tract infection Inpatient Physical Therapy Treatment Note [facility] Date: 03/03/2022 PRECAUTIONS: Fall, NWB on R UE SUBJECTIVE: Ester is pleasant and agreeable to participating in PT. She indicates that she would like to speak with Dr. Ortiz regarding the clearance to perform PROM to R shoulder. OBJECTIVE: Donned and adjusted sling to patient's R UE for comfort, stabilization with transfer PAIN: Patient reports that she has significant pain in R shoulder at all times, which limits her ability to complete functional tasks BED MOBILITY/TRANSFERS Supine-Sit: Mod A Sit-supine: CGA Sit-stand: CGA Stand-sit: CGA GAIT Assistive Device: SPC Weight bearing: NWB on R UE Assist: CGA Distance: 500' Deviation: Slight unsteadiness, slow pacing Patient refused PROM exercises to R shoulder. ASSESSMENT: Patient tolerated a progression in gait distance with SPC support, demonstrating slight unsteadiness and slow pacing, requiring CGA for safety. She refuses PROM to R shoulder due to pain. PLAN: Continue with gait and transfer training, as well as PROM to R shoulder as patient allows TREATMENT CODE/TIME: 15 minutes; 13036 (10:22)
[2022-03-03 15:47] VITALS: BP 102/54; PULSE 95; RESP 16; TEMP 37.3; O2SAT 96
[2022-03-03 15:58] LABS: Streptococcus Pneumoniae Ag, U Negative (Negative)
--- NOTE | 2022-03-03 16:00 | W.PM.DS.N ---
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 SWING BED LEVEL 1 Condition: Stable Discharge Details Reason For Visit: UTI Admit Date/Time: 02/19/22 13:44 Admit Provider: Peter Vieyra Attending Provider: Peter Vieyra Primary Care Provider: Van Montero Hospital Course Hospital Course: This is a 71 year old female, history of alcoholic dementia, diet controlled diabetes mellitus, who has had multiple falls at home recently.? She was seen in ED and diagnosed with right humerus fracture.? she was discharged to home with outpatient orthopedic follow up but returned after falling again.? This work up showed acute UTI, she grew ESBL and was treated initially with ceftriaxone then given fosfomycin when cultures returned.? She continued to remain febrile but asymptomatic. she was started on imipenem and completed a 5 day course, recheck on the urine was negative for ongoing infection yet she continued to be febrile. Her fever thought d/t fracture at this point with negative UA, chest xray and blood cultures. she remained asymptomatic with no resp c/o, abdominal pain or rashes. antibiotics discontinued but she continued to remain febrile. she was re-xrays and cultured and xray then showed possible pneumonia vs atelectasis and d/t elevated procal at 0.7 she was treated with cefepime. after 5 days procal and xray normalized. patient remained asymptomatic the entire time. she continues to require rehab d/t her ongoing shoulder pain, deconditioning and weakness and is not ready for discharge to home. she will be discharged to [facility] for further rehabilitation prior to returning home. orthopedics has been following and will continue to follow outpatient for further recommendations. decision to hold off on surgical repair at this time as she was not initially cooperative with rehabilitation but now is participating. They would like to re-image and evaluate her outpatient to see if surgical repair recommended in a few weeks. case management has place rehab referrals now that she is medically stable and participating. she will remain here on on rehab status until a bed becomes available and she is accepted. discussed with DR Leos Home Meds and New Rx's Prescriptions: New calcium carbonate-vitamin D3 600 mg-5 mcg (200 unit) Tablet 1 tab PO BID Qty: 0 0RF potassium chloride [Klor-Con M20] 20 mEq Tablet,Er Particles/Crystals 20 meq PO BID Qty: 0 0RF lidocaine 5 % Adhesive Patch,Medicated 1 patch topical DAILY@1999 Qty: 0 0RF insulin aspart U-100 [Novolog Flexpen U-100 Insulin] 100 unit/mL (3 mL) Insulin Pen 0 units subcut 0800,1200,1700,2200 Qty: 0 0RF thiamine mononitrate (vit B1) [Vitamin B-1 (mononitrate)] 100 mg Tablet 100 mg PO DAILY Qty: 0 0RF insulin glargine [Lantus Solostar U-100 Insulin] 100 unit/mL (3 mL) Insulin Pen 5 unit subcut HS Qty: 0 0RF magnesium oxide 400 mg (241.3 mg magnesium) Tablet 400 mg PO DAILY Qty: 0 0RF No Action cyclobenzaprine 5 mg Tablet 5 mg PO TID Discharge Instructions Instructions: Arm Fracture in Adults (DC) Additional Instructions: Repeat right shoulder x-rays (true AP and scapular Y) and upright or standing position in 1-2 weeks. Stand Alone Forms: Nursing Discharge Form Referrals: Antonino Ortiz MD [ [facility] STAFF PHYSICIAN] - 02/24/22 9:15 am Activity:: Activity as Tolerated Equipment/Supplies:: No Equipment Needed Diet:: Carb Counting Discharge Orders Discharge Orders: Discharge Order (Routine); Ordered 03/03/22 Ordered By: Jasmin Cortes Discharge Data Discharge Date/Time-TO BE ENTERED AT DEPARTURE: 03/03/22 18:32 DS: Summary Time Spent with Patient providing and/or coordinating discharge services: Greater than 30 minutes Status at Discharge Functional status at discharge: uses cane/walker Overall status at discharge: patient is progressing back to baseline Mental Status: mental status grossly normal Speech and Movement: speech and movement normal Mood: congruent mood Affect: normal affect Exam Const General: uncooperative, frail appearing and ill appearing chronically Nutritional Appearance: average body habitus Orientation: alert, awake and oriented x3 [facility] Head: normal to inspection, normocephalic and atraumatic Mouth: oral mucosae normal Resp Effort & Inspection: normal respiratory effort Cardio Rate: regular rate GI Inspection: normal to inspection Palpation: soft Auscultation: normal bowel sounds Skin General skin exam: no rashes or lesions noted Neuro General: patient alert, patient awake and patient oriented x3 Extrem Right upper extremity: edema (old ecchymosis. ); abnormal to inspection Psych Mental Status: mental status grossly normal Speech and Movement: speech and movement normal Mood: congruent mood Affect: normal affect DS: Data Vitals/I&O Vitals and I&O: Vital Signs Temperature 37.3 C 03/03/22 15:47 Temperature Source Tympanic 03/03/22 15:47 Pulse 95 H 03/03/22 15:47 Pulse Rhythm Regular 03/03/22 08:15 Pulse 113 H 02/19/22 14:40 Respiratory Rate 16 03/03/22 15:47 Respiratory Effort Non-Labored 03/03/22 08:15 Respiratory Depth Normal 03/03/22 08:15 Respiratory Pattern Normal 03/03/22 08:15 Blood Pressure 102/54 L 03/03/22 15:47 Blood Pressure Mean 78 02/19/22 14:30 Blood Pressure Position Supine 02/19/22 10:59 Pulse Oximetry 96 03/03/22 15:47 Oxygen Delivery Method Room Air 03/03/22 15:47 Oxygen Flow Rate 0 03/03/22 15:47 Pain Level 10 03/03/22 07:50 Comment 03/02/22 15:51 Intake & Output 03/02/22 03/03/22 03/03/22 23:59 11:59 23:59 Intake Total 110 / 450 350 / 590 240 / 590 Output Total 250 / 800 400 / 600 200 / 600 Balance -140 / -350 -50 / -10 40 / -10 Intake: IV 110 / 210 110 / 110 Oral 240 / 480 240 / 480 Output: Urine 250 / 800 400 / 600 200 / 600 Other: Urine Color Yellow Yellow Yellow Straw Urine Appearance Clear Clear Clear Urine Odor Strong Comment patient was incont and voided 150 in commode voided 200 in the commode and she was also very incontinent and the bed was soaked Saturated brief of urine. Stool Size Moderate Stool Characteristics Soft Voiding Methods Bedside Commode Diaper Incontinent Diaper Incontinent Incontinent Data Completed and Pending Labs on day of discharge: Labs from last 24 hours 03/03/22 03/03/22 03/03/22 08:50 08:50 06:20 WBC 11.19 H RBC 3.64 L Hgb 10.9 L Hct 32.7 L MCV 90 MCH 29.9 MCHC 33.3 RDW 12.4 Plt Count 477 H MPV 9.5 Immature Gran % 1.5 Neutrophils % 79.1 Lymphocytes % 9.2 Monocytes % 6.4 Eosinophils % 3.2 Basophils % 0.6 Nucleated RBC % 0.0 Absolute Neutrophils 8.85 H Absolute Lymphocytes 1.03 L Absolute Monocytes 0.72 Absolute Eosinophils 0.36 Absolute Basophils 0.07 Sodium Potassium Chloride Carbon Dioxide Anion Gap BUN Creatinine Est GFR (CKD-EPI 2020) Glucose Calcium Magnesium Procalcitonin 0.1 Add-On Test Request DONE 03/03/22 06:20 WBC RBC Hgb Hct MCV MCH MCHC RDW Plt Count MPV Immature Gran % Neutrophils % Lymphocytes % Monocytes % Eosinophils % Basophils % Nucleated RBC % Absolute Neutrophils Absolute Lymphocytes Absolute Monocytes Absolute Eosinophils Absolute Basophils Sodium 135 L Potassium 4.6 Chloride 103 Carbon Dioxide 24.6 Anion Gap 7.4 BUN 14 Creatinine 0.7 Est GFR (CKD-EPI 2020) 91.83 Glucose 146 H Calcium 9.8 Magnesium 1.8 Procalcitonin Add-On Test Request Preliminary micro results at discharge 02/27/22 10:10 Blood Culture - Preliminary Blood NO GROWTH 96 HOURS 02/27/22 10:20 Blood Culture - Preliminary Blood NO GROWTH 96 HOURS PFSH All Active Problems (Updated 03/04/22 @ 16:16 by Jasmin Cortes NP) Discharge planning issues (Acute) DVT prophylaxis (Acute) HCAP (healthcare-associated pneumonia) (Acute) Palliative care encounter (Acute) Noncompliance by refusing intervention or support (Acute) Hypovolemia (Acute) Frequent falls (Acute) Fall (Acute) Fracture of proximal humerus (Acute) Closed fracture of proximal end of right humerus (Acute 02/16/22) Hypophosphatemia (Acute) Hypomagnesemia (Acute) Esophagitis (Acute) E. coli UTI (Acute) Non-insulin dependent type 2 diabetes mellitus (Chronic) Hypokalemia (Acute) Ambulatory dysfunction (Acute) Tremor (Acute) Diabetes (Chronic) Laceration of elbow with foreign body (Acute) Alcohol abuse (Chronic) Urinary tract infection (Acute) Fall (Acute) Alcohol intoxication (Acute) Medical History Acute CVA (cerebrovascular accident) Aortic stenosis Carotid stenosis Diabetes mellitus type 2 in nonobese TIA (transient ischemic attack) Surgical History Surgical history unknown Social History Smoking/Tobacco Use Status: Former Tobacco Use Smoking risk assessment performed?: Yes Alcohol Intake: current Alcohol Intake frequency: 0-2 drinks per day Alcohol type: wine Drug use: Never Substance use type: does not use Do you feel safe at home: Yes Do you feel safe in your relationship?: Yes
--- NOTE | 2022-03-04 08:10 | OT.INDS ---
Occupational Therapy Notes Occupational Therapy Inpatient Discharge Summary Date: 03/04/22 Dates of Service: 02/20/22-03/04/22 Referring Doctor: Jasmin Cortes NP OT Orders: Non Urgent Precautions: Contact, Full *This Document serves as a summary of care, no skilled OT services were provided on this date of document and is based on summary of pts sessions when she participated* PATIENT PROFILE/ADMITTING DIAGNOSIS: Pt is a 71 year old female referred and admitted for a dx of UTI, fall, fx of proximal humerus, closed fx of (R) humerus, hypoposphatemia, hypomagnesemia, alcoholic dementia, esophagitis, hypokalemia, ambulatory dysfunction. Past Medical History: All Active Problems?(Updated 02/19/22 @ 16:53 by Jasmin Cortes NP) Discharge planning issues (Acute) DVT prophylaxis (Acute) UTI (urinary tract infection) (Acute) Fall (Acute) Fracture of proximal humerus (Acute) Closed fracture of proximal end of right humerus (Acute) Hypophosphatemia (Acute) Hypomagnesemia (Acute) Esophagitis (Acute) E. coli UTI (Acute) Non-insulin dependent type 2 diabetes mellitus (Chronic) Ambulatory dysfunction (Acute) Tremor (Acute) Diabetes (Chronic) Laceration of elbow with foreign body (Acute) Alcohol abuse (Chronic) Urinary tract infection (Acute) Fall (Acute) Alcohol intoxication (Acute) Medical History? Acute CVA (cerebrovascular accident) Aortic stenosis Carotid stenosis Diabetes mellitus type 2 in nonobese TIA (transient ischemic attack) Surgical History? Surgical history unknown Social History/Home Situation: Pt states that she lives alone in a private home. She reports that she has a daughter who lives in [place] and a son who was her best friend who . She notes that she she has a woman who used to come into her home to clean but has since moved to [place]. She reports that she performs her bathing standing at her sink and that she does not like her tub shower. She reports that she does not drive and utilizes [employer] and that she has minimal friends up here. She states multiple times to this OT that she does not need help at home except for cleaning and organization. Although notes also that help could be a good thing. Pt states that she was supposed to get HH and notes that she never got it set up. Equipment owned/DME: Not able to assess SUBJECTIVE:?NT OBJECTIVE:? ROM: RUE AROM WFL L UE AROM WFL STRENGTH: RUE 4-/5 throughout LUE 4-/5 throughout FUNCTIONAL MOBILITY/ADLS:?*Based on pts last tx session- not performed at todays date* ? PAIN:c/o pain which pt reports is everywhere BATHING:?sitting in bed Upper Body: Mod (A) (B) UE, (I) abdomen, max (A) hair Lower Body: max (A) DRESSING:?? pt refuses to change gown ASSESSMENT:?? Patient is a 71-year-old female referred to occupational therapy services with diagnosis of UTI, fall, fx of proximal humerus, closed fx of (R) humerus, hypoposphatemia, hypomagnesemia, alcoholic dementia, esophagitis, hypokalemia, ambulatory dysfunction. Pt made minimal progress in her (I) due to multiple refusals. GOALS Goals x1 week- Not met as pt continues to refuse care. 1.? Pt will be able to demonstrate energy conservation techniques with standing ADLs with ideal technique. 2. Pt will be able to sit in the chair and perform her bathing (I) 3. Pt will be able to perform her dressing in chair with mod (A) 4. Pt will be able to perform her functional mobility required for ADL performance (I) PLAN OF CARE/TREATMENT PLAN: Pt was discharged from acute status and transitioned to [facility] B1 DISCHARGE RECOMMENDATIONS OT recommends that pt go to SNF due to pts decline in her baseline level of function, decreased functional activity tolerance, and increased pain in her bck and (B) UE. TREATMENT TIME/MINUTES/CODES N/A Krisatn Avalos OTR/L [facility]
== END 2022-03-03 18:32 | disposition swing bed (61) | DRG 689 ==
LOC: ER 12:07 → MS 14:53
PROVIDERS: Internal Medicine; Nurse Practitioner Acute Care; Nurse Practitioner Family; Admitting Provider Family Medicine; Emergency Provider Student in an Organized Health Care Education/Training Program; PCP Nurse Practitioner Family; Visit Provider Family Medicine
DX: N39.0 Urinary tract infection, site not specified (principal); J18.9 Pneumonia, unspecified organism; Z16.12 Extended spectrum beta lactamase (ESBL) resistance; J90 Pleural effusion, not elsewhere classified; F10.97 Alcohol use, unspecified with alcohol-induced persisting dementia; E11.9 Type 2 diabetes mellitus without complications; S42.291D Other displaced fracture of upper end of right humerus, subsequent encounter for fracture with routine healing; W19.XXXD Unspecified fall, subsequent encounter; Z91.81 History of falling; E86.1 Hypovolemia; R29.6 Repeated falls; E83.39 Other disorders of phosphorus metabolism; E83.42 Hypomagnesemia; Z86.73 Personal history of transient ischemic attack (TIA), and cerebral infarction without residual deficits; B96.20 Unspecified Escherichia coli [E. coli] as the cause of diseases classified elsewhere; Z91.19 Patient's noncompliance with other medical treatment and regimen; I65.29 Occlusion and stenosis of unspecified carotid artery; I35.0 Nonrheumatic aortic (valve) stenosis; Y95 Nosocomial condition; E87.6 Hypokalemia
CPT/HCPCS: 36410; 36415; 36416; 76770; 80048; 80053; 80076; 80307; 82550; 82962; 84145; 85652; 87040; 87077; 87081; 87449; 87635; 93005; 96361; 96365; 97110; 97163; 97166; 97530; 97535; 99223; 99285; J1650; 71045; 71046; 73200; 80320; 81003; 81015; 82040; 83036; 83605; 83735; 85025; 86140; 87086; 87186; 87899; 93010; 99232; 99233; 99239; J0131; J0696; J1335; J1885; J3475; J3480; J3490

== ENCOUNTER 2022-03-03 17:15 | Inpatient (IN) | payer OTHER, SELFPAY ==
--- NOTE | 2022-03-03 16:13 | CMSCP_ITS ---
- If Service Date Differs Date of service: 03/03/22 Time of Service: 16:13 Swingbed Plan of Care Plan of care: SWING BED PROGRAM ACTIVITIES/DISCHARGE PLAN OF CARE ACTIVITIES PLAN Date: 03/03/22 Identified Need: Life enrichment during extended hospital stay in [facility]. Intervention/Plan: Activities such as TV with Remote, music, reading and word search etc. Initials DL DISCHARGE PLAN Date:03/03/22 Identified Need: Strengthening, improved mobility for more independence. Short term rehab prior to discharging home with [facility] services vs. alternative living facility. Intervention/Plan:Ester agrees to continue working with PT to regain strength and independence with mobility. Initials DL
--- NOTE | 2022-03-03 16:13 | CM.SBPSYCH ---
- If Service Date Differs Date of service: 03/03/22 Time of Service: 16:13 SB Psychosocial/Act.Assessment - Swing Bed Admission Swing Bed Admit Date:: 03/03/22 Swing Bed Level of Care: Level 1/SNF - Social Supports PREVIOUS FUNCTIONAL STATUS/SOCIAL/FAMILY SUPPORTS:: Ester lives in an apartment in [place], alone. She reports that she lived in [place] for many years, and would like to return to [place] or [place] [facility], as she feels that there are more resources in the [place] [facility]. She has a daughter who lives in [place]. 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 She was previously independent with her ADL's at baseline, although she has had increased difficulty caring for herself recently. - Prior to Admission Living Arrangements/Environment Prior to Admission:: Ester lives alone in an appartment in [place]. Per patient she does not feel she can go back there to live because her landlord doesn't want her to live there because she slipped on the floor. Per pts daughter Luz her appartment is inhabitable. Per Ester, she is looking for a digital technician and doesn't feel she can manage at home alone any longer. Ester's daughter is in the process of getting her into the [facility]. - Education Highest Grade Completed:: NA - Work History Employment Status:: NA - : No 's Spouse: No - Yarsanism Active Pentecostal Member:: No Will Pentecostal Members or Workforce Planning Analyst Visit:: No - Advance Directives for Healthcare Advance Directive Agent: Temporary Guardian is Luz Hernandez - Present Functional Status Physical Abilities:: limited, weak. Cognitive:: grossly normal Communication:: Normal Behavior:: Cooperative - Medical History PAST MEDICAL HISTORY/PAST SURGICAL HISTORY:: All Active Problems. Discharge planning issues (Acute). DVT prophylaxis (Acute). UTI (urinary tract infection) (Acute). Fall (Acute). Fracture of proximal humerus (Acute). Closed fracture of proximal end of right humerus (Acute). Hypophosphatemia (Acute). Hypomagnesemia (Acute). Esophagitis (Acute). E. coli UTI (Acute). Non-insulin dependent type 2 diabetes mellitus (Chronic). Ambulatory dysfunction (Acute). Tremor (Acute). Diabetes (Chronic). Laceration of elbow with foreign body (Acute). Alcohol abuse (Chronic). Urinary tract infection (Acute). Fall (Acute). Alcohol intoxication (Acute). Medical History. Acute CVA (cerebrovascular accident). Aortic stenosis. Carotid stenosis. Diabetes mellitus type 2 in nonobese. TIA (transient ischemic attack). Surgical History. Surgical history unknown General Health:: Several comorbidities including CVA, Aortic Stenosis, DM Past Psychiatric Treatment:: Unknown - Admission Data Reason for Swing Bed Admission:: Continue working with PT to regain strength and mobility to safely discharge from [facility]. Discharge Plan:: Ester will discharge to SNF for STR of to the [facility] vs. Home with full [facility] services. Financial Aid Advisor: Nohelia Fonseca RN Date Assessment was completed:: 03/03/22
--- NOTE | 2022-03-03 17:30 | HPE_ITS ---
Date of service: 03/03/22 Time of Service: 17:30 Assessment and Plan Assessment and plan (1) Closed fracture of proximal end of right humerus: Status: Acute Assessment and plan: continue sling and pain management will f/u with orthopedics outpatient calcium/vit D supplement PT and OT following ice for comfort if needed. Per ortho recommendations: At this time, continue non-operative management.? Recommend sling when out of bed or ambulatory for another 4-5 weeks.? Should remove sling when resting in bed or chair.? Should perform gentle passive shoulder range of motion including pendulums.? Light active use of hand okay.? Encourage daily active range of motion about fingers, wrist, and elbow to prevent stiffness.? Nonweightbearing and no carrying right upper extremity.? Repeat right shoulder x-rays (true AP and scapular Y) and upright or standing position in 1-2 weeks. 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 bs well controlled (4) DVT prophylaxis: Status: Acute Assessment and plan: will continue enoxaparin (5) Discharge planning issues: Status: Acute Assessment and plan: plan to discharge to rehabilitation facility case management following referrals placed discussed with DR Leos History of Present Illness History of Present Illness Chief Complaint: right shoulder pain, fracture humerus Narrative: This is a 71 year old female, history of alcoholic dementia, diet controlled diabetes mellitus, who has had multiple falls at home recently.? She was seen in ED and diagnosed with right humerus fracture.? she was discharged to home with outpatient orthopedic follow up but returned after falling again.? This work up showed acute UTI, she grew ESBL and was treated initially with ceftriaxone then given fosfomycin when cultures returned.? She continued to remain febrile but asymptomatic. she was started on imipenem and completed a 5 day course, recheck on the urine was negative for ongoing infection yet she continued to be febrile. Her fever thought d/t fracture at this point with negative UA, chest xray and blood cultures. she remained asymptomatic with no resp c/o, abdominal pain or rashes. antibiotics discontinued but she continued to remain febrile. she was re-xrays and cultured and xray then showed possible pneumonia vs atelectasis and d/t elevated procal at 0.7 she was treated with cefepime. after 5 days procal and xray normalized. patient remained asymptomatic the entire time. she continues to require rehab d/t her ongoing shoulder pain, deconditioning and weakness and is not ready for discharge to home. she will be discharged to [facility] level care for further rehabilitation prior to returning home. orthopedics has been following and will continue to follow outpatient for further recommendations. decision to hold off on surgical repair at this time as she was not initially cooperative with rehabilitation but now is participating. They would like to re-image and evaluate her outpatient to see if surgical repair recommended in a few weeks. case management has place rehab referrals now that she is medically stable and participating. she will remain here on on rehab status until a bed becomes available and she is accepted. PFSH All Active Problems (Updated 03/04/22 @ 16:16 by Jasmin Cortes NP) Discharge planning issues (Acute) DVT prophylaxis (Acute) HCAP (healthcare-associated pneumonia) (Acute) Palliative care encounter (Acute) Noncompliance by refusing intervention or support (Acute) Hypovolemia (Acute) Frequent falls (Acute) Fall (Acute) Fracture of proximal humerus (Acute) Closed fracture of proximal end of right humerus (Acute 02/16/22) Hypophosphatemia (Acute) Hypomagnesemia (Acute) Esophagitis (Acute) E. coli UTI (Acute) Non-insulin dependent type 2 diabetes mellitus (Chronic) Hypokalemia (Acute) Ambulatory dysfunction (Acute) Tremor (Acute) Diabetes (Chronic) Laceration of elbow with foreign body (Acute) Alcohol abuse (Chronic) Urinary tract infection (Acute) Fall (Acute) Alcohol intoxication (Acute) Medical History Acute CVA (cerebrovascular accident) Aortic stenosis Carotid stenosis Diabetes mellitus type 2 in nonobese TIA (transient ischemic attack) Surgical History Surgical history unknown Social History Smoking/Tobacco Use Status: Former Tobacco Use Smoking risk assessment performed?: Yes Alcohol Intake: current Alcohol Intake frequency: 0-2 drinks per day Alcohol type: wine Drug use: Never Substance use type: does not use Do you feel safe at home: Yes Do you feel safe in your relationship?: Yes Meds Allergies and Home Medications Allergies Allergy/AdvReac Type Severity Reaction Status Date / Time No Known Allergies Allergy Unverified 02/19/22 11:02 Home Medications Medication Instructions Recorded Confirmed Type calcium carbonate 600 mg-vitamin 1 tab PO BID #0 tabs 02/23/22 03/03/22 Rx D3 5 mcg (200 unit) tablet insulin aspart U-100 100 unit/mL 0 units (0 mL) subcut 02/23/22 03/03/22 Rx (3 mL) subcutaneous pen (Novolog 0800,1200,1700,2200 #0 mL Flexpen U-100 Insulin aspart) insulin glargine 100 unit/mL (3 5 unit (0.05 mL) subcut HS #0 mL 02/23/22 03/03/22 Rx mL) subcutaneous pen (Lantus Solostar U-100 Insulin) lidocaine 5 % topical patch 1 patch topical DAILY@1999 #0 ea 02/23/22 03/03/22 Rx magnesium oxide 400 mg (241.3 mg 400 mg PO DAILY #0 tabs 02/23/22 03/03/22 Rx magnesium) tablet potassium chloride 20 mEq 20 meq PO BID #0 tabs 02/23/22 03/03/22 Rx tablet,extended release(part/cryst) (Klor-Con M) thiamine mononitrate (vit B1) 100 100 mg PO DAILY #0 tabs 02/23/22 03/03/22 Rx mg tablet (Vitamin B-1 (mononitrate)) cyclobenzaprine 5 mg tablet 5 mg PO TID 03/03/22 03/03/22 History Exam Const General: uncooperative, frail appearing and ill appearing chronically Nutritional Appearance: average body habitus Orientation: alert, awake and oriented x3 HENMT Head: normal to inspection, normocephalic and atraumatic Mouth: oral mucosae normal Resp Effort & Inspection: normal respiratory effort Cardio Rate: regular rate GI Inspection: normal to inspection Palpation: soft Auscultation: normal bowel sounds Skin General skin exam: no rashes or lesions noted Neuro General: patient alert, patient awake and patient oriented x3 Extrem Right upper extremity: edema (old ecchymosis. ); abnormal to inspection
[2022-03-03] MEDS: Potassium Chloride 20 MEQ TABCR PO (20:01)
[2022-03-03] MEDS: Acetaminophen 325 MG TAB 650 MG PO (20:01)
[2022-03-03] MEDS: Lidocaine 5% Patch 1 PATCH TP (20:02)
[2022-03-03] MEDS: Cyclobenzaprine 10 MG TAB 5 MG PO (20:02)
[2022-03-03] MEDS: Calcium 600mg/Vit D 200U TAB 1 TAB PO (20:02)
[2022-03-03] MEDS: Insulin Aspart 300 UNITS/3 ML PEN SC (22:39)
[2022-03-03] MEDS: Insulin Glargine 300 UNITS/3 ML PEN SC (22:40)
[2022-03-03 23:35] VITALS: BP 110/55; PULSE 95; RESP 16; TEMP 37.1; O2SAT 97
[2022-03-04] MEDS: Acetaminophen 325 MG TAB 650 MG PO ×3 (02:16→19:43)
[2022-03-04 08:10] VITALS: BP 117/59; PULSE 96; RESP 17; TEMP 35.1; O2SAT 97
[2022-03-04] MEDS: Calcium 600mg/Vit D 200U TAB 1 TAB PO ×2 (08:28→19:43)
[2022-03-04] MEDS: Potassium Chloride 20 MEQ TABCR PO ×2 (08:29→19:43)
[2022-03-04] MEDS: Magnesium Oxide 400 MG TAB PO (08:29)
[2022-03-04] MEDS: Thiamine 100 MG TAB PO (08:29)
[2022-03-04] MEDS: Insulin Aspart 300 UNITS/3 ML PEN SC ×4 (08:41→21:19)
--- NOTE | 2022-03-04 09:16 | OT.INNT ---
Occupational Therapy Notes 03/04/22 Pt refused initial evaluation for SB1 for Occupational Therapy. OT will attempt to consult tomorrow. Kristan Avalos OTR/R[facility]
--- NOTE | 2022-03-04 11:02 | CMPROGNOTE_ITS ---
- If Service Date Differs Date of service: 03/04/22 Time of Service: 11:02 Care Management Progress Note S/O: CM spoke with Lashawn Scott from the [facility] and is offered a bed on Wednesday (if they have adequate staffing.) Ester advises that she will have her apartment in [facility] until March and her daughter will either help her move or find someone to help her move. Ester advised CM that she had her pocketbook when she came to the hospital. Per pt, her house keys and $1600 is in it. Ester describes the purse as being dark beige and big. With Ester's permission, CM checked around her room and in her closets and did not see it. CM reported to RN coordinator and primary RN, who reviewed admission notes and a pocketbook was not checked in on admission. A: Ester is a 71 year old female admitted to [facility] on 02/19/22 with a UTI. P: Ester will likely discharge to [facility] on Wednesday03/09/22 with New [facility] RN/PT services. Referral's are still pending at all [place] SNF facilities. CM will notify her daughter, Luz ([phone]) of her transfer. She will follow up with her PCP and discharge plan of care. CM will continue to follow.
[2022-03-04 14:41] VITALS: BP 112/53; PULSE 87; RESP 16; TEMP 36.3; O2SAT 96
--- NOTE | 2022-03-04 15:10 | IN_ITS ---
Date of service: 03/04/22 Time of Service: 12:58 PT Notes Visit Reasons: Fracture Right Humerus Swing Bed Level I Physical Therapy Initial Evaluation Date: 03/04/2022 Referring Doctor:? Jasmin Cortes,? [employer] MACHINE HELPER PT Orders: PT CONSULT: Eval/Treat Precautions: Fall. Standard.?NWB on R UE. Per Dr. Ortiz as of 02/26/2022: Use sling when out of bed or ambulatory for another 4-5 weeks.? Should remove sling when resting in bed or chair.? Should perform gentle passive shoulder range of motion including pendulums.? Light active use of hand okay.? Encourage daily active range of motion about fingers, wrist, and elbow to prevent stiffness.? Non-weightbearing and no carrying right upper extremity.? Patient Profile/Admitting Diagnosis:? patient converst to swing bed level I as of 03/03/2022. Patient is a 71-year-old female who presented to the ED on 02/19/2022 due to multiple falls at home.? Patient is diagnosed with impacted and comminuted displaced fracture involving the humeral head and neck and greater tuberosity with further displacement seen on imaging due to repeated falls.? Ipsilateral clavicle appears unremarkable. PMHX: All Active Problems?(Updated 02/19/22 @ 16:53 by Jasmin Cortes NP) Discharge planning issues (Acute) DVT prophylaxis (Acute) UTI (urinary tract infection) (Acute) Fall (Acute) Fracture of proximal humerus (Acute) Closed fracture of proximal end of right humerus (Acute) Hypophosphatemia (Acute) Hypomagnesemia (Acute) Esophagitis (Acute) E. coli UTI (Acute) Non-insulin dependent type 2 diabetes mellitus (Chronic) Ambulatory dysfunction (Acute) Tremor (Acute) Diabetes (Chronic) Laceration of elbow with foreign body (Acute) Alcohol abuse (Chronic) Urinary tract infection (Acute) Fall (Acute) Alcohol intoxication (Acute) Medical History? Acute CVA (cerebrovascular accident) Aortic stenosis Carotid stenosis Diabetes mellitus type 2 in nonobese TIA (transient ischemic attack) Surgical History? Surgical history unknown Social History/Home Situation: Poor living condition per admission record and per patient report.? Ambulated using no assistive device at home.? Equipment Owned/DME: None Subjective: Patient agreeable to PT session. Continues to report pain in R upper extremity with the slightest of movement. Adamant about not having anybody touch her right shoulder and right arm. Agreeable to only letting her arm hang onto side during ambulation with PT, that is all the semi ranging she will allow for now. Objective: General Observation: Supine in bed with head of bed elevated 30 degrees. Mental Status: Alert and oriented as to person and place. Able to pay attention, focus, and respond appropriately. Pain: 5-6/10 in R UE and low back Vital Signs: WNL as closely monitored by nursing staff ROM: Right Upper Extremity: ? NT. Elbow and wrist WFL Left Upper Extremity:? Shoulder Flexion WFL. Shoulder abduction WFL. Elbow flexion WFL. Wrist flexion WFL. Functional opening and closing of hand WFL. Right Lower Extremity: Hip flexion WFL. Hip abduction WFL. Knee flexion WFL. Ankle dorsiflexion WFL. Ankle plantarflexion WFL. Left Lower Extremity: Hip flexion WFL. Hip abduction WFL. Knee flexion WFL. Ankle dorsiflexion WFL. Ankle plantarflexion WFL. Strength: Right Upper Extremity: Shoulder muscle groups not tested. Elbow grossly -/5. Wrist 4-/5. Left Upper Extremity: Shoulder flexors 4-/5. Shoulder abductors 4-/5. Elbow flexors 4-/5. Elbow extensors 4-/5. Coater Associate strong. Right Lower Extremity: Hip flexors 3+/5. Hip abductors 3+/5. Knee flexors 3+/5. Knee extensors 3+/5. Ankle dorsiflexors 4-/5. Ankle plantarflexors 4-/5. Left Lower Extremity: Hip flexors 3+/5. Hip abductors 3+/5. Knee flexors 3+/5. Knee extensors 3+/5. Ankle dorsiflexors 4-/5. Ankle plantarflexors 4-/5. Bed Mobility/Transfers: Supine to sit minimal assist Sit to supine contact guard assist Sit to stand contact guard assist Stand to sit contact guard assist Gait: Instructed patient with level surface ambulation of 500 feet requiring damaris by assist using SPC on R hand. L arm allowed to hang on side to allow for minimal gravity-driven traction and stimulation to L shoulder elevators/stabilizers.? Nafisa improving. Step length improving. Balance: Static Sitting: Good Dynamic Sitting: Good Static Standing: Fair Dynamic Standing: Fair Special Tests: Mobility Limitations Standardized Measure [facility] AM-PAC 6 clicks Basic Mobility Inpatient Short Form: Raw Score: 18? CMS Score: 47% deficit? ? ? Informed Consent/Education:? Patient was instructed in purpose of PT consult and plan of care. Agreeable to proceed with established PT POC to achieve personal goals. Assessment: Pain in R UE seems to be improving with less pain report during ambulation activities. Patient unsafe to go home due to repeated falls.? Poor safety awareness,? may highly benefit from psych consult.? Impulsive, not consistent with compliance to safety instructions. ? Patient presents with clinical signs and symptoms consistent with current/admitting diagnoses that have resulted to mobility limitations, gait instability, generalized weakness, and overall ADL decline as demonstrated by the following impairment level findings: 1.? Decreased strength to R UE and B LE major muscle groups 2.? Impaired sitting/standing balance 3.? Impaired activity tolerance 4.? Limitation of joint range of motion in R UE 5.? Impaired cognition 6.? Poor safety awareness Impairments are contributing to the following functional limitations: 1.? Decline in bed mobility skills 2.? Decline in transfer skills 3.? Difficulty with ambulation without assistive device and physical assistance 4.? Increased completion time for mobility ADL performance 5.? Increased risk for falls 6.? Inability to thrive alone at home Patient is assessed as a 39868 high complexity based on the following: History: 71-year-old female with past medical history as indicated above Examination: Demonstrable impairment in strength, balance, and mobility level with underlying impairments and functional limitations as exhibited above as well as deficit score of 69% utilizing the [facility] Mobility Inpatient Short Form Presentation: Evolving Decision Makin high complexity Goals: Goals X1 week 1. Supine-Sit independent 2. Sit-Supine independent 3. Sit-Stand independent 4. Stand-Sit independent with SPC 5. Bed-Chair independent with SPC 6. Chair-Bed independent with SPC 7. Independent gait on level surface with use of SPC for at least 300 feet without report of pain nor dyspnea 8. Independent stair negotiation while holding onto 1 rails for at least 5 steps without report of pain nor dyspnea 9. Independent with home exercise program 10. Good static and dynamic standing balance/tolerance Plan of Care/Treatment Plan: 1-2x/day, 7 days/week x 1 week. Plan of care has been reviewed with the LEAD MASON TENDER providing the service under Physical Therapy direction. Initiate Physical Therapy intervention for pain management as needed, strengthening, bed mobility, transfers, gait, stairs, balance training, and use of assistive device. DISCHARGE RECOMMENDATIONS: [] ? Home with no services [] [] ? Home with services [specify] [] ? Home with outpatient PT [] [] ? SNF for continued rehabilitation [] [] ? Writing Manager Care [] [] ? SNF versus LTC based on ability to participate and progress [] [X] THANH vs SNF depending on progress towarsd goals. Patient will highly benefit from placement in a supervised setting to maximize safe environment that can reduce fall risk, manage medication intake, and allow needed assistance with ADL performance. Patient will benefit from home health PT services as well in order to progress mobility level using least restrictive assistive ambulatory device, assess home safety, identify additional equipment needs, and establish a functional maintenance program that will increase ability of patient to remain at home. TREATMENT CODE/TIME: 32329 x 30- minutes, 01601 x 42 minutes beginning at 12:58 PM and 15:10 PM. Thank you for the opportunity to participate in the care of this patient. Tina Shepard PT, DPT, CLT [facility] [place], [place]
[2022-03-04] MEDS: Enoxaparin 40 MG/0.4 ML SYR SC (17:57)
[2022-03-04] MEDS: Lidocaine 5% Patch 1 PATCH TP (19:44)
[2022-03-04] MEDS: Insulin Glargine 300 UNITS/3 ML PEN SC (21:20)
[2022-03-05 07:50] VITALS: BP 104/65; PULSE 70; RESP 16; TEMP 36.6; O2SAT 96
[2022-03-05] MEDS: Potassium Chloride 20 MEQ TABCR PO ×2 (07:51→20:07)
[2022-03-05] MEDS: Thiamine 100 MG TAB PO (07:51)
[2022-03-05] MEDS: Insulin Aspart 300 UNITS/3 ML PEN SC ×4 (07:51→22:05)
[2022-03-05] MEDS: Calcium 600mg/Vit D 200U TAB 1 TAB PO ×2 (07:51→20:07)
[2022-03-05] MEDS: Magnesium Oxide 400 MG TAB PO (07:51)
[2022-03-05] MEDS: Acetaminophen 325 MG TAB 650 MG PO ×2 (09:20→20:07)
--- NOTE | 2022-03-05 09:37 | OT.INNT ---
Occupational Therapy Notes 03/05/22 OT went in to see pt who reports I am not doing this right now you can come back later. OT will attempt to resume services again tomorrow. If pt refuses at that time this will be her 3rd refusal and OT will discharge pt from skilled OT services. Kristan Avalos, OTR/L
[2022-03-05] MEDS: Enoxaparin 40 MG/0.4 ML SYR SC (18:13)
[2022-03-05] MEDS: Lidocaine 5% Patch 1 PATCH TP (20:08)
[2022-03-05] MEDS: Insulin Glargine 300 UNITS/3 ML PEN SC (22:06)
[2022-03-06] MEDS: Acetaminophen 325 MG TAB 650 MG PO ×2 (06:05→20:18)
[2022-03-06 07:37] VITALS: BP 120/70; PULSE 89; RESP 16; TEMP 36.7; O2SAT 99
--- NOTE | 2022-03-06 08:01 | PT.INTREAT ---
Date of service: 03/06/22 Time of Service: 14:39 PT Notes Visit Reasons: Fracture Right Humerus Inpatient Physical Therapy Treatment Note [facility] Date: 03/06/2022 PRECAUTIONS: Fall, NWB on R UE SUBJECTIVE: Ester is pleasant and agreeable to participating in PT. She indicates that she would like to speak with Dr. Ortiz regarding the clearance to perform PROM to R shoulder. OBJECTIVE: Encouraged gait training without sling (with PT only) for promotion of PROM/modified pendulums. PAIN: Patient reports that she has significant pain in R shoulder at all times, which limits her ability to complete functional tasks. She also reports pain in L arm that continues to be overlooked. BED MOBILITY/TRANSFERS Supine-Sit: Min A Sit-supine: CGA Sit-stand: SBA Stand-sit: SBA GAIT Assistive Device: SPC Weight bearing: NWB on R UE Assist: SBA Distance: 600' Deviation: Minimal unsteadiness with initiation, improved pacing Patient refused PROM exercises to R shoulder. ASSESSMENT: Patient tolerated a progression in gait distance with SPC support, demonstrating only minimal unsteadiness with gait initiation and improved pacing, requiring SBA due to hx of falls. She refuses PROM to R shoulder due to pain. PLAN: Continue with general mobility training and global strengthening, as well as PROM to R shoulder as patient allows TREATMENT CODE/TIME: 17 minutes; 79707 (14:39)
[2022-03-06] MEDS: Insulin Aspart 300 UNITS/3 ML PEN SC ×4 (08:29→21:45)
[2022-03-06] MEDS: Thiamine 100 MG TAB PO (08:29)
[2022-03-06] MEDS: Calcium 600mg/Vit D 200U TAB 1 TAB PO ×2 (08:29→20:18)
[2022-03-06] MEDS: Magnesium Oxide 400 MG TAB PO (08:29)
[2022-03-06] MEDS: Potassium Chloride 20 MEQ TABCR PO ×2 (08:29→20:18)
--- NOTE | 2022-03-06 11:28 | W.PM.PROGNOT ---
Date of Service Date of service: 03/06/22 Time of Service: 11:20 Assessment and Plan Assessment and plan (1) Closed fracture of proximal end of right humerus: Status: Acute Assessment and plan: 71 year old female 18 days s/p right proximal humerus fracture. Past medial history includes DM2 A1C 7.7 02/20, alcoholic dementia and multiple falls Patient sitting up in bed comfortably. Describes no pain at rest and improving discomfort with motion over the past 2 weeks. Has been working with PT on passive ROM - last completed this morning around 8am. Patient refused passive motion assessment by myself and states PT is not scheduled until 2pm today. Discussed surgical intervention vs conservative management and patient wishes to avoid surgery at this time and would to continue conservatively as her pain continues to improve. Discussed importance of PT - recommendation: Encouraged continued passive ROM below 90 degrees to avoid frozen shoulder. Do not lift anything heavier than a coffee mug for the next 4 weeks. Complete pendulum swings. Sling for comfort. D/C when medically appropriate - continue with outpatient PT services Follow up in orthopedic office outpatient for repeat imaging and assessment. Objective Last Vital Signs Temp 98.1 F 03/06/22 07:37 Pulse 89 03/06/22 07:37 Resp 16 03/06/22 07:37 BP 120/70 03/06/22 07:37 Pulse Ox 99 03/06/22 07:37
--- NOTE | 2022-03-06 14:19 | PT.INTREAT ---
Date of service: 03/06/22 Time of Service: 14:02 PT Notes Visit Reasons: Fracture Right Humerus Inpatient Physical Therapy Treatment Note [facility] Date: 03/06/2022 PRECAUTIONS: Fall, NWB on R UE SUBJECTIVE: Ester is pleasant and agreeable to participating in PT. She is looking forward to relocating to [facility] next week. OBJECTIVE: Encouraged gait training without sling (with PT only) for promotion of PROM/modified pendulums. PAIN: Patient reports that she has significant pain in R shoulder at all times, which limits her ability to complete functional tasks. She also reports pain in L arm that continues to be overlooked. BED MOBILITY/TRANSFERS Supine-sit: Min A Sit-supine: CGA Sit-stand: SBA Stand-sit: SBA GAIT Assistive Device: SPC Weight bearing: NWB on R UE Assist: SBA Distance: 700' Deviation: Minimal unsteadiness with initiation, improved pacing Patient refused PROM exercises to R shoulder. ASSESSMENT: Patient tolerated a progression in gait distance with SPC support, demonstrating only minimal unsteadiness with gait initiation and improved pacing, requiring SBA due to hx of falls. She refuses PROM to R shoulder due to pain. PLAN: Continue with general mobility training and global strengthening, as well as PROM to R shoulder as patient allows TREATMENT CODE/TIME: 11 minutes; [id number] (14:04)
[2022-03-06] MEDS: Enoxaparin 40 MG/0.4 ML SYR SC (18:08)
[2022-03-06] MEDS: Lidocaine 5% Patch 1 PATCH TP (20:18)
[2022-03-06] MEDS: Insulin Glargine 300 UNITS/3 ML PEN SC (21:46)
[2022-03-07 07:21] LABS: Platelet Count 461 10^3/uL (130-400)
[2022-03-07 07:55] VITALS: BP 126/71; PULSE 88; RESP 16; TEMP 37.1; O2SAT 98
[2022-03-07] MEDS: Calcium 600mg/Vit D 200U TAB 1 TAB PO ×2 (08:02→20:49)
[2022-03-07] MEDS: Potassium Chloride 20 MEQ TABCR PO ×2 (08:02→20:49)
[2022-03-07] MEDS: Magnesium Oxide 400 MG TAB PO (08:02)
[2022-03-07] MEDS: Thiamine 100 MG TAB PO (08:03)
[2022-03-07] MEDS: Insulin Aspart 300 UNITS/3 ML PEN SC ×4 (10:01→21:27)
--- NOTE | 2022-03-07 11:30 | PTTR_ITS ---
PT Notes Visit Reasons: Fracture Right Humerus Inpatient Physical Therapy Treatment Note [facility] Date: 03/07/22 SUBJECTIVE: Ester offers no complaints to me. She is agreeable to PT. She did indicate that she is confused with her PT. She was under the impression that 2x/day meant that she only needed to walk 2x around the floor. I did explain to her that she is required to do PT 2x/day, and it did not matter the distance of which she ambulated. I also encouraged her to let me range her shld as that is part of her PT per MD orders. She is not agreeable to that. OBJECTIVE: [] PAIN: B shld pain and left elbow pain. BED MOBILITY/TRANSFERS Supine-sit: min assist Sit-supine: min assist with LE Sit-stand: CGA Stand-sit: SBA GAIT Assistive Device:BOBBIN WINDER TENDER Weight bearing: full Distance: approx 700' ASSESSMENT: continues to refuse PROM of shld. Does well with ambulation as long as it is done on her terms. No LOB, fatigue or path deviations noted during session today. PLAN: continue to work on her endurance, functional mobility encouraging PROM of shld per PT POC. TREATMENT CODE/TIME: 18 min [id number]
[2022-03-07] MEDS: Enoxaparin 40 MG/0.4 ML SYR SC (19:01)
[2022-03-07] MEDS: Lidocaine 5% Patch 1 PATCH TP (20:49)
[2022-03-07] MEDS: Insulin Glargine 300 UNITS/3 ML PEN SC (20:54)
[2022-03-08 07:44] VITALS: BP 118/68; PULSE 94; RESP 17; TEMP 37; O2SAT 97
[2022-03-08] MEDS: Calcium 600mg/Vit D 200U TAB 1 TAB PO ×2 (08:48→20:43)
[2022-03-08] MEDS: Magnesium Oxide 400 MG TAB PO (08:48)
[2022-03-08] MEDS: Potassium Chloride 20 MEQ TABCR PO ×2 (08:48→20:43)
[2022-03-08] MEDS: Thiamine 100 MG TAB PO (08:48)
[2022-03-08] MEDS: Insulin Aspart 300 UNITS/3 ML PEN SC ×4 (08:51→21:38)
[2022-03-08] MEDS: Acetaminophen 325 MG TAB 650 MG PO ×2 (08:56→20:43)
--- NOTE | 2022-03-08 11:15 | PTTR_ITS ---
PT Notes Visit Reasons: Fracture Right Humerus Inpatient Physical Therapy Treatment Note [facility] Date: 03/08/22 SUBJECTIVE: Ester offers no complaints to me. She is agreeable to ambulating, but not exercising, including ranging her shld. She states she has done Tia chi and martial arts and will not move her arm because it hurts. OBJECTIVE: [] PAIN: continues to report B shld pain and left elbow pain. BED MOBILITY/TRANSFERS Supine-sit: min assist Sit-supine: min assist with LE Sit-stand: CGA Stand-sit: SBA GAIT Assistive Device:DRAW FRAME TENDER Weight bearing: full Distance: approx 700' ASSESSMENT: continues to refuse PROM of shld. Does well with ambulation as long as it is done on her terms. PLAN: continue to work on her endurance, functional mobility encouraging PROM of shld per PT POC. TREATMENT CODE/TIME: 15 min [id number]
[2022-03-08] MEDS: Cyclobenzaprine 10 MG TAB 5 MG PO ×2 (13:04→21:36)
[2022-03-08] MEDS: Enoxaparin 40 MG/0.4 ML SYR SC (18:15)
[2022-03-08] MEDS: Lidocaine 5% Patch 1 PATCH TP (20:49)
[2022-03-08] MEDS: Nystatin POWDER 60 GM JAR TP (20:50)
[2022-03-08] MEDS: Insulin Glargine 300 UNITS/3 ML PEN SC (21:37)
[2022-03-08 23:15] VITALS: BP 110/61; PULSE 92; RESP 16; TEMP 36.8; O2SAT 97
[2022-03-09] VITALS (8 sets, daily range): BP systolic 90–118; BP diastolic 50–68; PULSE 86–124; RESP 16–19; TEMP 36.8–38.9; O2SAT 93–97
[2022-03-09] MEDS: Acetaminophen 325 MG TAB 650 MG PO ×2 (04:02→13:00)
[2022-03-09] MEDS: Calcium 600mg/Vit D 200U TAB 1 TAB PO ×2 (09:00→20:20)
[2022-03-09] MEDS: Potassium Chloride 20 MEQ TABCR PO ×2 (09:00→20:20)
[2022-03-09] MEDS: Thiamine 100 MG TAB PO (09:01)
[2022-03-09] MEDS: Nystatin POWDER 60 GM JAR TP ×2 (09:01→20:22)
[2022-03-09] MEDS: Magnesium Oxide 400 MG TAB PO (09:01)
[2022-03-09 09:39] LABS: Source Nasal/Nares
[2022-03-09 10:10] LABS: COVID-19 PCR POSITIVE (Negative)
[2022-03-09] MEDS: REMDESIVIR 200 MG in Normal Saline 250 ML 250 MG IVPB (13:01)
[2022-03-09] MEDS: Normal Saline 500 ML IV (13:09)
[2022-03-09] MEDS: Ketorolac 30 MG/ML VIAL IVP (13:17)
[2022-03-09] MEDS: Insulin Aspart 300 UNITS/3 ML PEN SC ×2 (13:18→17:06)
[2022-03-09 13:28] LABS: Abs Immature Grans 0.05 10^3/uL (0.0-0.06); Absolute Basophil Count 0.05 10^3/uL (0.0-0.2); Absolute Eosinophil Count 0.11 10^3/uL (0.0-0.7); Absolute Lymphocyte Count 0.33 10^3/uL (1.2-3.4); Absolute Monocyte Count 0.72 10^3/uL (0.1-0.8); Absolute Neutrophil Count 7.82 10^3/uL (1.2-6.7); Basophils % 0.6; Eosinophils % 1.2; HGB 11.4 g/dL (11.2-15.7); Immature Grans % 0.6; Lymphocytes % 3.6; MCH 29.8 pg (27.0-33.0); MCHC 33.5 % (32.0-36.0); MCV 89 fL (80-95); MPV 9.7 fL (8.0-11.0); Monocytes % 7.9; Neutrophils % 86.1; Platelet Count 404 10^3/uL (130-400); RBC 3.83 10^6/uL (3.93-5.22); RDW 12.3 % (11.7-14.6); RDW-SD 39.8 fL; WBC 9.08 10^3/uL (4.4-10.8)
[2022-03-09 13:48] LABS: ALT 15 U/L (14-59); AST 17 U/L (15-37); Albumin 2.9 g/dL (3.4-5.0); Alkaline Phosphatase 74 U/L (46-116); Anion Gap 8.4 mmol/L (3-11); BUN 12 mg/dL (7-18); Bilirubin, Total 0.4 mg/dL (0.2-1.0); C-Reactive Protein 0.73 mg/dL (0.0-0.3); CO2 26.6 mmol/L (21.0-32.0); CREATININE 0.6 mg/dL (0.55-1.02); Calcium 9.5 mg/dL (8.5-10.1); Chloride 99 mmol/L (98-107); Estimated GFR 95.31 (mL/min/1.73m2); Glucose 159 mg/dL (74-106); Potassium 3.9 mmol/L (3.5-5.1); Sodium 134 mmol/L (136-145); Total Protein 7.5 g/dL (6.4-8.2)
--- NOTE | 2022-03-09 14:02 | PT.INNT ---
Date of service: 03/09/22 Time of Service: 14:59 PT Notes Visit Reasons: Fracture Right Humerus 03/09/2022 Patient reports that she does not want to participate in PT today, as she just found out that she tested positive for Covid-19, and feels depressed about it. She states I promise I'll do it tomorrow. Will attempt to resume PT services tomorrow. Nitza Mesa, LAUNDRY ROUTE DRIVER
[2022-03-09] MEDS: Normal Saline 1,000 ML 1000 ML IV (15:47)
--- NOTE | 2022-03-09 16:40 | CMPROGNOTE_ITS ---
- If Service Date Differs Date of service: 03/09/22 Time of Service: 16:40 Care Management Progress Note S/O: Ester was planning on discharging to the [facility] this afternoon, however she tested positive for Covid this morning. Per [facility], Ester will need to be 10 days out from before she can discharge to their facility. CM communicated reason for delayed discharge to patients daughter Luz. CM will continue to follow. A: Ester is a 71 year old female admitted to [facility] on 02/19/22 with a UTI. P: Ester will likely discharge to [facility] on Wednesday03/09/22 with New [facility] RN/PT services. Referral's are still pending at all [place], [place] SNF facilities. CM will notify her daughter, Luz ([phone]) of her transfer. She will follow up with her PCP and discharge plan of care. CM will continue to follow.
--- NOTE | 2022-03-09 16:40 | PDOC.CMPRO ---
- If Service Date Differs Date of service: 03/09/22 Time of Service: 16:40 Care Management Progress Note S/O: Ester was planning on discharging to the [facility] this afternoon, however she tested positive for Covid this morning. Per [facility], Ester will need to be 10 days out from before she can discharge to their facility. CM communicated reason for delayed discharge to patients daughter Luz. CM will continue to follow. A: Ester is a 71 year old female admitted to [facility] on 02/19/22 with a UTI. P: Ester will likely discharge to [facility] on Wednesday03/09/[address] [facility] RN/PT services. Referral's are still pending at all [place] SNF facilities. CM will notify her daughter, Luz ([phone]) of her transfer. She will follow up with her PCP and discharge plan of care. CM will continue to follow.
[2022-03-09] MEDS: Enoxaparin 40 MG/0.4 ML SYR SC (18:41)
[2022-03-09] MEDS: Lidocaine 5% Patch 1 PATCH TP (20:19)
[2022-03-09] MEDS: Cyclobenzaprine 10 MG TAB 5 MG PO (20:20)
[2022-03-09] MEDS: Insulin Glargine 300 UNITS/3 ML PEN SC (20:44)
[2022-03-10] VITALS (12 sets, daily range): BP systolic 80–120; BP diastolic 40–69; PULSE 90–117; RESP 12–21; TEMP 37.5–39.3; O2SAT 92–95
[2022-03-10] MEDS: Acetaminophen 325 MG TAB 650 MG PO ×4 (01:44→22:24)
[2022-03-10] MEDS: Magnesium Oxide 400 MG TAB PO (08:43)
[2022-03-10] MEDS: Calcium 600mg/Vit D 200U TAB 1 TAB PO ×2 (08:43→20:50)
[2022-03-10] MEDS: Nystatin POWDER 60 GM JAR TP (08:44)
[2022-03-10] MEDS: Potassium Chloride 20 MEQ TABCR PO ×2 (08:44→20:50)
[2022-03-10] MEDS: Thiamine 100 MG TAB PO (08:44)
[2022-03-10 12:50] LABS: Bilirubin Negative (Negative); Blood Trace-lysed (Negative); Clarity Clear (Clear); Glucose Negative (Negative); Ketones Negative (Negative); Leukocyte Esterase Negative (Negative); Nitrite Negative (Negative); Specific Gravity 1.025 (1.005-1.025); Urobilinogen 0.2 EU/dL (Up TO 0.2); pH 5.5 (5-8)
[2022-03-10 13:00] LABS: Bacteria Negative HPF (Negative); C & S Indicated? No; Casts Negative LPF (Negative); Crystals Negative HPF (Negative); Epithelial Cells Rare HPF (Negative); Mucus Trace (Negative); RBC 0-2 HPF (0-2); WBC Negative HPF (0-5)
--- NOTE | 2022-03-10 14:49 | INPN_ITS ---
Date of service: 03/10/22 Time of Service: 14:49 PT Notes Visit Reasons: Fracture Right Humerus Swing Bed Level I Physical Therapy Progress Note Date: 03/10/2022 Dates of Service: 03/04/2022 through 03/10/2022 Referring Doctor:? Jasmin Cortes,? JOEY PT Orders: PT CONSULT: Eval/Treat Precautions: Fall. COVID-19 positive.?NWB on R UE.??Per ELÍAS Nitza on 03/06/2022: Encouraged continued passive ROM below 90 degrees to avoid frozen shoulder. Do not lift anything heavier than a coffee mug for the next 4 weeks. Complete pendulum swings. Sling for comfort. D/C when medically appropriate - continue with outpatient PT services. Subjective: Needed encouragement to participate in today's session. Stressed about people interrupting her rest frequently. Did agree to moving out of bed to prevent her from getting pneumonia and clots. Refused, as she has for the past couple of weeks, PROM to R shoulder. Objective: General Observation: Supine in bed with head of bed elevated 30 degrees.? Mental Status: Alert and oriented as to person and place. Able to pay attention, focus, and respond appropriately. Pain: 5-6/10 in R UE and low back Vital Signs: WNL as closely monitored by nursing staff ROM: Right Upper Extremity: ? NT.? Elbow and wrist WFL Left Upper Extremity:? Shoulder Flexion WFL. Shoulder abduction WFL. Elbow flexion WFL. Wrist flexion WFL. Functional opening and closing of hand WFL. Right Lower Extremity: Hip flexion WFL. Hip abduction WFL. Knee flexion WFL. Ankle dorsiflexion WFL. Ankle plantarflexion WFL. Left Lower Extremity: Hip flexion WFL. Hip abduction WFL. Knee flexion WFL. Ankle dorsiflexion WFL. Ankle plantarflexion WFL. Strength: Right Upper Extremity: Shoulder muscle groups not tested.? Elbow grossly 3-/5.? Wrist 4-/5. Left Upper Extremity: Shoulder flexors 4-/5. Shoulder abductors 4-/5. Elbow flexors 4-/5. Elbow extensors 4-/5. Functional Skills Tutor strong. Right Lower Extremity: Hip flexors 3+/5. Hip abductors 3+/5. Knee flexors 3+/5. Knee extensors 3+/5. Ankle dorsiflexors 4-/5. Ankle plantarflexors 4-/5. Left Lower Extremity: Hip flexors 3+/5. Hip abductors 3+/5. Knee flexors 3+/5. Knee extensors 3+/5. Ankle dorsiflexors 4-/5. Ankle plantarflexors 4-/5. Bed Mobility/Transfers: Supine to sit minimal assist to B LE Sit to supine minimla assist Sit to stand contact guard assist Stand to sit contact guard assist Gait: Instructed patient with level surface ambulation of about 75 feet requiring stand by assist while holding onto IV pole with R hand.? L arm allowed to hang on side to allow for minimal gravity-driven traction and stimulation to L shoulder elevators/stabilizers.? Balance: Static Sitting: Good Dynamic Sitting: Fair Static Standing: Fair Dynamic Standing: Fair Special Tests: Mobility Limitations Standardized Measure [facility]-PAC 6 clicks Basic Mobility Inpatient Short Form: Raw Score: 18? CMS Score: 47% deficit? ? ? Informed Consent/Education:? Patient was instructed in purpose of PT consult and plan of care. Agreeable to proceed with established PT POC to achieve personal goals. Assessment: Has refused PROM to R shoulder since ordered by orthopod on 02/26/2022. Does agree to have arm hanging on side when walking to allow some gravity-induced shoulder muscle recruitment. Pain in R UE seems to be improving with less pain report during ambulation activities.? Patient unsafe to go home due to repeated falls.? Poor safety awareness,? may highly benefit from psych consult.? Impulsive, not consistent with compliance to safety instructions. ? Patient presents with clinical signs and symptoms consistent with current/admitting di agnoses that have resulted to mobility limitations, gait instability, generalized weakness, and overall ADL decline as demonstrated by the following impairment level findings: 1.? Decreased strength to R UE and B LE major muscle groups 2.? Impaired sitting/standing balance 3.? Impaired activity tolerance 4.? Limitation of joint range of motion in R UE 5.? Impaired cognition 6.? Poor safety awareness Impairments are contributing to the following functional limitations: 1.? Decline in bed mobility skills 2.? Decline in transfer skills 3.? Difficulty with ambulation without assistive device and physical assistance 4.? Increased completion time for mobility ADL performance 5.? Increased risk for falls 6.? Inability to thrive alone at home Patient is assessed as a 66755 high complexity based on the following: History: 71-year-old female with past medical history as indicated above Examination: Demonstrable impairment in strength, balance, and mobility level with underlying impairments and functional limitations as exhibited above as well as deficit score of 69% utilizing the [facility] Mobility Inpatient Short Form Presentation: Evolving Decision Makin high complexity Goals: Goals X1 week 1. Supine-Sit independent 2. Sit-Supine independent 3. Sit-Stand independent 4. Stand-Sit independent with SPC 5. Bed-Chair independent with SPC 6. Chair-Bed independent with SPC 7. Independent gait on level surface with use of SPC for at least 300 feet without report of pain nor dyspnea 8. Independent stair negotiation while holding onto 1 rails for at least 5 steps without report of pain nor dyspnea 9. Independent with home exercise program 10. Good static and dynamic standing balance/tolerance Plan of Care/Treatment Plan: Decrease frequency to 1x/day for 7 days/week x 2 weeks. Plan of care has been reviewed with the DENTAL RECEPTIONIST providing the service under Physical Therapy direction. Continue with Physical Therapy intervention for pain management as needed, strengthening, bed mobility, transfers, gait, stairs, balance training, and use of assistive device. DISCHARGE RECOMMENDATIONS: [] ? Home with no services [] [] ? Home with services [specify] [] ? Home with outpatient PT [] [] ? SNF for continued rehabilitation [] [] ? Expense Clerk Care [] [] ? SNF versus LTC based on ability to participate and progress [] [X] ? [facility] vs SNF depending on progress towarsd goals.? Patient will highly benefit from placement in a supervised setting to maximize safe environment that can reduce fall risk, manage medication intake, and allow needed assistance with ADL performance.? Patient will benefit from home health PT services as well in order to progress mobility level using least restrictive assistive ambulatory device, assess home safety, identify additional equipment needs, and establish a functional maintenance program that will increase ability of patient to remain at home. TREATMENT CODE/TIME: 67427 x 21 minutes beginning at 14:49 PM. Thank you for the opportunity to participate in the care of this patient. Tina Shepard PT, DPT, CLT [facility] [place], [place]
[2022-03-10] MEDS: Benzonatate 100 MG CAP PO ×2 (14:59→20:51)
[2022-03-10] MEDS: Normal Saline Flush 10 ML SYR IVP (14:59)
[2022-03-10] MEDS: REMDESIVIR 100 MG in Normal Saline 250 ML 250 MG IVPB (14:59)
[2022-03-10] MEDS: Ibuprofen 600 MG TAB PO (17:35)
[2022-03-10] MEDS: Enoxaparin 40 MG/0.4 ML SYR SC (18:24)
[2022-03-10] MEDS: guaiFENesin 600 MG TABCR PO (20:51)
[2022-03-10] MEDS: Lidocaine 5% Patch 1 PATCH TP (20:53)
[2022-03-10] MEDS: Insulin Glargine 300 UNITS/3 ML PEN SC (22:23)
[2022-03-11 00:12] VITALS: BP 95/55; PULSE 82; TEMP 37
[2022-03-11 02:04] VITALS: BP 97/43; PULSE 76; RESP 18; TEMP 35.5; O2SAT 96
[2022-03-11] MEDS: Normal Saline Flush 10 ML SYR IVP (06:28)
[2022-03-11 07:46] VITALS: BP 125/74; PULSE 113; RESP 18; TEMP 38.2; O2SAT 93
[2022-03-11] MEDS: Benzonatate 100 MG CAP PO ×2 (08:04→14:46)
[2022-03-11] MEDS: Acetaminophen 325 MG TAB 650 MG PO (08:04)
[2022-03-11] MEDS: Thiamine 100 MG TAB PO (08:05)
[2022-03-11] MEDS: Nystatin POWDER 60 GM JAR TP ×2 (08:06→20:52)
[2022-03-11 09:04] VITALS: TEMP 37.3
[2022-03-11 11:05] VITALS: BP 92/60; PULSE 98; RESP 18; TEMP 37.3; O2SAT 92
--- NOTE | 2022-03-11 13:51 | PT.INTREAT ---
Date of service: 03/11/22 Time of Service: 13:51 PT Notes Visit Reasons: Fracture Right Humerus Physical Therapy Inpatient Treatment Note Date: 03/11/2022 Referring Doctor:? Jasmin Cortes,? LEARNING AND DEVELOPMENT SPECIALIST PT Orders: PT CONSULT: Eval/Treat Precautions: Fall.?COVID-19 positive.?NWB on R UE.??Per ELÍAS Goddard on 03/06/2022:? Encouraged continued passive ROM below 90 degrees to avoid frozen shoulder. Do not lift anything heavier than a coffee mug for the next 4 weeks. Complete pendulum swings. Sling for comfort.? D/C when medically appropriate - continue with outpatient PT services. Subjective: Requested Nurse Megha in the morning to let patient know that she will have PT at around 2 pm today. Patient called the nurse's station at 1:58 PM stating that she was ready for PT. Prefers to be seen around the same time everyday. Objective: General Observation: Supine in bed with head of bed elevated 30 degrees.? Mental Status: Alert and oriented as to person and place. Able to pay attention, focus, and respond appropriately. Pain: 5-6/10 in R UE and low back Vital Signs: WNL as closely monitored by nursing staff Bed Mobility/Transfers: Supine to sit minimal assist to B LE Sit to supine minimal assist to B LE Sit to stand contact guard assist Stand to sit contact guard assist Gait: Instructed patient with level surface ambulation of about 20 feet x 6 requiring stand by assist using the single point cane.? L arm allowed to hang on side to allow for minimal gravity-driven traction and stimulation to L shoulder elevators/stabilizers.? THERA EX: Shoulder shrugs x 4 Scapular squeezes x 2 Balance: Static Sitting: Good Dynamic Sitting: Fair Static Standing: Fair Dynamic Standing: Fair Assessment: Has refused PROM to R shoulder since ordered by orthopod on 02/26/2022.? Today however, patient was agreeable to doing gentle shoulder shrugs and scapular squeezes but neede to lie back down after a few repetitions stating that she was tired. Plan of Care/Treatment Plan: Decrease frequency to 1x/day for 5 days/week x 2 weeks. Progress activity and exercise capacity as tolerated. DISCHARGE RECOMMENDATIONS: [] ? Home with no services [] [] ? Home with services [specify] [] ? Home with outpatient PT [] [] ? SNF for continued rehabilitation [] [] ? Alf Care [] [] ? SNF versus LTC based on ability to participate and progress [] [X] ? [facility] vs SNF depending on progress towarsd goals.? Patient will highly benefit from placement in a supervised setting to maximize safe environment that can reduce fall risk, manage medication intake, and allow needed assistance with ADL performance.? Patient will benefit from home health PT services as well in order to progress mobility level using least restrictive assistive ambulatory device, assess home safety, identify additional equipment needs, and establish a functional maintenance program that will increase ability of patient to remain at home. TREATMENT CODE/TIME: 84191 x 20, 63316 x 8 minutes beginning at 13:51 PM.
[2022-03-11] MEDS: REMDESIVIR 100 MG in Normal Saline 250 ML 250 MG IVPB (14:46)
[2022-03-11] MEDS: Enoxaparin 40 MG/0.4 ML SYR SC (17:47)
[2022-03-11] MEDS: Lidocaine 5% Patch 1 PATCH TP (20:52)
[2022-03-11] MEDS: Calcium 600mg/Vit D 200U TAB 1 TAB PO (20:52)
[2022-03-11] MEDS: Potassium Chloride 20 MEQ TABCR PO (20:52)
[2022-03-11] MEDS: Insulin Glargine 300 UNITS/3 ML PEN SC (21:34)
[2022-03-12 08:15] VITALS: BP 143/42; PULSE 104; RESP 17; TEMP 36.7; O2SAT 92
[2022-03-12] MEDS: Thiamine 100 MG TAB PO (09:04)
[2022-03-12] MEDS: Benzonatate 100 MG CAP PO ×3 (09:04→22:22)
[2022-03-12] MEDS: Magnesium Oxide 400 MG TAB PO (09:04)
[2022-03-12] MEDS: Nystatin POWDER 60 GM JAR TP (09:05)
[2022-03-12] MEDS: Normal Saline Flush 10 ML SYR IVP (15:08)
[2022-03-12] MEDS: REMDESIVIR 100 MG in Normal Saline 250 ML 250 MG IVPB (15:09)
--- NOTE | 2022-03-12 15:10 | PTTR_ITS ---
Date of service: 03/12/22 Time of Service: 13:55 PT Notes Visit Reasons: Fracture Right Humerus Inpatient Physical Therapy Treatment Note [facility] Date: 03/12/2022 PRECAUTIONS: Fall, NWB on R UE SUBJECTIVE: Ester is pleasant and agreeable to participating in PT. She reports that she was just assisted in washing up. She reports that she is feeling well. OBJECTIVE: Encouraged gait training without sling (with PT only) for promotion of gravity-assisted PROM/modified pendulums. PAIN: Patient reports that she has pain in R shoulder with movement, which limits her ability to complete functional tasks. BED MOBILITY/TRANSFERS Supine-sit: Min A Sit-supine: CGA Sit-stand: SBA Stand-sit: SBA GAIT Assistive Device: SPC Weight bearing: NWB on R UE Assist: SBA - S Distance: 20' x10 without rest Deviation: Minimal unsteadiness with initiation, improved pacing THEREX: Patient completes shoulder shrugs ~x15 as well as scapular retraction ~x10, both completed in a seated position. She performs deep breathing throughout exercises. However, patient continues to refuse PROM exercises to R shoulder. Static sitting at EOB x15 minutes with normal balance. ASSESSMENT: Patient continues to demonstrate good dynamic balance with ambula tion with SPC. She tolerates increased reps of shoulder shrugs and scapular retraction. She continues to refuse PROM to R shoulder due to pain. PLAN: Continue with general mobility training and global strengthening, as well as PROM to R shoulder as patient allows TREATMENT CODE/TIME: 43 minutes; 22151 x3 (13:55)
--- NOTE | 2022-03-12 16:47 | PDOC.CMACT ---
- If Service Date Differs Date of service: 03/12/22 Time of Service: 16:47 Care Management Activity Note S/O: Ester remains closely monitored while on Covid precautions, awaiting placement at the [facility]. She was accepted, but is now required to quarantine prior to admission at . She will likely be ready to discharge on 03/20/22, after her quarantine, if not sooner, if she tests negative. She continues to work with PT. CM spoke to her daughter, Luz, today, and provided an update. CM will continue to follow. A: Ester is a 71 year old female admitted to [facility] on 02/19/22 for a fractured R Humerus. P: Ester is on SWB1 for continued PT while waiting for admission at the [facility]. She was found to be Covid positive, and now is required to quarantine for 10 days prior to her admission to . She will transport via [facility] private vehicle, coordinated by CM. CM will continue to update Luz, her daughter, as she is not able to visit. She will follow up with her PCP and discharge plan of care. CM will continue to support discharge planning considerations.
[2022-03-12] MEDS: Insulin Aspart 300 UNITS/3 ML PEN SC (17:06)
[2022-03-12] MEDS: Enoxaparin 40 MG/0.4 ML SYR SC (18:17)
[2022-03-12] MEDS: guaiFENesin 600 MG TABCR PO (22:22)
[2022-03-12] MEDS: Acetaminophen 325 MG TAB 650 MG PO (22:22)
[2022-03-12] MEDS: Cyclobenzaprine 10 MG TAB 5 MG PO (22:23)
[2022-03-12] MEDS: Calcium 600mg/Vit D 200U TAB 1 TAB PO (22:24)
[2022-03-12] MEDS: Potassium Chloride 20 MEQ TABCR PO (22:24)
[2022-03-12] MEDS: Insulin Glargine 300 UNITS/3 ML PEN SC (22:25)
[2022-03-12] MEDS: Lidocaine 5% Patch 1 PATCH TP (22:45)
[2022-03-13 04:43] VITALS: BP 100/53; PULSE 77; RESP 16; TEMP 36; O2SAT 96
[2022-03-13] MEDS: Thiamine 100 MG TAB PO (08:42)
[2022-03-13] MEDS: Magnesium Oxide 400 MG TAB PO (08:42)
[2022-03-13] MEDS: guaiFENesin 600 MG TABCR PO ×2 (08:43→20:17)
[2022-03-13] MEDS: Calcium 600mg/Vit D 200U TAB 1 TAB PO ×2 (08:43→20:17)
[2022-03-13] MEDS: Potassium Chloride 20 MEQ TABCR PO ×2 (08:43→20:17)
[2022-03-13] MEDS: Benzonatate 100 MG CAP PO ×3 (08:43→20:17)
[2022-03-13] MEDS: Nystatin POWDER 60 GM JAR TP (08:48)
[2022-03-13] MEDS: REMDESIVIR 100 MG in Normal Saline 250 ML 250 MG IVPB (14:46)
[2022-03-13] MEDS: Normal Saline Flush 10 ML SYR IVP (14:46)
[2022-03-13] MEDS: Acetaminophen 325 MG TAB 650 MG PO (14:46)
--- NOTE | 2022-03-13 14:50 | PT.INTREAT ---
Date of service: 03/13/22 Time of Service: 14:30 PT Notes Visit Reasons: Fracture Right Humerus Inpatient Physical Therapy Treatment Note [facility] Date: 03/13/2022 PRECAUTIONS: Fall, NWB on R UE SUBJECTIVE: Ester is pleasant and agreeable to participating in PT. She states that she is having more pain in her R shoulder today every time she moves. OBJECTIVE: Encouraged gait training without sling (with PT only) for promotion of gravity-assisted PROM/modified pendulums. PAIN: Patient reports that she has pain in R shoulder with movement, which limits her ability to complete functional tasks. BED MOBILITY/TRANSFERS Supine-sit: Min A Sit-supine: CGA Sit-stand: SBA Stand-sit: SBA GAIT Assistive Device: SPC Weight bearing: NWB on R UE Assist: S Distance: 20' Deviation: Minimal unsteadiness with initiation, improved pacing THEREX: Patient unable to complete exercises due to increased R shoulder pain today. TOILETING: Patient toileted with assist. ASSESSMENT: Patient continues to demonstrate good dynamic balance with ambulation with SPC. She appears limited by R shoulder pain. PLAN: Continue with general mobility training and global strengthening, as well as PROM to R shoulder as patient allows TREATMENT CODE/TIME: 20 minutes; 30061 (14:30)
[2022-03-13] MEDS: Enoxaparin 40 MG/0.4 ML SYR SC (17:17)
[2022-03-13 20:14] VITALS: BP 93/51; PULSE 78; RESP 16; TEMP 36.3; O2SAT 92
[2022-03-13] MEDS: Lidocaine 5% Patch 1 PATCH TP (20:28)
[2022-03-13] MEDS: Insulin Glargine 300 UNITS/3 ML PEN SC (20:29)
[2022-03-14 07:48] VITALS: BP 111/60; PULSE 83; RESP 18; TEMP 36.4; O2SAT 95
[2022-03-14] MEDS: Acetaminophen 325 MG TAB 650 MG PO (09:26)
[2022-03-14] MEDS: Benzonatate 100 MG CAP PO ×3 (09:26→20:14)
[2022-03-14] MEDS: Calcium 600mg/Vit D 200U TAB 1 TAB PO ×2 (09:26→20:14)
[2022-03-14] MEDS: guaiFENesin 600 MG TABCR PO ×2 (09:27→20:14)
[2022-03-14] MEDS: Nystatin POWDER 60 GM JAR TP ×2 (09:27→20:15)
[2022-03-14] MEDS: Magnesium Oxide 400 MG TAB PO (09:27)
[2022-03-14] MEDS: Thiamine 100 MG TAB PO (09:27)
[2022-03-14] MEDS: Potassium Chloride 20 MEQ TABCR PO ×2 (09:27→20:14)
[2022-03-14] MEDS: Normal Saline Flush 10 ML SYR IVP (09:28)
[2022-03-14] MEDS: Insulin Aspart 300 UNITS/3 ML PEN SC ×2 (12:23→20:15)
--- NOTE | 2022-03-14 15:04 | W.PM.PROGNOT ---
Date of Service Date of service: 03/13/22 Time of Service: 15:04 Assessment and Plan Assessment and plan (1) Closed fracture of proximal end of right humerus: Status: Acute Assessment and plan: continue sling and pain management will f/u with orthopedics outpatient calcium/vit D supplement PT and OT following ice for comfort if needed. Per ortho recommendations: At this time, continue non-operative management.? Recommend sling when out of bed or ambulatory for another 4-5 weeks.? Should remove sling when resting in bed or chair.? Should perform gentle passive shoulder range of motion including pendulums.? Light active use of hand okay.? Encourage daily active range of motion about fingers, wrist, and elbow to prevent stiffness.? Nonweightbearing and no carrying right upper extremity.? Repeat right shoulder x-rays (true AP and scapular Y) and upright or standing position in 1-2 weeks. 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 bs well controlled (5) DVT prophylaxis: Status: Acute Assessment and plan: will continue enoxaparin (6) Discharge planning issues: Status: Acute Assessment and plan: plan to discharge to rehabilitation facility 03/20 case management following referrals placed discussed with Dr Wong Subjective Subjective Patient reports: no new complaints, feels better, tolerating a regular diet, voiding w/o difficulty, bowel movement and afebrile; denies diarrhea, nausea, vomiting or shortness of breath Exam Const General: frail appearing and ill appearing chronically Nutritional Appearance: average body habitus Orientation: alert, awake and oriented x3 HENMT Head: normal to inspection, normocephalic and atraumatic Mouth: oral mucosae normal Resp Effort & Inspection: normal respiratory effort Cardio Rate: regular rate GI Inspection: normal to inspection Palpation: soft Auscultation: normal bowel sounds Skin General skin exam: no rashes or lesions noted Neuro General: patient alert, patient awake and patient oriented x3 Extrem Right upper extremity: edema (old ecchymosis. ); abnormal to inspection Objective Last Vital Signs Temp 36.4 C L 03/14/22 07:48 Pulse 83 03/14/22 07:48 Resp 18 03/14/22 07:48 BP 111/60 03/14/22 07:48 Pulse Ox 95 03/14/22 07:48 Reviewed Pertinent PMH: Yes
[2022-03-14 15:35] VITALS: BP 114/61; PULSE 78; RESP 16; TEMP 36.7; O2SAT 96
[2022-03-14] MEDS: Enoxaparin 40 MG/0.4 ML SYR SC (17:32)
[2022-03-14 18:26] LABS: Bilirubin Negative (Negative); Blood Small (Negative); Clarity Cloudy (Clear); Glucose Negative (Negative); Ketones Negative (Negative); Leukocyte Esterase Moderate (Negative); Nitrite Positive (Negative); Urobilinogen 0.2 EU/dL (Up TO 0.2)
[2022-03-14 18:49] LABS: WBC >50 HPF (0-5)
[2022-03-14 18:50] LABS: Bacteria Moderate HPF (Negative); C & S Indicated? C&S Done As Ordered; Crystals Negative HPF (Negative); Epithelial Cells Rare HPF (Negative); Mucus Negative (Negative); RBC 0-2 HPF (0-2)
[2022-03-14 20:08] VITALS: BP 97/59; PULSE 86; RESP 16; TEMP 36.9; O2SAT 93
[2022-03-14] MEDS: Lidocaine 5% Patch 1 PATCH TP (20:14)
[2022-03-14] MEDS: Insulin Glargine 300 UNITS/3 ML PEN SC (20:14)
--- NOTE | 2022-03-14 20:28 | WOUNDCONS ---
- If Service Date Differs Date of service: 03/14/22 Time of Service: 16:00 Wound Initial Evaluation Narrative: Patient arrived from home after a fall with fracture to the right humerus. Pt unkept on arrival. Per documentation, sacrum area red but blanchable on arrival. Per pt interview today, she states that she has been intermittently incontinent of urine for the past four years, when she left [place] to move to [facility]. She states that during the day she has sensation of needing to void, for the most part, but does not always feel the urge in time to awaken at night or during naps. She states that she is no longer able to take care of herself [facility]. Of note, pt is noted to be able to ambulate independently about the room and is steady on her feet when she does get up. Pt has been noted to not alert staff when she is wet or soiled for undetermined lengths of time. And at times has even declined being changed or repositioned. During today's evaluation, the importance of keeping her skin clean and dry was explain to Ester for wound healing and the prevention of infection. Informed that laying in urine and feces can break down the skin further and can lead to increased injury and increase in pain to what she already has. Her sacrum is very reddened with a partial thickness chemical/urine/feces denuded skin. Pt history includes: HCAP (healthcare-associated pneumonia) (Acute) Noncompliance by refusing intervention or support (Acute) Hypovolemia (Acute) Frequent falls (Acute) Closed fracture of proximal end of right humerus (Acute 02/16/22) Hypophosphatemia (Acute) Hypomagnesemia (Acute) Esophagitis (Acute) E. coli UTI (Acute) Non-insulin dependent type 2 diabetes mellitus (Chronic) Hypokalemia (Acute) Alcohol abuse (Chronic) Alcohol intoxication (Acute) Acute CVA (cerebrovascular accident) Aortic stenosis Carotid stenosis Diabetes mellitus type 2 in nonobese TIA (transient ischemic attack) Active medications include: Lantus insulin at HS, Aspart insulin AC and HS, potassium, thiamine,calcium with vitamin D, and magnesium replacement therapies, lovenox for dvt prophylaxis, Ibuprofen for discomfort. A request for the compound cream of clotrimazole/zinc oxide/ vitamin A/D was obtained to apply to the groin area that is reddened but has no open areas and no tissue loss. - Wound sacrum Wound Type: Partial Thickness, Other (burn from urine and feces/ denuded skin) Wound General Appearance: Reddened, Denuded Wound Bed Greatest Portion: Other (deep red denuded skin) Wound Bed Lesser Portion: Yellow (Slough) Wound Surrounding Tissue Appearance: Blanched/Dull, Other (pimply red raised rash) Percent of Wound Bed Granulated/Red: 90 (deep red denuded skin) Percent of Wound Bed Slough/Yellow: 10 (rough edges) Percent of Wound Bed Eschar/Black: 0 Wound Length: 4.13 in (10.5cm) Wound Width: 2.48 in (6.3cm) Wound Depth: 0.04 in (0.1cm) Wound Drainage Amount: None Wound Drainage Odor: None/Absent Wound Topical Solution/Irrigant: Other (Anasept) Wound Debridement Method: Other (Debrisoft sponge) Wound Debridement Result: Yellow Sloughing Remains Wound Debridement Amount of Tissue Removed: Minimal coccyx Wound Type: Partial Thickness Pressure Ulcer Stage: II Wound General Appearance: Reddened, Unapproximated, Denuded Wound Bed Greatest Portion: Red (Granulation) Wound Surrounding Tissue Appearance: Dark Red Percent of Wound Bed Granulated/Red: 100 Percent of Wound Bed Slough/Yellow: 0 Percent of Wound Bed Eschar/Black: 0 Wound Length: 0.59 in (1.5cm) Wound Width: 0.12 in (0.3cm) Wound Depth: 0.08 in (0.2cm) Wound Drainage Amount: None Wound Drainage Odor: None/Absent Wound Topical Solution/Irrigant: Other (Anasept) Wound Debridement Method: Other (Debrisoft) Wound Debridement Result: Healthy Tissue Revealed Wound Debridement Amount of Tissue Removed: Minimal Throughtout the wound evalutation, I explained to the patient the importance of using the bathroom as much as possible. The provider was notified during the consult to evaluate the wound and a li order was obtained to assist in wound healing. Pt also advised to use the bathroom or the bedside commode for bowel movements or if incontinent to alert the nurse as soon as she is aware of the incontinence, so that she can be cleaned. Reinforced teaching several times that keeping the area clean and dry would be the best for healing. Also discussed the importance of repositioning herself every 1.5-2 hours from side to side and to position herself onto her back for less than one hour increments at a time or in the chair for meals for 30 minutes at a time to prevent extended peroids of time on her buttocks. Pt verbalized understanding and was able to repeat instructions. We also discussed using at least 5 pillows for positioning. One behind her back and hips, one between her knees and ankles, one for her top arm, and one for her head. We discussed keeping her heels off the bed with pillows. We also discussed how controlling the incontinence and repositioning will actually help with her comfort as her skin will heal and will be less tender. I did review her nutritional intake which has been fair. Will consult Nutrition for assessment and assistance with wound healing. - Photo Photo: - Treatment/Dressing Change Cleanse With: Anasept, Debrisoft Dressing Comment: Triad Hydrophilic Wound Dressing - Recomendation Recomendation:: Sacrum: 1. Cleanse area daily with anasept cleanser and allow to dwell for 2 minutes. 2. Pat area dry with a clean gauze. 3. Apply Triad Hydrophilic Wound dressing and allow to dry. 4. Leave skin open to air. Encourage pt to reposition side to side at least every two hours with positioning onto back for only brief periods of less than an hour at a time. Use pillows to offload heels off the bed. Use a pillow behind back and hips, one between knees and ankles, and one to rest top arm while lying on side. Also assist with position of comfort for fractured right humerus. Pt may be up to chair for meals for 30 minutes at a time. Marni area: Use Clotrimazole/zinc oxide/Vitamin A/D compound cream to marni area and groin prn. Physcian/Nurse Practioner Notified: Yes Referrals: Dietary, Other (Nutrition consult) Treatment Time - Time Total Time Spent with Patient: 1 hour - Patient Will be Seen Weekly Treatment: daily - For: For:: 2 weeks
[2022-03-15 08:08] VITALS: BP 104/52; PULSE 82; RESP 16; TEMP 36.4; O2SAT 96
[2022-03-15] MEDS: Magnesium Oxide 400 MG TAB PO (08:26)
[2022-03-15] MEDS: Potassium Chloride 20 MEQ TABCR PO ×2 (08:26→21:34)
[2022-03-15] MEDS: Ibuprofen 600 MG TAB PO (08:26)
[2022-03-15] MEDS: Normal Saline Flush 10 ML SYR IVP ×2 (08:26→18:36)
[2022-03-15] MEDS: Calcium 600mg/Vit D 200U TAB 1 TAB PO ×2 (08:26→21:35)
[2022-03-15] MEDS: guaiFENesin 600 MG TABCR PO ×2 (08:26→21:35)
[2022-03-15] MEDS: Benzonatate 100 MG CAP PO ×3 (08:26→21:35)
[2022-03-15] MEDS: Thiamine 100 MG TAB PO (08:27)
[2022-03-15] MEDS: Insulin Aspart 300 UNITS/3 ML PEN SC ×2 (17:21→21:32)
[2022-03-15] MEDS: Enoxaparin 40 MG/0.4 ML SYR SC (17:21)
--- NOTE | 2022-03-15 18:06 | PGE_ITS ---
Date of Service Date of service: 03/15/22 Time of Service: 18:06 Assessment and Plan Assessment and plan (1) UTI (urinary tract infection): Status: Resolved Assessment and plan: growing greater than 100k e coli based on previous cultures she grew ESBL e coli, UTI will start imipenem while awaiting sensitivities. discussed with Dr Wong. Subjective Subjective Interval history since last seen: no new c/o Objective Last Vital Signs Temp 36.4 C L 03/15/22 08:08 Pulse 82 03/15/22 08:08 Resp 16 03/15/22 08:08 BP 104/52 L 03/15/22 08:08 Pulse Ox 96 03/15/22 08:08 Laboratory Results - last 24 hr 03/14/22 17:32 Urine Color Yellow Urine Clarity Cloudy Urine pH 6.0 Ur Specific [place] 1.010 Urine Protein Negative Urine Ketones Negative Urine Blood Small H Urine Nitrite Positive H Urine Bilirubin Negative Urine Urobilinogen 0.2 Ur Leukocyte Esterase Moderate H Urine RBC 0-2 Urine WBC >50 H Ur Epithelial Cells Rare Urine Crystals Negative Urine Bacteria Moderate Urine Mucus Negative Ur Culture Indicated? C&S Done As Ordered Urine Glucose Negative
[2022-03-15] MEDS: IMIPENEM/CILASTATIN 500 MG in Normal Saline 100 ML 200 MG IVPB (18:36)
[2022-03-15] MEDS: Insulin Glargine 300 UNITS/3 ML PEN SC (21:33)
[2022-03-15] MEDS: Lidocaine 5% Patch 1 PATCH TP (21:33)
[2022-03-15] MEDS: Nystatin POWDER 60 GM JAR TP (21:34)
[2022-03-16] MEDS: IMIPENEM/CILASTATIN 500 MG in Normal Saline 100 ML 200 MG IVPB ×2 (00:04→06:30)
[2022-03-16] MEDS: Normal Saline Flush 10 ML SYR IVP ×3 (00:06→08:22)
[2022-03-16] MEDS: Insulin Aspart 300 UNITS/3 ML PEN SC (08:21)
[2022-03-16] MEDS: Thiamine 100 MG TAB PO (08:22)
[2022-03-16] MEDS: Magnesium Oxide 400 MG TAB PO (08:22)
[2022-03-16] MEDS: guaiFENesin 600 MG TABCR PO ×2 (08:22→21:20)
[2022-03-16] MEDS: Ibuprofen 600 MG TAB PO (08:22)
[2022-03-16] MEDS: Calcium 600mg/Vit D 200U TAB 1 TAB PO ×2 (08:23→21:20)
[2022-03-16] MEDS: Benzonatate 100 MG CAP PO ×3 (08:23→21:20)
[2022-03-16] MEDS: Potassium Chloride 20 MEQ TABCR PO ×2 (08:23→21:20)
[2022-03-16 09:00] VITALS: BP 114/89; PULSE 69; RESP 17; TEMP 36.8; O2SAT 96
--- NOTE | 2022-03-16 10:39 | W.NUTCONSULT ---
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 Staff reports non compliance with interventions and support including meals. PO intake has declined in last week and is not meeting macronutrient needs. Averaging about 25% of meals - about 500 calories and 20 grams protein daily. Need updated weight. Estimated Needs: 6740-4910 kcal, 60-70 g protein. Meeting only 33% of nutrient needs at this time. At high nutritional risk and at risk for skin breakdown. WIll follow up with care managers if Ester's COLST form indicates artificiall nutritin support. NUTRITIONAL DIAGNOSIS: Inadequate nutrient intake secondary to non compliance/dementia for meal time support INTERVENTION: Continue current meal plan, will add glucerna shakes as additional source of calories and protein consider appetite stimulant such as megace or remeron weights daily MONITORING AND EVALUATION: will follow po intake, labs, weight Time Spent in Nutritional Counseling and Treatment: 0
[2022-03-16] MEDS: Fosfomycin Tromethamine 3 GM PACKET PO (13:58)
--- NOTE | 2022-03-16 14:06 | PT.INPN ---
Date of service: 03/16/22 Time of Service: 14:06 PT Notes Visit Reasons: Fracture Right Humerus Swing Bed Level I Physical Therapy Progress Note Date: 03/16/2022 Dates of Service: 03/10/2022 through 03/16/2022 Referring Doctor:? Jasmin Cortes,? JOEY PT Orders: PT CONSULT: Eval/Treat Precautions: Fall.?COVID-19 positive.?NWB on R UE.??Per ELÍAS Goddard on 03/06/2022:? Encouraged continued passive ROM below 90 degrees to avoid frozen shoulder. Do not lift anything heavier than a coffee mug for the next 4 weeks. Complete pendulum swings. Sling for comfort.? D/C when medically appropriate - continue with outpatient PT services. Subjective: Complained about the cold temperature in the room. Increased thermostat in the room and provided patient with a warm blanket. Objective: General Observation: Swelling in R shoulder almost resolved. Ecchymoses resolved. Painpatch seen on top of R shoulder. Mental Status: Alert and oriented as to person and place. Able to pay attention, focus, and respond appropriately. Pain: 4-5/10 in R UE and low back Vital Signs: WNL as closely monitored by nursing staff ROM: Right Upper Extremity: ? NT.? Elbow and wrist WFL Left Upper Extremity:? Shoulder Flexion WFL. Shoulder abduction WFL. Elbow flexion WFL. Wrist flexion WFL. Functional opening and closing of hand WFL. Right Lower Extremity: Hip flexion WFL. Hip abduction WFL. Knee flexion WFL. Ankle dorsiflexion WFL. Ankle plantarflexion WFL. Left Lower Extremity: Hip flexion WFL. Hip abduction WFL. Knee flexion WFL. Ankle dorsiflexion WFL. Ankle plantarflexion WFL. Strength: Right Upper Extremity: Shoulder muscle groups not tested.? Elbow grossly 3-/5.? Wrist 4-/5. Left Upper Extremity: Shoulder flexors 4-/5. Shoulder abductors 4-/5. Elbow flexors 4-/5. Elbow extensors 4-/5. [employer] strong. Right Lower Extremity: Hip flexors 3+/5. Hip abductors 3+/5. Knee flexors 3+/5. Knee extensors 3+/5. Ankle dorsiflexors 4-/5. Ankle plantarflexors 4-/5. Left Lower Extremity: Hip flexors 3+/5. Hip abductors 3+/5. Knee flexors 3+/5. Knee extensors 3+/5. Ankle dorsiflexors 4-/5. Ankle plantarflexors 4-/5. Bed Mobility/Transfers: Supine to sit minimal assist to B LE Sit to supine minimla assist Sit to stand contact guard assist Stand to sit contact guard assist Gait: Instructed patient with level surface ambulation of about 150 feet (distance from window to door x 5 sets) requiring stand by assist while holding onto SPC on L.? L arm allowed to hang on side to allow for minimal gravity-driven traction and stimulation to L shoulder elevators/stabilizers.? Balance: Static Sitting: Good Dynamic Sitting: Good Static Standing: Fair Dynamic Standing: Fair Special Tests: Mobility Limitations Standardized Measure [facility]-PAC 6 clicks Basic Mobility Inpatient Short Form: Raw Score: 18? CMS Score: 47% deficit? ? ? Informed Consent/Education:? Patient was instructed in purpose of PT consult and plan of care. Agreeable to proceed with established PT POC to achieve personal goals. Assessment: Has allowed gentle shoulder shrugs and scapular squeezes for this past week as her pain level has been abating. Also agreeable to have arm hanging on side when walking to allow some gravity-induced shoulder muscle recruitment. Pain in R UE seems to be improving with less pain report during ambulation activities.? Patient unsafe to go home due to repeated falls.? Poor safety awareness,? may highly benefit from psych consult.? Impulsive, not consistent with compliance to safety instructions. ? Patient presents with clinical signs and symptoms consistent with current/admitting diagnoses that have resulted to mobility limitations, gait instability, generalized weakness, and overall ADL decline as demonstrated by the following impairment level findings: 1.? Decreased strength to R UE and B LE major muscle groups 2.? Impaired sitting/standing balance 3.? Impaired activity tolerance 4.? Limitation of joint range of motion in R UE 5.? Impaired cognition 6.? Poor safety awareness Impairments are contributing to the following functional limitations: 1.? Decline in bed mobility skills 2.? Decline in transfer skills 3.? Difficulty with ambulation without assistive device and physical assistance 4.? Increased completion time for mobility ADL performance 5.? Increased risk for falls 6.? Inability to thrive alone at home Patient is assessed as a 16280 moderate complexity based on the following: History: 71-year-old female with past medical history as indicated above Examination: Demonstrable impairment in strength, balance, and mobility level with underlying impairments and functional limitations as exhibited above as well as deficit score of 69% utilizing the [facility] Mobility Inpatient Short Form Presentation: Evolving Decision Makin moderate complexity Goals: Goals X1 week 1. Supine-Sit independent NOT MET 2. Sit-Supine independent NOT MET 3. Sit-Stand independent NOT MET 4. Stand-Sit independent with SPC NOT MET 5. Bed-Chair independent with SPC NOT MET 6. Chair-Bed independent with SPC NOT MET 7. Independent gait on level surface with use of SPC for at least 300 feet without report of pain nor dyspnea NOT MET 8. Independent stair negotiation while holding onto 1 rails for at least 5 steps without report of pain nor dyspnea NOT MET 9. Independent with home exercise program NOT MET 10. Good static and dynamic standing balance/tolerance NOT MET Plan of Care/Treatment Plan: Decrease frequency to 1x/day Mondays through Fridays 5x/week x 2 weeks. Plan of care has been reviewed with the GLASS CUTTER providing the service under Physical Therapy direction. Continue with Physical Therapy intervention for pain management as needed, strengthening, bed mobility, transfers, gait, stairs, balance training, and use of assistive device. DISCHARGE RECOMMENDATIONS: [] ? Home with no services [] [] ? Home with services [specify] [] ? Home with outpatient PT [] [] ? SNF for continued rehabilitation [] [] ? Theoretical Physicist Care [] [] ? SNF versus LTC based on ability to participate and progress [] [X] ? [facility] vs SNF depending on progress towarsd goals.? Patient will highly benefit from placement in a supervised setting to maximize safe environment that can reduce fall risk, manage medication intake, and allow needed assistance with ADL performance.? Patient will benefit from home health PT services as well in order to progress mobility level using least restrictive assistive ambulatory device, assess home safety, identify additional equipment needs, and establish a functional maintenance program that will increase ability of patient to remain at home. TREATMENT CODE/TIME: 78361 x 24 minutes beginning at 14:06 PM. Thank you for the opportunity to participate in the care of this patient. Tina Shepard PT, DPT, CLT [facility] [place], [place]
[2022-03-16] MEDS: Enoxaparin 40 MG/0.4 ML SYR SC (17:14)
[2022-03-16] MEDS: Insulin Glargine 300 UNITS/3 ML PEN SC (21:20)
[2022-03-16] MEDS: Nystatin POWDER 60 GM JAR TP (21:22)
[2022-03-17 08:26] VITALS: BP 106/42; PULSE 92; RESP 16; TEMP 36.8; O2SAT 94
[2022-03-17] MEDS: Benzonatate 100 MG CAP PO ×3 (08:34→21:29)
[2022-03-17] MEDS: Calcium 600mg/Vit D 200U TAB 1 TAB PO ×2 (08:34→21:29)
[2022-03-17] MEDS: Magnesium Oxide 400 MG TAB PO (08:35)
[2022-03-17] MEDS: Nystatin POWDER 60 GM JAR TP ×2 (08:35→21:30)
[2022-03-17] MEDS: Potassium Chloride 20 MEQ TABCR PO ×2 (08:36→21:30)
[2022-03-17] MEDS: Thiamine 100 MG TAB PO (08:36)
--- NOTE | 2022-03-17 15:13 | PT.INTREAT ---
Date of service: 03/17/22 Time of Service: 14:05 PT Notes Visit Reasons: Fracture Right Humerus Inpatient Physical Therapy Treatment Note [facility] Date: 03/17/2022 PRECAUTIONS: Fall, NWB on R UE SUBJECTIVE: Ester reports that she is feeling drowsy because she just woke up from a nap. She reports that she has been hurting in various places today including her back and knee. OBJECTIVE: Encouraged gait training without sling (with PT only) for promotion of gravity-assisted PROM/modified pendulums. PAIN: Patient reports that she has pain in R shoulder with movement, which limits her ability to complete functional tasks. BED MOBILITY/TRANSFERS Supine-sit: Min A Sit-supine: SBA Sit-stand: SBA Stand-sit: SBA GAIT Assistive Device: No AD Weight bearing: NWB on R UE Assist: CGA Distance: 20' x 5 Deviation: Minimal unsteadiness with initiation, improved pacing Patient demonstrates LOB at beginning of gait training, requiring Max A to prevent fall. THEREX: Patient refused to participate in ther ex today. ASSESSMENT: Patient demonstrates compromised dynamic balance with ambulation today. She appears limited by fatigue and potential confusion. PLAN: Continue with general mobility training and global strengthening, as well as PROM to R shoulder as patient allows TREATMENT CODE/TIME: 20 minutes; 05453 (14:05)
[2022-03-17] MEDS: Enoxaparin 40 MG/0.4 ML SYR SC (17:08)
[2022-03-17] MEDS: guaiFENesin 600 MG TABCR PO (21:29)
[2022-03-17] MEDS: Insulin Glargine 300 UNITS/3 ML PEN SC (21:32)
[2022-03-17] MEDS: Lidocaine 5% Patch 1 PATCH TP (21:33)
[2022-03-18] MEDS: Thiamine 100 MG TAB PO (09:12)
[2022-03-18] MEDS: Calcium 600mg/Vit D 200U TAB 1 TAB PO ×2 (09:12→21:59)
[2022-03-18] MEDS: Benzonatate 100 MG CAP PO ×3 (09:12→21:59)
[2022-03-18] MEDS: Magnesium Oxide 400 MG TAB PO (09:12)
[2022-03-18] MEDS: guaiFENesin 600 MG TABCR PO ×2 (09:12→21:59)
[2022-03-18] MEDS: Potassium Chloride 20 MEQ TABCR PO ×2 (09:12→22:00)
[2022-03-18] MEDS: Acetaminophen 325 MG TAB 650 MG PO (09:12)
[2022-03-18] MEDS: Nystatin POWDER 60 GM JAR TP ×2 (09:14→22:00)
[2022-03-18] MEDS: Cyclobenzaprine 10 MG TAB 5 MG PO (09:14)
[2022-03-18 09:15] VITALS: BP 114/63; PULSE 82; RESP 20; TEMP 36.8; O2SAT 98
[2022-03-18] MEDS: Normal Saline Flush 10 ML SYR IVP (09:18)
[2022-03-18] MEDS: Insulin Aspart 300 UNITS/3 ML PEN SC ×2 (13:14→22:00)
[2022-03-18] MEDS: Ibuprofen 600 MG TAB PO (13:15)
--- NOTE | 2022-03-18 14:48 | PTTR_ITS ---
PT Notes Visit Reasons: Fracture Right Humerus Inpatient Physical Therapy Treatment Note [facility] Date: 03/18/22 SUBJECTIVE: Ester states that she is really tired and is very annoyed that she is unable to be left alone long enough to sleep. She demanded that I stop talking because she was in no mood. OBJECTIVE: [] BED MOBILITY/TRANSFERS Supine-sit: min A Sit-supine: CGA Sit-stand: CGA Stand-sit: CGA refuses to sit in chair. GAIT Assistive Device: SPC Weight bearing: full Assist: CGA Distance: 20x4 refused any type of exercise routine. ASSESSMENT: pt was cooperative but not very nice today. Still requires assistance to get OOB and not willing to try to do it on her own. Refused exercise and sitting in chair. PLAN: will continue to work on her strength and functional mobility. Possible d/c tomorrow to [facility]. TREATMENT CODE/TIME: 10 min. [id number]
[2022-03-18] MEDS: Enoxaparin 40 MG/0.4 ML SYR SC (17:13)
[2022-03-18 21:56] VITALS: BP 108/63; PULSE 74; RESP 18; TEMP 36.8; O2SAT 96
[2022-03-18] MEDS: Insulin Glargine 300 UNITS/3 ML PEN SC (22:00)
[2022-03-18] MEDS: Lidocaine 5% Patch 1 PATCH TP (22:00)
[2022-03-19 08:36] VITALS: BP 95/55; PULSE 85; RESP 16; TEMP 35.4; O2SAT 95
[2022-03-19] MEDS: Calcium 600mg/Vit D 200U TAB 1 TAB PO (09:17)
[2022-03-19] MEDS: Benzonatate 100 MG CAP PO (09:18)
[2022-03-19] MEDS: guaiFENesin 600 MG TABCR PO (09:18)
[2022-03-19] MEDS: Magnesium Oxide 400 MG TAB PO (09:18)
[2022-03-19] MEDS: Nystatin POWDER 60 GM JAR TP (09:18)
[2022-03-19] MEDS: Potassium Chloride 20 MEQ TABCR PO (09:19)
[2022-03-19] MEDS: Thiamine 100 MG TAB PO (09:19)
--- NOTE | 2022-03-19 09:34 | DSE_ITS ---
Date of service: 03/19/22 Time of Service: 09:35 DS: Diagnosis Discharge Diagnosis (1) UTI (urinary tract infection): Status: Resolved Discharge Plan Disposition Patient Disposition: [facility] Condition: Stable Discharge Details Reason For Visit: Fracture Right Humerus Admit Date/Time: 03/03/22 17:15 Admit Provider: Carin Leos Attending Provider: Carin Leos [facility] Hospital Course: This is a 71 year old female, history of alcoholic dementia, diet controlled diabetes mellitus, who has had multiple falls at home recently.? She presented to the [facility] ED and was diagnosed with right humerus fracture.? She was discharged to home with outpatient orthopedic follow up but returned after falling again.?That work up showed acute UTI.? She was started on ceftriaxone while cultures pending and admission to med/surg. While being treated for her UTI it was found that she had Covid 19. During her stay she refused PT and was staying in bed. She was incontinent of urine and developed open areas on her bottom. An indwelling urinary catheter was placed to keep moisture from the wounds. Wound nurse was consulted and wound care per her recommendations performed. She was discharged with home health PT and OT to [facility]. Discussed with Dr Leos Home Meds and New Rx's Prescriptions: New benzonatate 100 mg Capsule 100 mg PO TID Qty: 0 0RF ibuprofen 600 mg Tablet 600 mg PO QID PRN PRNQty: 0 0RF thiamine mononitrate (vit B1) [Vitamin B-1 (mononitrate)] 100 mg Tablet 100 mg PO DAILY Qty: 0 0RF guaifenesin [Mucus Relief ER] 600 mg Tablet Extended Release 12hr 600 mg PO BID Qty: 0 0RF Continued calcium carbonate-vitamin D3 600 mg-5 mcg (200 unit) Tablet 1 tab PO BID Qty: 0 0RF potassium chloride [Klor-Con M20] 20 mEq Tablet,Er Particles/Crystals 20 meq PO BID Qty: 0 0RF lidocaine 5 % Adhesive Patch,Medicated 1 patch topical DAILY@2000 Qty: 0 0RF insulin aspart U-100 [Novolog Flexpen U-100 Insulin] 100 unit/mL (3 mL) Insulin Pen 0 units subcut 0800,1200,1700,2200 Qty: 0 0RF thiamine mononitrate (vit B1) [Vitamin B-1 (mononitrate)] 100 mg Tablet 100 mg PO DAILY Qty: 0 0RF insulin glargine [Lantus Solostar U-100 Insulin] 100 unit/mL (3 mL) Insulin Pen 5 unit subcut HS Qty: 0 0RF magnesium oxide 400 mg (241.3 mg magnesium) Tablet 400 mg PO DAILY Qty: 0 0RF No Action cyclobenzaprine 5 mg Tablet 5 mg PO TID Discharge Instructions Instructions: Contact Dermatitis (GEN), James Catheter Placement and Care (DC), How to Prevent Pressure Injuries (DC) Additional Instructions: Sacrum wound care: 1. Cleanse area daily with anasept cleanser (or equivalent) and allow to dwell for two minutes 2. Pat area dry with a clean gauze 3. Apply Triad Hydrophilic Wound dressing (or equivalent) 4. Leave skin open to air Encouraged patient to reposition side to side at least every two hours with positioning onto back for only brief periods of less than an hour at a time. Use pillows to offload heels. Use a pillow behind her back and hips, one between her knees and ankles, and also a pillow to rest her right arm on when l birgit on her side. Assist with position of comfort for fractured right humerus. Use compound cream to marni area and groin prn. Leave indwelling urinary cathter in place to help wound healing until wound is healed. Change montly and PRN. Home Health will call to arrange a time to meet with your to admit you to their OT and PT services Follow up with [facility] for wound care. Stand Alone Forms: Nursing Discharge Form Referrals: Dawit Yao [Primary Care Provider] - 04/08/22 10:20 am Activity:: Activity as Tolerated Equipment/Supplies:: No Equipment Needed Diet:: As Tolerated Discharge Orders Discharge Orders: Discharge Order (Routine); Ordered 03/19/22 Ordered By: Mariaelena Alonzo Discharge Data Discharge Date/Time-TO BE ENTERED AT DEPARTURE: 03/19/22 13:33 DS: Summary Time Spent with Patient providing and/or coordinating discharge services: Greater than 30 minutes Status at Discharge Functional status at discharge: uses cane/walker Overall status at discharge: patient is progressing back to baseline Mental Status: mental status grossly normal Speech and Movement: speech and movement normal Mood: irritable mood Affect: normal affect Exam Const General: frail appearing and ill appearing chronically Nutritional Appearance: average body habitus Orientation: alert, awake and oriented x3 HENMT Head: normal to inspection, normocephalic and atraumatic Mouth: oral mucosae normal Resp Effort & Inspection: normal respiratory effort Cardio Rate: regular rate GI Inspection: normal to inspection Palpation: soft Auscultation: normal bowel sounds Skin Other: Bottom red with open areas see wound care nusre note for details Neuro General: patient alert, patient awake and patient oriented x3 Extrem Right upper extremity: edema (old ecchymosis. ); abnormal to inspection Psych Mental Status: mental status grossly normal Speech and Movement: speech and movement normal Mood: irritable mood Affect: normal affect DS: Data Vitals/I&O Vitals and I&O: Vital Signs Temperature 35.4 C L 03/19/22 08:36 Temperature Source Tympanic 03/19/22 08:36 Pulse 85 03/19/22 08:36 Pulse Rhythm Regular 03/19/22 02:58 Respiratory Rate 16 03/19/22 08:36 Respiratory Effort Non-Labored 03/19/22 02:58 Respiratory Depth Normal 03/19/22 02:58 Respiratory Pattern Normal 03/19/22 02:58 Blood Pressure 95/55 L 03/19/22 08:36 Pulse Oximetry 95 03/19/22 08:36 Oxygen Delivery Method Room Air 03/19/22 08:36 Oxygen Flow Rate 0 03/19/22 08:36 Pain Level 4 03/18/22 21:56 Comment 03/17/22 08:26 Intake & Output 03/18/22 03/18/22 03/19/22 11:59 23:59 11:59 Intake Total 520 / 520 582 / 582 Output Total 500 / 1500 1000 / 1500 650 / 650 Balance -500 / -980 -480 / -980 -68 / -68 Intake: Oral 520 / 520 582 / 582 Output: Urine 500 / 1500 1000 / 1500 650 / 650 Other: Urine Color Yellow Pale Yellow Yellow Urine Appearance Cloudy Clear Clear Sediment PFSH All Active Problems (Updated 03/21/22 @ 00:01 by RASHEEDA LIU) Incontinence associated dermatitis (Acute) HCAP (healthcare-associated pneumonia) (Acute) Palliative care encounter (Acute) Noncompliance by refusing intervention or support (Acute) Hypovolemia (Acute) Frequent falls (Acute) Hypophosphatemia (Acute) Hypomagnesemia (Acute) Esophagitis (Acute) E. coli UTI (Acute) Non-insulin dependent type 2 diabetes mellitus (Chronic) Hypokalemia (Acute) Ambulatory dysfunction (Acute) Tremor (Acute) Diabetes (Chronic) Laceration of elbow with foreign body (Acute) Alcohol abuse (Chronic) Urinary tract infection (Acute) Fall (Acute) Alcohol intoxication (Acute) Medical History Acute CVA (cerebrovascular accident) Aortic stenosis Carotid stenosis Diabetes mellitus type 2 in nonobese TIA (transient ischemic attack) Surgical History Surgical history unknown Social History Smoking/Tobacco Use Status: Former Tobacco Use Smoking risk assessment performed?: Yes Alcohol Intake: current Alcohol Intake frequency: 0-2 drinks per day Alcohol type: wine Drug use: Never Substance use type: does not use Do you feel safe at home: Yes Do you feel safe in your relationship?: Yes
--- NOTE | 2022-03-19 17:49 | PDOC.CMDIS ---
- If Service Date Differs Date of service: 03/19/22 Time of Service: 17:49 LACE Index Scoring Tool - Questions: Length of Stay (in days): 14 or more Acuity (Admit via E.D.?): Yes Comorbidities: Diabetes w/o Complication E.D. Visits: 6 - Answers: Total Score: 15 Risk of Readmission: High Risk Care Management Discharge Reason for Hospitalization: fracture R humerus Discharge Plan: E[facility]. She was transported via [facility] private vehicle. CM coordinated her medications to go with her for a couple days, as well as wound care dressings. She will follow up with her PCP and discharge plan of care. She is happy to be going to . Patient/Family Education Needs: Review discharge instructions and limitations, discussion of self care needs including ask me three. Services Needed at Discharge: Transportation ([facility])
== END 2022-03-19 13:33 | disposition designated cancer center or children's hospital (05) | DRG 559 ==
PROVIDERS: Family Medicine; Nurse Practitioner Acute Care; Nurse Practitioner Family; Admitting Provider Internal Medicine; PCP Family Medicine; Visit Provider Internal Medicine
DX: S42.291D Other displaced fracture of upper end of right humerus, subsequent encounter for fracture with routine healing (principal); U07.1 COVID-19; N39.0 Urinary tract infection, site not specified; W19.XXXD Unspecified fall, subsequent encounter; L24.A2 Irritant contact dermatitis due to fecal, urinary or dual incontinence; Z91.81 History of falling; F10.97 Alcohol use, unspecified with alcohol-induced persisting dementia; E11.9 Type 2 diabetes mellitus without complications; R53.1 Weakness; Z91.19 Patient's noncompliance with other medical treatment and regimen; R29.6 Repeated falls; E83.39 Other disorders of phosphorus metabolism; E83.42 Hypomagnesemia; K20.90 Esophagitis, unspecified without bleeding; Z87.440 Personal history of urinary (tract) infections; Z86.73 Personal history of transient ischemic attack (TIA), and cerebral infarction without residual deficits; I35.0 Nonrheumatic aortic (valve) stenosis; I65.29 Occlusion and stenosis of unspecified carotid artery; L98.421 Non-pressure chronic ulcer of back limited to breakdown of skin; L89.152 Pressure ulcer of sacral region, stage 2; B96.20 Unspecified Escherichia coli [E. coli] as the cause of diseases classified elsewhere
CPT/HCPCS: 36415; 80053; 87077; 87635; 97110; 97163; 97530; 99306; 99315; J1650; 81003; 81015; 85025; 85049; 86140; 87086; 87186; 99305; 99308; J0248; J0743; J1885; J3490

== ENCOUNTER 2022-04-01 16:16 | Outpatient (REF) | payer OTHER, SELFPAY ==
[2022-04-01 17:07] LABS: COMMENT (LAB VIEW ONLY) 76.59 mg/dL; Microalb ug/mg Crea 15.1 ug/mg Cr
[2022-04-01 17:20] LABS: Bilirubin Negative (Negative); Blood Trace-intact (Negative); Clarity Cloudy (Clear); Glucose Negative (Negative); Ketones Negative (Negative); Leukocyte Esterase Large (Negative); Nitrite Negative (Negative); Urobilinogen 0.2 EU/dL (Up TO 0.2); pH 5.5 (5-8)
[2022-04-01 17:57] LABS: Bacteria Moderate HPF (Negative); C & S Indicated? No/Sq. Contamination; Crystals Negative HPF (Negative); Epithelial Cells Many HPF (Negative); Mucus Negative (Negative); Other Cells Few Yeast (Negative); RBC 0-2 HPF (0-2); WBC >50 HPF (0-5)
== END 2022-04-01 16:17 | disposition home or self-care (01) ==
LOC: NCHCN 16:16
PROVIDERS: PCP Family Medicine; Visit Provider Nurse Practitioner Family
DX: R30.0 Dysuria (principal); R39.15 Urgency of urination; R31.9 Hematuria, unspecified
CPT/HCPCS: 81003; 81015; 82043; 82570

== ENCOUNTER 2022-04-30 18:43 | Outpatient (REF) | payer OTHER, SELFPAY ==
[2022-04-30 16:08] LABS: Hemoglobin A1C 5.7 % (<5.7)
[2022-04-30 16:45] LABS: Anion Gap 8.8 mmol/L (3-11); BUN 6 mg/dL (7-18); CO2 28.2 mmol/L (21.0-32.0); CREATININE 0.5 mg/dL (0.55-1.02); Calcium 9.8 mg/dL (8.5-10.1); Calculated LDL 112 mg/dL (<100); Chloride 101 mmol/L (98-107); Cholesterol 189 mg/dL (<200); Estimated GFR 98.97 (mL/min/1.73m2); Glucose 136 mg/dL (74-106); HDL Cholesterol 62 mg/dL (40-60); Magnesium 1.8 mg/dL (1.8-2.4); Potassium 4.6 mmol/L (3.5-5.1); Sodium 138 mmol/L (136-145); Triglyceride 76 mg/dL (<150); Vitamin B12 367 pg/mL (193-986)
== END 2022-04-30 18:44 | disposition home or self-care (01) ==
LOC: LBN 18:43
PROVIDERS: PCP Family Medicine; Visit Provider Nurse Practitioner Family
DX: E11.9 Type 2 diabetes mellitus without complications (principal); E87.6 Hypokalemia
CPT/HCPCS: 80048; 80061; 82607; 83036; 83735

== ENCOUNTER 2022-05-27 09:37 | Emergency (ER) | payer OTHER, SELFPAY | END 2022-05-27 10:25 | PROVIDERS: PCP Family Medicine | DX: Z53.21 Procedure and treatment not carried out due to patient leaving prior to being seen by health care provider (principal) ==

== ENCOUNTER 2022-05-29 17:41 | Emergency (ER) | payer OTHER, SELFPAY ==
[2022-05-29 17:43] VITALS: BP 91/54; PULSE 94; RESP 18; TEMP 37; O2SAT 98
--- NOTE | 2022-05-29 19:15 | DI.CT_ITS ---
Exam(s) CT HEAD CERVICAL SPINE WO EXAM: CT HEAD CERVICAL SPINE WO COMPARISON: CT CT HEAD CERVICAL SPINE WO from 07/07/2021 FINDINGS: CT examination of the cervical spine was performed without contrast administration. There is no evidence of acute cervical spine fracture or dislocation. There is marked degenerative change of the mid cervical spine. Tracheolaryngeal structures appear intact. No cervical mass or adenopathy. Noncontrast cranial CT was performed. There is moderate generalized cerebral atrophy. No evidence of acute intracranial hemorrhage, mass effect, or midline shift. No calvarial fracture. The orbital and temporal bone structures appear intact. Visualized mastoid air cells and paranasal sinuses appear clear. IMPRESSION: No evidence of acute cervical spine injury. No evidence of acute intracranial injury. RADIATION DOSE DELIVERED: 2,081.59mGy.cm Total DLP 2,081.59mGy.cm Total DLP DATA REPOSITORY: All CT scans at this facility are submitted to the National Radiology Data Registry (NRDR) Dose Index Registry (DIR) with the [employer] ([employer]). RADIATION OPTIMIZATION: All CT scans at this facility use at least one of these dose optimization te chniques: automated exposure control; mA and/or kV adjustment per patient size (includes targeted exa ms where dose is matched to clinical indication); or iterative reconstruction.
--- NOTE | 2022-05-29 19:15 | DI.RAD_ITS ---
Exam(s) XR PELVIS AP EXAM: XR PELVIS AP CLINICAL HISTORY: Fall, Right hip pain TECHNIQUE: COMPARISON: CR,XR XR HIP RT COMPLETE AP PELVIS from 07/07/2021 FINDINGS: Single AP view was obtained. Please note that a single AP view is not adequate to exclude pelvic or hip fracture. No gross fracture identified on this film. IMPRESSION: RADIATION DOSE DELIVERED: Total DLP
--- NOTE | 2022-05-29 19:15 | DI.RAD_ITS ---
Exam(s) XR SHOULDER RT COMPLETE 2+V EXAM: XR SHOULDER RT COMPLETE 2+V CLINICAL HISTORY: Shoulder pain/ Clavicle pain TECHNIQUE: COMPARISON: CR XR SHOULDER RT COMPLETE 2+V from 02/18/2022 CR XR CHEST 2V PA LATERAL from 03/03/2022 FINDINGS: Four views were obtained and show a severely comminuted markedly displaced proximal humeral fracture, fracture planes extend from the humeral head into the humeral diaphysis. Fracture was previously no tere on examination of February 18, however there do appear to be probable new components involving th e metaphysis of the humerus. Additional evaluation with CT may be useful in delineating the acute an d chronic components of the complex fracture. IMPRESSION: RADIATION DOSE DELIVERED: Total DLP
--- NOTE | 2022-05-29 19:23 | W.ED.GENAD ---
Discharge Plan Disposition Patient Disposition: Home Condition: Stable Discharge Details Clinical Impression: Closed right humeral fracture, Frequent falls, Fracture of head of humerus Primary Care Provider: Dawit Yao ED Provider: Tory Rodriguez Home Meds and New Rx's Prescriptions: Continued metformin 750 mg tablet extended release 24 hr 750 mg PO DAILY tramadol 50 mg tablet 50 mg PO DAILY calcium carbonate-vitamin D3 600 mg-5 mcg (200 unit) Tablet 1 tab PO BID Qty: 0 0RF potassium chloride [Klor-Con M20] 20 mEq Tablet,Er Particles/Crystals 20 meq PO BID Qty: 0 0RF lidocaine 5 % Adhesive Patch,Medicated 1 patch topical DAILY@2000 Qty: 0 0RF thiamine mononitrate (vit B1) [Vitamin B-1 (mononitrate)] 100 mg Tablet 100 mg PO DAILY Qty: 0 0RF magnesium oxide 400 mg (241.3 mg magnesium) Tablet 400 mg PO DAILY Qty: 0 0RF benzonatate 100 mg Capsule 100 mg PO TID Qty: 0 0RF thiamine mononitrate (vit B1) [Vitamin B-1 (mononitrate)] 100 mg Tablet 100 mg PO DAILY Qty: 0 0RF guaifenesin [Mucus Relief ER] 600 mg Tablet Extended Release 12hr 600 mg PO BID Qty: 0 0RF Discharge Instructions Instructions: Arm Fracture in Adults (ED) Additional Instructions: Please wear a sling. You have a new fracture of your upper right arm. Please follow-up with orthopedic clinic within the next week. Please take Tylenol or Ibuprofen with food every 4-6 hours as needed for pain and swelling. Ice. Follow up with Orthopedics/ primary care provider in 3-5 days. Return to ED sooner if any worsening or concerns. Increase oral fluids. Referrals: Kirill Tanner MD [ [facility] STAFF PHYSICIAN] - 1 week Dawit Yao [Primary Care Provider] - 5 days Medical Decision Making 72-year-old female with a past medical history of CVA, aortic stenosis, type 2 diabetes and TIA, alcohol abuse, falls, UTI, alcoholic dementia, diabetes presents to the ER after a mechanical fall after slipping on some ice approximately 2 hours prior to arrival. No loss of consciousness. She did hit the right side of her head she is complaining of some neck pain, she is also complaining of some right shoulder pain, right hip pain. CT head C-spine CT ordered, right shoulder x-ray, pelvic x-ray. Right humeral head is fractured, however this is chronic, awaiting result, will add on a humerus. Please see x-ray results below. Ortho paged. She does have a new proximal humeral shaft fracture. CT head spine within normal limits, pelvis within normal limits. 2039: Spoke with Dr. Tanner with orthopedics, he is aware of the patient, he recommends a sling and follow-up in the office. Imaging Data Radiologic Study: Imaging: CT Scan Radiologist's impression: Diffuse atrophy and probable mild microvascular ischemic changes with no evidence of acute infarct, recent hemorrhage or hydrocephalus. No acute intracranial process is detected. CT C-spine:IMPRESSION: Chronic cervical spondylosis with central canal and foraminal narrowing as above. No acute cervical fractures are detected. Radiologic Study #2: Imaging: X-Ray Radiologist's impression: IMPRESSION: 1. Appearance concerning for a new fracture of the proximal humeral metaphysis with minor distraction. 2. Old fracture of the right humeral neck and head. This has incomplete osseous fusion. Humeral head is malaligned with humeral neck. Stable alignment since prior exam. Thank you for allowing us to participate in the care of your patient. Sign Out No HPI General Mode of arrival: ambulatory. Date/Time Provider Initiated Documentation: 05/29/22 17:48. Limitations to Documentation: no limitations. Information obtained by: patient, RN notes reviewed and old records reviewed. HPI Narrative: 72-year-old female with a past medical history of CVA, aortic stenosis, type 2 diabetes and TIA, alcohol abuse, falls, UTI, alcoholic dementia, diabetes presents to the ER after a mechanical fall after slipping on some ice approximately 2 hours prior to arrival. No loss of consciousness. She did hit the right side of her head she is complaining of some neck pain, she is also complaining of some right shoulder pain, right hip pain. She is moving her neck without difficulty. She is alert and oriented x4, Related Data Home Medications Medication Instructions Recorded Confirmed calcium carbonate 600 mg-vitamin 1 tab PO BID #0 tabs 02/23/22 05/12/22 D3 5 mcg (200 unit) tablet lidocaine 5 % topical patch 1 patch topical DAILY@1999 #0 ea 02/23/22 05/12/22 magnesium oxide 400 mg (241.3 mg 400 mg PO DAILY #0 tabs 08/29/22 11/15/22 magnesium) tablet potassium chloride 20 mEq 20 meq PO BID #0 tabs 02/23/22 05/12/22 tablet,extended release(part/cryst) (Klor-Con M) thiamine mononitrate (vit B1) 100 100 mg PO DAILY #0 tabs 02/23/22 04/10/22 mg tablet (Vitamin B-1 (mononitrate)) benzonatate 100 mg capsule 100 mg PO TID #0 caps 03/19/22 05/12/22 guaifenesin 600 mg tablet, 600 mg PO BID #0 tabs 03/19/22 05/12/22 extended release 12 hr (Mucus Relief ER) thiamine mononitrate (vit B1) 100 100 mg PO DAILY #0 tabs 03/19/22 05/12/22 mg tablet (Vitamin B-1 (mononitrate)) metformin 750 mg tablet,extended 750 mg PO DAILY 04/10/22 05/12/22 release 24 hr tramadol 50 mg tablet 50 mg PO DAILY 05/11/22 05/12/22 Previous Rx's Medication Instructions Recorded calcium carbonate 600 mg-vitamin 1 tab PO BID #0 tabs 02/23/22 D3 5 mcg (200 unit) tablet lidocaine 5 % topical patch 1 patch topical DAILY@1999 #0 ea 02/23/22 magnesium oxide 400 mg (241.3 mg 400 mg PO DAILY #0 tabs 02/23/22 magnesium) tablet potassium chloride 20 mEq 20 meq PO BID #0 tabs 02/23/22 tablet,extended release(part/cryst) (Klor-Con M) thiamine mononitrate (vit B1) 100 100 mg PO DAILY #0 tabs 02/23/22 mg tablet (Vitamin B-1 (mononitrate)) benzonatate 100 mg capsule 100 mg PO TID #0 caps 03/19/22 guaifenesin 600 mg tablet, 600 mg PO BID #0 tabs 03/19/22 extended release 12 hr (Mucus Relief ER) thiamine mononitrate (vit B1) 100 100 mg PO DAILY #0 tabs 03/19/22 mg tablet (Vitamin B-1 (mononitrate)) Allergies Allergy/AdvReac Type Severity Reaction Status Date / Time No Known Allergies Allergy Unverified 02/19/22 11:02 General Stated Complaint: Fall/Non TraumaCriteria SETH: 4 Review of Systems All systems reviewed & are unremarkable except as noted in HPI and below Constitutional Constitutional: Reports headache(s) Eyes Eyes: Denies loss of vision ENT Ears, Nose, Mouth, and Throat: Reports headache(s) Musculoskeletal Musculoskeletal: Reports as per HPI and Reports arthralgias Neurologic Neurologic: Denies confusion, Reports headache(s), Denies localized weakness and Denies loss of vision Psychiatric Psychiatric: Denies confusion PFSH All Active Problems (Updated 05/29/22 @ 20:52 by Tory Rodriguez NP) Closed right humeral fracture (Acute) Fracture of head of humerus (Acute) Incontinence (Acute) Advanced directives, counseling/discussion (Acute) Incontinence associated dermatitis (Acute) HCAP (healthcare-associated pneumonia) (Acute) Palliative care encounter (Acute) Noncompliance by refusing intervention or support (Acute) Hypovolemia (Acute) Frequent falls (Acute) Hypophosphatemia (Acute) Hypomagnesemia (Acute) Esophagitis (Acute) E. coli UTI (Acute) Non-insulin dependent type 2 diabetes mellitus (Chronic) Hypokalemia (Acute) Ambulatory dysfunction (Acute) Tremor (Acute) Diabetes (Chronic) Laceration of elbow with foreign body (Acute) Alcohol abuse (Chronic) Urinary tract infection (Acute) Fall (Acute) Alcohol intoxication (Acute) Medical History Acute CVA (cerebrovascular accident) Aortic stenosis Carotid stenosis Diabetes mellitus type 2 in nonobese TIA (transient ischemic attack) Surgical History Surgical history unknown Social History Smoking/Tobacco Use Status: Former Tobacco Use Smoking risk assessment performed?: Yes Alcohol Intake: current Alcohol Intake frequency: 0-2 drinks per day Alcohol type: wine Drug use: Never Substance use type: does not use Do you feel safe at home: Yes Do you feel safe in your relationship?: Yes Exam Narrative Exam Narrative: General: Well Developed, Awake and Alert, conversant. Skin: Warm and Dry HEENT: Head: No palpable deformities, Normocephalic Eyes: Pupils PERRLA, EOM's intact. No periorbital eccymosis or step off Ears: Canal patent. Tympanic membranes are clear . No chavira's sign, no hemptympanum. Nose/Face: Atraumatic. Facial bones nontender to palpation and stable with manipulation. Mouth/Throat: No intraoral trauma. Teeth and mandible are intact. Neck: No midline tenderness, no step off, no deformity to palpation of C-spine. Trachea midline. Chest: No surface trauma. Nontender without crepitus or deformity. Lungs clear to ausculatation bilaterally. Heart: RRR, no rubs, murmurs or gallop. Abdomen: No abrasions, ecchymosis, or surface trauma. Nondistended. Nontender to palpation no guarding, rebound, or rigidity. Pelvis: Nontender to palpation and stable to compression. Femoral pulses strong and equal Extremities: no surface trauma. Sensation intact. Peripheral pulses intact and equal. Neuro: ANO x4, GCS 15, cranial nerves II through XII intact. Motor and sensory exam nonfocal. Reflexes are symmetric. Course Vital Signs Vital signs: Vital Signs Temperature 37 C 05/29/22 17:43 Pulse 94 H 05/29/22 17:43 Respiratory Rate 18 05/29/22 17:43 Blood Pressure 91/54 L 05/29/22 17:43 Pulse Oximetry 98 05/29/22 17:43 Temperature 37 C 05/29/22 17:43 Temperature Source Tympanic 05/29/22 17:43 Pulse 94 H 05/29/22 17:43 Respiratory Rate 18 05/29/22 17:43 Respiratory Effort 05/29/22 17:46 Blood Pressure 91/54 L 05/29/22 17:43 Blood Pressure Position Supine 05/29/22 17:43 Pulse Oximetry 98 05/29/22 17:43 Oxygen Delivery Method Room Air 05/29/22 17:43 Oxygen Flow Rate 0 05/29/22 17:43 Pain Level 6 05/29/22 17:43
[2022-05-29] MEDS: Acetaminophen 500 MG TAB PO (19:42)
--- NOTE | 2022-05-29 20:00 | DI.RAD_ITS ---
Exam(s) XR HUMERUS RT EXAM: XR HUMERUS RT CLINICAL HISTORY: Fall, Hx of Fracture TECHNIQUE: COMPARISON: No exams were available for comparison FINDINGS: Two views were obtained and shows presumed acute on chronic proximal humeral fracture as noted on rad iographs of the shoulder. Fracture plane extends to mid shaft of the humerus. IMPRESSION: RADIATION DOSE DELIVERED: Total DLP
--- NOTE | 2022-05-29 20:10 | DI.VRAD_ITS ---
PROCEDURE INFORMATION: Exam: CT Head Without Contrast Exam date and time: 05/29/2022 7:39 PM Age: 72 years old Clinical indication: Injury or trauma; Concussion/head injury; Without loss of consciousness; Injury date: 05/29/22; Injury details: Fall, neck pain TECHNIQUE: Imaging protocol: Computed tomography of the head without contrast. Radiation optimization: All CT scans at this facility use at least one of these dose optimization techniques: automated exposure control; mA and/or kV adjustment per patient size (includes targeted exams where dose is matched to clinical indication); or iterative reconstruction. COMPARISON: CT HEAD CERVICAL SPINE WO 07/07/2021 9:53 PM FINDINGS: Brain: Prominence of cerebral sulci reflects diffuse cerebral atrophy. A few poorly marginated hypodensities seen throughout the deep and periventricular white matter of both cerebral hemispheres are consistent with microvascular ischemic changes of relatively mild degree. Brainstem and cerebellum are unremarkable and there is no evidence of acute transcortical infarction or recent intracranial hemorrhage. Cerebral ventricles: Dilatation of the 3rd and lateral ventricles is commensurate with the degree of cerebral atrophy. Paranasal sinuses: Grossly clear throughout. Mastoid air cells: Grossly clear bilaterally. Probable cerumen seen in the external auditory canals bilaterally. Bones/joints: Bony calvarium and skull base are intact and no acute fractures are detected. Soft tissues: Unremarkable. IMPRESSION: Diffuse atrophy and probable mild microvascular ischemic changes with no evidence of acute infarct, recent hemorrhage or hydrocephalus. No acute intracranial process is detected. PROCEDURE INFORMATION: Exam: CT Cervical Spine Without Contrast Exam date and time: 05/29/2022 7:39 PM Age: 72 years old Clinical indication: Injury or trauma; Concussion/head injury; Without loss of consciousness; Injury date: 05/29/22; Injury details: Fall, neck pain TECHNIQUE: Imaging protocol: Computed tomography of the cervical spine without contrast. Radiation optimization: All CT scans at this facility use at least one of these dose optimization techniques: automated exposure control; mA and/or kV adjustment per patient size (includes targeted exams where dose is matched to clinical indication); or iterative reconstruction. COMPARISON: CT HEAD CERVICAL SPINE WO 07/07/2021 9:53 PM FINDINGS: Bones/joints: There is arthrosis involving the anterior atlantodental interval with loss of joint space and marginal osteophyte formation and the odontoid process is grossly intact. There are grade 1 anterolistheses of C2 upon C3, C3 upon C4, C4 upon C5 and C7 upon T1 and there is gross preservation of vertebral body height throughout cervical levels with no vertebral body fractures or other significant subluxations detected. Changes of facet arthropathy are most advanced to the left of midline between C2 and C5 with no acute fractures detected involving the posterior elements of the cervical spine. Discs/Spinal canal/Neural foramina: Loss of disc space height with posterior osteocartilaginous ridging is most significant at C5-C6 resulting in canal stenosis and suspected mass-effect upon the ventral cord which could be better evaluated with MRI. Uncovertebral and facet changes produce multilevel foraminal distortions/narrowings. Lungs: No pneumothorax or consolidation detected at the lung apices. Soft tissues: Unremarkable. IMPRESSION: Chronic cervical spondylosis with central canal and foraminal narrowing as above. No acute cervical fractures are detected. Dictated and Authenticated by: Reese Chicas MD. Ordering:PHUC Spears MD
--- NOTE | 2022-05-29 20:24 | DI.VRAD_ITS ---
PROCEDURE INFORMATION: Exam: XR Pelvis Exam date and time: 05/29/2022 7:50 PM Age: 72 years old Clinical indication: Other: Fall, right hip pain; Additional info: Fall, neck pain TECHNIQUE: Imaging protocol: Radiologic exam of the pelvis. Views: 1 or 2 view. COMPARISON: CR XR HIP RT COMPLETE AP PELVIS 07/07/2021 10:12 PM FINDINGS: Bones/joints: Unremarkable. No acute fracture. Degenerative lower lumbar spine changes Soft tissues: Unremarkable. IMPRESSION: 1. No acute findings. 2. No fracture or dislocation. 3. Lumbar spine degenerative disease. 4. Stable exam since 07/07/2021. Dictated and Authenticated by: Arcenio Vidal MD. Ordering:PHUC Spears MD
--- NOTE | 2022-05-29 20:29 | DI.VRAD_ITS ---
PROCEDURE INFORMATION: Exam: XR Right Shoulder Exam date and time: 05/29/2022 7:54 PM Age: 72 years old Clinical indication: Other: Fall shoulder pain / clavicle pain; Patient HX: PT. Had previously broke shoulder few months ago. Did not have surgery. ; Additional info: Fall, neck pain TECHNIQUE: Imaging protocol: Radiologic exam of the Right shoulder. Views: 2 or more views. COMPARISON: CR XR SHOULDER RT COMPLETE 2+V 02/18/2022 2:36 PM FINDINGS: Bones/joints: Complex fracture of the proximal right humerus and humeral neck. This is an old fracture. This fracture appeared acute 02/18/2022 on prior evaluation. There is extension of fracture planes to the metaphysis which was not present previously. Can not exclude a new fracture of the proximal humerus. This has a spiral type orientation and also a linear sagittal fracture plane. See series 3, images 1 and series 2, image 1. No significant distraction or displacement. Clavicle is intact. AC joint is in alignment. No acute scapular fracture. Lungs: Visible portion of the right lung is clear. Soft tissues: Normal. IMPRESSION: 1. Appearance concerning for a new fracture of the proximal humeral metaphysis with minor distraction. 2. Old fracture of the right humeral neck and head. This has incomplete osseous fusion. Humeral head is malaligned with humeral neck. Stable alignment since prior exam. Dictated and Authenticated by: Arcenio Vidal MD. Ordering:PHUC Spears MD
--- NOTE | 2022-05-29 20:48 | DI.VRAD_ITS ---
PROCEDURE INFORMATION: Exam: XR Right Humerus Exam date and time: 05/29/2022 8:23 PM Age: 72 years old Clinical indication: Injury or trauma; Other: Fall, HX of FX; Additional info: Fall, neck pain TECHNIQUE: Imaging protocol: Radiologic exam of the Right humerus. Views: 2 or more views. COMPARISON: CT UPPER EXTREMITY RT WO 02/23/2022 8:46 AM FINDINGS: Bones/joints: There appears to be a new proximal humeral metaphyseal spiral fracture. Minor distraction. There is chronic fracture of the right humeral neck and head. No dislocation of the glenohumeral joint. AC joint with moderate degenerative change. Elbow joint is unremarkable. Soft tissues: Mild soft tissue swelling of the upper arm. No foreign body. IMPRESSION: 1. Proximal right humeral metaphyseal spiral fracture which has acute features. Minor distraction. This was not present on prior imaging. This includes a CT 02/23/2022. 2. Chronic humeral neck and head fracture with incomplete osseous union. 3. Mild soft tissue swelling of the upper arm. Dictated and Authenticated by: Arcenio Vidal MD. Ordering:PHUC Spears MD
== END 2022-05-29 21:22 | disposition home or self-care (01) ==
PROVIDERS: Emergency Provider Registered Nurse Emergency; PCP Family Medicine
DX: S42.201A Unspecified fracture of upper end of right humerus, initial encounter for closed fracture (principal); E11.9 Type 2 diabetes mellitus without complications; Z86.73 Personal history of transient ischemic attack (TIA), and cerebral infarction without residual deficits; Z87.440 Personal history of urinary (tract) infections; Z79.84 Long term (current) use of oral hypoglycemic drugs; Z87.891 Personal history of nicotine dependence; W00.0XXA Fall on same level due to ice and snow, initial encounter; W22.8XXA Striking against or struck by other objects, initial encounter
CPT/HCPCS: 99284; 70450; 72125; 72170; 73030; 73060; 99282

== ENCOUNTER 2022-06-05 16:55 | Emergency (ER) | payer OTHER, SELFPAY ==
--- NOTE | 2022-06-05 17:07 | ED.GENADUL_ITS ---
Discharge Plan Disposition Patient Disposition: Home Condition: Stable Discharge Details Clinical Impression: Urinary tract infection, Fall, Alcohol intoxication Primary Care Provider: Dawit Yao ED Provider: Nino Ovalles Home Meds and New Rx's Prescriptions: New nitrofurantoin monohyd/m-cryst [Macrobid] 100 mg capsule 100 mg PO Q12H 5 Days Qty: 10 0RF Rx Instructions: must administer with a meal/food No Action metformin 750 mg tablet extended release 24 hr 750 mg PO DAILY tramadol 50 mg tablet 50 mg PO DAILY calcium carbonate-vitamin D3 600 mg-5 mcg (200 unit) Tablet 1 tab PO BID Qty: 0 0RF potassium chloride [Klor-Con M20] 20 mEq Tablet,Er Particles/Crystals 20 meq PO BID Qty: 0 0RF lidocaine 5 % Adhesive Patch,Medicated 1 patch topical DAILY@1999 Qty: 0 0RF thiamine mononitrate (vit B1) [Vitamin B-1 (mononitrate)] 100 mg Tablet 100 mg PO DAILY Qty: 0 0RF magnesium oxide 400 mg (241.3 mg magnesium) Tablet 400 mg PO DAILY Qty: 0 0RF benzonatate 100 mg Capsule 100 mg PO TID Qty: 0 0RF thiamine mononitrate (vit B1) [Vitamin B-1 (mononitrate)] 100 mg Tablet 100 mg PO DAILY Qty: 0 0RF guaifenesin [Mucus Relief ER] 600 mg Tablet Extended Release 12hr 600 mg PO BID Qty: 0 0RF Discharge Instructions Instructions: Urinary Tract Infection in Women (ED), Alcohol Intoxication (ED) Additional Instructions: You were seen in the ED after a fall at your apartment. Your evaluation is reassuring with the only significant finding being a urinary tract infection which we will treat with antibiotic. You are given your first dose here. 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 You need to follow-up with primary care as well as with orthopedics for your previously f ractured right shoulder. Please limit your alcohol consumption. Return to ED for any chest pain, shortness of breath, neurologic change, mental status change, other concerns. Medical Decision Making Patient presenting to ED by ambulance after reported fall and being on the floor since yesterday. I have spoke to case management, Trena Haines, who knows the patient well and reports that her baseline varies from being calm and cooperative to being labile, pressured and tangential. So this does not appear to be too far off her baseline. I will perform labs, imaging, urine and if nothing significant we will plan discharge. Patient's laboratory studies are reassuring with normal white count, hemoglobin, chemistries. Troponin is negative. CPK only slightly up to 222. Alcohol level 178. CT head negative. Chest x-ray without infiltrate. Right humeral head and shaft fracture chronic and does not appear unchanged from last week. She does have evidence of UTI on dipstick and micro. Has history of same with last one back in January of 2021. Start patient on Macrobid. We will plan discharge back home which is now currently the [facility] per DONNY who picked her up there today. She does have here keys. Medical Records Medical records reviewed: Yes I reviewed the patient's medical records. Lab Data Lab results reviewed: Yes I reviewed the patient's lab results. Sign Out No HPI General Mode of arrival: EMS . Date/Time Provider Initiated Documentation: 06/05/22 17:07 . Information obtained by: patient, EMS and old records reviewed . HPI Narrative: Patient brought in by ambulance after a fall. Patient has history of falls. Patient is very pressured with her speech and disorganized and tangential in her thinking. She has history of alcohol dementia as well as recent removal from [facility] for disruptive behavior and alcohol use. She is not able to tell us where she came from today. She was discharged from this ED 1 week ago to [facility]. She is able to tell me its May 2022. She is reporting a fall which broke her right shoulder 3-1/2 months ago which corroborates with our records. She says she fell yesterday because she was not hanging on anything and once she was on the ground she was unable to get herself back up. She says she was on the ground since yesterday. Very difficult to keep her focused at all. Her only seeming complaint is continued right arm pain from her previous fall. Related Data Home Medications Medication Instructions Recorded Confirmed calcium carbonate 600 mg-vitamin 1 tab PO BID #0 tabs 02/23/22 05/12/22 D3 5 mcg (200 unit) tablet lidocaine 5 % topical patch 1 patch topical DAILY@1999 #0 ea 02/23/22 05/12/22 magnesium oxide 400 mg (241.3 mg 400 mg PO DAILY #0 tabs 02/23/22 05/12/22 magnesium) tablet potassium chloride 20 mEq 20 meq PO BID #0 tabs 02/23/22 05/12/22 tablet,extended release(part/cryst) (Klor-Con M) thiamine mononitrate (vit B1) 100 100 mg PO DAILY #0 tabs 02/23/22 04/10/22 mg tablet (Vitamin B-1 (mononitrate)) benzonatate 100 mg capsule 100 mg PO TID #0 caps 03/19/22 05/12/22 guaifenesin 600 mg tablet, 600 mg PO BID #0 tabs 03/19/22 05/12/22 extended release 12 hr (Mucus Relief ER) thiamine mononitrate (vit B1) 100 100 mg PO DAILY #0 tabs 03/19/22 05/12/22 mg tablet (Vitamin B-1 (mononitrate)) metformin 750 mg tablet,extended 750 mg PO DAILY 04/10/22 05/12/22 release 24 hr tramadol 50 mg tablet 50 mg PO DAILY 05/11/22 05/12/22 nitrofurantoin 100 mg PO Q12H 5 days #10 caps 06/05/22 monohydrate/macrocrystals 100 mg capsule (Macrobid) Previous Rx's Medication Instructions Recorded calcium carbonate 600 mg-vitamin 1 tab PO BID #0 tabs 02/23/22 D3 5 mcg (200 unit) tablet lidocaine 5 % topical patch 1 patch topical DAILY@1999 #0 ea 02/23/22 magnesium oxide 400 mg (241.3 mg 400 mg PO DAILY #0 tabs 02/23/22 magnesium) tablet potassium chloride 20 mEq 20 meq PO BID #0 tabs 02/23/22 tablet,extended release(part/cryst) (Klor-Con M) thiamine mononitrate (vit B1) 100 100 mg PO DAILY #0 tabs 02/23/22 mg tablet (Vitamin B-1 (mononitrate)) benzonatate 100 mg capsule 100 mg PO TID #0 caps 03/19/22 guaifenesin 600 mg tablet, 600 mg PO BID #0 tabs 03/19/22 extended release 12 hr (Mucus Relief ER) thiamine mononitrate (vit B1) 100 100 mg PO DAILY #0 tabs 03/19/22 mg tablet (Vitamin B-1 (mononitrate)) nitrofurantoin 100 mg PO Q12H 5 days #10 caps 06/05/22 monohydrate/macrocrystals 100 mg capsule (Macrobid) Allergies Allergy/AdvReac Type Severity Reaction Status Date / Time No Known Allergies Allergy Unverified 02/19/22 11:02 General SETH: 4 Review of Systems Unobtainable due to mental status PFSH All Active Problems (Updated 06/05/22 @ 19:22 by Nino Ovalles MD) Closed right humeral fracture (Acute) Fracture of head of humerus (Acute) Incontinence (Acute) Advanced directives, counseling/discussion (Acute) Incontinence associated dermatitis (Acute) HCAP (healthcare-associated pneumonia) (Acute) Palliative care encounter (Acute) Noncompliance by refusing intervention or support (Acute) Hypovolemia (Acute) Frequent falls (Acute) Hypophosphatemia (Acute) Hypomagnesemia (Acute) Esophagitis (Acute) E. coli UTI (Acute) Non-insulin dependent type 2 diabetes mellitus (Chronic) Hypokalemia (Acute) Ambulatory dysfunction (Acute) Tremor (Acute) Laceration of elbow with foreign body (Acute) Urinary tract infection (Acute) Fall (Acute) Alcohol intoxication (Acute) Medical History Acute CVA (cerebrovascular accident) Alcohol abuse Aortic stenosis Carotid stenosis Diabetes Diabetes mellitus type 2 in nonobese TIA (transient ischemic attack) Surgical History Surgical history unknown Social History Smoking/Tobacco Use Status: Former Tobacco Use Smoking risk assessment performed?: Yes Alcohol Intake: current Alcohol Intake frequency: 0-2 drinks per day Alcohol type: wine Drug use: Never Substance use type: does not use Do you feel safe at home: Yes Do you feel safe in your relationship?: Yes Exam Narrative Exam Narrative: Const: WDWN female in NAD. HEENT: NC/AT. Normal facial exam. Eyes: Normal conjunctiva and sclera. Neck: Supple. Trachea midline. Lungs: Normal respiratory effort. Lungs are clear. Cor: RRR with murmur. Good radial pulses. GI: Soft. NT/ND. No guarding or rebound. Neuro: A+O x 3 but not completely able to give date and unable to tell us where she came from. Pressured speech, abnormal mentation with tangential thoughts, possibly hallucinating, unable to remain focused. Cranial nerves II - XII grossly intact. No gross motor or sensory deficit. Ext: No C/C/E. Unable to range RUE at shoulder. NVI distal. Skin: Warm and dry without rash.
--- NOTE | 2022-06-05 17:15 | DI.CT_ITS ---
Exam(s) CT HEAD WO EXAM: CT HEAD WO CLINICAL HISTORY: fall, altered. TECHNIQUE: Imaging Protocol: Axial computed tomography images with coronal and sagittal reformatted images were created and reviewed COMPARISON: CT CT HEAD CERVICAL SPINE WO from 05/29/2022 FINDINGS: Ventricles and Extra axial spaces: Normal in size and morphology for the patient's age. Hemorrhage: None. Cerebral parenchyma: There is no evidence of an acute territorial infarct. There are areas of decrea sed attenuation in the white matter consistent with small vessel ischemic disease. Midline shift: None. Brainstem/Cerebellum: Normal. Calvarium: Normal. Visualized Paranasal sinuses/Mastoids: There is mild mucosal thickening in the maxillary sinuses. Th e remaining visualized paranasal sinuses are clear. Soft Tissues: Unremarkable. IMPRESSION: No acute intracranial process. RADIATION DOSE DELIVERED: 782.67mGy.cm Total DLP DATA REPOSITORY: All CT scans at this facility are submitted to the National Radiology Data Registry (NRDR) Dose Index Registry (DIR) with the [employer] (ACR). RADIATION OPTIMIZATION: All CT scans at this facility use at least one of these dose optimization te chniques: automated exposure control; mA and/or kV adjustment per patient size (includes targeted exa ms where dose is matched to clinical indication); or iterative reconstruction.
--- NOTE | 2022-06-05 17:15 | DI.RAD_ITS ---
Exam(s) XR CHEST 1V IN DI DEPT EXAM: XR CHEST 1V IN DI DEPT CLINICAL HISTORY: fall TECHNIQUE: 2D digital imaging was performed of the chest. One image was obtained. An AP view was ob tained. COMPARISON: CR XR CHEST 2V PA LATERAL from 03/03/2022 CR,XR XR SHOULDER RT COMPLETE 2+V from 05/29/2022 FINDINGS: MEDIASTINUM: Normal. HEART: Normal. PULMONARY VASCULATURE: Normal. LUNGS: Clear. PLEURAL SPACE: No pleural effusion or pneumothorax. BONE:Within normal limits for the patient's age. There is again seen a proximal right humeral fractur e. OTHER FINDINGS:Normal. IMPRESSION: No acute pulmonary findings. DATA REPOSITORY: RADIATION DOSE DELIVERED:
[2022-06-05 18:28] LABS: Abs Immature Grans 0.05 10^3/uL (0.0-0.06); Absolute Basophil Count 0.07 10^3/uL (0.0-0.2); Absolute Eosinophil Count 0.12 10^3/uL (0.0-0.7); Absolute Lymphocyte Count 2.64 10^3/uL (1.2-3.4); Absolute Monocyte Count 0.72 10^3/uL (0.1-0.8); Basophils % 0.7; Eosinophils % 1.2; HGB 14.8 g/dL (11.2-15.7); Immature Grans % 0.5; Lymphocytes % 25.6; MCH 29.4 pg (27.0-33.0); MCHC 32.9 % (32.0-36.0); MCV 90 fL (80-95); MPV 9.6 fL (8.0-11.0); Platelet Count 300 10^3/uL (130-400); RBC 5.03 10^6/uL (3.93-5.22); RDW 13.7 % (11.7-14.6); RDW-SD 45.1 fL
[2022-06-05 18:41] LABS: ETHANOL BLOOD 178.6 mg/dL (<10); Magnesium 1.9 mg/dL (1.8-2.4)
[2022-06-05 18:48] LABS: Creatine Kinase 222 U/L (26-192)
[2022-06-05 18:49] LABS: ALT 11 U/L (14-59); AST 20 U/L (15-37); Albumin 3.7 g/dL (3.4-5.0); Alkaline Phosphatase 119 U/L (46-116); Anion Gap 12.3 mmol/L (3-11); BUN 7 mg/dL (7-18); Bilirubin, Total 0.3 mg/dL (0.2-1.0); CO2 26.7 mmol/L (21.0-32.0); CREATININE 0.6 mg/dL (0.55-1.02); Calcium 9.1 mg/dL (8.5-10.1); Chloride 104 mmol/L (98-107); Estimated GFR 94.72 (mL/min/1.73m2); Glucose 94 mg/dL (74-106); Potassium 3.4 mmol/L (3.5-5.1); Sodium 143 mmol/L (136-145); Total Protein 7.7 g/dL (6.4-8.2); Troponin I < 50 ng/L (<or=60)
--- NOTE | 2022-06-05 18:51 | DI.VRAD_ITS ---
PROCEDURE INFORMATION: Exam: XR Chest Exam date and time: 06/05/2022 6:34 PM Age: 72 years old Clinical indication: Other: Fall TECHNIQUE: Imaging protocol: Radiologic exam of the chest. Views: 1 view. COMPARISON: CR XR CHEST 2V PA LATERAL 03/03/2022 9:06 AM FINDINGS: Lungs: Unremarkable. No consolidation. Pleural spaces: Unremarkable. No pleural effusion. No pneumothorax. Heart/Mediastinum: Unremarkable. No cardiomegaly. Bones/joints: Unhealed right humeral head and neck fracture was present on the prior study. This may reflect nonunion. IMPRESSION: Unhealed right humeral head and neck fracture was present on the prior study. This may reflect nonunion. No focal consolidation Dictated and Authenticated by: Donya Knox MD. Ordering:REYNA Oneill MD
--- NOTE | 2022-06-05 18:52 | DI.VRAD_ITS ---
PROCEDURE INFORMATION: Exam: CT Head Without Contrast Exam date and time: 06/05/2022 6:28 PM Age: 72 years old Clinical indication: Other: Fall altered TECHNIQUE: Imaging protocol: Computed tomography of the head without contrast. COMPARISON: CT HEAD CERVICAL SPINE WO 05/29/2022 7:39 PM FINDINGS: Brain: No acute intracranial hemorrhage.. There is mild diffuse heterogeneity of the white matter attenuation, consistent with chronic white matter ischemic changes. Mild cerebral atrophy Cerebral ventricles: No ventriculomegaly. Paranasal sinuses: Mucosal thickening in the maxillary sinuses may represent mild sinusitis Mastoid air cells: Visualized mastoid air cells are well aerated. Bones/joints: Unremarkable. No acute fracture. Soft tissues: Unremarkable. IMPRESSION: No acute intracranial hemorrhage.. Dictated and Authenticated by: Donya Knox MD. Ordering:REYNA Oneill MD
[2022-06-05 19:04] LABS: Bilirubin Negative (Negative); Blood Trace-intact (Negative); Clarity Cloudy (Clear); Glucose Negative (Negative); Ketones Negative (Negative); Leukocyte Esterase Large (Negative); Nitrite Positive (Negative); Specific Gravity 1.025 (1.005-1.025); Urobilinogen 0.2 EU/dL (Up TO 0.2); pH 5.5 (5-8)
[2022-06-05 19:10] LABS: Bacteria Many HPF (Negative); C & S Indicated? Yes; Casts Negative LPF (Negative); Crystals Negative HPF (Negative); Epithelial Cells Few HPF (Negative); Mucus Negative (Negative); RBC 0-2 HPF (0-2); WBC >50 HPF (0-5)
[2022-06-05 19:36] LABS: *AMPHETAMINES SCREEN URINE Negative (Negative); *BARBITURATES SCREEN URINE Negative (Negative); *BENZODIAZEPINES SCREEN URINE Negative (Negative); Cannabinoids THC Negative (Negative); Cocaine Screen,Urine Negative (Negative); METHADONE URINE SCREEN Negative (Negative); OPIATES URINE SCREEN Negative (Negative)
[2022-06-05 19:39] LABS: Tricyclic Antidepressants Negative (Negative)
[2022-06-05] MEDS: MacroBID 100 MG CAP PO (19:51)
--- NOTE | 2022-06-07 07:42 | NUR.NOTE ---
Nursing Note: Accessed chart to look up whether or not on antibiotic.
--- NOTE | 2022-06-07 13:09 | NUR.NOTE ---
Nursing Note: Accessed patient chart to determine how many EKG orders were in the chart from the ED. There was an outstanding EKG in ordered status. There are no EKG's in the [facility] system that are outstanding. EKG order was deleted.
== END 2022-06-05 20:04 | disposition home or self-care (01) ==
PROVIDERS: Emergency Provider Emergency Medicine; PCP Family Medicine
DX: N39.0 Urinary tract infection, site not specified (principal); E11.9 Type 2 diabetes mellitus without complications; F10.120 Alcohol abuse with intoxication, uncomplicated; Z86.73 Personal history of transient ischemic attack (TIA), and cerebral infarction without residual deficits; Z04.3 Encounter for examination and observation following other accident; Y90.6 Blood alcohol level of 120-199 mg/100 ml; Z79.899 Other long term (current) drug therapy
CPT/HCPCS: 80053; 80307; 82550; 87077; 96360; 96361; 99284; 70450; 71045; 80320; 81003; 81015; 83735; 84484; 85025; 87086; 87186

== ENCOUNTER 2022-08-19 13:23 | Inpatient (IN) | payer OTHER, SELFPAY ==
[2022-08-19] VITALS (38 sets, daily range): BP systolic 101–151; BP diastolic 49–70; PULSE 68–116; RESP 11–33; TEMP 37.6–37.8; O2SAT 93–100
--- NOTE | 2022-08-19 13:30 | DI.CT_ITS ---
Exam(s) CT HEAD CERVICAL SPINE WO EXAM: CT HEAD CERVICAL SPINE WO CLINICAL HISTORY: ams, fall. TECHNIQUE: Imaging Protocol: Axial computed tomography images with coronal and sagittal reformatted images were created and reviewed COMPARISON: CT CT HEAD WO from 06/05/2022 FINDINGS: CT Head: Ventricles and Extra axial spaces: Normal in size and morphology for the patient's age. Hemorrhage: None. Cerebral parenchyma: There is no evidence of an acute territorial infarct. There are areas of decrea sed attenuation in the white matter consistent with small vessel ischemic disease. There is an old l eft basal gangliar lacunar infarct. Midline shift: None. Brainstem/Cerebellum: Normal. Calvarium: Normal. Visualized Paranasal sinuses/Mastoids: Clear. Soft Tissues: Unremarkable. CT Cervical Spine: Bones: No acute fracture or subluxation. Multilevel degenerative changes are seen in the cervical spi ne. There is reversal of the normal cervical lordosis. Soft Tissues: Atherosclerosis is present. Lung Apices: Clear. IMPRESSION: 1. No acute intracranial process. 2. No acute fracture or subluxation in the cervical spine. 3. Findings were discussed with the emergency department at 3:26 p.m. on 08/19/2022. RADIATION DOSE DELIVERED: 1,001.8mGy.cm Total DLP DATA REPOSITORY: All CT scans at this facility are submitted to the National Radiology Data Registry (NRDR) Dose Index Registry (DIR) with the [employer] (ACR). RADIATION OPTIMIZATION: All CT scans at this facility use at least one of these dose optimization te chniques: automated exposure control; mA and/or kV adjustment per patient size (includes targeted exa ms where dose is matched to clinical indication); or iterative reconstruction.
--- NOTE | 2022-08-19 13:30 | RT.EKG_ITS ---
APPROVED REPORT Exam: Resting ECG Reason for Exam: dizzy Patient Location: E HR:79 bpm ECG Measurements Heart Rate 79 AXIS ME 146 P 55 QRSd 92 QRS -38 QT 413 T 109 QTc 474 Conclusion Sinus rhythm...normal P axis, V-rate 60- 99 Left axis deviation...QRS axis (-30,-90) Anterior infarct, old...Q >40mS, abnormal ST-T, V2-V5 st dep laterally Abnormal Electrocardiogram
[2022-08-19] MEDS: Lactated Ringers 1,000 ML 1000 ML IV (13:45)
--- NOTE | 2022-08-19 13:45 | DI.RAD_ITS ---
Exam(s) XR CHEST 2V PA LATERAL EXAM: XR CHEST 2V PA LATERAL CLINICAL HISTORY: weakness, syncope TECHNIQUE: 2D digital imaging was performed of the chest. Two images were obtained. PA and lateral views were obtained. COMPARISON: CR XR CHEST 2V PA LATERAL from 03/03/2022 CR,XR XR SHOULDER RT COMPLETE 2+V from 05/29/2022 CR,XR XR CHEST 1V IN DI DEPT from 06/05/2022 FINDINGS: MEDIASTINUM: Normal. HEART: Normal. PULMONARY VASCULATURE: Normal. LUNGS: Clear. PLEURAL SPACE: No pleural effusion or pneumothorax. BONE:Within normal limits for the patient's age. The patient's known proximal right humeral fracture is partially visualized. OTHER FINDINGS:Normal. IMPRESSION: 1. No acute pulmonary findings. 2. The known proximal right humeral fracture is incompletely imaged. DATA REPOSITORY: RADIATION DOSE DELIVERED:
--- NOTE | 2022-08-19 13:57 | ED.GENADUL_ITS ---
Discharge Plan Discharge Details Chief Complaint: Nausea/Vomit/Diar Admit Date/Time: 08/19/22 15:59 Admit Provider: Peter Vieyra Attending Provider: Peter Vieyra Primary Care Provider: Dawit Yao ED Provider: Cyndy Alex Discharge Data Discharge Date/Time-TO BE ENTERED AT DEPARTURE: 08/19/22 18:37 Medical Decision Making This 72-year-old female presents with reports of 4 days of vomiting and diarrhea and inability to tolerate p.o. When she was being brought back to her room, she had an episode which appeared to be syncopal, no obvious seizure activity noted that lasted approximately 10 seconds, she was at baseline and several seconds Denies any new pain complaints Does state she was weak this morning and fell and hit her head. She denies loss of consciousness states she was unable to get up. She denies any history of seizures. She denies known fever or chills. She denies known sick contacts. Her labs exhibit signs and dehydration She has hypokalemia, will supplement with banana bag Received thiamine [address] head and cervical spine does not show evidence of acute abnormality per radiology interpretation and my review White count 12,000, neutrophil count of 10 point lactate of 2.9, likely consistent with dehydration although infection is in the differential, blood pressures been stable Potassium 3.2, will supplement Sodium of 135 gap of 12.3, BUN of 20, glucose 241, patient is reportedly diet controlled diabetic Troponin negative, QTc 474, high end of normal, will give Compazine Received 1 L of LR, will give infusion Urinalysis is concerning for infection although only 5-10 white blood cells, many bacteria, has a depends on the time of assessment, will treat with ceftriaxone empirically, last urinary tract infection grew Klebsiella which was sensitive to ceftriaxone We will admit to the hospital secondary to weakness and period of altered mental status which lasted approximately 10 seconds Medical Records Medical records reviewed: Yes I reviewed the patient's medical records. Lab Data Lab results reviewed: Yes I reviewed the patient's lab results. HPI General Date/Time Provider Initiated Documentation: 08/19/22 13:26 . HPI Narrative: This 72-year-old female presents with 4 days of vomiting and diarrhea. She stat es she had a well check today and was laying on the ground because she was weak and unable to ambulate. She states she has not been able to eat or drink much. She states she had a couple of drinks of tequila 4 days ago but has not been drinking regularly. Denies any chest pain or shortness of breath. Called today because she is too weak to ambulate. Denies any new loss of consciousness. Related Data Allergies Allergy/AdvReac Type Severity Reaction Status Date / Time No Known Allergies Allergy Unverified 02/19/22 11:02 General Stated Complaint: Nausea/Vomit/Diar SETH: 2 PFSH All Active Problems DVT prophylaxis (Acute) Discharge planning issues (Acute) Incontinence (Acute) Advanced directives, counseling/discussion (Acute) Incontinence associated dermatitis (Acute) HCAP (healthcare-associated pneumonia) (Acute) Noncompliance by refusing intervention or support (Acute) Hypovolemia (Acute) Frequent falls (Acute) Hypophosphatemia (Acute) Hypomagnesemia (Acute) Esophagitis (Acute) E. coli UTI (Acute) Non-insulin dependent type 2 diabetes mellitus (Chronic) Hypokalemia (Acute) Ambulatory dysfunction (Acute) Tremor (Acute) Laceration of elbow with foreign body (Acute) Urinary tract infection (Acute) Fall (Acute) Alcohol intoxication (Acute) Medical History Acute CVA (cerebrovascular accident) Alcohol abuse Aortic stenosis Carotid stenosis Diabetes Diabetes mellitus type 2 in nonobese Palliative care encounter TIA (transient ischemic attack) Surgical History Surgical history unknown Social History Smoking/Tobacco Use Status: Former Tobacco Use Smoking risk assessment performed?: Yes Alcohol Intake: current Alcohol Intake frequency: 0-2 drinks per day Alcohol type: wine Drug use: Never Substance use type: does not use Do you feel safe at home: Yes Do you feel safe in your relationship?: Yes Exam Const General: cooperative, disheveled and frail appearing HENMT Other: moist mucous membranes Eyes Sclera: sclerae normal Resp Effort & Inspection: normal respiratory effort Auscultation: clear to auscultation bilaterally Cardio Rate: regular rate Rhythm: regular rhythm GI Inspection: normal to inspection Auscultation: normal bowel sounds Skin General skin exam: no rashes or lesions noted Other: pallor Neuro General: patient alert and patient oriented x3 Sensory Exam: no sensory deficits noted Extrem General: normal to inspection Course Vital Signs Vital signs: Vital Signs Pulse 78 08/19/22 13:26 Respiratory Rate 14 08/19/22 13:26 Blood Pressure 151/70 H 08/19/22 13:26 Pulse Oximetry 99 08/19/22 13:26 Pulse 78 08/19/22 13:26 Respiratory Rate 14 08/19/22 13:26 Blood Pressure 151/70 H 08/19/22 13:26 Pulse Oximetry 99 08/19/22 13:26 Oxygen Delivery Method Room Air 08/19/22 13:26 Oxygen Flow Rate 0 08/19/22 13:26 Pain Level 9 08/19/22 13:26 Comment unresponsive episode while headed to tx room - provider aware 08/19/22 13:26
[2022-08-19 14:10] LABS: Abs Immature Grans 0.03 10^3/uL (0.0-0.06); Absolute Basophil Count 0.02 10^3/uL (0.0-0.2); Absolute Eosinophil Count 0.01 10^3/uL (0.0-0.7); Absolute Lymphocyte Count 1.22 10^3/uL (1.2-3.4); Absolute Neutrophil Count 10.29 10^3/uL (1.2-6.7); Basophils % 0.2; Eosinophils % 0.1; HCT 43.2 % (36.0-46.0); HGB 14.7 g/dL (11.2-15.7); Immature Grans % 0.2; Lymphocytes % 9.8; MCH 29.3 pg (27.0-33.0); MCV 86 fL (80-95); MPV 9.7 fL (8.0-11.0); Monocytes % 7.2; Neutrophils % 82.5; Platelet Count 296 10^3/uL (130-400); RBC 5.01 10^6/uL (3.93-5.22); RDW 13.6 % (11.7-14.6); RDW-SD 43.2 fL; WBC 12.47 10^3/uL (4.4-10.8)
[2022-08-19 14:17] LABS: BE (Venous) 4 mmol/L (-2-3); HCO3 (Venous) 27 mmol/L (23-28); O2 Sat (Venous) 59 %; TCO2 (Venous) 24 mmol/L (24-29); pCO2 (Venous) 37 mmHg (41-51); pH (Venous) 7.48 (7.31-7.41); pO2 (Venous) 32 mmHg
[2022-08-19 14:19] LABS: Lactate 2.9 mmol/L (0.6-1.4)
[2022-08-19 14:25] LABS: Ammonia 13 umol/L (11-32)
[2022-08-19 14:29] LABS: ALT 14 U/L (14-59); AST 13 U/L (15-37); Alkaline Phosphatase 101 U/L (46-116); Anion Gap 12.3 mmol/L (3-11); BUN 20 mg/dL (7-18); Bilirubin, Total 1.6 mg/dL (0.2-1.0); CO2 26.7 mmol/L (21.0-32.0); CREATININE 0.9 mg/dL (0.55-1.02); Calcium 9.9 mg/dL (8.5-10.1); Chloride 96 mmol/L (98-107); Creatine Kinase 62 U/L (26-192); Glucose 241 mg/dL (74-106); PHOSPHORUS 3.1 mg/dL (2.6-4.7); Potassium 3.2 mmol/L (3.5-5.1); Sodium 135 mmol/L (136-145); Troponin I < 50 ng/L (<or=60)
[2022-08-19 14:30] LABS: ETHANOL BLOOD < 3.0 mg/dL (<10)
[2022-08-19] MEDS: THIAMINE 100 MG in Normal Saline 100 ML 200 MG IVPB (14:30)
[2022-08-19] MEDS: Metoclopramide 10 MG/2 ML VIAL IVP (14:31)
[2022-08-19 15:34] LABS: Bilirubin Negative (Negative); Blood Large (Negative); Clarity Cloudy (Clear); Glucose 100 mg/dL (Negative); Ketones Trace mg/dL (Negative); Leukocyte Esterase Trace (Negative); Nitrite Negative (Negative); Specific Gravity 1.025 (1.005-1.025); Urobilinogen 0.2 mg/dL (Up to 0.2); pH 5.5 (5-8)
[2022-08-19 15:43] LABS: Bacteria Many HPF (Negative); C & S Indicated? Yes; Casts Negative LPF (Negative); Crystals Negative HPF (Negative); Epithelial Cells Rare HPF (Negative); Mucus Trace (Negative)
[2022-08-19] MEDS: cefTRIAXone 2 GM/50 ML BAG IVPB (15:50)
[2022-08-19 15:58] LABS: INR 1.1 (0.9-1.1)
[2022-08-19 15:59] LABS: COVID-19 PCR Negative (Negative); Influenza A PCR Negative (Negative); Influenza B PCR Negative (Negative); RSV PCR Negative (Negative)
[2022-08-19 16:05] LABS: Source Nasopharynx
--- NOTE | 2022-08-19 16:22 | W.PM.HP.N ---
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 bs well controlled (3) DVT prophylaxis: Status: Deleted Assessment and plan: Enoxaparin (4) Discharge planning issues: Status: Deleted Assessment and plan: Return home with services v SNF Discussed with Dr Vieyra History of Present Illness History of Present Illness Chief Complaint: Weak, nausea, vomiting and diarrhea Narrative: This 72-year-old female patient presented to the [facility] ED with complaint of 4 days of vomiting and diarrhea.? She reported today she was laying on the floor in her apartment because she was weak and unable to ambulate.? She stated she has not been able to eat or drink much.? She stated she had a couple of drinks of tequila 4 days ago although denies drinking regularly.? Denies any chest pain or shortness of breath.? She was hospitalized here in May and was discharged to assisted living in [facility]. She states it is too expensive to live there so she returned here. She is awake alert. She reports not being able to stay with her daughter as she is and has two small children, as well as dealing with a lawsuit for wrongful of her brother, Ester's son who was shot and killed by police following an altercation, 2 years ago. She is alert, talkative and states it is warm here and she will have good food. She has no other complaints. Discussed with Dr Vieyra Review of Systems All systems reviewed & are unremarkable except as noted in HPI and below PFSH All Active Problems (Updated 08/22/22 @ 12:26 by Mariaelena Alonzo NP) Incontinence (Acute) Incontinence associated dermatitis (Acute) HCAP (healthcare-associated pneumonia) (Acute) Noncompliance by refusing intervention or support (Acute) Hypovolemia (Acute) Frequent falls (Acute) UTI (urinary tract infection) (Acute) Hypophosphatemia (Acute) Hypomagnesemia (Acute) Esophagitis (Acute) E. coli UTI (Acute) Non-insulin dependent type 2 diabetes mellitus (Chronic) Hypokalemia (Acute) Ambulatory dysfunction (Acute) Tremor (Acute) Laceration of elbow with foreign body (Acute) Urinary tract infection (Acute) Fall (Acute) Alcohol intoxication (Acute) Medical History Acute CVA (cerebrovascular accident) Alcohol abuse Aortic stenosis Carotid stenosis Diabetes Diabetes mellitus type 2 in nonobese Palliative care encounter TIA (transient ischemic attack) Surgical History Surgical history unknown Social History Smoking/Tobacco Use Status: Former Tobacco Use Smoking risk assessment performed?: Yes Alcohol Intake: current Alcohol Intake frequency: 0-2 drinks per day Alcohol type: wine Drug use: Never Substance use type: does not use Do you feel safe at home: Yes Do you feel safe in your relationship?: Yes Meds Allergies and Home Medications Allergies Allergy/AdvReac Type Severity Reaction Status Date / Time No Known Allergies Allergy Unverified 02/19/22 11:02 Home Medications Medication Instructions Recorded Confirmed Type folic acid 1 mg tablet 1 mg PO QAM #30 tabs 08/21/22 Rx magnesium oxide 400 mg (241.3 mg 400 mg PO DAILY #0 tabs 08/21/22 Rx magnesium) tablet multivitamin (Multiple Vitamins 1 tab PO QAM #0 tabs 08/21/22 Rx tablet) potassium chloride 20 mEq 20 meq PO DAILY #30 tabs 08/21/22 Rx tablet,extended release (K-Tab) thiamine mononitrate (vit B1) 100 100 mg PO QAM #30 tabs 08/21/22 Rx mg tablet (Vitamin B-1 (mononitrate)) Exam Narrative Exam Narrative: General: Well Developed, Awake and Alert, conversant. Skin: Warm and Dry HEENT: Head: No palpable deformities, Normocephalic Eyes: Pupils PERRLA, EOM's intact. No periorbital eccymosis or step off Ears: Canal patent. Nose/Face: Atraumatic. Facial bones nontender to palpation and stable with manipulation. Mouth/Throat: No intraoral trauma. Teeth and mandible are intact. Neck: No midline tenderness, no step off, no deformity to palpation of C-spine. Trachea midline. Chest: No surface trauma. Nontender without crepitus or deformity. Lungs clear to ausculatation bilaterally. Heart: RRR, no rubs, murmurs or gallop. Abdomen: No abrasions, ecchymosis, or surface trauma. Nondistended. Nontender to palpation no guarding, rebound, or rigidity. Pelvis: Nontender to palpation and stable to compression. Femoral pulses strong and equal Extremities: no surface trauma. Sensation intact. Peripheral pulses intact and equal. Neuro: ANO x4, GCS 15, cranial nerves II through XII intact. Motor and sensory exam nonfocal. Reflexes are symmetric. Results Labs 08/19/22 14:00 08/19/22 14:00 Labs: Laboratory Results - last 24 hr 08/19/22 08/19/22 08/19/22 14:00 14:00 14:00 WBC 12.47 H RBC 5.01 Hgb 14.7 Hct 43.2 MCV 86 MCH 29.3 MCHC 34.0 RDW 13.6 Plt Count 296 MPV 9.7 Immature Gran % 0.2 Neutrophils % 82.5 Lymphocytes % 9.8 Monocytes % 7.2 Eosinophils % 0.1 Basophils % 0.2 Nucleated RBC % 0.0 Absolute Neutrophils 10.29 H Absolute Lymphocytes 1.22 Absolute Monocytes 0.90 H Absolute Eosinophils 0.01 Absolute Basophils 0.02 PT INR VBG pH 7.48 H VBG pCO2 37 L VBG pO2 32 VBG HCO3 27 VBG Total CO2 24 VBG O2 Saturation 59 VBG Base Excess 4 H VBG Lactate Sodium 135 L Potassium 3.2 L Chloride 96 L Carbon Dioxide 26.7 Anion Gap 12.3 H BUN 20 H Creatinine 0.9 Est GFR (CKD-EPI 2020) 67.50 Glucose 241 H Calcium 9.9 Phosphorus 3.1 Total Bilirubin 1.6 H AST 13 L ALT 14 Alkaline Phosphatase 101 Ammonia Creatine Kinase 62 Troponin I < 50 Total Protein 8.0 Albumin 4.0 Urine Color Urine Clarity Urine pH Ur Specific Culver Urine Protein Urine Ketones Urine Blood Urine Nitrite Urine Bilirubin Urine Urobilinogen Ur Leukocyte Esterase Urine RBC Urine WBC Ur Epithelial Cells Urine Crystals Urine Bacteria Urine Casts Urine Mucus Ur Culture Indicated? Urine Glucose Ethyl Alcohol < 3.0 COVID-19 Source SARS-CoV-2 (PCR) Influenza Type A (PCR) Influenza Type B (PCR) RSV (PCR) 08/19/22 08/19/22 08/19/22 14:00 14:00 15:00 WBC RBC Hgb Hct MCV MCH MCHC RDW Plt Count MPV Immature Gran % Neutrophils % Lymphocytes % Monocytes % Eosinophils % Basophils % Nucleated RBC % Absolute Neutrophils Absolute Lymphocytes Absolute Monocytes Absolute Eosinophils Absolute Basophils PT INR VBG pH VBG pCO2 VBG pO2 VBG HCO3 VBG Total CO2 VBG O2 Saturation VBG Base Excess VBG Lactate 2.9 H* Sodium Potassium Chloride Carbon Dioxide Anion Gap BUN Creatinine Est GFR (CKD-EPI 2020) Glucose Calcium Phosphorus Total Bilirubin AST ALT Alkaline Phosphatase Ammonia 13 Creatine Kinase Troponin I Total Protein Albumin Urine Color Urine Clarity Urine pH Ur Specific Culver Urine Protein Urine Ketones Urine Blood Urine Nitrite Urine Bilirubin Urine Urobilinogen Ur Leukocyte Esterase Urine RBC Urine WBC Ur Epithelial Cells Urine Crystals Urine Bacteria Urine Casts Urine Mucus Ur Culture Indicated? Urine Glucose Ethyl Alcohol COVID-19 Source Nasopharynx SARS-CoV-2 (PCR) Negative Influenza Type A (PCR) Negative Influenza Type B (PCR) Negative RSV (PCR) Negative 08/19/22 08/19/22 15:20 15:30 WBC RBC Hgb Hct MCV MCH MCHC RDW Plt Count MPV Immature Gran % Neutrophils % Lymphocytes % Monocytes % Eosinophils % Basophils % Nucleated RBC % Absolute Neutrophils Absolute Lymphocytes Absolute Monocytes Absolute Eosinophils Absolute Basophils PT 11.0 INR 1.1 VBG pH VBG pCO2 VBG pO2 VBG HCO3 VBG Total CO2 VBG O2 Saturation VBG Base Excess VBG Lactate Sodium Potassium Chloride Carbon Dioxide Anion Gap BUN Creatinine Est GFR (CKD-EPI 2020) Glucose Calcium Phosphorus Total Bilirubin AST ALT Alkaline Phosphatase Ammonia Creatine Kinase Troponin I Total Protein Albumin Urine Color Yellow Urine Clarity Cloudy Urine pH 5.5 Ur Specific Culver 1.025 Urine Protein 100 H Urine Ketones Trace H Urine Blood Large H Urine Nitrite Negative Urine Bilirubin Negative Urine Urobilinogen 0.2 Ur Leukocyte Esterase Trace H Urine RBC 10-20 H Urine WBC 5-10 Ur Epithelial Cells Rare Urine Crystals Negative Urine Bacteria Many Urine Casts Negative Urine Mucus Trace Ur Culture Indicated? Yes Urine Glucose 100 H Ethyl Alcohol COVID-19 Source SARS-CoV-2 (PCR) Influenza Type A (PCR) Influenza Type B (PCR) RSV (PCR) Last Vital Signs Pulse 90 08/19/22 16:15 Resp 16 08/19/22 16:15 BP 122/63 02/22/23 16:15 Pulse Ox 100 08/19/22 16:15 PAWSS Have you Been Recently Intoxicated or Drunk Within the Last 30 days?: Yes Have you Ever Experienced Previous Episodes of Alcohol Withdrawal?: No Have you ever Experienced Withdrawal Seizures?: No Have you ever Experienced Delirium Tremens(DT)s?: No Have you ever undergone Alcohol Rehabilitation Treatment (i.e, inpt ot outpatient treatment programs)?: No Have you ever Experienced Blackouts?: No Have you ever Combined Alcohol with other Downers within the last 90 days?: No Have you ever Combined Alcohol with any other Substance of Abuse during the last 90 days?: No Positive Blood Alcohol level on Presentation? [PCS.BAL]: No Evidence of Increased Autonomic Activity (i.e. HR>120, tremor, sweating, agitation, nausea)?: No Result: 1 Time Spent Time spent with Patient: 40-54 minutes Time was spent: preparing to see the patient(eg.review tests), obtaining and/or reviewing separately [facility], ordering medications,tests, procedures, referring, communicating with other health care process manager and indepentently interpreting results
[2022-08-19] MEDS: Lactated Ringers 1,000 ML 200 ML IV (16:30)
[2022-08-19] MEDS: POTASSIUM CHLORIDE 20 MEQ/100 ML BAG 50 MEQ IVPB (16:34)
[2022-08-19 17:28] LABS: Troponin I < 50 ng/L (<or=60)
[2022-08-19] MEDS: Enoxaparin 40 MG/0.4 ML SYR SC (19:56)
[2022-08-19] MEDS: THIAMINE 500 MG in Normal Saline 100 ML 200 MG IVPB (21:30)
[2022-08-20] VITALS (9 sets, daily range): BP systolic 111–134; BP diastolic 58–73; PULSE 61–89; RESP 16–19; TEMP 36.6–37.4; O2SAT 98–100
[2022-08-20] MEDS: THIAMINE 500 MG in Normal Saline 100 ML 200 MG IVPB ×2 (03:58→12:22)
[2022-08-20] MEDS: Enoxaparin 40 MG/0.4 ML SYR SC (08:30)
[2022-08-20] MEDS: Folic Acid 1 MG TAB PO (08:31)
[2022-08-20] MEDS: Magnesium Oxide 400 MG TAB PO (08:31)
[2022-08-20] MEDS: Multivitamin TAB 1 TAB PO (08:32)
--- NOTE | 2022-08-20 08:39 | INITIAL_ITS ---
- If Service Date Differs Date of service: 08/20/22 Time of Service: 08:39 Care Management Initial Assess REASON FOR HOSPITALIZATION:: UTI PAST MEDICAL HISTORY/PAST SURGICAL HISTORY:: All Active Problems (Updated 08/19/22 @ 18:18 by Mariaelena Alonzo NP). DVT prophylaxis (Acute). Discharge planning issues (Acute). Incontinence (Acute). Advanced directives, counseling/discussion (Acute). Incontinence associated dermatitis (Acute). HCAP (healthcare-associated pneumonia) (Acute). Noncompliance by refusing intervention or support (Acute). Hypovolemia (Acute). Frequent falls (Acute). Hypophosphatemia (Acute). Hypomagnesemia (Acute). Esophagitis (Acute). E. coli UTI (Acute). Non-insulin dependent type 2 diabetes mellitus (Chronic). Hypokalemia (Acute). Ambulatory dysfunction (Acute). Tremor (Acute). Laceration of elbow with foreign body (Acute). Urinary tract infection (Acute). Fall (Acute). Alcohol intoxication (Acute). Medical History (Updated 08/19/22 @ 18:18 by Mariaelena Alonzo NP). Acute CVA (cerebrovascular accident). Alcohol abuse. Aortic stenosis. Carotid stenosis. Diabetes. Diabetes mellitus type 2 in nonobese. Palliative care encounter. TIA (transient ischemic attack). Surgical History . Surgical history unknown PREVIOUS FUNCTIONAL STATUS/SOCIAL/FAMILY SUPPORTS:: Ester recently sold her house to move to senior housing at the [facility] in [facility]. Her daughter Luz Hernandez lives in [place] and is supportive from a distance, but busy. Ester had a son who . Ester feels that she is relatively independent with her ADL's and within the community at baseline, but could use more home support. Per Luz, Ester has enough money to support her living expenses for 4 years and is able to afford caregivers if needed. CURRENT FUNCTIONAL STATUS:: Ester is lying in bed when MILLER met with her. She is pleasant and easily engages in conversation. Ester is agreeable to STR with a goal [facility]. MILLER spoke with patients daughter who felt like LTM wouldn't be beneficial at this time because of she still has money assets. ADVANCE DIRECTIVES:: None on file, pt refuses to discuss. Her daughter Luz reports that she is her DPOA, and will send supporting documentation. Has patient been provided with info about the portal/API?: Yes Did the patient sign up for the portal?: No CODE STATUS:: Full Code INSURANCE COVERAGE / FINANCIAL ISSUES:: [employer] CURRENT HOME/COMMUNITY SERVICES/EQUIPMENT:: Ester previously had CM through [facility]. PRIMARY CARE PHYSICIAN:: Dr. Yao POTENTIAL DISCHARGE NEEDS:: Evaluations for further needs, follow up appointments. PATIENT/FAMILY EDUCATION NEEDS:: Review discharge instructions regarding activity levels and medications, discussion of self care needs including ask me three. TRANSPORTATION:: Dependent on dispo. PLAN:: Anticipate, Ester will go to SNF for STR vs return home with HH services and increased supports, when medically ready per provider. She is agreeable to STR, CM will send referrals. Transportation will be dependent on dispo, but she typically travels with [facility] or the Taxi service. Ester will follow up with her PCP and discharge plan of care. CM will continue to follow.
[2022-08-20 09:13] LABS: Abs Immature Grans 0.02 10^3/uL (0.0-0.06); Absolute Basophil Count 0.02 10^3/uL (0.0-0.2); Absolute Eosinophil Count 0.08 10^3/uL (0.0-0.7); Absolute Lymphocyte Count 1.72 10^3/uL (1.2-3.4); Absolute Monocyte Count 0.76 10^3/uL (0.1-0.8); Absolute Neutrophil Count 4.93 10^3/uL (1.2-6.7); Basophils % 0.3; Eosinophils % 1.1; HCT 37.2 % (36.0-46.0); HGB 12.7 g/dL (11.2-15.7); Immature Grans % 0.3; Lymphocytes % 22.8; MCHC 34.1 % (32.0-36.0); MCV 88 fL (80-95); MPV 9.7 fL (8.0-11.0); Monocytes % 10.1; Neutrophils % 65.4; Platelet Count 199 10^3/uL (130-400); RBC 4.23 10^6/uL (3.93-5.22); RDW 13.5 % (11.7-14.6); RDW-SD 43.5 fL; WBC 7.53 10^3/uL (4.4-10.8)
[2022-08-20 09:25] LABS: Anion Gap 6.8 mmol/L (3-11); BUN 14 mg/dL (7-18); CO2 28.2 mmol/L (21.0-32.0); CREATININE 0.7 mg/dL (0.55-1.02); Chloride 103 mmol/L (98-107); Estimated GFR 91.26 (mL/min/1.73m2); Glucose 179 mg/dL (74-106); Magnesium 1.8 mg/dL (1.8-2.4); Sodium 138 mmol/L (136-145)
[2022-08-20 09:29] LABS: Potassium 2.8 mmol/L (3.5-5.1)
[2022-08-20] MEDS: Acetaminophen 325 MG TAB PO (10:23)
[2022-08-20] MEDS: Potassium Chloride 20 MEQ TABCR 40 MEQ PO (10:23)
[2022-08-20] MEDS: POTASSIUM CHLORIDE 20 MEQ/100 ML BAG 50 MEQ IVPB ×2 (10:24→13:15)
[2022-08-20] MEDS: Normal Saline Flush 10 ML SYR IVP ×2 (10:24→12:22)
--- NOTE | 2022-08-20 10:35 | CHAPLAIN ---
Ester was resting in bed when I visited. She was on her side and told me that she has a bump on her butt that she wants the nurse to look at. She said she thought she was laying on an instrument, but found the lump was on her butt, and now she has to lie on her side. I told her I would let her nurse know, and I did. I introduced myself, explained my role and offered support.
[2022-08-20] MEDS: Insulin Aspart 300 UNITS/3 ML PEN SC (12:22)
--- NOTE | 2022-08-20 12:40 | PCNE_ITS ---
Date of service: 08/20/22 Time of Service: 12:40 History of Present Illness Narrative: Ester Tiwari is a 72 year old female who has been seen by Palliative in the past. She is currently admitted to the hospital after being home with days of GI Sx and weakness. It sounds like she had a welfare check at her apartment- she reports that a police woman knocked on her door and asked if she wanted an ambulance to take her to the hospital. She does not know how the welfare check was initiated. She reports that she is feeling better overall, she is able to eat and drink. She denies nausea, vomiting, diarrhea. She continues to have some abdominal pain at times. She reports that she told the head nurse (Care management) that she would go to rehab but has since changed her mind. She reports that she has RLE pain with ambulating which limites the amount she can walk around. She wants MRI of pelvis. She feels she has a bone is sticking out of her right hip. She has take APAP with some relief. She reports that she lives independently [facility]- she does no t feel that she has enough help at home. She is in contact with [facility]. She was at for a while but did not like it there. She wants more help at home. She states she cannot pay privately for care. Her daughter pays for a brazer induction. She is hoping the brazer induction will go clean her apartment before the building dismantler goes in. She also takes a taxi to [employer] to get groceries. Reviewed CODE status. She states, I don't even want to go there. Reviewed that she is a FULL code at this time- discussed what being a full code means- she states, yes that is right. Discussed importance of assigning a HCA. She indicates that her daughter, Luz Tiwari is her DPOA and has paperwork indicating this. CM reached out to Luz, she will get documentation she has and return if it is for health care. If it is not for healthcare, she is clear that she wants Luz to be her HCA and documentation should be completed to reflect this. Assessment and Plan Assessment and plan (1) Advanced directives, counseling/discussion: Status: Deleted (2) Palliative care encounter: Assessment and plan: Ester is a very pleasant 72 year old female who lives independently in an apartment at [facility]. She is currently inpatient at [facility] after a few days of N/V/D, fever at home. She initially told CM that she would agree to rehab if recommended after her hospitalization, however, she states now that she wants to stay at the hospital until she can go back to her apartment. She feels she needs more help at home. She states she cannot pay privately. She would want home health if eligible. She is hoping to have an CONSTRUCTION ACCOUNTANT see her at home. Reviewed CODE status- she wishes to remain a FULL CODE. She did not want to discuss CODE status in depth. She believes her daughter, Luz Tiwari is her DPOA. CM reaching out to Luz to obtain copy- if this is not available, she will need to complete the appropriate documentation. There have been questions re: her capacity to make decisions in the past. This will need to be determined for each individual situation. She is able to engage in conversation today and appears to have a clear understanding of the topics being discussed. Palliative will continue to follow as needed while in the hospital and after discharge. Review of Systems Narrative: PER HPI PFSH All Active Problems (Updated 08/22/22 @ 12:26 by Mariaelena Alonzo NP) Incontinence (Acute) Incontinence associated dermatitis (Acute) HCAP (healthcare-associated pneumonia) (Acute) Noncompliance by refusing intervention or support (Acute) Hypovolemia (Acute) Frequent falls (Acute) UTI (urinary tract infection) (Acute) Hypophosphatemia (Acute) Hypomagnesemia (Acute) Esophagitis (Acute) E. coli UTI (Acute) Non-insulin dependent type 2 diabetes mellitus (Chronic) Hypokalemia (Acute) Ambulatory dysfunction (Acute) Tremor (Acute) Laceration of elbow with foreign body (Acute) Urinary tract infection (Acute) Fall (Acute) Alcohol intoxication (Acute) Medical History Acute CVA (cerebrovascular accident) Alcohol abuse Aortic stenosis Carotid stenosis Diabetes Diabetes mellitus type 2 in nonobese Palliative care encounter TIA (transient ischemic attack) Surgical History Surgical history unknown Social History Smoking/Tobacco Use Status: Former Tobacco Use Smoking risk assessment performed?: Yes Alcohol Intake: current Alcohol Intake frequency: 0-2 drinks per day Alcohol type: wine Drug use: Never Substance use type: does not use Do you feel safe at home: Yes Do you feel safe in your relationship?: Yes Exam Narrative Exam Narrative: General: very pleasant, elderly female, laying in bed, engaging in visit, talkative. HEENT: normocephalic, atraumatic, EOMI, mmm. Neck: supple. Respiratory: respirations appear even and unlabored. Extremities: moves all extremities freely. Results Last Vital Signs Temp 37.0 C 08/20/22 08:45 Pulse 84 08/20/22 08:45 Resp 19 08/20/22 08:45 BP 134/70 08/20/22 08:45 Pulse Ox 100 08/20/22 08:45 Labs 08/20/22 09:08 08/20/22 09:08 Labs: Laboratory Results - last 24 hr 08/19/22 08/19/22 08/19/22 14:00 14:00 14:00 WBC 12.47 H RBC 5.01 Hgb 14.7 Hct 43.2 MCV 86 MCH 29.3 MCHC 34.0 RDW 13.6 Plt Count 296 MPV 9.7 Immature Gran % 0.2 Neutrophils % 82.5 Band Neutrophils % Lymphocytes % 9.8 Atypical Lymphs % Monocytes % 7.2 Eosinophils % 0.1 Basophils % 0.2 Metamyelocytes % Myelocytes % Promyelocytes % Other Cells % Nucleated RBC % 0.0 Absolute Neutrophils 10.29 H Absolute Lymphocytes 1.22 Absolute Monocytes 0.90 H Absolute Eosinophils 0.01 Absolute Basophils 0.02 RBC Morphology Polychromasia Hypochromasia Poikilocytosis Basophilic Stippling Anisocytosis Microcytosis Macrocytosis Spherocytes Tear Drop Cells Ovalocytes Stomatocytes [place] Bodies [place] Cells/Echinocytes Acanthocytes (Spur) Schistocytes PT INR VBG pH 7.48 H VBG pCO2 37 L VBG pO2 32 VBG HCO3 27 VBG Total CO2 24 VBG O2 Saturation 59 VBG Base Excess 4 H VBG Lactate Sodium 135 L Potassium 3.2 L Chloride 96 L Carbon Dioxide 26.7 Anion Gap 12.3 H BUN 20 H Creatinine 0.9 Est GFR (CKD-EPI 2020) 67.50 Glucose 241 H Calcium 9.9 Phosphorus 3.1 Magnesium Total Bilirubin 1.6 H Conjugated Bilirubin AST 13 L ALT 14 Alkaline Phosphatase 101 Ammonia Creatine Kinase 62 Troponin I < 50 Total Protein 8.0 Albumin 4.0 Urine Color Urine Clarity Urine pH Ur Specific [place] Urine Protein Urine Ketones Urine Blood Urine Nitrite Urine Bilirubin Urine Urobilinogen Ur Leukocyte Esterase Urine RBC Urine WBC Ur Epithelial Cells Urine Crystals Urine Bacteria Urine Casts Urine Mucus Ur Culture Indicated? Urine Glucose Ethyl Alcohol < 3.0 COVID-19 Source SARS-CoV-2 (PCR) Influenza Type A (PCR) Influenza Type B (PCR) RSV (PCR) 08/19/22 08/19/22 08/19/22 14:00 14:00 15:00 WBC RBC Hgb Hct MCV MCH MCHC RDW Plt Count MPV Immature Gran % Neutrophils % Band Neutrophils % Lymphocytes % Atypical Lymphs % Monocytes % Eosinophils % Basophils % Metamyelocytes % Myelocytes % Promyelocytes % Other Cells % Nucleated RBC % Absolute Neutrophils Absolute Lymphocytes Absolute Monocytes Absolute Eosinophils Absolute Basophils RBC Morphology Polychromasia Hypochromasia Poikilocytosis Basophilic Stippling Anisocytosis Microcytosis Macrocytosis Spherocytes Tear Drop Cells Ovalocytes Stomatocytes [place] Bodies [place] Cells/Echinocytes Acanthocytes (Spur) Schistocytes PT INR VBG pH VBG pCO2 VBG pO2 VBG HCO3 VBG Total CO2 VBG O2 Saturation VBG Base Excess VBG Lactate 2.9 H* Sodium Potassium Chloride Carbon Dioxide Anion Gap BUN Creatinine Est GFR (CKD-EPI 2020) Glucose Calcium Phosphorus Magnesium Total Bilirubin Conjugated Bilirubin AST ALT Alkaline Phosphatase Ammonia 13 Creatine Kinase Troponin I Total Protein Albumin Urine Color Urine Clarity Urine pH Ur Specific [place] Urine Protein Urine Ketones Urine Blood Urine Nitrite Urine Bilirubin Urine Urobilinogen Ur Leukocyte Esterase Urine RBC Urine WBC Ur Epithelial Cells Urine Crystals Urine Bacteria Urine Casts Urine Mucus Ur Culture Indicated? Urine Glucose Ethyl Alcohol COVID-19 Source Nasopharynx SARS-CoV-2 (PCR) Negative Influenza Type A (PCR) Negative Influenza Type B (PCR) Negative RSV (PCR) Negative 08/19/22 08/19/22 08/19/22 15:20 15:30 16:58 WBC RBC Hgb Hct MCV MCH MCHC RDW Plt Count MPV Immature Gran % Neutrophils % Band Neutrophils % Lymphocytes % Atypical Lymphs % Monocytes % Eosinophils % Basophils % Metamyelocytes % Myelocytes % Promyelocytes % Other Cells % Nucleated RBC % Absolute Neutrophils Absolute Lymphocytes Absolute Monocytes Absolute Eosinophils Absolute Basophils RBC Morphology Polychromasia Hypochromasia Poikilocytosis Basophilic Stippling Anisocytosis Microcytosis Macrocytosis Spherocytes Tear Drop Cells Ovalocytes Stomatocytes [place] Bodies [place] Cells/Echinocytes Acanthocytes (Spur) Schistocytes PT 11.0 INR 1.1 VBG pH VBG pCO2 VBG pO2 VBG HCO3 VBG Total CO2 VBG O2 Saturation VBG Base Excess VBG Lactate Sodium Potassium Chloride Carbon Dioxide Anion Gap BUN Creatinine Est GFR (CKD-EPI 2020) Glucose Calcium Phosphorus Magnesium Total Bilirubin Conjugated Bilirubin AST ALT Alkaline Phosphatase Ammonia Creatine Kinase Troponin I < 50 Total Protein Albumin Urine Color Yellow Urine Clarity Cloudy Urine pH 5.5 Ur Specific [place] 1.025 Urine Protein 100 H Urine Ketones Trace H Urine Blood Large H Urine Nitrite Negative Urine Bilirubin Negative Urine Urobilinogen 0.2 Ur Leukocyte Esterase Trace H Urine RBC 10-20 H Urine WBC 5-10 Ur Epithelial Cells Rare Urine Crystals Negative Urine Bacteria Many Urine Casts Negative Urine Mucus Trace Ur Culture Indicated? Yes Urine Glucose 100 H Ethyl Alcohol COVID-19 Source SARS-CoV-2 (PCR) Influenza Type A (PCR) Influenza Type B (PCR) RSV (PCR) 08/20/22 08/20/22 08/20/22 05:35 05:35 09:08 WBC Cancelled 7.53 RBC Cancelled 4.23 Hgb Cancelled 12.7 D Hct Cancelled 37.2 MCV Cancelled 88 MCH Cancelled 30.0 MCHC Cancelled 34.1 RDW Cancelled 13.5 Plt Count Cancelled 199 MPV Cancelled 9.7 Immature Gran % Cancelled 0.3 Neutrophils % Cancelled 65.4 Band Neutrophils % Cancelled Lymphocytes % Cancelled 22.8 Atypical Lymphs % Cancelled Monocytes % Cancelled 10.1 Eosinophils % Cancelled 1.1 Basophils % Cancelled 0.3 Metamyelocytes % Cancelled Myelocytes % Cancelled Promyelocytes % Cancelled Other Cells % Cancelled Nucleated RBC % Cancelled 0.0 Absolute Neutrophils Cancelled 4.93 Absolute Lymphocytes Cancelled 1.72 Absolute Monocytes Cancelled 0.76 Absolute Eosinophils Cancelled 0.08 Absolute Basophils Cancelled 0.02 RBC Morphology Cancelled Polychromasia Cancelled Hypochromasia Cancelled Poikilocytosis Cancelled Basophilic Stippling Cancelled Anisocytosis Cancelled Microcytosis Cancelled Macrocytosis Cancelled Spherocytes Cancelled Tear Drop Cells Cancelled Ovalocytes Cancelled Stomatocytes Cancelled [place] Bodies Cancelled [place] Cells/Echinocytes Cancelled Acanthocytes (Spur) Cancelled Schistocytes Cancelled PT INR VBG pH VBG pCO2 VBG pO2 VBG HCO3 VBG Total CO2 VBG O2 Saturation VBG Base Excess VBG Lactate Sodium Cancelled Potassium Cancelled Chloride Cancelled Carbon Dioxide Cancelled Anion Gap Cancelled BUN Cancelled Creatinine Cancelled Est GFR (CKD-EPI 2020) Cancelled Glucose Cancelled Calcium Cancelled Phosphorus Cancelled Magnesium Cancelled Total Bilirubin Cancelled Conjugated Bilirubin Cancelled AST Cancelled ALT Cancelled Alkaline Phosphatase Cancelled Ammonia Creatine Kinase Troponin I Total Protein Cancelled Albumin Cancelled Urine Color Urine Clarity Urine pH Ur Specific [place] Urine Protein Urine Ketones Urine Blood Urine Nitrite Urine Bilirubin Urine Urobilinogen Ur Leukocyte Esterase Urine RBC Urine WBC Ur Epithelial Cells Urine Crystals Urine Bacteria Urine Casts Urine Mucus Ur Culture Indicated? Urine Glucose Ethyl Alcohol COVID-19 Source SARS-CoV-2 (PCR) Influenza Type A (PCR) Influenza Type B (PCR) RSV (PCR) 08/20/22 08/20/22 09:08 Unknown WBC RBC Hgb Hct MCV MCH MCHC RDW Plt Count MPV Immature Gran % Neutrophils % Band Neutrophils % Lymphocytes % Atypical Lymphs % Monocytes % Eosinophils % Basophils % Metamyelocytes % Myelocytes % Promyelocytes % Other Cells % Nucleated RBC % Absolute Neutrophils Absolute Lymphocytes Absolute Monocytes Absolute Eosinophils Absolute Basophils RBC Morphology Polychromasia Hypochromasia Poikilocytosis Basophilic Stippling Anisocytosis Microcytosis Macrocytosis Spherocytes Tear Drop Cells Ovalocytes Stomatocytes [place] Bodies [place] Cells/Echinocytes Acanthocytes (Spur) Schistocytes PT INR VBG pH VBG pCO2 VBG pO2 VBG HCO3 VBG Total CO2 VBG O2 Saturation VBG Base Excess VBG Lactate Sodium 138 Cancelled Potassium 2.8 L* Cancelled Chloride 103 Cancelled Carbon Dioxide 28.2 Cancelled Anion Gap 6.8 Cancelled BUN 14 Cancelled Creatinine 0.7 Cancelled Est GFR (CKD-EPI 2020) 91.26 Cancelled Glucose 179 H Cancelled Calcium 9.0 Cancelled Phosphorus Magnesium 1.8 Cancelled Total Bilirubin Conjugated Bilirubin AST ALT Alkaline Phosphatase Ammonia Creatine Kinase Troponin I Total Protein Albumin Urine Color Urine Clarity Urine pH Ur Specific [place] Urine Protein Urine Ketones Urine Blood Urine Nitrite Urine Bilirubin Urine Urobilinogen Ur Leukocyte Esterase Urine RBC Urine WBC Ur Epithelial Cells Urine Crystals Urine Bacteria Urine Casts Urine Mucus Ur Culture Indicated? Urine Glucose Ethyl Alcohol COVID-19 Source SARS-CoV-2 (PCR) Influenza Type A (PCR) Influenza Type B (PCR) RSV (PCR)
--- NOTE | 2022-08-20 13:35 | W.DIABETESNO ---
Date of service: 08/20/22 Time of Service: 13:35 Diabetes Note Reason for Visit: dm2 NOTE: Consult noted. Diet education not warranted at this time as with A1C of 5.7%, and with alcoholic dementia. Weight has been stable. On diabetic diet with varied intake. Will continue to follow. Time Spent in Nutritional Counseling and Treatment: 0
--- NOTE | 2022-08-20 15:10 | PGE_ITS ---
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 bs well controlled (4) DVT prophylaxis: Status: Deleted Assessment and plan: Enoxaparin (5) Discharge planning issues: Status: Deleted Assessment and plan: Return home - declines SNF, would like to go home with HH Discussed with Dr Vieyra Subjective Subjective Patient reports: no new complaints, voiding w/o difficulty, bowel movement and afebrile; denies diarrhea, vomiting or shortness of breath Interval history since last seen: Ester reports she is feeling better, but has some hip pain, denies trauma, states it has been going on for months, she would like a MRI. Exam Narrative Exam Narrative: General: Well Developed, Awake and Alert, conversant. Skin: Warm and Dry HEENT: Head: No palpable deformities, Normocephalic Eyes: Pupils PERRLA, EOM's intact. No periorbital eccymosis or step off Ears: Canal patent. Nose/Face: Atraumatic. Facial bones nontender to palpation and stable with manipulation. Mouth/Throat: No intraoral trauma. Teeth and mandible are intact. Neck: No midline tenderness, no step off, no deformity to palpation of C-spine. Trachea midline. Chest: No surface trauma. Nontender without crepitus or deformity. Lungs clear to ausculatation bilaterally. Heart: RRR, no rubs, murmurs or gallop. Abdomen: No abrasions, ecchymosis, or surface trauma. Nondistended. Nontender to palpation no guarding, rebound, or rigidity. Pelvis: Nontender to palpation and stable to compression. Femoral pulses strong and equal Extremities: no surface trauma. Sensation intact. Peripheral pulses intact and equal. Neuro: AAO x4, GCS 15, cranial nerves II through XII intact. Motor and sensory exam nonfocal. Reflexes are symmetric. Objective Last Vital Signs Temp 37.3 C 08/20/22 14:53 Pulse 61 08/20/22 14:53 Resp 16 08/20/22 14:53 BP 111/62 08/20/22 14:53 Pulse Ox 98 08/20/22 14:53 Laboratory Results - last 24 hr 08/19/22 08/19/22 08/19/22 15:00 15:20 15:30 WBC RBC Hgb Hct MCV MCH MCHC RDW Plt Count MPV Immature Gran % Neutrophils % Band Neutrophils % Lymphocytes % Atypical Lymphs % Monocytes % Eosinophils % Basophils % Metamyelocytes % Myelocytes % Promyelocytes % Other Cells % Nucleated RBC % Absolute Neutrophils Absolute Lymphocytes Absolute Monocytes Absolute Eosinophils Absolute Basophils RBC Morphology Polychromasia Hypochromasia Poikilocytosis Basophilic Stippling Anisocytosis Microcytosis Macrocytosis Spherocytes Tear Drop Cells Ovalocytes Stomatocytes Lyles-[place] Bodies Helio Cells/Echinocytes Acanthocytes (Spur) Schistocytes PT 11.0 INR 1.1 Sodium Potassium Chloride Carbon Dioxide Anion Gap BUN Creatinine Est GFR (CKD-EPI 2020) Glucose Calcium Phosphorus Magnesium Total Bilirubin Conjugated Bilirubin AST ALT Alkaline Phosphatase Troponin I Total Protein Albumin Urine Color Yellow Urine Clarity Cloudy Urine pH 5.5 Ur Specific [place] 1.025 Urine Protein 100 H Urine Ketones Trace H Urine Blood Large H Urine Nitrite Negative Urine Bilirubin Negative Urine Urobilinogen 0.2 Ur Leukocyte Esterase Trace H Urine RBC 10-20 H Urine WBC 5-10 Ur Epithelial Cells Rare Urine Crystals Negative Urine Bacteria Many Urine Casts Negative Urine Mucus Trace Ur Culture Indicated? Yes Urine Glucose 100 H COVID-19 Source Nasopharynx SARS-CoV-2 (PCR) Negative Influenza Type A (PCR) Negative Influenza Type B (PCR) Negative RSV (PCR) Negative 08/19/22 08/20/22 08/20/22 16:58 05:35 05:35 WBC Cancelled RBC Cancelled Hgb Cancelled Hct Cancelled MCV Cancelled MCH Cancelled MCHC Cancelled RDW Cancelled Plt Count Cancelled MPV Cancelled Immature Gran % Cancelled Neutrophils % Cancelled Band Neutrophils % Cancelled Lymphocytes % Cancelled Atypical Lymphs % Cancelled Monocytes % Cancelled Eosinophils % Cancelled Basophils % Cancelled Metamyelocytes % Cancelled Myelocytes % Cancelled Promyelocytes % Cancelled Other Cells % Cancelled Nucleated RBC % Cancelled Absolute Neutrophils Cancelled Absolute Lymphocytes Cancelled Absolute Monocytes Cancelled Absolute Eosinophils Cancelled Absolute Basophils Cancelled RBC Morphology Cancelled Polychromasia Cancelled Hypochromasia Cancelled Poikilocytosis Cancelled Basophilic Stippling Cancelled Anisocytosis Cancelled Microcytosis Cancelled Macrocytosis Cancelled Spherocytes Cancelled Tear Drop Cells Cancelled Ovalocytes Cancelled Stomatocytes Cancelled [place] Bodies Cancelled [place] Cells/Echinocytes Cancelled Acanthocytes (Spur) Cancelled Schistocytes Cancelled PT INR Sodium Cancelled Potassium Cancelled Chloride Cancelled Carbon Dioxide Cancelled Anion Gap Cancelled BUN Cancelled Creatinine Cancelled Est GFR (CKD-EPI 2020) Cancelled Glucose Cancelled Calcium Cancelled Phosphorus Cancelled Magnesium Cancelled Total Bilirubin Cancelled Conjugated Bilirubin Cancelled AST Cancelled ALT Cancelled Alkaline Phosphatase Cancelled Troponin I < 50 Total Protein Cancelled Albumin Cancelled Urine Color Urine Clarity Urine pH Ur Specific [place] Urine Protein Urine Ketones Urine Blood Urine Nitrite Urine Bilirubin Urine Urobilinogen Ur Leukocyte Esterase Urine RBC Urine WBC Ur Epithelial Cells Urine Crystals Urine Bacteria Urine Casts Urine Mucus Ur Culture Indicated? Urine Glucose COVID-19 Source SARS-CoV-2 (PCR) Influenza Type A (PCR) Influenza Type B (PCR) RSV (PCR) 08/20/22 08/20/22 08/20/22 09:08 09:08 Unknown WBC 7.53 RBC 4.23 Hgb 12.7 D Hct 37.2 MCV 88 MCH 30.0 MCHC 34.1 RDW 13.5 Plt Count 199 MPV 9.7 Immature Gran % 0.3 Neutrophils % 65.4 Band Neutrophils % Lymphocytes % 22.8 Atypical Lymphs % Monocytes % 10.1 Eosinophils % 1.1 Basophils % 0.3 Metamyelocytes % Myelocytes % Promyelocytes % Other Cells % Nucleated RBC % 0.0 Absolute Neutrophils 4.93 Absolute Lymphocytes 1.72 Absolute Monocytes 0.76 Absolute Eosinophils 0.08 Absolute Basophils 0.02 RBC Morphology Polychromasia Hypochromasia Poikilocytosis Basophilic Stippling Anisocytosis Microcytosis Macrocytosis Spherocytes Tear Drop Cells Ovalocytes Stomatocytes Lyles-[place] Bodies [place] Cells/Echinocytes Acanthocytes (Spur) Schistocytes PT INR Sodium 138 Cancelled Potassium 2.8 L* Cancelled Chloride 103 Cancelled Carbon Dioxide 28.2 Cancelled Anion Gap 6.8 Cancelled BUN 14 Cancelled Creatinine 0.7 Cancelled Est GFR (CKD-EPI 2020) 91.26 Cancelled Glucose 179 H Cancelled Calcium 9.0 Cancelled Phosphorus Magnesium 1.8 Cancelled Total Bilirubin Conjugated Bilirubin AST ALT Alkaline Phosphatase Troponin I Total Protein Albumin Urine Color Urine Clarity Urine pH Ur Specific [place] Urine Protein Urine Ketones Urine Blood Urine Nitrite Urine Bilirubin Urine Urobilinogen Ur Leukocyte Esterase Urine RBC Urine WBC Ur Epithelial Cells Urine Crystals Urine Bacteria Urine Casts Urine Mucus Ur Culture Indicated? Urine Glucose COVID-19 Source SARS-CoV-2 (PCR) Influenza Type A (PCR) Influenza Type B (PCR) RSV (PCR) PAWSS Have you Been Recently Intoxicated or Drunk Within the Last 30 days?: Yes Have you Ever Experienced Previous Episodes of Alcohol Withdrawal?: No Have you ever Experienced Withdrawal Seizures?: No Have you ever Experienced Delirium Tremens(DT)s?: No Have you ever undergone Alcohol Rehabilitation Treatment (i.e, inpt ot outpati ent treatment programs)?: No Have you ever Experienced Blackouts?: No Have you ever Combined Alcohol with other Downers within the last 90 days?: No Have you ever Combined Alcohol with any other Substance of Abuse during the last 90 days?: No Positive Blood Alcohol level on Presentation? [PCS.BAL]: No Evidence of Increased Autonomic Activity (i.e. HR>120, tremor, sweating, agitation, nausea)?: No Result: 1 Time Spent with Patient Time Spent with Patient: 25-34 minutes Time was spent: preparing to see the patient(eg.review tests), ordering medications,tests, procedures, referring, communicating with other health healthcare corporate account director, indepentently interpreting results and counseling the patient
[2022-08-20] MEDS: cefTRIAXone 2 GM/50 ML BAG IVPB (15:58)
[2022-08-20 17:44] LABS: *AMPHETAMINES SCREEN URINE Negative (Negative); *BARBITURATES SCREEN URINE Negative (Negative); *BENZODIAZEPINES SCREEN URINE Negative (Negative); Cannabinoids THC Negative (Negative); Cocaine Screen,Urine Negative (Negative); METHADONE URINE SCREEN Negative (Negative); OPIATES URINE SCREEN Negative (Negative)
[2022-08-20 17:47] LABS: Tricyclic Antidepressants Negative (Negative)
--- NOTE | 2022-08-21 | DI.RAD_ITS ---
Exam(s) XR HIP RT COMPLETE AP PELVIS EXAM: XR HIP RT COMPLETE AP PELVIS INDICATION: Pain. COMPARISON: CR,XR XR PELVIS AP from 05/29/2022 TECHNIQUE: 2D digital imaging was performed. Three views. FINDINGS: Hip joint spaces are maintained. Mild acetabular spurring. No evidence of fracture. Mild degenerat steven changes of SI joints. IMPRESSION: No acute abnormality. DATA REPOSITORY: RADIATION DOSE DELIVERED:
[2022-08-21 02:57] VITALS: BP 144/68; PULSE 82; RESP 18; TEMP 36.6; O2SAT 98
[2022-08-21 07:00] VITALS: PULSE 78
[2022-08-21 07:02] LABS: Abs Immature Grans 0.04 10^3/uL (0.0-0.06); Absolute Basophil Count 0.04 10^3/uL (0.0-0.2); Absolute Eosinophil Count 0.16 10^3/uL (0.0-0.7); Absolute Lymphocyte Count 2.35 10^3/uL (1.2-3.4); Absolute Monocyte Count 0.78 10^3/uL (0.1-0.8); Absolute Neutrophil Count 4.49 10^3/uL (1.2-6.7); Basophils % 0.5; HGB 12.3 g/dL (11.2-15.7); Immature Grans % 0.5; Lymphocytes % 29.9; MCH 29.2 pg (27.0-33.0); MCHC 33.2 % (32.0-36.0); MCV 88 fL (80-95); MPV 9.9 fL (8.0-11.0); Monocytes % 9.9; Neutrophils % 57.2; Platelet Count 204 10^3/uL (130-400); RBC 4.21 10^6/uL (3.93-5.22); RDW 13.3 % (11.7-14.6); RDW-SD 43.1 fL; WBC 7.86 10^3/uL (4.4-10.8)
[2022-08-21 07:20] LABS: BUN 10 mg/dL (7-18); CREATININE 0.6 mg/dL (0.55-1.02); Chloride 103 mmol/L (98-107); Estimated GFR 94.72 (mL/min/1.73m2); Glucose 115 mg/dL (74-106); Magnesium 1.9 mg/dL (1.8-2.4); Potassium 3.6 mmol/L (3.5-5.1); Sodium 136 mmol/L (136-145)
[2022-08-21 07:33] VITALS: BP 129/75; PULSE 73; RESP 14; TEMP 37; O2SAT 98
--- NOTE | 2022-08-21 08:43 | PDOC.CMPRO ---
- If Service Date Differs Date of service: 08/21/22 Time of Service: 08:43 Care Management Progress Note S/O: Ester is lying in bed when CM met with her. She is awake and easily engages in conversation. She is feeling better today, but wants a comprehensive workup with MRI for right hip pain, which she describes as chronic. Ester denies any recent falls and reports that the pain has been ongoing for months. Per pt, she would see Dr. Yao about this but she can't afford a taxi. Hopsitalist/Mariaelena did order an x-ray and PT consult. CM explained to Ester that chronic conditions require outpatient follow up. CM provided Ester with a list of her community contacts, since she also mentioned that she lost the numbers to her PCP, [facility], [facility]A and home health. Today, Ester refuses SNF for STR, and wants to return home with full [facility] services. In addition, pts daughter had concerns regarding pts decision making capacity. CM relayed Luz's concern to Shirlene from Palliative provider and Hospitalist/Mariaelena who both feel she is capable of making decisions. CM is waiting for pts daughter to send over previously completed Advanced Planning Paperwork as discussed yesterday after Luz reported to CM that she is at least her financial POA. In addition, Luz shares that Ester has enough money assets from selling her house to get her through the next 4 years with enough to pay for increased home supports if needed. Per pt, she has Case Management through the COA case and [facility]. CM LMOM for COA and is awaiting a return call to see if there are any additional supports Ester could receive? CM will continue to follow. A: 72 year old female admitted to [facility] on 08/19/22 for a UTI P: Anticipate, Ester will go to SNF for STR vs return home with HH services and increased supports, when medically ready per provider. She is agreeable to STR, CM will send referrals. Transportation will be dependent on dispo, but she typically travels with [facility] or the Taxi service. Ester will follow up with her PCP and discharge plan of care. CM will continue to follow.
[2022-08-21] MEDS: Enoxaparin 40 MG/0.4 ML SYR SC (08:55)
[2022-08-21] MEDS: Magnesium Oxide 400 MG TAB PO (08:56)
[2022-08-21] MEDS: Folic Acid 1 MG TAB PO (08:56)
[2022-08-21] MEDS: Multivitamin TAB 1 TAB PO (08:56)
[2022-08-21] MEDS: Thiamine 100 MG TAB PO (08:57)
[2022-08-21] MEDS: Fosfomycin Tromethamine 3 GM PACKET PO (10:22)
--- NOTE | 2022-08-21 11:02 | W.PM.PROGNOT ---
Date of Service Date of service: 08/21/22 Time of Service: 11:02 Objective Last Vital Signs Temp 37.0 C 08/21/22 07:33 Pulse 73 08/21/22 07:33 Resp 14 08/21/22 07:33 BP 129/75 08/21/22 07:33 Pulse Ox 98 08/21/22 07:33 Laboratory Results - last 24 hr 08/20/22 08/21/22 08/21/22 16:50 06:50 06:50 WBC 7.86 RBC 4.21 Hgb 12.3 Hct 37.0 MCV 88 MCH 29.2 MCHC 33.2 RDW 13.3 Plt Count 204 MPV 9.9 Immature Gran % 0.5 Neutrophils % 57.2 Lymphocytes % 29.9 Monocytes % 9.9 Eosinophils % 2.0 Basophils % 0.5 Nucleated RBC % 0.0 Absolute Neutrophils 4.49 Absolute Lymphocytes 2.35 Absolute Monocytes 0.78 Absolute Eosinophils 0.16 Absolute Basophils 0.04 Sodium 136 Potassium 3.6 Chloride 103 Carbon Dioxide 26.0 Anion Gap 7.0 BUN 10 Creatinine 0.6 Est GFR (CKD-EPI 2020) 94.72 Glucose 115 H Calcium 9.0 Magnesium 1.9 Urine Opiates Screen Negative Urine Methadone Screen Negative Ur Barbiturates Screen Negative Ur Tricyclics Screen Negative Ur Amphetamines Screen Negative U Benzodiazepines Scrn Negative Urine Cocaine Screen Negative Ur THC Screen Negative PAWSS Have you Been Recently Intoxicated or Drunk Within the Last 30 days?: Yes Have you Ever Experienced Previous Episodes of Alcohol Withdrawal?: No Have you ever Experienced Withdrawal Seizures?: No Have you ever Experienced Delirium Tremens(DT)s?: No Have you ever undergone Alcohol Rehabilitation Treatment (i.e, inpt ot outpatient treatment programs)?: No Have you ever Experienced Blackouts?: No Have you ever Combined Alcohol with other Downers within the last 90 days?: No Have you ever Combined Alcohol with any other Substance of Abuse during the last 90 days?: No Positive Blood Alcohol level on Presentation? [PCS.BAL]: No Evidence of Increased Autonomic Activity (i.e. HR>120, tremor, sweating, agitation, nausea)?: No Result: 1
[2022-08-21] MEDS: LORazepam 1 MG TAB PO/SL (11:06)
[2022-08-21] MEDS: Ondansetron O.D.T. 4 MG TABEF PO (11:07)
[2022-08-21 11:33] VITALS: BP 115/69; PULSE 81; RESP 15; TEMP 36.9; O2SAT 96
[2022-08-21] MEDS: Insulin Aspart 300 UNITS/3 ML PEN SC (12:17)
--- NOTE | 2022-08-21 13:04 | PT.INIE ---
PT Notes Visit Reasons: Urinary tract infection Physical Therapy Inpatient Initial Evaluation Date: 08/21/22 Referring Doctor: Mariaelena Alonzo NP PT Orders: PT CONSULT: D/C Non PT Dependent Precautions: Fall. Standard. Patient Profile/Admitting Diagnosis: Ester is a 72 yo female that presented to the ER on 08/19/22 for UTI. She reports chronic right hip pain that she feels is broken. X-ray performed and shows good alignment and space, with bone spurs. PMHX: See EMR Social History/Home Situation: Lives alone with [address] Does not drive or use AD. Family lives out of state. Equipment Owned/DME: None Subjective: Cleared by nursing to see patient and patient is agreeable to PT. Patient is resting in bed at time of consult and connected to telemetry. Objective: General Observation: Has good mobility aside from right shoulder Mental Status: A&O x3 Pain: Report pain of 8-9/10 right hip ROM: Right Upper Extremity: Shoulder Flexion Severe. Shoulder abduction Severe. Elbow flexion WFL. Wrist flexion WFL. Opening and closing of hand WFL. Left Upper Extremity: Shoulder Flexion WFL. Shoulder abduction WFL. Elbow flexion WFL. Wrist flexion WFL. Opening and closing of hand WFL. Right Lower Extremity: Hip flexion WFL. Hip abduction WFL. Knee flexion WFL. Ankle dorsiflexion WFL. Ankle plantarflexion WFL. Left Lower Extremity: Hip flexion WFL. Hip abduction WFL. Knee flexion WFL. Ankle dorsiflexion WFL. Ankle plantarflexion WFL. Strength: Right Upper Extremity: Shoulder flexors 2/5. Shoulder abductors 2/5. Elbow flexors 5-/5. Elbow extensors 4+/5. Rail Car Repair Carman strong. Left Upper Extremity: Shoulder flexors 5-/5. Shoulder abductors 5-/5. Elbow flexors 5/5. Elbow extensors 5/5. Rail Car Repair Carman strong. Right Lower Extremity: Hip flexors 5/5. Knee flexors 5/5. Knee extensors 5/5. Ankle dorsiflexors 5/5. Ankle plantarflexors 5/5. Left Lower Extremity: Hip flexors 5/5. Knee flexors 5/5. Knee extensors 5/5. Ankle dorsiflexors 5/5. Ankle plantarflexors 5/5. Sensation: Intact as to pain and pressure on bilateral lower extremities. Bed Mobility/Transfers: Rolling: Independent Supine to sit: Min A Sit to supine: Supervision Sit to stand: CGA Stand to sit: Supervision Gait: Ambulated 320ft with FWW and SBA. Mild path deviation and poor control on turns. Stairs: Not assessed Balance: Static Sitting: Normal Dynamic Sitting: Fair Static Standing: Fair Dynamic Standing: Poor Therapeutic Activity (24862) dynamic movement and functional strengthening to improve physical performance: 15 minutes Ambulation 320 feet Bed mobility Sit to stand practice Special Tests: Mobility Limitations Standardized Measure [facility] AM-PAC 6 clicks Basic Mobility Inpatient Short Form: Raw Score: 21 CMS Score: 29% Informed Consent/Education: Patient instructed in purpose of PT consult and plan of care. Assessment: Patient presents at baseline of her mobility, but does have impairments in balance, right shoulder ROM and strength, as well as complaints of hip pain. Was able to walk 320 feet without complaints of hip pain and not obvious impairments secondary to a hip problem. She reports increased pain in hip getting back to bed. Patient is not in need of acute care PT services, but would benefit from home health PT for HEP and independence in home. Patient is assessed as a Low complexity based on the following: History: 72 year old female with impairment level findings, functional limitations, and past medical history as indicated above Examination: Demonstrable impairment in strength, balance, and mobility level with underlying impairments and functional limitations as documented above Presentation: Stable Decision Making: Low complexity Plan of Care/Treatment Plan: Evaluation only, patient to be discharged. Discharge Plan DISCHARGE RECOMMENDATIONS: Home with Home Health PT services TREATMENT CODE/TIME: 14:05-14:30 (25 minutes), [id number], [id number] Thank you for the opportunity to participate in the care of this patient. Flaca Damico, PT, DPT, [facility] [place], [place]
[2022-08-21 14:32] VITALS: PULSE 90
--- NOTE | 2022-08-21 14:41 | W.PM.DS.N ---
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 She reported to the ED staff she was laying on the floor in her apartment because she was weak and unable to ambulate.? She stated she had not been able to eat or drink much.? She stated she had a couple of drinks of tequila 4 days ago although denies drinking regularly.? Patient denied any chest pain or shortness of breath.? She was hospitalized at [facility] in May and was discharged to assisted living in [facility].? She stated it is too expensive to live there so she returned here.? She is awake alert, knows where she is and oriented to person, place, time, and event.? She reported not being able to stay with her daughter as her daughter is and has two small children, as well as dealing with a lawsuit for wrongful of her brother, Ester's son, who was shot and killed by police following an altercation, 2 years ago.? She is alert, talkative and states it is warm here and she will have good food.? She had no other complaints.? She was found to have a UTI and treated with antibiotics.? She complained of ?months? of right hip pain.? We performed a plain film of her hip and it was negative.? She was able to ambulate independently, safely with PT around the unit. She would like a MRI, and states she is demanding a MRI and not leaving until she has one which she was told she can follow up with her PCP for recommendations, further testing or referrals as out patient. She has no fever, no nausea, no vomiting.? She had some loose stools, but was quite constipated on arrival.? They are not malodorous, we did send a sample for testing. She was offered SNF and has refused.? She does not want to go home alone. She is competent to make decisions.?She is awake, alert, oriented x4 and voices understanging of options presented to her. She refused to leave and she stated she is ?calling 911 so they can come make a report and her daughter can gemini the hospital, like she is suing the police regarding her brother?. ?She was provided options and declined having her daughter pick her up or going to SNF.? She is medically stable and requires no more medical intervention. She is in agreenment to having home health services. ?She will go back to her residence, stable with [facility].? Home health Nursing, PT/OT/PATIENT ASSESSMENT COORDINATOR ordered. She has meals on wheels, COA and [facility] independently [facility]. She is followed by Palliative Care. Discussed with Dr Vieyra. Home Meds and New Rx's Prescriptions: New folic acid 1 mg Tablet 1 mg PO QAM Qty: 30 0RF thiamine mononitrate (vit B1) [Vitamin B-1 (mononitrate)] 100 mg Tablet 100 mg PO QAM Qty: 30 0RF multivitamin [Multiple Vitamins] Tablet 1 tab PO QAM Qty: 0 0RF magnesium oxide 400 mg (241.3 mg magnesium) Tablet 400 mg PO DAILY Qty: 0 0RF potassium chloride [K-Tab] 20 mEq tablet extended release 20 meq PO DAILY Qty: 30 0RF Discharge Instructions Instructions: Urinary Tract Infection in Women (DC), Abuse of Alcohol (DC), Tips for Healthy Sleep (GEN), Medication Safety for Older Adults (DC), Hypokalemia (DC) Additional Instructions: Stop drinking alcohol. Practice good personal hygiene. Home Health will call you to arrange a time to come to your home to admit you to their services. Start potassium 20 meq daily. Stand Alone Forms: Nursing Discharge Form Referrals: Trena Hudson [ NON-[facility] STAFF PHYSICIAN] - 08/27/22 10:15 am (Dr Marge Del Cid) Activity:: Activity as Tolerated Equipment/Supplies:: No Equipment Needed Diet:: As Tolerated Discharge Orders Discharge Orders: Discharge Order (Routine); Ordered 08/21/22 Ordered By: Mariaelena Alonzo Discharge Data Discharge Date/Time-TO BE ENTERED AT DEPARTURE: 08/21/22 15:10 DS: Summary Time Spent with Patient providing and/or coordinating discharge services: Greater than 30 minutes Status at Discharge Functional status at discharge: independent ambulation Overall status at discharge: patient is back to baseline Mental Status: mental status grossly normal Speech and Movement: speech and movement normal Mood: congruent mood Affect: normal affect Exam Narrative Exam Narrative: General: elderly female, laying in bed, engaging in visit, talkative, not interested in participating in discussions regarding plans of care. HEENT: normocephalic, atraumatic, EOMI, mmm. Neck: supple. Respiratory: respirations appear even and unlabored. Extremities: moves all extremities freely, ambulatory Psych Mental Status: mental status grossly normal Speech and Movement: speech and movement normal Mood: congruent mood Affect: normal affect DS: Data Vitals/I&O Vitals and I&O: Vital Signs Temperature 36.9 C 08/21/22 11:33 Temperature Source Tympanic 08/21/22 11:33 Pulse 81 08/21/22 11:33 Pulse Rhythm Regular 08/21/22 09:00 Pulse 103 H 08/19/22 17:15 Respiratory Rate 15 08/21/22 11:33 Respiratory Effort Normal 08/21/22 09:00 Respiratory Depth Normal 08/21/22 09:00 Respiratory Pattern Normal 08/21/22 09:00 Blood Pressure 115/69 08/21/22 11:33 Blood Pressure Mean 64 08/19/22 17:01 Pulse Oximetry 96 08/21/22 11:33 Oxygen Delivery Method Room Air 08/21/22 11:33 Oxygen Flow Rate 0 08/21/22 11:33 Pain Level 0 08/21/22 02:57 Comment unresponsive episode while headed to tx room - provider aware 08/19/22 13:26 Intake & Output 08/20/22 08/21/22 08/21/22 23:59 11:59 23:59 Intake Total 315 / 420 360 / 360 Output Total 400 / 400 300 / 300 Balance -85 / 20 60 / 60 Intake: IV 315 / 420 Oral 360 / 360 Output: Urine 400 / 400 300 / 300 Other: Urine Color Yellow Yellow Urine Appearance Clear Clear Urine Odor Normal Normal Comment incontinent could not measure void Stool Size Small Large Stool Characteristics Soft Liquid Voiding Methods Diaper Bedside Commode Data Completed and Pending Labs on day of discharge: Labs from last 24 hours 08/21/22 08/21/22 08/20/22 06:50 06:50 16:50 WBC 7.86 RBC 4.21 Hgb 12.3 Hct 37.0 MCV 88 MCH 29.2 MCHC 33.2 RDW 13.3 Plt Count 204 MPV 9.9 Immature Gran % 0.5 Neutrophils % 57.2 Lymphocytes % 29.9 Monocytes % 9.9 Eosinophils % 2.0 Basophils % 0.5 Nucleated RBC % 0.0 Absolute Neutrophils 4.49 Absolute Lymphocytes 2.35 Absolute Monocytes 0.78 Absolute Eosinophils 0.16 Absolute Basophils 0.04 Sodium 136 Potassium 3.6 Chloride 103 Carbon Dioxide 26.0 Anion Gap 7.0 BUN 10 Creatinine 0.6 Est GFR (CKD-EPI 2020) 94.72 Glucose 115 H Calcium 9.0 Magnesium 1.9 Urine Opiates Screen Negative Urine Methadone Screen Negative Ur Barbiturates Screen Negative Ur Tricyclics Screen Negative Ur Amphetamines Screen Negative U Benzodiazepines Scrn Negative Urine Cocaine Screen Negative Ur THC Screen Negative Preliminary micro results at discharge 08/19/22 15:55 Blood Culture - Preliminary Blood NO GROWTH 24 HOURS 08/19/22 15:55 Blood Culture - Preliminary Blood NO GROWTH 24 HOURS PFSH All Active Problems DVT prophylaxis (Acute) Discharge planning issues (Acute) Incontinence (Acute) Advanced directives, counseling/discussion (Acute) Incontinence associated dermatitis (Acute) HCAP (healthcare-associated pneumonia) (Acute) Noncompliance by refusing intervention or support (Acute) Hypovolemia (Acute) Frequent falls (Acute) Hypophosphatemia (Acute) Hypomagnesemia (Acute) Esophagitis (Acute) E. coli UTI (Acute) Non-insulin dependent type 2 diabetes mellitus (Chronic) Hypokalemia (Acute) Ambulatory dysfunction (Acute) Tremor (Acute) Laceration of elbow with foreign body (Acute) Urinary tract infection (Acute) Fall (Acute) Alcohol intoxication (Acute) Medical History Acute CVA (cerebrovascular accident) Alcohol abuse Aortic stenosis Carotid stenosis Diabetes Diabetes mellitus type 2 in nonobese Palliative care encounter TIA (transient ischemic attack) Surgical History Surgical history unknown Social History Smoking/Tobacco Use Status: Former Tobacco Use Smoking risk assessment performed?: Yes Alcohol Intake: current Alcohol Intake frequency: 0-2 drinks per day Alcohol type: wine Drug use: Never Substance use type: does not use Do you feel safe at home: Yes Do you feel safe in your relationship?: Yes Time Spent with Patient Time Spent with Patient: 45-69 minutes Time was spent: preparing to see the patient(eg.review tests), obtaining and/or reviewing separately otained hiistory, ordering medications,tests, procedures, referring, communicating with other health rn urgent care, indepentently interpreting results, counseling the patient and care coordination
--- NOTE | 2022-08-21 14:48 | CMDISCH_ITS ---
- If Service Date Differs Date of service: 08/21/22 Time of Service: 14:48 LACE Index Scoring Tool - Questions: Length of Stay (in days): 2 Acuity (Admit via E.D.?): Yes Comorbidities: Cerebrovascular Disease (HX CVA), Diabetes w/o Complication E.D. Visits: 7 - Answers: Total Score: 11 Risk of Readmission: High Risk Care Management Discharge Reason for Hospitalization: UTI Discharge Plan: Ester is discharged home with [facility] services with a plan to resume community support through [facility] and [facility]. Ester is encouraged to follow up with her PCP and discharge plan of care as prescribed. Pts community CM from [facility] is notified of discharge and recommendation for outpatient follow up. Ester is transported via [facility]. Patient/Family Education Needs: Review discharge instructions, limitations and plan to follow up with PCP and community supports. Discuss ask me three and goals of self care. Services Needed at Discharge: Home Health Care Services ([facility] RN/PT/OT/EMPLOYEE REPRESENTATIVEJese at [facility] is notified and anticipates services can start tomorrow. ), Transportation ([facility] private vehicle, coordinated by CM)
--- NOTE | 2022-08-21 15:15 | PDOC.HHF2F_ITS ---
Home Health Referral Home Health Orders Clinical synopsis of why skilled professionals are needed: This 72-year-old female patient presented to the [facility] ED with complaint of 4 days of vomiting and diarrhea.? She reported to the ED staff she was laying on the floor in her apartment because she was weak and unable to ambulate.? She stated she had not been able to eat or drink much.? She stated she had a couple of drinks of tequila 4 days ago although denies drinking regularly.? Patient denied any chest pain or shortness of breath.? She was hospitalized at [facility] in May and was discharged to assisted living in [facility].? She stated it is too expensive to live there so she returned here.? She is awake alert, knows where she is and oriented to person, place, time, and event.? She reported not being able to stay with her daughter as her daughter is and has two small children, as well as dealing with a lawsuit for wrongful of her brother, Ester's son, who was shot and killed by police following an altercation, 2 years ago.? She is alert, talkative and states it is warm here and she will have good food.? She had no other complaints.? She was found to have a UTI and treated with antibiotics.? She complained of ?months? of right hip pain.? We performed a plain film of her hip and it was negative.? She was able to ambulate independently, safely with PT around the unit. She would like a MRI, and states she is demanding a MRI and not leaving until she has one which she was told she can follow up with her PCP for recommendations, further testing or referrals as out patient. She has no fever, no nausea, no vomiting.? She had some loose stools, but was quite constipated on arrival.? They are not malodorous, we did send a sample for testing. She was offered SNF and has refused.? She does not want to go home alone. She is competent to make decisions.?She is awake, alert, oriented x4 and voices understanging of options presented to her. She refused to leave and she stated she is ?calling 911 so they can come make a report and her daughter can gemini the hospital, like she is suing the police regarding her brother?. ?She was provided options and declined having her daughter pick her up or going to SNF.? She is medically stable and requires no more medical intervention. She is in agreenment to having home health services. ?She will go back to her residence, stable with [facility].? Home health Nursing, PT/OT/BUGGY RUNNER ordered. She has meals on wheels, COA and lives independently at the [facility] in [facility]. She is followed by Palliative Care. Medical diagnosis necessitation home health referral: Diabetes, alcohol abuse, hypokalemia Registered Nurse: Check all that apply Instruct on new or changed medication(s)/assess compliance: Ordered (Start po tassium) Assess for exacerbation of medical condition, instruct patient/caregivers on signs and symptoms to report for early detection: Ordered (Alcohol abuse; poor oral intake) Physical Therapist: Check all that apply Increase strength & endurance for safe mobility at home: Ordered To design/establish home maintenance program: Ordered Fall reduction therapy program for patient with history of frequent falls: Ordered Home safety evaluation and teaching/gait training including stair management (if applicable): Ordered Occupational Therapist: Evaluate and treat for patient unable to perform ADL/IADL/self-care: Ordered Upper extremity strengthening, range and motion: Ordered Stogie Packer: Assist with community resources: Ordered Assist with filter cleaner care planning: Ordered Home Bound Status Requires the aid of supportive device (check all that apply): Other Patient has a condition such that leaving home is medically contraindicated (Describe): alcohol abuse Describe why leaving home would require a considerable and taxing effort: Confusion and Safety Concerns: describe Encounter Date and Reason: I certify that a FTF encounter for this patient was performed on August 21, 2022 and that such encounter was related to the primary reason the patient requires home health services. The encounter was conducted in the following manner: * By me as the certifying physician, MODEL [employer] SALES GREETER, PA or * By an inpatient physician, MODEL HOME SALES GREETER or PA during an inpatient stay who communicated findings to me, Certification And Authentication I certify that I composed the above information based on my clinical judgment relating to this patient's medical condition and, if applicable, clinical findings communicated to me by the NPP or inpatient physician who performed the FTF encounter. Name of Provider that will be monitoring home health services: Trena Hudson
== END 2022-08-21 15:10 | disposition home health service (06) | DRG 690 ==
LOC: ER 16:17 → MS 17:42
PROVIDERS: Nurse Practitioner Family; Admitting Provider Family Medicine; Emergency Provider Physician Assistant; PCP Family Medicine; Visit Provider Family Medicine
DX: N39.0 Urinary tract infection, site not specified (principal); F10.27 Alcohol dependence with alcohol-induced persisting dementia; E11.9 Type 2 diabetes mellitus without complications; R19.7 Diarrhea, unspecified; R11.10 Vomiting, unspecified; R32 Unspecified urinary incontinence; Z91.199 Patient's noncompliance with other medical treatment and regimen due to unspecified reason; R29.6 Repeated falls; Z91.81 History of falling; E86.1 Hypovolemia; E83.39 Other disorders of phosphorus metabolism; E83.42 Hypomagnesemia; E87.6 Hypokalemia; Z86.73 Personal history of transient ischemic attack (TIA), and cerebral infarction without residual deficits; I35.0 Nonrheumatic aortic (valve) stenosis; I65.29 Occlusion and stenosis of unspecified carotid artery; M25.551 Pain in right hip
CPT/HCPCS: 36415; 36416; 80048; 80053; 80076; 80307; 82550; 82805; 82962; 87040; 87077; 87637; 93005; 96361; 96365; 96366; 96367; 96375; 97161; 97530; 99285; J1650; 70450; 71046; 72125; 73502; 80320; 81003; 81015; 82140; 83605; 83735; 84100; 84484; 85025; 85610; 87086; 87186; 93010; 99223; 99239; J2765; J3480; J3490

== ENCOUNTER 2022-12-09 10:22 | Outpatient (CLI) | payer OTHER, SELFPAY ==
--- NOTE | 2022-12-09 10:15 | DI.RAD_ITS ---
Exam(s) XR SHOULDER RT COMPLETE 2+V EXAM: XR SHOULDER RT COMPLETE 2+V CLINICAL HISTORY: RIGHT SHOULDER PAIN. TECHNIQUE: 2D digital imaging was performed. COMPARISON: CR,XR XR SHOULDER RT COMPLETE 2+V from 05/29/2022 FINDINGS: Two views Again noted is fracture deformity of the humeral head-neck. The fracture line which extended into th e proximal 3rd of the diaphysis exhibit significant healing. There is comminuted fracture of the hum eral head-neck again noted both appearance of this level exhibiting minimal if any significant change from 05/29/2022. There does not appear to be dislocation of the remaining glenohumeral joint. Ipsilateral clavicle unremarkable. IMPRESSION: Humeral head-neck level unchanged from 05/29/2022. There has been some healing of the fracture lines in the proximal diaphysis of the humerus. DATA REPOSITORY: RADIATION DOSE DELIVERED:
--- NOTE | 2022-12-09 10:15 | DI.RAD_ITS ---
Exam(s) XR HUMERUS RT EXAM: XR HUMERUS RT CLINICAL HISTORY: RIGHT SHOULDER PAIN. TECHNIQUE: 2D digital imaging was performed. COMPARISON: CR,XR XR HUMERUS RT from 05/29/2022 FINDINGS: Two views The previously described spiral fracture in the proximal humerus exhibits some healing. The chronic humeral head-neck fracture with incomplete osseous union is again noted and appears uncha nged. There are no additional fractures lower down in the humerus and elbow region. IMPRESSION: Healing proximal humeral diaphysis fracture. 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 DATA REPOSITORY: RADIATION DOSE DELIVERED:
== END 2022-12-09 10:23 | disposition home or self-care (01) ==
LOC: DIORS 10:23
PROVIDERS: PCP Nurse Practitioner Family; Referring Provider Nurse Practitioner Family; Visit Provider Student in an Organized Health Care Education/Training Program
DX: S42.201D Unspecified fracture of upper end of right humerus, subsequent encounter for fracture with routine healing; X58.XXXD Exposure to other specified factors, subsequent encounter
CPT/HCPCS: 99214; 73030; 73060